=== PATIENT | male | born 1945 | race Caucasian/White ===

== ENCOUNTER → 2018-09-04 | Outpatient (CLI) | payer MEDICARE ==
--- NOTE | 2018-09-04 12:55 | CT ---
EXAMINATION TYPE: CT sinus wo con DATE OF EXAM: 09/04/2018 COMPARISON: 09/28/2010 HISTORY: Chronic sinusitis CT DLP: 608 mGycm CONTRAST: 0 mL of Isovue 300 The paranasal sinuses are examined in the axial plane at 2 mm thick sections. Reconstructed images i n the coronal plane were obtained. Mild mucosal thickening is within the right maxillary sinus. There is been prior ethmoidectomies. So me mild mucosal thickening is within the anterior right ethmoid region. The sphenoid sinuses are trina ar. The frontal sinuses are clear. The septum is evaluated. No significant septal deviation is noted. There've been prior uncinectomies. Mucosal thickening within the maxillary sinus has improved over the interval. Remaining changes appea r stable. IMPRESSIONS: 1. Postsurgical changes of uncinectomies and ethmoidectomies
== END | disposition home or self-care (01) ==
LOC: RADCTMAIN 12:24
PROVIDERS: ATTEND Otolaryngology
DX: J32.9 Chronic sinusitis, unspecified (principal); Z98.890 Other specified postprocedural states
CPT/HCPCS: 70486

== ENCOUNTER → 2019-04-23 | Outpatient (CLI) | payer MEDICARE | END | disposition home or self-care (01) | LOC: PEDOP 13:24 | PROVIDERS: ATTEND Internal Medicine | DX: R05 Cough (principal); M79.10 Myalgia, unspecified site; R09.81 Nasal congestion | CPT/HCPCS: 87502 ==

== ENCOUNTER 2019-08-25 13:21 | Inpatient (IN) | payer MEDICARE ==
[2019-08-25] MEDS ORDERED: IPRATROPIUM-ALBUTEROL 3 ML NEB INHALATION STA (13:43)
[2019-08-25] MEDS ORDERED: methylPREDNISolone SOD SUCCI 125 MG/2 ML VIAL IV STA (13:43)
--- NOTE | 2019-08-25 13:49 | ED ---
SOB HPI - General Chief Complaint: Shortness of Breath Stated Complaint: flu symptoms Time Seen by Provider: 08/25/19 13:33 Source: patient, RN notes reviewed Mode of arrival: ambulatory Limitations: no limitations - History of Present Illness Initial Comments: This is a 74-year-old male with a history of COPD who is on home oxygen when necessary but now for the last several days and been on at all time who states that he's been fighting pneumonia since [place] he's been on 2 different rounds of antibiotics and I gave much better. 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 No overt chills or sweats no fevers no chest pain. He states he is not getting much relief from his home nebulizer treatments either. No other modifying factors other than he does state he has some slight increased swelling to his lower extremities now. MD Complaint: shortness of breath, cough - Related Data Allergies Allergy/AdvReac Type Severity Reaction Status Date / Time No Known Allergies Allergy Verified 08/25/19 13:33 Review of Systems ROS Statement: Those systems with pertinent positive or pertinent negative responses have been documented in the HPI. ROS Other: All systems not noted in ROS Statement are negative. Past Medical History Past Medical History: COPD, Diabetes Mellitus, Hyperlipidemia, Hypertension History of Any Multi-Drug Resistant Organisms: None Reported Past Surgical History: Hernia Repair, Orthopedic Surgery Additional Past Surgical History / Comment(s): lt ankle, rt shoulder, rt hip Past Psychological History: No Psychological Hx Reported Smoking Status: Former smoker Past Alcohol Use History: None Reported Past Drug Use History: None Reported General Exam - General Exam Comments Initial Comments: This is a well-developed well-nourished awake alert oriented 3 male Limitations: no limitations General appearance: alert, anxious Head exam: Present: atraumatic, normocephalic, normal inspection Eye exam: Present: normal appearance, PERRL, EOMI. Absent: scleral icterus, conjunctival injection, periorbital swelling ENT exam: Present: mucous membranes dry Neck exam: Present: normal inspection. Absent: tenderness, meningismus, lymphadenopathy Respiratory exam: Present: wheezes, accessory muscle use, decreased breath sounds. Absent: respiratory distress, rales, rhonchi, stridor Cardiovascular Exam: Present: regular rate, normal rhythm, normal heart sounds. Absent: systolic murmur, diastolic murmur, rubs, gallop, clicks GI/Abdominal exam: Present: soft, normal bowel sounds. Absent: distended, tenderness, guarding, rebound, rigid Extremities exam: Present: full ROM, normal capillary refill, pedal edema (Trace edema bilaterally). Absent: tenderness, joint swelling, calf tenderness Back exam: Present: normal inspection Neurological exam: Present: alert, oriented X3, CN II-XII intact Psychiatric exam: Present: normal affect, normal mood Skin exam: Present: warm, dry, intact, normal color. Absent: rash Course Vital Signs 08/25/19 08/25/19 08/25/19 13:29 13:57 14:01 Temperature 97.8 F 98.8 F Pulse Rate 73 94 Respiratory 16 Rate Blood Pressure 123/55 O2 Sat by Pulse 98 Oximetry 08/25/19 08/25/19 14:21 14:53 Temperature 98.1 F Pulse Rate 89 101 H Respiratory 20 Rate Blood Pressure 120/63 O2 Sat by Pulse 94 L Oximetry - Reevaluation(s) Reevaluation #1: 08/25/19 15:38 Reevaluation if she does state he feels somewhat improved after the initial updraft treatment. He does demonstrate evidence of a right and left lower lobe infiltrate. He also has anemia he has not had any dark colored stools or red or burgundy colored stools does have a history of gastritis in the past history of ulcers. He was on iron until about a year ago. Medical Decision Making - Medical Decision Making Patient is feeling somewhat better after the initial updraft and treatment that was rendered. Discussed with him and his patient will be admitted he does have pneumonia does have elevated lactic acid likely secondary to dehydration. Also he has anemia he denies any GI bleeding at this time he does have a history of anemia apparently with iron treatments and passed she's not had any for quite some time. - Lab Data Result diagrams: 08/25/19 13:55 08/25/19 13:55 Lab Results 08/25/19 08/25/19 08/25/19 Range/Units 13:55 13:55 13:55 WBC 9.9 (3.8-10.6) k/uL RBC 3.54 L (4.30-5.90) m/uL Hgb 8.7 L (13.0-17.5) gm/dL Hct 29.6 L (39.0-53.0) % MCV 83.6 (80.0-100.0) fL MCH 24.6 L (25.0-35.0) pg MCHC 29.4 L (31.0-37.0) g/dL RDW 17.5 H (11.5-15.5) % Plt Count 648 H (150-450) k/uL Neutrophils % 82 % Lymphocytes % 9 % Monocytes % 6 % Eosinophils % 1 % Basophils % 2 % Neutrophils # 8.0 H (1.3-7.7) k/uL Lymphocytes # 0.9 L (1.0-4.8) k/uL Monocytes # 0.6 (0-1.0) k/uL Eosinophils # 0.1 (0-0.7) k/uL Basophils # 0.2 (0-0.2) k/uL Manual Slide Review Performed Hypochromasia Marked Poikilocytosis Slight Anisocytosis Slight PT (9.0-12.0) sec INR (<1.2) APTT (22.0-30.0) sec Sodium 141 (137-145) mmol/L Potassium 4.6 (3.5-5.1) mmol/L Chloride 102 (98-107) mmol/L Carbon Dioxide 26 (22-30) mmol/L Anion Gap 13 mmol/L BUN 16 (9-20) mg/dL Creatinine 1.05 (0.66-1.25) mg/dL Est GFR (CKD-EPI)AfAm 82 (>60 ml/min/1.73 sqM) Est GFR (CKD-EPI)NonAf 71 (>60 ml/min/1.73 sqM) Glucose 236 H (74-99) mg/dL Plasma Lactic Acid Po 4.9 H* (0.7-2.0) mmol/L Calcium 9.8 (8.4-10.2) mg/dL Magnesium 1.8 (1.6-2.3) mg/dL Total Bilirubin 0.3 (0.2-1.3) mg/dL AST 42 (17-59) U/L ALT 31 (4-49) U/L Alkaline Phosphatase 78 (38-126) U/L Creatine Kinase 34 L (55-170) U/L Troponin I (0.000-0.034) ng/mL NT-Pro-B Natriuret Pep pg/mL Total Protein 6.6 (6.3-8.2) g/dL Albumin 3.7 (3.5-5.0) g/dL Urine Color Urine Appearance (Clear) Urine pH (5.0-8.0) Ur Specific [place] (1.001-1.035) Urine Protein (Negative) Urine Glucose (UA) (Negative) Urine Ketones (Negative) Urine Blood (Negative) Urine Nitrite (Negative) Urine Bilirubin (Negative) Urine Urobilinogen (<2.0) mg/dL Ur Leukocyte Esterase (Negative) Urine RBC (0-5) /hpf Urine WBC (0-5) /hpf Ur Squamous Epith Cells (0-4) /hpf Hyaline Casts (0-2) /lpf Urine Mucus (None) /hpf Acetone, Qual (Negative) 08/25/19 08/25/19 08/25/19 Range/Units 13:55 13:55 13:55 WBC (3.8-10.6) k/uL RBC (4.30-5.90) m/uL Hgb (13.0-17.5) gm/dL Hct (39.0-53.0) % MCV (80.0-100.0) fL MCH (25.0-35.0) pg MCHC (31.0-37.0) g/dL RDW (11.5-15.5) % Plt Count (150-450) k/uL Neutrophils % % Lymphocytes % % Monocytes % % Eosinophils % % Basophils % % Neutrophils # (1.3-7.7) k/uL Lymphocytes # (1.0-4.8) k/uL Monocytes # (0-1.0) k/uL Eosinophils # (0-0.7) k/uL Basophils # (0-0.2) k/uL Manual Slide Review Hypochromasia Poikilocytosis Anisocytosis PT 9.4 (9.0-12.0) sec INR 0.9 (<1.2) APTT 22.2 (22.0-30.0) sec Sodium (137-145) mmol/L Potassium (3.5-5.1) mmol/L Chloride (98-107) mmol/L Carbon Dioxide (22-30) mmol/L Anion Gap mmol/L BUN (9-20) mg/dL Creatinine (0.66-1.25) mg/dL Est GFR (CKD-EPI)AfAm (>60 ml/min/1.73 sqM) Est GFR (CKD-EPI)NonAf (>60 ml/min/1.73 sqM) Glucose (74-99) mg/dL Plasma Lactic Acid Po (0.7-2.0) mmol/L Calcium (8.4-10.2) mg/dL Magnesium (1.6-2.3) mg/dL Total Bilirubin (0.2-1.3) mg/dL AST (17-59) U/L ALT (4-49) U/L Alkaline Phosphatase (38-126) U/L Creatine Kinase (55-170) U/L Troponin I <0.012 (0.000-0.034) ng/mL NT-Pro-B Natriuret Pep 528 pg/mL Total Protein (6.3-8.2) g/dL Albumin (3.5-5.0) g/dL Urine Color Urine Appearance (Clear) Urine pH (5.0-8.0) Ur Specific [place] (1.001-1.035) Urine Protein (Negative) Urine Glucose (UA) (Negative) Urine Ketones (Negative) Urine Blood (Negative) Urine Nitrite (Negative) Urine Bilirubin (Negative) Urine Urobilinogen (<2.0) mg/dL Ur Leukocyte Esterase (Negative) Urine RBC (0-5) /hpf Urine WBC (0-5) /hpf Ur Squamous Epith Cells (0-4) /hpf Hyaline Casts (0-2) /lpf Urine Mucus (None) /hpf Acetone, Qual (Negative) 08/25/19 08/25/19 Range/Units 13:55 14:50 WBC (3.8-10.6) k/uL RBC (4.30-5.90) m/uL Hgb (13.0-17.5) gm/dL Hct (39.0-53.0) % MCV (80.0-100.0) fL MCH (25.0-35.0) pg MCHC (31.0-37.0) g/dL RDW (11.5-15.5) % Plt Count (150-450) k/uL Neutrophils % % Lymphocytes % % Monocytes % % Eosinophils % % Basophils % % Neutrophils # (1.3-7.7) k/uL Lymphocytes # (1.0-4.8) k/uL Monocytes # (0-1.0) k/uL Eosinophils # (0-0.7) k/uL Basophils # (0-0.2) k/uL Manual Slide Review Hypochromasia Poikilocytosis Anisocytosis PT (9.0-12.0) sec INR (<1.2) APTT (22.0-30.0) sec Sodium (137-145) mmol/L Potassium (3.5-5.1) mmol/L Chloride (98-107) mmol/L Carbon Dioxide (22-30) mmol/L Anion Gap mmol/L BUN (9-20) mg/dL Creatinine (0.66-1.25) mg/dL Est GFR (CKD-EPI)AfAm (>60 ml/min/1.73 sqM) Est GFR (CKD-EPI)NonAf (>60 ml/min/1.73 sqM) Glucose (74-99) mg/dL Plasma Lactic Acid Po (0.7-2.0) mmol/L Calcium (8.4-10.2) mg/dL Magnesium (1.6-2.3) mg/dL Total Bilirubin (0.2-1.3) mg/dL AST (17-59) U/L ALT (4-49) U/L Alkaline Phosphatase (38-126) U/L Creatine Kinase (55-170) U/L Troponin I (0.000-0.034) ng/mL NT-Pro-B Natriuret Pep pg/mL Total Protein (6.3-8.2) g/dL Albumin (3.5-5.0) g/dL Urine Color Yellow Urine Appearance Clear (Clear) Urine pH 6.0 (5.0-8.0) Ur Specific [place] 1.015 (1.001-1.035) Urine Protein 1+ H (Negative) Urine Glucose (UA) Negative (Negative) Urine Ketones Negative (Negative) Urine Blood Negative (Negative) Urine Nitrite Negative (Negative) Urine Bilirubin Negative (Negative) Urine Urobilinogen <2.0 (<2.0) mg/dL Ur Leukocyte Esterase Small (Negative) Urine RBC <1 (0-5) /hpf Urine WBC 8 H (0-5) /hpf Ur Squamous Epith Cells <1 (0-4) /hpf Hyaline Casts 43 H (0-2) /lpf Urine Mucus Occasional H (None) /hpf Acetone, Qual Negative (Negative) - EKG Data -: EKG Interpreted by Me EKG shows normal: sinus rhythm (Sinus tachycardia rate 101. Interval 116 QRS duration 122 QT since QTC 360/466 evidence a right bundle-branch block occasional PVC no acute ST-T wave changes) - Radiology Data Radiology results: report reviewed, image reviewed (I did review the imaging and report or is evidence of a right greater than left lower lobe infiltrate.) Disposition Clinical Impression: Acute exacerbation of chronic obstructive pulmonary disease, Pneumonia, Anemia, Failure of outpatient treatment, Lactic acidosis, Dehydration Disposition: ADMITTED IP TO THIS HOSP Condition: Fair Referrals: Lonnie Lee MD [Primary Care Provider] - 1-2 days
--- NOTE | 2019-08-25 14:12 | XR ---
EXAMINATION TYPE: XR chest 2V DATE OF EXAM: 08/25/2019 COMPARISON: 11/07/2010 HISTORY: 74 year-old male shortness of breath, cough, difficulty breathing TECHNIQUE: PA and lateral views FINDINGS: Heart upper limits of normal in size. Patchy opacities peripheral right mid and lower lung, medial ri ght base, and more strandy opacities at the left base. Hyperinflation with increased retrosternal trina ar space. No sizable effusion. IMPRESSION: Mild patchy infiltrates right greater than left lower lungs. Correlate for pneumonia or interstitial pneumonitis.
[2019-08-25 14:24] LABS: INR 0.9 (<1.2); Partial Thromboplastin Time 22.2 sec (22.0-30.0); Prothrombin Time 9.4 sec (9.0-12.0)
[2019-08-25 14:26] LABS: Anisocytosis Slight; Basophils # (A) 0.2 k/uL (0-0.2); Basophils % (A) 2 %; Eosinophils # (A) 0.1 k/uL (0-0.7); Eosinophils % (A) 1 %; HCT 29.6 % (39.0-53.0); HGB 8.7 gm/dL (13.0-17.5); Hypochromasia Marked; Lymphocytes # (A) 0.9 k/uL (1.0-4.8); Lymphocytes % (A) 9 %; MCH 24.6 pg (25.0-35.0); MCHC 29.4 g/dL (31.0-37.0); MCV 83.6 fL (80.0-100.0); Mean Platelet Volume 7.8; Monocytes # (A) 0.6 k/uL (0-1.0); Monocytes % (A) 6 %; Neutrophils % (A) 82 %; Platelet Count 648 k/uL (150-450); Poikilocytosis Slight; RBC 3.54 m/uL (4.30-5.90); RDW 17.5 % (11.5-15.5); WBC 9.9 k/uL (3.8-10.6)
[2019-08-25 14:31] LABS: Albumin 3.7 g/dL (3.5-5.0); Calcium 9.8 mg/dL (8.4-10.2); Magnesium 1.8 mg/dL (1.6-2.3); Potassium 4.6 mmol/L (3.5-5.1); Total Bilirubin 0.3 mg/dL (0.2-1.3); Total Protein 6.6 g/dL (6.3-8.2)
[2019-08-25] MEDS ORDERED: cefTRIAXone IN SWFI 1,000 MG/10 ML SYRINGE IVP STA (14:35)
[2019-08-25] MEDS ORDERED: SODIUM CHLORIDE 0.9% 2,000 ML IV ONE (14:35)
[2019-08-25 15:37] LABS: Hyaline Casts,Urine 43 /lpf (0-2); Mucus,Urine Occasional /hpf; RBC,Urine <1 /hpf (0-5); Squamous Epithelial Cell,Urine <1 /hpf (0-4); WBC,Urine 8 /hpf (0-5)
[2019-08-25 15:39] LABS: Appearance,Urine Clear (Clear); Color,Urine Yellow; Glucose,Urine (UA) Negative (Negative); Protein,Urine 1+ (Negative); Specific Gravity,Urine 1.015 (1.001-1.035)
[2019-08-25 15:40] LABS: Bilirubin,Urine Negative (Negative); Blood,Urine Negative (Negative); Ketones,Urine Negative (Negative); Leukocyte Esterase,Urine Small (Negative); Nitrite,Urine Negative (Negative); Urobilinogen,Urine <2.0 mg/dL (<2.0)
[2019-08-25] MEDS ORDERED: PNEUMONIA PROTOCOL UTILIZED 1 EACH MISC PO PRN (15:47)
[2019-08-25] MEDS ORDERED: AZITHROMYCIN 500 MG in SODIUM CHLORIDE 0.9% 250 ML IVPB STA (15:47)
[2019-08-25] MEDS: SODIUM CHLORIDE 0.9% 1,000 ML IV SCH (18:00)
[2019-08-25] MEDS: metFORMIN 500 MG TAB PO SCH (18:03)
[2019-08-25] MEDS: IPRATROPIUM-ALBUTEROL 3 ML NEB INHALATION SCH ×2 (19:07→20:36)
--- NOTE | 2019-08-25 19:53 | P.HPIM ---
History of Present Illness This is a pleasant 74 years old male with past medical history of diabetes mellitus, hyperlipidemia, hypertension, He has history of chronic obstructvie pulmonary disease and he follow up with dr. menchaca as outpt setting. he presents with dyspnea for 3-4 days duration associated with coughing and phlegm , no chest pain , no vomiting no abd pain , no fever , he can not remember sick contact. no chills Vitals looks stable, the WBC within normal limits at 9.9K, hemoglobin 8.7, unknown baseline. BMP is unremarkable, glucose is elevated at 236, lactic acid is elevated at 4.9, liver enzymes were unremarkable. Mild patchy infiltrate right more than left. EKG showing sinus tachycardia at [address]-T changes, right bundle branch block and QTC at 466 In the emergency room patient got steroids, Zithromax and Rocephin and 2 L of normal saline. Review of Systems CONSTITUTIONAL: No fever, no malaise, no fatigue. HEENT: No recent visual problems or hearing problems. Denied any sore throat. CARDIOVASCULAR: No orthopnea, PND, no palpitations, no syncope. PULMONARY: No shortness of breath, no cough, no hemoptysis. GASTROINTESTINAL: No diarrhea, no nausea, no vomiting, no abdominal pain. Normoactive bowel sounds. NEUROLOGICAL: No headaches, no weakness, no numbness. HEMATOLOGICAL: Denies any bleeding or petechiae. GENITOURINARY: Denies any burning micturition, frequency, or urgency. MUSCULOSKELETAL/RHEUMATOLOGICAL: Denies any joint pain, swelling, or any muscle pain. ENDOCRINE: Denies any polyuria or polydipsia. Past Medical History Past Medical History: COPD, Diabetes Mellitus, Hyperlipidemia, Hypertension History of Any Multi-Drug Resistant Organisms: None Reported Past Surgical History: Hernia Repair, Orthopedic Surgery Additional Past Surgical History / Comment(s): lt ankle, rt shoulder, rt hip Past Psychological History: No Psychological Hx Reported Smoking Status: Former smoker Past Alcohol Use History: None Reported Past Drug Use History: None Reported Medications and Allergies Home Medications Medication Instructions Recorded Confirmed Type Budesonide [Pulmicort] 0.5 mg INHALATION RT-BID 08/25/19 08/25/19 History Doxylamine Succinate [Unisom] 25 mg PO HS 08/25/19 08/25/19 History Formoterol Fumarate [Perforomist] 20 mcg INHALATION RT-BID 08/25/19 08/25/19 History Gabapentin [Neurontin] 200 mg PO BID@1600,2100 08/25/19 08/25/19 History HYDROcodone/APAP 7.5-325MG [[place] 1 tab PO BID 08/25/19 08/25/19 History 7.5-325] Ipratropium-Albuterol Nebulize 3 ml INHALATION RT-QID 08/25/19 08/25/19 History [Duoneb 0.5 mg-3 mg/3 ml Soln] Multivit-Min/FA/Lycopen/Lutein 1 tab PO DAILY 08/25/19 08/25/19 History [Centrum Silver Tablet] Pantoprazole [Protonix] 40 mg PO DAILY 08/25/19 08/25/19 History Sucralfate [Carafate] 1 gm PO AC-TID 08/25/19 08/25/19 History Tamsulosin [Flomax] 0.4 mg PO BID 08/25/19 08/25/19 History amLODIPine [Norvasc] 10 mg PO DAILY 08/25/19 08/25/19 History diphenhydrAMINE HCL [Benadryl] 25 mg PO HS 08/25/19 08/25/19 History metFORMIN HCL ER [Glucophage Xr] 500 mg PO PC-SUPPER 08/25/19 08/25/19 History Allergies Allergy/AdvReac Type Severity Reaction Status Date / Time No Known Allergies Allergy Verified 08/25/19 13:33 Physical Exam Vitals: Vital Signs Temp Pulse Resp BP Pulse Ox 08/25/19 16:49 82 22 156/73 95 08/25/19 14:53 98.1 F 101 H 20 120/63 94 L 08/25/19 14:21 89 08/25/19 14:01 94 08/25/19 13:57 98.8 F 08/25/19 13:29 97.8 F 73 16 123/55 98 Intake and Output 08/25/19 08/25/19 08/25/19 06:59 14:59 22:59 Other: Weight 89.358 kg GENERAL: The patient is alert and oriented x3, not in any acute distress. Well developed, well nourished. HEENT: Pupils are round and equally reacting to light. EOMI. No scleral icterus. No conjunctival pallor. Normocephalic, atraumatic. No pharyngeal erythema. No thyromegaly. CARDIOVASCULAR: S1 and S2 present. No murmurs, rubs, or gallops. PULMONARY: Chest is clear to auscultation, no wheezing or crackles. ABDOMEN: Soft, nontender, nondistended, normoactive bowel sounds. No palpable organomegaly. MUSCULOSKELETAL: No joint swelling or deformity. EXTREMITIES: No cyanosis, clubbing, or pedal edema. NEUROLOGICAL: Gross neurological examination did not reveal any focal deficits. SKIN: No rashes. No petechiae Results CBC & Chem 7: 08/25/19 13:55 08/25/19 13:55 Labs: Abnormal Lab Results - Last 24 Hours (Table) 08/25/19 08/25/19 08/25/19 Range/Units 13:55 13:55 13:55 RBC 3.54 L (4.30-5.90) m/uL Hgb 8.7 L (13.0-17.5) gm/dL Hct 29.6 L (39.0-53.0) % MCH 24.6 L (25.0-35.0) pg MCHC 29.4 L (31.0-37.0) g/dL RDW 17.5 H (11.5-15.5) % Plt Count 648 H (150-450) k/uL Neutrophils # 8.0 H (1.3-7.7) k/uL Lymphocytes # 0.9 L (1.0-4.8) k/uL Glucose 236 H (74-99) mg/dL Plasma Lactic Acid Po 4.9 H* (0.7-2.0) mmol/L Creatine Kinase 34 L (55-170) U/L Urine Protein (Negative) Urine WBC (0-5) /hpf Hyaline Casts (0-2) /lpf Urine Mucus (None) /hpf 08/25/19 Range/Units 14:50 RBC (4.30-5.90) m/uL Hgb (13.0-17.5) gm/dL Hct (39.0-53.0) % MCH (25.0-35.0) pg MCHC (31.0-37.0) g/dL RDW (11.5-15.5) % Plt Count (150-450) k/uL Neutrophils # (1.3-7.7) k/uL Lymphocytes # (1.0-4.8) k/uL Glucose (74-99) mg/dL Plasma Lactic Acid Po (0.7-2.0) mmol/L Creatine Kinase (55-170) U/L Urine Protein 1+ H (Negative) Urine WBC 8 H (0-5) /hpf Hyaline Casts 43 H (0-2) /lpf Urine Mucus Occasional H (None) /hpf Assessment and Plan Assessment: Bilateral pneumonia more the right side Possible Acute COPD exacerbation Elevated lactic acid Hyperglycemia Diabetes mellitus Hypertension Hyperlipidemia BPH Plan: This is a pleasant 74 years old male who presents with pneumonia and dehydration. Continue with IV fluids. Continue with ceftriaxone and Zithromax. Pulmonary consult Labs and medication were reviewed.. Continue same treatment. Continue with symptomatic treatment. Resume home medication. Monitor lytes and vitals. DVT and GI prophylaxis. Further recommendations of the clinical course of the patient DVT prophylaxis: Subcutaneous heparin GI Prophylaxis: Protonix PT/OT: Pending Prognosis is guarded
[2019-08-25 20:15] LABS: Glucose,Whole Blood 242 mg/dL (75-99)
[2019-08-25] MEDS: BUDESONIDE 0.5 MG/2 ML NEBU INHALATION SCH (20:35)
[2019-08-25] MEDS ORDERED: HYDROcodone/APAP 7.5-325MG 1 EACH TAB PO PRN (21:00)
[2019-08-25] MEDS ORDERED: GABAPENTIN 100 MG CAP PO SCH (21:00)
[2019-08-25] MEDS: HYDROcodone/APAP 7.5-325MG 1 EACH TAB PO SCH (21:04)
[2019-08-25] MEDS: TAMSULOSIN 0.4 MG CAP.ER.24H PO SCH (21:05)
[2019-08-26] MEDS: IPRATROPIUM-ALBUTEROL 3 ML NEB INHALATION SCH ×7 (00:18→23:19)
[2019-08-26] MEDS: methylPREDNISolone SOD SUCCI 40 MG/ML 1 ML VIAL IV SCH ×4 (00:57→22:59)
[2019-08-26] MEDS: SODIUM CHLORIDE 0.9% 1,000 ML IV SCH ×4 (03:52→20:13)
[2019-08-26] MEDS: GABAPENTIN 100 MG CAP PO SCH (03:53)
[2019-08-26] MEDS: SUCRALFATE 1 GM TAB PO SCH ×3 (06:37→17:20)
[2019-08-26] MEDS: INSULIN ASPART (NovoLOG) 100 UNIT/ML VIAL SQ SCH ×4 (06:42→20:08)
[2019-08-26] MEDS: metFORMIN 500 MG TAB PO SCH (06:42)
[2019-08-26 06:43] LABS: Glucose,Whole Blood 240 mg/dL (75-99)
[2019-08-26 07:04] LABS: Anisocytosis Slight; Basophils % (A) 0 %; Eosinophils % (A) 0 %; HGB 7.9 gm/dL (13.0-17.5); Hypochromasia Marked; Lymphocytes # (A) 0.7 k/uL (1.0-4.8); Lymphocytes % (A) 8 %; MCH 24.4 pg (25.0-35.0); MCHC 29.1 g/dL (31.0-37.0); MCV 83.9 fL (80.0-100.0); Mean Platelet Volume 7.6; Monocytes # (A) 0.3 k/uL (0-1.0); Monocytes % (A) 4 %; Neutrophils # (A) 7.6 k/uL (1.3-7.7); Neutrophils % (A) 87 %; Platelet Count 553 k/uL (150-450); Poikilocytosis Slight; RBC 3.22 m/uL (4.30-5.90); RDW 17.6 % (11.5-15.5); WBC 8.7 k/uL (3.8-10.6)
[2019-08-26] MEDS: BUDESONIDE 0.5 MG/2 ML NEBU INHALATION SCH ×2 (07:20→19:39)
[2019-08-26 07:27] LABS: African American GFR (CKD) >90 (>60 ml/min/1.73 sqM); Anion Gap 6 mmol/L; Blood Urea Nitrogen 15 mg/dL (9-20); Calcium 8.9 mg/dL (8.4-10.2); Carbon Dioxide 27 mmol/L (22-30); Chloride 107 mmol/L (98-107); Glucose 228 mg/dL (74-99); Non-African American GFR(CKD) 82 (>60 ml/min/1.73 sqM); Potassium 4.6 mmol/L (3.5-5.1); Sodium 140 mmol/L (137-145)
--- NOTE | 2019-08-26 07:54 | XR ---
EXAMINATION TYPE: XR chest 2V DATE OF EXAM: 08/26/2019 COMPARISON: 08/25/2019 HISTORY: 74-year-old male follow-up pneumonia TECHNIQUE: PA and lateral views FINDINGS: Heart remains upper limits of normal in size. Aorta and pulmonary vasculature within normal limits. R elatively similar patchy right mid and lower lung opacities and some strandy opacity left base, proba ble atelectasis/scarring. Hyperinflation with flattening of the hemidiaphragms. No sizable effusion. IMPRESSION: Stable patchy infiltrates right mid and lower lung. Opacities at the left base have a strandy appeara nce suggesting atelectasis/scarring. Background of COPD.
--- NOTE | 2019-08-26 09:16 | P.PN ---
Subjective This is a pleasant 74 years old male with past medical history of diabetes mellitus, hyperlipidemia, hypertension, He has history of chronic obstructvie pulmonary disease and he follow up with dr. menchaca as outpt setting. he presents with dyspnea for 3-4 days duration associated with coughing and phlegm , no chest pain , no vomiting no abd pain , no fever , he can not remember sick contact. no chills Vitals looks stable, the WBC within normal limits at 9.9K, hemoglobin 8.7, unknown baseline. BMP is unremarkable, glucose is elevated at 236, lactic acid is elevated at 4.9, liver enzymes were unremarkable. Mild patchy infiltrate right more than left. EKG showing sinus tachycardia at [address]-T changes, right bundle branch block and QTC at 466 In the emergency room patient got steroids, Zithromax and Rocephin and 2 L of normal saline. 08/26/2019 Patient states that his breathing is a little better and his breathing quietly, still having coughing and with some phlegm, he denies chest pain, he was asking something to help him sleep and he states he takes Flomax as 2 pills at night which was changed. Patient is slightly tachycardic 92-107 this morning, and febrile and he is saturating 94% at 3 L oxygen. WBC is a stable and normal. Lactic acid is still elevated at 2.9 he's on normal saline at 130 milliliters per hour. Patient is currently on Rocephin and ceftriaxone Review of systems CONSTITUTIONAL: No fever, no malaise, no fatigue. HEENT: No recent visual problems or hearing problems. Denied any sore throat. CARDIOVASCULAR: No orthopnea, PND, no palpitations, no syncope. PULMONARY: No shortness of breath, no cough, no hemoptysis. GASTROINTESTINAL: No diarrhea, no nausea, no vomiting, no abdominal pain. Normoactive bowel sounds. NEUROLOGICAL: No headaches, no weakness, no numbness. HEMATOLOGICAL: Denies any bleeding or petechiae. GENITOURINARY: Denies any burning micturition, frequency, or urgency. MUSCULOSKELETAL/RHEUMATOLOGICAL: Denies any joint pain, swelling, or any muscle pain. ENDOCRINE: Denies any polyuria or polydipsia. Active Medications Generic Name Dose Route Start Last Admin Trade Name Freq PRN Reason Stop Dose Admin Hydrocodone Bitart/Acetaminophen 1 each 08/25/19 21:00 08/25/19 21:04 [place] 7.5-325 PO 1 each BID DARION Administration Albuterol/Ipratropium 3 ml 08/25/19 16:00 08/26/19 07:20 Duoneb 0.5 Mg-3 Mg/3 Ml Soln INHALATION 3 ml RT-Q4H DARION Administration Amlodipine Besylate 10 mg 08/26/19 09:00 Norvasc PO DAILY DARION Azithromycin 500 mg 08/26/19 09:00 Zithromax PO DAILY DAROIN Budesonide 0.5 mg 08/25/19 20:00 08/26/19 07:20 Pulmicort INHALATION 0.5 mg RT-BID DARION Administration Gabapentin 200 mg 08/26/19 02:00 08/26/19 03:53 Neurontin PO Not Given DAILY@0200 [facility] Heparin Sodium (Porcine) 5,000 unit 08/26/19 09:00 Heparin SQ Q12HR [facility] Sodium Chloride 1,000 mls @ 130 mls/hr 08/25/19 16:00 08/26/19 05:35 Saline 0.9% IV Not Given .Q7H42M [facility] Ceftriaxone Sodium 1 gm/ 50 mls @ 100 mls/hr 08/26/19 15:00 Sodium Chloride IVPB Q24H [facility] Insulin Aspart 0 unit 08/26/19 07:30 08/26/19 06:42 Novolog SQ 8 unit ACHS DARION Administration Protocol Melatonin 3 mg 08/26/19 09:14 Melatonin PO HS PRN Insomnia Metformin HCl 250 mg 08/25/19 18:30 08/26/19 06:42 Glucophage PO 250 mg BID-W/MEALS DARION Administration Methylprednisolone Sodium Succinate 40 mg 08/26/19 00:00 08/26/19 00:57 Solu-Medrol IV 40 mg Q8HR DARION Administration Miscellaneous Information 1 each 08/25/19 15:47 Pneumonia Protocol Utilized PO ONCE PRN Per Protocol Pantoprazole Sodium 40 mg 08/26/19 09:00 Protonix PO DAILY [facility] Sucralfate 1 gm 08/26/19 07:30 08/26/19 06:37 Carafate PO 1 gm AC-TID [facility] Administration Tamsulosin HCl 0.8 mg 08/26/19 21:00 Flomax PO HS [facility] Objective - Vital Signs Vital signs: Vital Signs Temp 97.9 F 08/26/19 00:36 Pulse 92 08/26/19 07:35 Resp 20 08/26/19 00:36 BP 128/69 08/26/19 04:00 Pulse Ox 94 L 08/26/19 00:36 Intake & Output 08/25/19 08/26/19 08/26/19 18:59 06:59 18:59 Weight 89.358 kg 89.358 kg - Exam GENERAL: The patient is alert and oriented x3, not in any acute distress. Well developed, well nourished. HEENT: Pupils are round and equally reacting to light. EOMI. No scleral icterus. No conjunctival pallor. Normocephalic, atraumatic. No pharyngeal erythema. No thyromegaly. CARDIOVASCULAR: S1 and S2 present. No murmurs, rubs, or gallops. -PULMONARY: Chest is clear to auscultation, no wheezing or crackles. Decreased air entry on both sides ABDOMEN: Soft, nontender, nondistended, normoactive bowel sounds. No palpable organomegaly. MUSCULOSKELETAL: No joint swelling or deformity. EXTREMITIES: No cyanosis, clubbing, or pedal edema. NEUROLOGICAL: Gross neurological examination did not reveal any focal deficits. SKIN: No rashes. No petechiae - Labs CBC & Chem 7: 08/26/19 06:42 08/26/19 06:42 Labs: Abnormal Lab Results - Last 24 Hours (Table) 08/25/19 08/25/19 08/25/19 Range/Units 13:55 13:55 13:55 RBC 3.54 L (4.30-5.90) m/uL Hgb 8.7 L (13.0-17.5) gm/dL Hct 29.6 L (39.0-53.0) % MCH 24.6 L (25.0-35.0) pg MCHC 29.4 L (31.0-37.0) g/dL RDW 17.5 H (11.5-15.5) % Plt Count 648 H (150-450) k/uL Neutrophils # 8.0 H (1.3-7.7) k/uL Lymphocytes # 0.9 L (1.0-4.8) k/uL Glucose 236 H (74-99) mg/dL POC Glucose (mg/dL) (75-99) mg/dL Plasma Lactic Acid Po 4.9 H* (0.7-2.0) mmol/L Creatine Kinase 34 L (55-170) U/L Urine Protein (Negative) Urine WBC (0-5) /hpf Hyaline Casts (0-2) /lpf Urine Mucus (None) /hpf 08/25/19 08/25/19 08/25/19 Range/Units 14:50 17:46 20:10 RBC (4.30-5.90) m/uL Hgb (13.0-17.5) gm/dL Hct (39.0-53.0) % MCH (25.0-35.0) pg MCHC (31.0-37.0) g/dL RDW (11.5-15.5) % Plt Count (150-450) k/uL Neutrophils # (1.3-7.7) k/uL Lymphocytes # (1.0-4.8) k/uL Glucose (74-99) mg/dL POC Glucose (mg/dL) 242 H (75-99) mg/dL Plasma Lactic Acid Po 2.9 H* (0.7-2.0) mmol/L Creatine Kinase (55-170) U/L Urine Protein 1+ H (Negative) Urine WBC 8 H (0-5) /hpf Hyaline Casts 43 H (0-2) /lpf Urine Mucus Occasional H (None) /hpf 08/25/19 08/26/19 08/26/19 Range/Units 21:46 02:02 06:42 RBC 3.22 L (4.30-5.90) m/uL Hgb 7.9 L (13.0-17.5) gm/dL Hct 27.0 L (39.0-53.0) % MCH 24.4 L (25.0-35.0) pg MCHC 29.1 L (31.0-37.0) g/dL RDW 17.6 H (11.5-15.5) % Plt Count 553 H (150-450) k/uL Neutrophils # (1.3-7.7) k/uL Lymphocytes # 0.7 L (1.0-4.8) k/uL Glucose (74-99) mg/dL POC Glucose (mg/dL) (75-99) mg/dL Plasma Lactic Acid Po 2.9 H* 3.4 H* (0.7-2.0) mmol/L Creatine Kinase (55-170) U/L Urine Protein (Negative) Urine WBC (0-5) /hpf Hyaline Casts (0-2) /lpf Urine Mucus (None) /hpf 08/26/19 08/26/19 08/26/19 Range/Units 06:42 06:42 06:42 RBC (4.30-5.90) m/uL Hgb (13.0-17.5) gm/dL Hct (39.0-53.0) % MCH (25.0-35.0) pg MCHC (31.0-37.0) g/dL RDW (11.5-15.5) % Plt Count (150-450) k/uL Neutrophils # (1.3-7.7) k/uL Lymphocytes # (1.0-4.8) k/uL Glucose 228 H (74-99) mg/dL POC Glucose (mg/dL) 240 H (75-99) mg/dL Plasma Lactic Acid Po 2.9 H* (0.7-2.0) mmol/L Creatine Kinase (55-170) U/L Urine Protein (Negative) Urine WBC (0-5) /hpf Hyaline Casts (0-2) /lpf Urine Mucus (None) /hpf Assessment and Plan Assessment: Bilateral pneumonia more the right side Possible Acute COPD exacerbation Elevated lactic acid Hyperglycemia Diabetes mellitus Hypertension Hyperlipidemia BPH Plan: This is a pleasant 74 years old male who presents with pneumonia and dehydration. Continue with IV fluids. Continue with ceftriaxone and Zithromax. Pulmonary consult Labs and medication were reviewed.. Continue same treatment. Continue with symptomatic treatment. Resume home medication. Monitor lytes and vitals. DVT and GI prophylaxis. Further recommendations of the clinical course of the patient DVT prophylaxis: Subcutaneous heparin GI Prophylaxis: Protonix PT/OT: Pending Prognosis is guarded
[2019-08-26] MEDS: HEPARIN SODIUM,PORCINE 5,000 UNIT/ML 1 ML VIAL SQ SCH ×2 (09:19→20:07)
[2019-08-26] MEDS: amLODIPine 10 MG TAB PO SCH (09:19)
[2019-08-26] MEDS: AZITHROMYCIN 500 MG TAB PO SCH (09:19)
[2019-08-26] MEDS: PANTOPRAZOLE 40 MG TABLET PO SCH (09:19)
[2019-08-26] MEDS: HYDROcodone/APAP 7.5-325MG 1 EACH TAB PO SCH ×3 (09:20→20:07)
[2019-08-26] MEDS ORDERED: TAMSULOSIN 0.4 MG CAP.ER.24H PO STA (09:51)
[2019-08-26] MEDS: TAMSULOSIN 0.4 MG CAP.ER.24H PO SCH ×2 (10:01→20:08)
--- NOTE | 2019-08-26 11:41 | P.CNPUL ---
History of Present Illness Consult date: 08/26/19 Reason for consult: dyspnea History of present illness: A pleasant 74-year-old male patient with advanced COPD maintain oxygen at 2 L per minute nasal cannula along with a combination of Perforomist and Pulmicort updrafts twice a day. The patient is an ex-smoker. The patient is an ex- smoker. He has a FEV1 of 20% of predicted and diffusion capacity of 32% of predicted. The patient came into the hospital because of worsening shortness of breath. He was treated for an acute COPD exacerbation and outpatient basis for his primary care physician. Back in 07/11/2019, the patient was also given antibiotics and steroids by our office. He came in with similar symptoms. His white cell count was at 9.9. He had a chest x-ray that showed some patchy atelectatic change in the right lower lobe in addition to some infiltration. For that reason the patient was admitted to the hospital and he was started on a combination of Rocephin and Zithromax and IV Solu-Medrol. He is already feeling better. Unfortunately hasn't obtained a hospital bed. He is awaiting in the emergency department. LFTs unremarkable. He is afebrile. No altered m entation. No other significant events overnight for now. Patient has no chest pain. No swelling lower extremities. No other complaints otherwise. His main complaint is a study medications. He is diabetic. He has hypertension and hyperlipidemia as comorbid conditions. He also has osteoarthritis. He is obese. Review of Systems Constitutional: Denies chills, Denies fever Eyes: denies as per HPI, denies blurred vision, denies bulging eye, denies decreased vision, denies diplopia, denies discharge, denies dry eye, denies irri tation, denies itching, denies pain, denies photophobia, denies loss of peripheral vision, denies loss of vision, denies tunnel vision/blind spots Ears: deny: decreased hearing, ear discharge, earache, tinnitus Ears, nose, mouth and throat: Denies headache, Denies sore throat Cardiovascular: Reports decreased exercise tolerance, Reports dyspnea on exertion Respiratory: Reports cough with sputum, Reports dyspnea, Reports wheezing Genitourinary: Reports as per HPI Musculoskeletal: Reports as per HPI Musculoskeletal: absent: ankle pain, ankle stiffness, ankle swelling Integumentary: Reports as per HPI Neurological: Reports as per HPI Psychiatric: Reports as per HPI Endocrine: Reports as per HPI Hematologic/Lymphatic: Reports as per HPI Allergic/Immunologic: Reports as per HPI Past Medical History Past Medical History: COPD, Diabetes Mellitus, Hyperlipidemia, Hypertension History of Any Multi-Drug Resistant Organisms: None Reported Past Surgical History: Hernia Repair, Orthopedic Surgery Additional Past Surgical History / Comment(s): lt ankle, rt shoulder, rt hip Past Psychological History: No Psychological Hx Reported Smoking Status: Former smoker Past Alcohol Use History: None Reported Past Drug Use History: None Reported Medications and Allergies Home Medications Medication Instructions Recorded Confirmed Type Budesonide [Pulmicort] 0.5 mg INHALATION RT-BID 08/25/19 08/25/19 History Doxylamine Succinate [Unisom] 25 mg PO HS 08/25/19 08/25/19 History Formoterol Fumarate [Perforomist] 20 mcg INHALATION RT-BID 08/25/19 08/25/19 History Gabapentin [Neurontin] 200 mg PO BID@1600,2100 08/25/19 08/25/19 History HYDROcodone/APAP 7.5-325MG [[place] 1 tab PO BID 08/25/19 08/25/19 History 7.5-325] Ipratropium-Albuterol Nebulize 3 ml INHALATION RT-QID 08/25/19 08/25/19 History [Duoneb 0.5 mg-3 mg/3 ml Soln] Multivit-Min/FA/Lycopen/Lutein 1 tab PO DAILY 08/25/19 08/25/19 History [Centrum Silver Tablet] Pantoprazole [Protonix] 40 mg PO DAILY 08/25/19 08/25/19 History Sucralfate [Carafate] 1 gm PO AC-TID 08/25/19 08/25/19 History Tamsulosin [Flomax] 0.4 mg PO BID 08/25/19 08/25/19 History amLODIPine [Norvasc] 10 mg PO DAILY 08/25/19 08/25/19 History diphenhydrAMINE HCL [Benadryl] 25 mg PO HS 08/25/19 08/25/19 History metFORMIN HCL ER [Glucophage Xr] 500 mg PO PC-SUPPER 08/25/19 08/25/19 History Allergies Allergy/AdvReac Type Severity Reaction Status Date / Time No Known Allergies Allergy Verified 08/25/19 13:33 Physical Exam Vitals: Vital Signs Temp Pulse Pulse Resp BP BP Pulse Ox 08/26/19 07:40 97 F L 99 18 150/75 97 08/26/19 07:35 92 08/26/19 07:20 107 H 08/26/19 04:00 128/69 08/26/19 00:36 97.9 F 94 20 144/68 94 L 08/26/19 00:30 93 08/26/19 00:20 97 08/25/19 21:54 97.1 F L 87 20 116/81 95 08/25/19 20:54 92 08/25/19 20:36 97 08/25/19 20:05 96 18 159/77 96 08/25/19 19:06 97.5 F L 96 20 143/73 96 08/25/19 18:01 98.1 F 90 22 154/76 93 L 08/25/19 16:49 82 22 156/73 95 08/25/19 14:53 98.1 F 101 H 20 120/63 94 L 08/25/19 14:21 89 08/25/19 14:01 94 08/25/19 13:57 98.8 F 08/25/19 13:29 97.8 F 73 16 123/55 98 Intake and Output 08/25/19 08/26/19 08/26/19 22:59 06:59 14:59 Intake Total 210 Balance 210 Intake: Oral 210 Other: Weight 89.358 kg The patient appeared well nourished and normally developed. Vital signs as documented. Head exam is unremarkable. No scleral icterus or corneal arcus note d. Neck is without jugular venous distension, thyromegaly, or carotid bruits. Carotid upstrokes are brisk bilaterally. Lungs sounds are diminished bilaterally along with scattered expiratory wheezes and scattered rhonchi heard in the lung bases bilaterally. . Rhythm is regular. First and second heart sounds normal. No murmurs, rubs or gallops. Abdominal exam reveals normal bowel sounds, no masses, no organomegaly and no aortic enlargement. Extremities are nonedematous and both femoral and pedal pulses are normal.Examination of the skin revealed no evidence of significant rashes, suspicious appearing nevi or other concerning lesions. Neurologically the patient is awake and alert and is no focal neurological deficit. Results - Laboratory Findings CBC and BMP: 08/26/19 06:42 08/26/19 06:42 PT/INR, D-dimer PT 9.4 sec (9.0-12.0) 08/25/19 13:55 INR 0.9 (<1.2) 08/25/19 13:55 Abnormal lab findings: Abnormal Labs 08/25/19 08/25/19 08/25/19 13:55 13:55 13:55 RBC 3.54 L Hgb 8.7 L Hct 29.6 L MCH 24.6 L MCHC 29.4 L RDW 17.5 H Plt Count 648 H Neutrophils # 8.0 H Lymphocytes # 0.9 L Glucose 236 H POC Glucose (mg/dL) Plasma Lactic Acid Po 4.9 H* Creatine Kinase 34 L Urine Protein Urine WBC Hyaline Casts Urine Mucus 08/25/19 08/25/19 08/25/19 14:50 17:46 20:10 RBC Hgb Hct MCH MCHC RDW Plt Count Neutrophils # Lymphocytes # Glucose POC Glucose (mg/dL) 242 H Plasma Lactic Acid Po 2.9 H* Creatine Kinase Urine Protein 1+ H Urine WBC 8 H Hyaline Casts 43 H Urine Mucus Occasional H 08/25/19 08/26/19 08/26/19 21:46 02:02 06:42 RBC 3.22 L Hgb 7.9 L Hct 27.0 L MCH 24.4 L MCHC 29.1 L RDW 17.6 H Plt Count 553 H Neutrophils # Lymphocytes # 0.7 L Glucose POC Glucose (mg/dL) Plasma Lactic Acid Po 2.9 H* 3.4 H* Creatine Kinase Urine Protein Urine WBC Hyaline Casts Urine Mucus 08/26/19 08/26/19 08/26/19 06:42 06:42 06:42 RBC Hgb Hct MCH MCHC RDW Plt Count Neutrophils # Lymphocytes # Glucose 228 H POC Glucose (mg/dL) 240 H Plasma Lactic Acid Po 2.9 H* Creatine Kinase Urine Protein Urine WBC Hyaline Casts Urine Mucus - Diagnostic Findings Chest x-ray: image reviewed Assessment and Plan Plan: 1 acute COPD exacerbation with a limited atelectatic changes/infiltration of the right lung base, consider pneumonia 2 shortness of breath secondary to above 3 advanced COPD with an FEV1 of 28% of predicted 4 chronic hypoxic respiratory failure, on 2 L of oxygen by nasal cannula on outpatient basis her. Note that 5 obesity 6 hypertension 7 hyperlipidemia 8 diabetes mellitus Plan Agree on the current treatment. We'll monitor the right lower lobe finding of a chest x-ray and consider a CAT scan of the chest and the abnormalities remain unchanged. Continue breathing treatments. Continue antibiotics. We'll follow.
[2019-08-26 12:12] LABS: Glucose,Whole Blood 184 mg/dL (75-99)
--- NOTE | 2019-08-26 12:56 | CDI ---
Documentation Clarification Form Date: 08/26/2019 12:40:44 PM From: Funmilayo Johnson CCS, CCDS Admit Date: 08/25/2019 03:47:00 PM Patient Name: Bethel Carroll Visit Number: [id number] Discharge Date: ATTENTION: The Clinical Documentation Specialists (CDI) and [facility] Coding Staff appreciate your assistance in clarifying documentation. Please respond to the clarification below the line at the bottom and electronically sign. The CDI & [facility] Coding staff will review the response and follow-up if needed. Please note: Queries are made part of the Legal Health Record. If you have any questions, please contact the author of this message via ITS. Dr. Ish Andrews. Sheet: A diagnosis of anemia lacks specificity to accurately reflect your patients severity of condition and clarification is needed. Per the 08/25 ED note: The patient also has anemia nos, no dark colored stools, denies GI bleeding, has a history of gastritis in the past & ulcers. History/Risk Factors: Gastritis, ulcers nos, COPD on home O2, DM II, Hypertension, Hyperlipidemia & BPH Clinical indicators: Presented with URI symptoms: cough w/phlegm, SOB. Influenza negative. Admitted for acute exacerbation of advanced COPD & pneumonia, nos. GI/Abdominal Exam in ED: Soft, normal bowel sounds. Hemoglobin 08/25: 8.7*; 08/26: 7.9* Hematocrit 08/25: 29.6*; 08/26: 27.0* Treatment: Monitoring of H & H & electrolytes, INH Albuterol, IV Solumedrol, IV Rocephin, IV fluid bolus 2,000 mls @ 999 x1, IV Azithromycin, Heparin sq. In order to capture the severity of condition, please clarify the type of anemia and etiology if known: Acute blood loss anemia, please specify cause if known: Acute on chronic blood loss anemia, please specify cause if known: Chronic blood loss anemia, please specify cause if known: Hemolytic anemia Anemia of chronic disease, please specify if known: Unable to determine Other, please specify (Last Revision: April 2017) Unable to determine MTDD
[2019-08-26 17:09] LABS: Glucose,Whole Blood 192 mg/dL (75-99)
[2019-08-26 19:59] LABS: Glucose,Whole Blood 192 mg/dL (75-99)
[2019-08-26 23:35] LABS: Ferritin 25.2 ng/mL (22.0-322.0)
[2019-08-26 23:48] LABS: % Iron Saturation 3.86 (15.00-50.00)
[2019-08-27 00:06] LABS: Magnesium 1.9 mg/dL (1.6-2.3); Potassium 4.4 mmol/L (3.5-5.1)
[2019-08-27] MEDS: GABAPENTIN 100 MG CAP PO SCH (02:15)
[2019-08-27] MEDS: MELATONIN 3 MG TABLET PO PRN (02:15)
[2019-08-27] MEDS: IPRATROPIUM-ALBUTEROL 3 ML NEB INHALATION SCH ×5 (03:56→20:03)
[2019-08-27 05:11] LABS: Calcium 9.4 mg/dL (8.4-10.2); Potassium 4.2 mmol/L (3.5-5.1)
[2019-08-27] MEDS: SODIUM CHLORIDE 0.9% 1,000 ML IV SCH ×3 (05:26→23:11)
[2019-08-27 05:30] LABS: Anisocytosis Slight; Basophils % (A) 0 %; Eosinophils % (A) 0 %; HCT 28.3 % (39.0-53.0); HGB 8.2 gm/dL (13.0-17.5); Hypochromasia Marked; Lymphocytes # (A) 1.2 k/uL (1.0-4.8); Lymphocytes % (A) 11 %; MCH 24.4 pg (25.0-35.0); MCHC 29.1 g/dL (31.0-37.0); MCV 83.6 fL (80.0-100.0); Mean Platelet Volume 8.2; Monocytes # (A) 0.5 k/uL (0-1.0); Monocytes % (A) 4 %; Neutrophils # (A) 9.1 k/uL (1.3-7.7); Neutrophils % (A) 84 %; Platelet Count 590 k/uL (150-450); Poikilocytosis Slight; RBC 3.38 m/uL (4.30-5.90); RDW 17.3 % (11.5-15.5); WBC 10.8 k/uL (3.8-10.6)
[2019-08-27 06:01] LABS: Poikilocytosis (M) Present; Target Cells Present
[2019-08-27 06:06] LABS: Glucose,Whole Blood 233 mg/dL (75-99)
[2019-08-27] MEDS: SUCRALFATE 1 GM TAB PO SCH ×3 (06:16→10:34)
[2019-08-27] MEDS: INSULIN ASPART (NovoLOG) 100 UNIT/ML VIAL SQ SCH ×4 (06:16→21:33)
--- NOTE | 2019-08-27 09:04 | P.PN ---
Subjective This is a pleasant 74 years old male with past medical history of diabetes mellitus, hyperlipidemia, hypertension, He has history of chronic obstructvie pulmonary disease and he follow up with dr. menchaca as outpt setting. he presents with dyspnea for 3-4 days duration associated with coughing and phlegm , no chest pain , no vomiting no abd pain , no fever , he can not remember sick contact. no chills Vitals looks stable, the WBC within normal limits at 9.9K, hemoglobin 8.7, unknown baseline. BMP is unremarkable, glucose is elevated at 236, lactic acid is elevated at 4.9, liver enzymes were unremarkable. Mild patchy infiltrate right more than left. EKG showing sinus tachycardia at [address]-T changes, right bundle branch block and QTC at 466 In the emergency room patient got steroids, Zithromax and Rocephin and 2 L of normal saline. 08/26/2019 Patient states that his breathing is a little better and his breathing quietly, still having coughing and with some phlegm, he denies chest pain, he was asking something to help him sleep and he states he takes Flomax as 2 pills at night which was changed. Patient is slightly tachycardic 92-107 this morning, and febrile and he is saturating 94% at 3 L oxygen. WBC is a stable and normal. Lactic acid is still elevated at 2.9 he's on normal saline at 130 milliliters per hour. Patient is currently on Rocephin and ceftriaxone 08/27/2019 patient states that he is improving today with less dyspnea, no chest pain. Patient is afebrile address her vitals are stable, saturating 98% 2 L. He has mild leukocytosis of 10.8 K mostly reactive secondary to steroids. Lactic acid is still elevated at 3.2. Metformin was held and patient informed and he agrees. We'll call nephrology consult. Pulmonary input is appreciated. Continue with present treatment, ceftriaxone and Zithromax, Solu-Medrol 40 mg and normal saline at 1:30 milliliters down to 75 ml/hr. Objective - Vital Signs Vital signs: Vital Signs Temp 97.5 F L 08/27/19 04:00 Pulse 92 08/27/19 04:09 Resp 18 08/27/19 04:00 BP 136/65 08/27/19 04:00 Pulse Ox 98 08/27/19 04:00 Intake & Output 08/26/19 08/27/19 08/27/19 18:59 06:59 18:59 Intake Total 450 Output Total 600 Balance -150 Weight 92.8 kg Intake: Oral 450 Output: Urine 600 Other: # Voids 1 - Exam GENERAL: The patient is alert and oriented x3, not in any acute distress. Well developed, well nourished. HEENT: Pupils are round and equally reacting to light. EOMI. No scleral icterus. No conjunctival pallor. Normocephalic, atraumatic. No pharyngeal erythema. No thyromegaly. CARDIOVASCULAR: S1 and S2 present. No murmurs, rubs, or gallops. -PULMONARY: Chest is clear to auscultation, no wheezing or crackles. Decreased air entry on both sides ABDOMEN: Soft, nontender, nondistended, normoactive bowel sounds. No palpable organomegaly. MUSCULOSKELETAL: No joint swelling or deformity. EXTREMITIES: No cyanosis, clubbing, or pedal edema. NEUROLOGICAL: Gross neurological examination did not reveal any focal deficits. SKIN: No rashes. No petechiae - Labs CBC & Chem 7: 08/27/19 04:17 08/27/19 04:17 Labs: Abnormal Lab Results - Last 24 Hours (Table) 08/26/19 08/26/19 08/26/19 Range/Units 06:42 11:06 12:08 WBC (3.8-10.6) k/uL RBC (4.30-5.90) m/uL Hgb (13.0-17.5) gm/dL Hct (39.0-53.0) % MCH (25.0-35.0) pg MCHC (31.0-37.0) g/dL RDW (11.5-15.5) % Plt Count (150-450) k/uL Neutrophils # (1.3-7.7) k/uL Glucose (74-99) mg/dL POC Glucose (mg/dL) 184 H (75-99) mg/dL Plasma Lactic Acid Po 3.8 H* (0.7-2.0) mmol/L Iron 13 L (65-175) ug/dL % Saturation 3.86 L (15.00-50.00) 08/26/19 08/26/19 08/26/19 Range/Units 14:59 16:58 19:54 WBC (3.8-10.6) k/uL RBC (4.30-5.90) m/uL Hgb (13.0-17.5) gm/dL Hct (39.0-53.0) % MCH (25.0-35.0) pg MCHC (31.0-37.0) g/dL RDW (11.5-15.5) % Plt Count (150-450) k/uL Neutrophils # (1.3-7.7) k/uL Glucose (74-99) mg/dL POC Glucose (mg/dL) 192 H (75-99) mg/dL Plasma Lactic Acid Po 2.6 H* 3.3 H* (0.7-2.0) mmol/L Iron (65-175) ug/dL % Saturation (15.00-50.00) 08/26/19 08/26/19 08/27/19 Range/Units 19:58 23:28 04:17 WBC 10.8 H (3.8-10.6) k/uL RBC 3.38 L (4.30-5.90) m/uL Hgb 8.2 L (13.0-17.5) gm/dL Hct 28.3 L (39.0-53.0) % MCH 24.4 L (25.0-35.0) pg MCHC 29.1 L (31.0-37.0) g/dL RDW 17.3 H (11.5-15.5) % Plt Count 590 H (150-450) k/uL Neutrophils # 9.1 H (1.3-7.7) k/uL Glucose (74-99) mg/dL POC Glucose (mg/dL) 192 H (75-99) mg/dL Plasma Lactic Acid Po 2.5 H* (0.7-2.0) mmol/L Iron (65-175) ug/dL % Saturation (15.00-50.00) 08/27/19 08/27/19 08/27/19 Range/Units 04:17 04:17 06:04 WBC (3.8-10.6) k/uL RBC (4.30-5.90) m/uL Hgb (13.0-17.5) gm/dL Hct (39.0-53.0) % MCH (25.0-35.0) pg MCHC (31.0-37.0) g/dL RDW (11.5-15.5) % Plt Count (150-450) k/uL Neutrophils # (1.3-7.7) k/uL Glucose 219 H (74-99) mg/dL POC Glucose (mg/dL) 233 H (75-99) mg/dL Plasma Lactic Acid Po 3.2 H* (0.7-2.0) mmol/L Iron (65-175) ug/dL % Saturation (15.00-50.00) Microbiology - Last 24 Hours (Table) 08/26/19 07:20 Gram Stain - Preliminary Sputum 08/25/19 14:50 Blood Culture - Preliminary Blood No Growth after 24 hours Assessment and Plan Assessment: Bilateral pneumonia more the right side Possible Acute COPD exacerbation Elevated lactic acid Hyperglycemia Diabetes mellitus Hypertension Hyperlipidemia BPH Plan: This is a pleasant 74 years old male who presents with pneumonia and dehydration. Continue with IV fluids. Continue with ceftriaxone and Zithromax. Pulmonary consult Labs and medication were reviewed.. Continue same treatment. Continue with symptomatic treatment. Resume home medication. Monitor lytes and vitals. DVT and GI prophylaxis. Further recommendations of the clinical course of the patient DVT prophylaxis: Subcutaneous heparin GI Prophylaxis: Protonix PT/OT: Pending Prognosis is guarded
[2019-08-27] MEDS: BUDESONIDE 0.5 MG/2 ML NEBU INHALATION SCH ×2 (09:07→20:03)
[2019-08-27] MEDS: HYDROcodone/APAP 7.5-325MG 1 EACH TAB PO SCH ×2 (10:32→23:10)
[2019-08-27] MEDS: amLODIPine 10 MG TAB PO SCH (10:32)
[2019-08-27] MEDS: AZITHROMYCIN 500 MG TAB PO SCH (10:32)
[2019-08-27] MEDS: PANTOPRAZOLE 40 MG TABLET PO SCH (10:32)
[2019-08-27] MEDS: HEPARIN SODIUM,PORCINE 5,000 UNIT/ML 1 ML VIAL SQ SCH ×2 (10:33→21:33)
[2019-08-27] MEDS: methylPREDNISolone SOD SUCCI 40 MG/ML 1 ML VIAL IV SCH ×2 (10:34→18:14)
[2019-08-27 11:49] LABS: Glucose,Whole Blood 250 mg/dL (75-99)
--- NOTE | 2019-08-27 14:42 | P.PN ---
Subjective Progress Note Date: 08/27/19 A pleasant 74-year-old male patient with advanced COPD maintain oxygen at 2 L per minute nasal cannula along with a combination of Perforomist and Pulmicort updrafts twice a day. The patient is an ex-smoker. The patient is an ex- smoker. He has a FEV1 of 20% of predicted and diffusion capacity of 32% of predicted. The patient came into the hospital because of worsening shortness of breath. He was treated for an acute COPD exacerbation and outpatient basis for his primary care physician. Back in 07/11/2019, the patient was also given antibiotics and steroids by our office. He came in with similar symptoms. His white cell count was at 9.9. He had a chest x-ray that showed some patchy atelectatic change in the right lower lobe in addition to some infiltration. For that reason the patient was admitted to the hospital and he was started on a combination of Rocephin and Zithromax and IV Solu-Medrol. He is already feeling better. Unfortunately hasn't obtained a hospital bed. He is awaiting in the emergency department. LFTs unremarkable. He is afebrile. No altered mentation. No other significant events overnight for now. Patient has no chest pain. No swelling lower extremities. No other complaints otherwise. His main complaint is a study medications. He is diabetic. He has hypertension and hyperlipidemia as comorbid conditions. He also has osteoarthritis. He is obese . On today's evaluation of 08/27/2019 on seeing the patient for a follow-up. He is relatively stable. He is not having any hemodynamic instability. No altered mentation. Shortness of breath is slightly improved. His lactic acid is still elevated and it's running at 3.6 and the patient is on normal saline today to 1 30 mL an hour. No fever. No chills. He is on bronchodilators. Steroids. Rocephin and Zithromax. No other significant events overnight. His white cell count is at 10.8. Hemoglobin is at 8.2. Objective - Vital Signs Vital signs: Vital Signs Temp 98.4 F 08/27/19 11:57 Pulse 92 08/27/19 12:46 Resp 18 08/27/19 11:57 BP 138/67 08/27/19 11:57 Pulse Ox 95 08/27/19 11:57 Intake & Output 08/26/19 08/27/19 08/27/19 18:59 06:59 18:59 Intake Total 450 720 Output Total 600 800 Balance -150 -80 Weight 92.8 kg Intake: Oral 450 720 Output: Urine 600 800 Other: # Voids 1 1 - Exam The patient appeared well nourished and normally developed. Vital signs as documented. Head exam is unremarkable. No scleral icterus or corneal arcus noted. Neck is without jugular venous distension, thyromegaly, or carotid bruits. Carotid upstrokes are brisk bilaterally. Lungs sounds are diminished bilaterally along with scattered expiratory wheezes and scattered rhonchi heard in the lung bases bilaterally. . Rhythm is regular. First and second heart sounds normal. No murmurs, rubs or gallops. Abdominal exam reveals normal bowel sounds, no masses, no organomegaly and no aortic enlargement. Extremities are nonedematous and both femoral and pedal pulses are normal.Examination of the skin revealed no evidence of significant rashes, suspicious appearing nevi or other concerning lesions. Neurologically the patient is awake and alert and is no focal neurological deficit. - Labs CBC & Chem 7: 08/27/19 04:17 08/27/19 04:17 Labs: Abnormal Lab Results - Last 24 Hours (Table) 08/26/19 08/26/19 08/26/19 Range/Units 06:42 14:59 16:58 WBC (3.8-10.6) k/uL RBC (4.30-5.90) m/uL Hgb (13.0-17.5) gm/dL Hct (39.0-53.0) % MCH (25.0-35.0) pg MCHC (31.0-37.0) g/dL RDW (11.5-15.5) % Plt Count (150-450) k/uL Neutrophils # (1.3-7.7) k/uL Glucose (74-99) mg/dL POC Glucose (mg/dL) 192 H (75-99) mg/dL Plasma Lactic Acid Po 2.6 H* (0.7-2.0) mmol/L Iron 13 L (65-175) ug/dL % Saturation 3.86 L (15.00-50.00) 08/26/19 08/26/19 08/26/19 Range/Units 19:54 19:58 23:28 WBC (3.8-10.6) k/uL RBC (4.30-5.90) m/uL Hgb (13.0-17.5) gm/dL Hct (39.0-53.0) % MCH (25.0-35.0) pg MCHC (31.0-37.0) g/dL RDW (11.5-15.5) % Plt Count (150-450) k/uL Neutrophils # (1.3-7.7) k/uL Glucose (74-99) mg/dL POC Glucose (mg/dL) 192 H (75-99) mg/dL Plasma Lactic Acid Po 3.3 H* 2.5 H* (0.7-2.0) mmol/L Iron (65-175) ug/dL % Saturation (15.00-50.00) 08/27/19 08/27/19 08/27/19 Range/Units 04:17 04:17 04:17 WBC 10.8 H (3.8-10.6) k/uL RBC 3.38 L (4.30-5.90) m/uL Hgb 8.2 L (13.0-17.5) gm/dL Hct 28.3 L (39.0-53.0) % MCH 24.4 L (25.0-35.0) pg MCHC 29.1 L (31.0-37.0) g/dL RDW 17.3 H (11.5-15.5) % Plt Count 590 H (150-450) k/uL Neutrophils # 9.1 H (1.3-7.7) k/uL Glucose 219 H (74-99) mg/dL POC Glucose (mg/dL) (75-99) mg/dL Plasma Lactic Acid Po 3.2 H* (0.7-2.0) mmol/L Iron (65-175) ug/dL % Saturation (15.00-50.00) 08/27/19 08/27/19 08/27/19 Range/Units 06:04 09:07 11:47 WBC (3.8-10.6) k/uL RBC (4.30-5.90) m/uL Hgb (13.0-17.5) gm/dL Hct (39.0-53.0) % MCH (25.0-35.0) pg MCHC (31.0-37.0) g/dL RDW (11.5-15.5) % Plt Count (150-450) k/uL Neutrophils # (1.3-7.7) k/uL Glucose (74-99) mg/dL POC Glucose (mg/dL) 233 H 250 H (75-99) mg/dL Plasma Lactic Acid Po 2.5 H* (0.7-2.0) mmol/L Iron (65-175) ug/dL % Saturation (15.00-50.00) 08/27/19 Range/Units 13:15 WBC (3.8-10.6) k/uL RBC (4.30-5.90) m/uL Hgb (13.0-17.5) gm/dL Hct (39.0-53.0) % MCH (25.0-35.0) pg MCHC (31.0-37.0) g/dL RDW (11.5-15.5) % Plt Count (150-450) k/uL Neutrophils # (1.3-7.7) k/uL Glucose (74-99) mg/dL POC Glucose (mg/dL) (75-99) mg/dL Plasma Lactic Acid Po 3.6 H* (0.7-2.0) mmol/L Iron (65-175) ug/dL % Saturation (15.00-50.00) Microbiology - Last 24 Hours (Table) 08/26/19 07:20 Gram Stain - Preliminary Sputum 08/25/19 14:50 Blood Culture - Preliminary Blood No Growth after 24 hours Assessment and Plan Plan: 1 acute COPD exacerbation with a limited atelectatic changes/infiltration of the right lung base, consider pneumonia 2 shortness of breath secondary to above 3 advanced COPD with an FEV1 of 28% of predicted 4 chronic hypoxic respiratory failure, on 2 L of oxygen by nasal cannula on outp atient basis her. Note that 5 obesity 6 hypertension 7 hyperlipidemia 8 diabetes mellitus 9 the patient has some mild lactic acidosis probably related to any form of septic event. This needs to be monitored. Plan Agree on the current treatment. We'll monitor the right lower lobe finding of a chest x-ray and consider a CAT scan of the chest and the abnormalities remain unchanged. Continue breathing treatments. Continue antibiotics. We'll follow. The lactic acid level will be monitored. Continued IV hydration. Continue the bronchodilators. Continue steroids. Possible discharge within the next 24 hours depending on his progress. Cultures of been all negative thus far.
[2019-08-27 17:06] LABS: Glucose,Whole Blood 250 mg/dL (75-99)
--- NOTE | 2019-08-27 19:42 | CONS ---
CONSULTATION REASON FOR CONSULT: Lactic acidosis. HISTORY OF PRESENT ILLNESS: The patient is a 74-year-old male who has a history of COPD, recent history of atypical pneumonia in June, who was admitted to the hospital with worsening shortness of breath. He states he has been using a lot of the updraft treatments at home prior to admission. His lactic acid was elevated at 4.9 on initial admission. It did come down to about 2.5 and now it is 3.6. The patient was maintained on metformin, which is now discontinued. His blood pressure has not been significantly low. Patient currently has good urine output. His serum creatinine was 0.9 mg/dL. PAST MEDICAL HISTORY: COPD, history of pneumonia, type 2 diabetes, hypertension, hyperlipidemia. PAST SURGICAL HISTORY: Hernia repair, left ankle, right shoulder, right hip surgery. SOCIAL HISTORY: Patient is a former smoker. No history of drug abuse or alcohol abuse. MEDICATIONS: Medications at home prior to admission included Pulmicort, Unisom, Perforomist inhalation, Neurontin, Protonix, Carafate, Flomax, Norvasc, Benadryl, Glucophage. ALLERGIES: NONE. PHYSICAL EXAMINATION: On examination, patient is currently comfortable, awake. He is not in any acute distress. Blood pressure is 138/67, heart rate 92 per minute. Patient is afebrile. EXAMINATION OF THE HEART: S1 and S2. EXAMINATION OF LUNGS: Bilateral breath sounds are heard. ABDOMEN: Soft, non-tender. Examination of lower extremities shows no significant edema. MAMMAL KEEPER exam is grossly intact. LABS: Sodium 141, potassium 4.2, chloride 105. CO2 is 27, BUN 19, creatinine 0.9. Lactic acid was 2.5 this morning. Hemoglobin 8.2, white cell count 10.8, and platelet count of 590,000. ASSESSMENT: 1. Lactic acidosis, mostly type B, as there is no evidence of hypotension or hypoperfusion or severe ongoing sepsis. I believe this is mostly related to use of inhaled beta agonists during the updraft treatments that patient was has been taking at home as well. Metformin can be associated with lactic acidosis; however, it is most commonly in patients with compromised renal function. The Glucophage is currently on hold. I will decrease the IV fluids, as patient is not significantly hypovolemic. 2. Chronic obstructive pulmonary disease exacerbation. 3. Type 2 diabetes. Blood sugars are running high. No evidence of ketoacidosis. 4. Anemia. Rule out iron deficiency. PLAN: Check iron profile. Decrease IV fluids. Continue off of metformin. Repeat labs in a.m. Thank you for this consultation. We will continue to follow the patient with you during his hospitalization. DEVI / SCOT: [id number] /
[2019-08-27] MEDS ORDERED: IPRATROPIUM-ALBUTEROL 3 ML NEB INHALATION PRN (20:13)
[2019-08-27 20:38] LABS: Glucose,Whole Blood 248 mg/dL (75-99)
[2019-08-27] MEDS: TAMSULOSIN 0.4 MG CAP.ER.24H PO SCH (21:33)
[2019-08-27] MEDS ORDERED: GLIMEPIRIDE 1 MG TAB PO ONE (22:00)
[2019-08-28] MEDS: methylPREDNISolone SOD SUCCI 40 MG/ML 1 ML VIAL IV SCH ×2 (01:13→10:12)
[2019-08-28] MEDS: GABAPENTIN 100 MG CAP PO SCH (01:13)
[2019-08-28] MEDS: MELATONIN 3 MG TABLET PO PRN (02:49)
[2019-08-28] MEDS: BUDESONIDE 0.5 MG/2 ML NEBU INHALATION SCH ×2 (06:53→19:15)
[2019-08-28] MEDS: IPRATROPIUM-ALBUTEROL 3 ML NEB INHALATION SCH ×4 (06:53→19:15)
[2019-08-28 07:11] LABS: Glucose,Whole Blood 174 mg/dL (75-99)
[2019-08-28] MEDS ORDERED: POLYETHYLENE GLYCOL 3350 17 GM POWD.PACK PO PRN (07:21)
[2019-08-28] MEDS ORDERED: POLYETHYLENE GLYCOL 3350 17 GM POWD.PACK PO STA (07:21)
--- NOTE | 2019-08-28 07:25 | P.PN ---
Subjective This is a pleasant 74 years old male with past medical history of diabetes mellitus, hyperlipidemia, hypertension, He has history of chronic obstructvie pulmonary disease and he follow up with dr. menchaca as outpt setting. he presents with dyspnea for 3-4 days duration associated with coughing and phlegm , no chest pain , no vomiting no abd pain , no fever , he can not remember sick contact. no chills Vitals looks stable, the WBC within normal limits at 9.9K, hemoglobin 8.7, unknown baseline. BMP is unremarkable, glucose is elevated at 236, lactic acid is elevated at 4.9, liver enzymes were unremarkable. Mild patchy infiltrate right more than left. EKG showing sinus tachycardia at [address]-T changes, right bundle branch block and QTC at 466 In the emergency room patient got steroids, Zithromax and Rocephin and 2 L of normal saline. 08/26/2019 Patient states that his breathing is a little better and his breathing quietly, still having coughing and with some phlegm, he denies chest pain, he was asking something to help him sleep and he states he takes Flomax as 2 pills at night which was changed. Patient is slightly tachycardic 92-107 this morning, and febrile and he is saturating 94% at 3 L oxygen. WBC is a stable and normal. Lactic acid is still elevated at 2.9 he's on normal saline at 130 milliliters per hour. Patient is currently on Rocephin and ceftriaxone 08/27/2019 patient states that he is improving today with less dyspnea, no chest pain. Patient is afebrile address her vitals are stable, saturating 98% 2 L. He has mild leukocytosis of 10.8 K mostly reactive secondary to steroids. Lactic acid is still elevated at 3.2. Metformin was held and patient informed and he agrees. We'll call nephrology consult. Pulmonary input is appreciated. Continue with present treatment, ceftriaxone and Zithromax, Solu-Medrol 40 mg and normal saline at 1:30 milliliters down to 75 ml/hr. 08/28/2019 Patient breathing is stable, excellent 3 to oxygen. No chest pain. He has some abdominal discomfort and did not have bowel movement since admission, were going to put him on some laxatives iron deficiency anemia, patient states that he had colonoscopy about 3-4 years ago, and also he stated that he had egd done about 2 weeks ago and he told me was done with dr. enciso. occult blood in stool still pending currently patient complaining of from bloating in his abdomen and he states that this been caused by metformin all the time and he agrees with stopping metformin, started the patient on amaryl. keep monitoring her sugar. Objective - Vital Signs Vital signs: Vital Signs Temp 97.9 F 08/28/19 05:02 Pulse 102 H 08/28/19 07:07 Resp 18 08/28/19 05:02 BP 145/69 08/28/19 05:02 Pulse Ox 91 L 08/28/19 06:53 Intake & Output 08/27/19 08/28/19 08/28/19 18:59 06:59 18:59 Intake Total 720 400 Output Total 1400 Balance -680 400 Intake: Intake, IV Titration 400 Amount Sodium Chloride 0.9% 1, 400 000 ml @ 50 mls/hr IV . Q20H [facility] Rx#:[id number] Oral 720 Output: Urine 1400 Other: Voiding Method Urinal # Voids 1 2 - Exam GENERAL: The patient is alert and oriented x3, not in any acute distress. Well developed, well nourished. HEENT: Pupils are round and equally reacting to light. EOMI. No scleral icterus. No conjunctival pallor. Normocephalic, atraumatic. No pharyngeal erythema. No thyromegaly. CARDIOVASCULAR: S1 and S2 present. No murmurs, rubs, or gallops. -PULMONARY: Chest is clear to auscultation, no wheezing or crackles. Decreased air entry on both sides ABDOMEN: Soft, nontender, nondistended, normoactive bowel sounds. No palpable organomegaly. MUSCULOSKELETAL: No joint swelling or deformity. EXTREMITIES: No cyanosis, clubbing, or pedal edema. NEUROLOGICAL: Gross neurological examination did not reveal any focal deficits. SKIN: No rashes. No petechiae - Labs CBC & Chem 7: 08/27/19 04:17 08/27/19 04:17 Labs: Abnormal Lab Results - Last 24 Hours (Table) 08/27/19 08/27/19 08/27/19 Range/Units 09:07 11:47 13:15 POC Glucose (mg/dL) 250 H (75-99) mg/dL Plasma Lactic Acid Po 2.5 H* 3.6 H* (0.7-2.0) mmol/L 08/27/19 08/27/19 08/27/19 Range/Units 16:58 17:21 20:32 POC Glucose (mg/dL) 250 H 248 H (75-99) mg/dL Plasma Lactic Acid Po 3.0 H* (0.7-2.0) mmol/L 08/28/19 Range/Units 07:04 POC Glucose (mg/dL) 174 H (75-99) mg/dL Plasma Lactic Acid Po (0.7-2.0) mmol/L Microbiology - Last 24 Hours (Table) 08/25/19 14:50 Blood Culture - Preliminary Blood No Growth after 48 hours Assessment and Plan Assessment: Bilateral pneumonia more the right side Possible Acute COPD exacerbation Iron deficiency anemia Elevated lactic acid Hyperglycemia Diabetes mellitus Hypertension Hyperlipidemia BPH Plan: This is a pleasant 74 years old male who presents with pneumonia and dehydration. Continue with IV fluids. Continue with ceftriaxone and Zithromax. Pulmonary consult Start iron pills consult Dr. Enciso. DC metformin and start Amaryl. Give laxative and monitor bowel movements Labs and medication were reviewed.. Continue same treatment. Continue with symptomatic treatment. Resume home medication. Monitor lytes and vitals. DVT and GI prophylaxis. Further recommendations of the clinical course of the patient DVT prophylaxis: Subcutaneous heparin GI Prophylaxis: Protonix Physical therapy recommended home Prognosis is guarded
[2019-08-28 08:16] LABS: African American GFR (CKD) >90 (>60 ml/min/1.73 sqM); Anion Gap 11 mmol/L; Blood Urea Nitrogen 17 mg/dL (9-20); Calcium 8.9 mg/dL (8.4-10.2); Carbon Dioxide 27 mmol/L (22-30); Chloride 101 mmol/L (98-107); Glucose 190 mg/dL (74-99); Non-African American GFR(CKD) >90 (>60 ml/min/1.73 sqM); Potassium 4.4 mmol/L (3.5-5.1); Sodium 139 mmol/L (137-145)
[2019-08-28 08:18] LABS: Anisocytosis Slight; Basophils % (A) 0 %; Eosinophils # (A) 0.1 k/uL (0-0.7); Eosinophils % (A) 0 %; HCT 28.6 % (39.0-53.0); HGB 8.6 gm/dL (13.0-17.5); Hypochromasia Marked; Lymphocytes # (A) 1.3 k/uL (1.0-4.8); Lymphocytes % (A) 10 %; MCH 24.7 pg (25.0-35.0); MCHC 30.2 g/dL (31.0-37.0); MCV 81.8 fL (80.0-100.0); Mean Platelet Volume 7.3; Monocytes # (A) 0.6 k/uL (0-1.0); Monocytes % (A) 5 %; Neutrophils # (A) 11.6 k/uL (1.3-7.7); Neutrophils % (A) 85 %; Platelet Count 669 k/uL (150-450); Poikilocytosis Slight; RDW 17.2 % (11.5-15.5); WBC 13.7 k/uL (3.8-10.6)
[2019-08-28] MEDS: HYDROcodone/APAP 7.5-325MG 1 EACH TAB PO SCH ×3 (10:11→23:14)
[2019-08-28] MEDS: AZITHROMYCIN 500 MG TAB PO SCH (10:12)
[2019-08-28] MEDS: amLODIPine 10 MG TAB PO SCH (10:12)
[2019-08-28] MEDS: PANTOPRAZOLE 40 MG TABLET PO SCH (10:12)
[2019-08-28] MEDS: SENNOSIDES-DOCUSATE SODIUM 1 EACH TAB PO SCH ×2 (10:12→20:22)
[2019-08-28] MEDS: SUCRALFATE 1 GM TAB PO SCH ×3 (10:12→17:23)
[2019-08-28] MEDS: FERROUS SULFATE 325 MG TAB PO SCH ×2 (10:12→17:23)
[2019-08-28] MEDS: HEPARIN SODIUM,PORCINE 5,000 UNIT/ML 1 ML VIAL SQ SCH ×2 (10:12→20:22)
[2019-08-28] MEDS: INSULIN ASPART (NovoLOG) 100 UNIT/ML VIAL SQ SCH ×4 (10:13→20:22)
[2019-08-28] MEDS: GLIMEPIRIDE 2 MG TAB PO SCH (10:32)
[2019-08-28 12:00] LABS: Glucose,Whole Blood 259 mg/dL (75-99)
--- NOTE | 2019-08-28 13:45 | P.PN ---
Subjective Progress Note Date: 08/28/19 A pleasant 74-year-old male patient with advanced COPD maintain oxygen at 2 L per minute nasal cannula along with a combination of Perforomist and Pulmicort updrafts twice a day. The patient is an ex-smoker. The patient is an ex- smoker. He has a FEV1 of 20% of predicted and diffusion capacity of 32% of predicted. The patient came into the hospital because of worsening shortness of breath. He was treated for an acute COPD exacerbation and outpatient basis for his primary care physician. Back in 07/11/2019, the patient was also given antibiotics and steroids by our office. He came in with similar symptoms. His white cell count was at 9.9. He had a chest x-ray that showed some patchy atelectatic change in the right lower lobe in addition to some infiltration. For that reason the patient was admitted to the hospital and he was started on a combination of Rocephin and Zithromax and IV Solu-Medrol. He is already feeling better. Unfortunately hasn't obtained a hospital bed. He is awaiting in the emergency department. LFTs unremarkable. He is afebrile. No altered mentation. No other significant events overnight for now. Patient has no chest pain. No swelling lower extremities. No other complaints otherwise. His main complaint is a study medications. He is diabetic. He has hypertension and hyperlipidemia as comorbid conditions. He also has osteoarthritis. He is obese . On today's evaluation of 08/27/2019 on seeing the patient for a follow-up. He is relatively stable. He is not having any hemodynamic instability. No altered mentation. Shortness of breath is slightly improved. His lactic acid is still elevated and it's running at 3.6 and the patient is on normal saline today to 1 30 mL an hour. No fever. No chills. He is on bronchodilators. Steroids. Rocephin and Zithromax. No other significant events overnight. His white cell count is at 10.8. Hemoglobin is at 8.2. On today's evaluation of 08/28/2019, the patient is feeling much better. On a special note, the patient is currently off metformin for the past 3 days. He has felt significantly better. No nausea. No vomiting and no abdominal tenderness in all of the symptoms have recovered. I'm also considering the possibility of the lactic acid level being elevated because of metformin intake. The patient's lactic acid level is normalized is down to 1.8 now that is off the metformin. He is currently on Amaryl. His breathing is improved and is less short of breath. Note that he has advanced COPD with an FEV1 of 20% of predicted. His chest x-ray shows some limited atelectatic change in the right lower lobe and I'm going to obtain a follow-up chest x-ray with PA and lateral views. No other complaints otherwise for now. He feels much better. Is still on oxygen at 2 L per minute nasal cannula. IV fluids has been cut down. Objective - Vital Signs Vital signs: Vital Signs Temp 97.7 F 08/28/19 12:00 Pulse 84 08/28/19 12:00 Resp 18 08/28/19 12:00 BP 160/74 08/28/19 12:00 Pulse Ox 100 08/28/19 12:00 Intake & Output 08/27/19 08/28/19 08/28/19 18:59 06:59 18:59 Intake Total 720 400 Output Total 1400 Balance -680 400 Intake: Intake, IV Titration 400 Amount Sodium Chloride 0.9% 1, 400 000 ml @ 50 mls/hr IV . Q20H [facility] Rx#:[id number] Oral 720 Output: Urine 1400 Other: Voiding Method Urinal Urinal # Voids 1 2 # Bowel Movements 1 - Exam The patient appeared well nourished and normally developed. Vital signs as documented. Head exam is unremarkable. No scleral icterus or corneal arcus noted. Neck is without jugular venous distension, thyromegaly, or carotid bruits. Carotid upstrokes are brisk bilaterally. Lungs sounds are diminished bilaterally along with scattered expiratory wheezes and scattered rhonchi heard in the lung bases bilaterally. . Rhythm is regular. First and second heart sounds normal. No murmurs, rubs or gallops. Abdominal exam reveals normal bowel sounds, no masses, no organomegaly and no aortic enlargement. Extremities are nonedematous and both femoral and pedal pulses are normal.Examination of the skin revealed no evidence of significant rashes, suspicious appearing nevi or other concerning lesions. Neurologically the patient is awake and alert and is no focal neurological deficit. - Labs CBC & Chem 7: 08/28/19 07:32 02/20/20 07:32 Labs: Abnormal Lab Results - Last 24 Hours (Table) 08/27/19 08/27/19 08/27/19 Range/Units 13:15 16:58 17:21 WBC (3.8-10.6) k/uL RBC (4.30-5.90) m/uL Hgb (13.0-17.5) gm/dL Hct (39.0-53.0) % MCH (25.0-35.0) pg MCHC (31.0-37.0) g/dL RDW (11.5-15.5) % Plt Count (150-450) k/uL Neutrophils # (1.3-7.7) k/uL Glucose (74-99) mg/dL POC Glucose (mg/dL) 250 H (75-99) mg/dL Plasma Lactic Acid Po 3.6 H* 3.0 H* (0.7-2.0) mmol/L 08/27/19 08/28/19 08/28/19 Range/Units 20:32 07:04 07:32 WBC 13.7 H (3.8-10.6) k/uL RBC 3.50 L (4.30-5.90) m/uL Hgb 8.6 L (13.0-17.5) gm/dL Hct 28.6 L (39.0-53.0) % MCH 24.7 L (25.0-35.0) pg MCHC 30.2 L (31.0-37.0) g/dL RDW 17.2 H (11.5-15.5) % Plt Count 669 H (150-450) k/uL Neutrophils # 11.6 H (1.3-7.7) k/uL Glucose (74-99) mg/dL POC Glucose (mg/dL) 248 H 174 H (75-99) mg/dL Plasma Lactic Acid Po (0.7-2.0) mmol/L 08/28/19 08/28/19 Range/Units 07:32 11:30 WBC (3.8-10.6) k/uL RBC (4.30-5.90) m/uL Hgb (13.0-17.5) gm/dL Hct (39.0-53.0) % MCH (25.0-35.0) pg MCHC (31.0-37.0) g/dL RDW (11.5-15.5) % Plt Count (150-450) k/uL Neutrophils # (1.3-7.7) k/uL Glucose 190 H (74-99) mg/dL POC Glucose (mg/dL) 259 H (75-99) mg/dL Plasma Lactic Acid Po (0.7-2.0) mmol/L Microbiology - Last 24 Hours (Table) 08/26/19 07:20 Gram Stain - Preliminary Sputum Sputum Culture - Preliminary Yeast species 08/25/19 14:50 Blood Culture - Preliminary Blood No Growth after 48 hours Assessment and Plan Plan: 1 acute COPD exacerbation with a limited atelectatic changes/infiltration of the right lung base, consider pneumonia 2 shortness of breath secondary to above 3 advanced COPD with an FEV1 of 28% of predicted 4 chronic hypoxic respiratory failure, on 2 L of oxygen by nasal cannula on outpatient basis her. Note that 5 obesity 6 hypertension 7 hyperlipidemia 8 diabetes mellitus 9 the patient has some mild lactic acidosis probably related to any form of septic event. This needs to be monitored. The lactic acid level is improved and I think this is related to metformin. No evidence of any acute sepsis. 10 GI-related side effects of metformin with nausea and some abdominal discomfort, all of those improved. Plan Discontinue the IV Solu-Medrol Prednisone burst taper Continue antibiotics Chest x-ray with PA and lateral view Lactic acid level is normalized Oral intake and hydration Hemoglobin is at 8.6. Started on iron tablets. He has had an EGD and colonoscopy through [facility], Dr. Ma
--- NOTE | 2019-08-28 16:09 | P.GSCN ---
History of Present Illness Consult date: 08/28/19 History of present illness: This is a 74-year-old male that is well-known to me from the surgical clinic that presented to the emergency department with complaints of shortness of breath for approximately 3 days along with coughing and phlegm. He is admitted for pneumonia and has been treated since his admission. During his admission, he has been complaining of abdominal pain. He has presented to my surgical clinic complaining of the same in the past. He has undergone upper endoscopy for evaluation. He states that his medications have been adjusted for his di abetes. He is no longer on metformin and he states that his abdominal pain has resolved. He denies any nausea or vomiting. He is currently tolerating a diet. He also is known to have anemia and Hemoccult negative stool. Review of Systems All systems: negative Past Medical History Past Medical History: COPD, Diabetes Mellitus, Hyperlipidemia, Hypertension History of Any Multi-Drug Resistant Organisms: None Reported Past Surgical History: Hernia Repair, Orthopedic Surgery Additional Past Surgical History / Comment(s): lt ankle, rt shoulder, rt hip Past Psychological History: No Psychological Hx Reported Smoking Status: Former smoker Past Alcohol Use History: None Reported Past Drug Use History: None Reported Medications and Allergies Home Medications Medication Instructions Recorded Confirmed Type Budesonide [Pulmicort] 0.5 mg INHALATION RT-BID 08/25/19 08/25/19 History Doxylamine Succinate [Unisom] 25 mg PO HS 08/25/19 08/25/19 History Formoterol Fumarate [Perforomist] 20 mcg INHALATION RT-BID 08/25/19 08/25/19 History Gabapentin [Neurontin] 200 mg PO BID@1600,2100 08/25/19 08/25/19 History HYDROcodone/APAP 7.5-325MG [Speculator 1 tab PO BID 08/25/19 08/25/19 History 7.5-325] Ipratropium-Albuterol Nebulize 3 ml INHALATION RT-QID 08/25/19 08/25/19 History [Duoneb 0.5 mg-3 mg/3 ml Soln] Multivit-Min/FA/Lycopen/Lutein 1 tab PO DAILY 08/25/19 08/25/19 History [Centrum Silver Tablet] Pantoprazole [Protonix] 40 mg PO DAILY 08/25/19 08/25/19 History Sucralfate [Carafate] 1 gm PO AC-TID 08/25/19 08/25/19 History Tamsulosin [Flomax] 0.4 mg PO BID 08/25/19 08/25/19 History amLODIPine [Norvasc] 10 mg PO DAILY 08/25/19 08/25/19 History diphenhydrAMINE HCL [Benadryl] 25 mg PO HS 08/25/19 08/25/19 History metFORMIN HCL ER [Glucophage Xr] 500 mg PO PC-SUPPER 08/25/19 08/25/19 History Allergies Allergy/AdvReac Type Severity Reaction Status Date / Time No Known Allergies Allergy Verified 08/25/19 13:33 Surgical - Exam Osteopathic Statement: *. No significant issues noted on an osteopathic structural exam other than those noted in the History and Physical/Consult. Vital Signs Temp Pulse Resp BP Pulse Ox 97.8 F 73 16 123/55 98 08/25/19 13:29 08/25/19 13:29 08/25/19 13:29 08/25/19 13:29 08/25/19 13:29 - General well nourished, no distress - Eyes PERRL - ENT no hearing loss - Neck trachea midline - Respiratory normal respiratory effort - Abdomen Soft, nontender, nondistended, no rebound, no guarding - Psychiatric oriented to time, oriented to person, oriented to place Results - Labs 08/28/19 07:32 08/28/19 07:32 Abnormal Lab Results - Last 24 Hours (Table) 08/27/19 08/27/19 08/27/19 Range/Units 16:58 17:21 20:32 WBC (3.8-10.6) k/uL RBC (4.30-5.90) m/uL Hgb (13.0-17.5) gm/dL Hct (39.0-53.0) % MCH (25.0-35.0) pg MCHC (31.0-37.0) g/dL RDW (11.5-15.5) % Plt Count (150-450) k/uL Neutrophils # (1.3-7.7) k/uL Glucose (74-99) mg/dL POC Glucose (mg/dL) 250 H 248 H (75-99) mg/dL Plasma Lactic Acid Po 3.0 H* (0.7-2.0) mmol/L 08/28/19 08/28/19 08/28/19 Range/Units 07:04 07:32 07:32 WBC 13.7 H (3.8-10.6) k/uL RBC 3.50 L (4.30-5.90) m/uL Hgb 8.6 L (13.0-17.5) gm/dL Hct 28.6 L (39.0-53.0) % MCH 24.7 L (25.0-35.0) pg MCHC 30.2 L (31.0-37.0) g/dL RDW 17.2 H (11.5-15.5) % Plt Count 669 H (150-450) k/uL Neutrophils # 11.6 H (1.3-7.7) k/uL Glucose 190 H (74-99) mg/dL POC Glucose (mg/dL) 174 H (75-99) mg/dL Plasma Lactic Acid Po (0.7-2.0) mmol/L 08/28/19 Range/Units 11:30 WBC (3.8-10.6) k/uL RBC (4.30-5.90) m/uL Hgb (13.0-17.5) gm/dL Hct (39.0-53.0) % MCH (25.0-35.0) pg MCHC (31.0-37.0) g/dL RDW (11.5-15.5) % Plt Count (150-450) k/uL Neutrophils # (1.3-7.7) k/uL Glucose (74-99) mg/dL POC Glucose (mg/dL) 259 H (75-99) mg/dL Plasma Lactic Acid Po (0.7-2.0) mmol/L Microbiology - Last 24 Hours (Table) 08/26/19 07:20 Gram Stain - Preliminary Sputum Sputum Culture - Preliminary Yeast species 08/25/19 14:50 Blood Culture - Preliminary Blood No Growth after 48 hours Diabetes panel 08/28/19 Range/Units 07:32 Sodium 139 (137-145) mmol/L Potassium 4.4 (3.5-5.1) mmol/L Chloride 101 (98-107) mmol/L Carbon Dioxide 27 (22-30) mmol/L BUN 17 (9-20) mg/dL Creatinine 0.76 (0.66-1.25) mg/dL Glucose 190 H (74-99) mg/dL Calcium 8.9 (8.4-10.2) mg/dL Calcium panel 08/28/19 Range/Units 07:32 Calcium 8.9 (8.4-10.2) mg/dL Pituitary panel 08/28/19 Range/Units 07:32 Sodium 139 (137-145) mmol/L Potassium 4.4 (3.5-5.1) mmol/L Chloride 101 (98-107) mmol/L Carbon Dioxide 27 (22-30) mmol/L BUN 17 (9-20) mg/dL Creatinine 0.76 (0.66-1.25) mg/dL Glucose 190 H (74-99) mg/dL Calcium 8.9 (8.4-10.2) mg/dL Adrenal panel 08/28/19 Range/Units 07:32 Sodium 139 (137-145) mmol/L Potassium 4.4 (3.5-5.1) mmol/L Chloride 101 (98-107) mmol/L Carbon Dioxide 27 (22-30) mmol/L BUN 17 (9-20) mg/dL Creatinine 0.76 (0.66-1.25) mg/dL Glucose 190 H (74-99) mg/dL Calcium 8.9 (8.4-10.2) mg/dL Assessment and Plan Plan: 74-year-old male admitted with pneumonia and shortness of breath with resolved abdominal pain. The patient is noted to have anemia with no Hemoccult positivity. His last colonoscopy was approximately 3-4 years ago. He will lik dario need an outpatient colonoscopy for evaluation for anemia. He did recently undergo an upper endoscopy with no significant findings to explain anemia. At this point, his abdominal pain has resolved after medication adjustment. He can follow-up as an outpatient for further surgical evaluation and plan for colonoscopy.
--- NOTE | 2019-08-28 16:13 | XR ---
EXAMINATION TYPE: XR chest 2V DATE OF EXAM: 08/28/2019 COMPARISON: None HISTORY: 74 year-old male right lower lobe atelectasis TECHNIQUE: Frontal and lateral views FINDINGS: Heart borderline. Mild diffuse interstitial prominence. Streaky bibasilar opacities with aeration imp roved from prior exam particularly at the right base. Hyperinflation of flattening of the hemidiaphra gms. IMPRESSION: 1. COPD. 2. Improving bibasilar aeration with some minimal residual atelectasis/infiltrate particularly at the right base.
[2019-08-28 17:05] LABS: Glucose,Whole Blood 120 mg/dL (75-99)
--- NOTE | 2019-08-28 17:23 | PN ---
PROGRESS NOTE DATE OF SERVICE: 08/28/2019 The patient is seen for follow up for lactic acidosis. The patient's lactic acid is down to 1.8 now. He has been off of the metformin. The patient stated that his abdominal pain and discomfort is also improved significantly since he stopped the Glucophage. He had underlying chronic obstructive pulmonary disease and has been using nebulized beta agonist as well, which can contribute to the lactic acidosis; however, it seems to have improved significant post discontinuation of metformin. PHYSICAL EXAMINATION: On examination today, blood pressure is 160/74, heart rate 84 per minute, the patient is afebrile. Examination of the heart, S1 and S2. Examination of the lungs, bilateral breath sounds are heard. Abdomen is soft, nontender. Lower extremities shows trace edema bilaterally. [employer]IV[employer] AD[employer]ISTRATOR examination is grossly intact. LABS: Show sodium 139, potassium 4.4, chloride 101, BUN 17, creatinine 0.76, lactic acid 1.8. ASSESSMENT: 1. Lactic acidosis, mostly from metformin, currently significantly improved. 2. Chronic obstructive pulmonary disease exacerbation, slowly improving. 3. Type 2 diabetes. The patient was on metformin which is now discontinued. His GI side effects have improved significantly post discontinuation of metformin. PLAN: Maintain patient off of metformin for now. MMODL / IJN: [id number] /
[2019-08-28 19:50] LABS: Glucose,Whole Blood 199 mg/dL (75-99)
[2019-08-28] MEDS: TAMSULOSIN 0.4 MG CAP.ER.24H PO SCH (20:22)
[2019-08-29] MEDS: SODIUM CHLORIDE 0.9% 1,000 ML IV SCH (01:50)
[2019-08-29] MEDS: MELATONIN 3 MG TABLET PO PRN (02:09)
[2019-08-29] MEDS: GABAPENTIN 100 MG CAP PO SCH (02:09)
[2019-08-29 06:49] LABS: Glucose,Whole Blood 131 mg/dL (75-99)
[2019-08-29] MEDS: IPRATROPIUM-ALBUTEROL 3 ML NEB INHALATION SCH ×2 (07:17→11:12)
[2019-08-29] MEDS: BUDESONIDE 0.5 MG/2 ML NEBU INHALATION SCH (07:17)
[2019-08-29 07:49] LABS: African American GFR (CKD) >90 (>60 ml/min/1.73 sqM); Anion Gap 6 mmol/L; Blood Urea Nitrogen 20 mg/dL (9-20); Calcium 9.2 mg/dL (8.4-10.2); Carbon Dioxide 33 mmol/L (22-30); Chloride 101 mmol/L (98-107); Glucose 117 mg/dL (74-99); Non-African American GFR(CKD) 82 (>60 ml/min/1.73 sqM); Potassium 3.9 mmol/L (3.5-5.1); Sodium 140 mmol/L (137-145)
[2019-08-29] MEDS: GLIMEPIRIDE 2 MG TAB PO SCH (07:51)
[2019-08-29] MEDS: SUCRALFATE 1 GM TAB PO SCH ×2 (07:51→13:01)
[2019-08-29] MEDS: INSULIN ASPART (NovoLOG) 100 UNIT/ML VIAL SQ SCH ×2 (07:51→13:01)
[2019-08-29] MEDS: PANTOPRAZOLE 40 MG TABLET PO SCH (07:52)
[2019-08-29] MEDS: AZITHROMYCIN 500 MG TAB PO SCH (07:52)
[2019-08-29] MEDS: amLODIPine 10 MG TAB PO SCH (07:52)
[2019-08-29] MEDS: FERROUS SULFATE 325 MG TAB PO SCH (07:52)
[2019-08-29] MEDS: SENNOSIDES-DOCUSATE SODIUM 1 EACH TAB PO SCH (07:53)
[2019-08-29] MEDS: HEPARIN SODIUM,PORCINE 5,000 UNIT/ML 1 ML VIAL SQ SCH (07:53)
[2019-08-29 08:56] LABS: Anisocytosis Slight; HGB 9.4 gm/dL (13.0-17.5); Hypochromasia Marked; MCH 24.2 pg (25.0-35.0); MCHC 29.2 g/dL (31.0-37.0); MCV 82.7 fL (80.0-100.0); Mean Platelet Volume 7.7; Platelet Count 606 k/uL (150-450); Poikilocytosis Slight; RBC 3.87 m/uL (4.30-5.90); RDW 17.6 % (11.5-15.5)
[2019-08-29] MEDS ORDERED: predniSONE 20 MG TAB PO SCH (09:00)
[2019-08-29 10:11] LABS: Band Neutrophils % 2 %; Metamyelocytes % 4 %; Myelocytes % 5 %; Neutrophils % (M) 73 %; Nucleated Red Blood Cells 1 /100 WBC (0-0); Total Cells Counted 200
[2019-08-29 10:12] LABS: Lymphocytes # (M) 1.77 k/uL (1.0-4.8); Metamyelocytes # (M) 0.54 k/uL (0); Monocytes # (M) 0.68 k/uL (0-1.0); Myelocytes # (M) 0.68 k/uL (0); WBC 13.6 k/uL (3.8-10.6)
[2019-08-29 11:18] LABS: Glucose,Whole Blood 216 mg/dL (75-99)
[2019-08-29 11:32] LABS: Glucose,Whole Blood 210 mg/dL (75-99)
[2019-08-29] MEDS: HYDROcodone/APAP 7.5-325MG 1 EACH TAB PO SCH (11:40)
[2019-08-29 11:48] VITALS: BP 137/67; PULSE 87; RESP 17; TEMP 98
--- NOTE | 2019-08-29 13:09 | P.PN ---
Subjective Progress Note Date: 08/29/19 Principal diagnosis: acute COPD exacerbation with a limited atelectatic changes/infiltration of the right lung base, consider pneumonia A pleasant 74-year-old male patient with advanced COPD maintain oxygen at 2 L per minute nasal cannula along with a combination of Perforomist and Pulmicort updrafts twice a day. The patient is an ex-smoker. The patient is an ex- smoker. He has a FEV1 of 20% of predicted and diffusion capacity of 32% of predicted. The patient came into the hospital because of worsening shortness of breath. He was treated for an acute COPD exacerbation and outpatient basis for his primary care physician. Back in 07/11/2019, the patient was also given antibiotics and steroids by our office. He came in with similar symptoms. His white cell count was at 9.9. He had a chest x-ray that showed some patchy atelectatic change in the right lower lobe in addition to some infiltration. For that reason the patient was admitted to the hospital and he was started on a combination of Rocephin and Zithromax and IV Solu-Medrol. He is already feeling better. Unfortunately hasn't obtained a hospital bed. He is awaiting in the emergency department. LFTs unremarkable. He is afebrile. No altered mentation. No other significant events overnight for now. Patient has no chest pain. No swelling lower extremities. No other complaints otherwise. His main complaint is a study medications. He is diabetic. He has hypertension and hyperlipidemia as comorbid conditions. He also has osteoarthritis. He is obese. On today's evaluation of 08/27/2019 on seeing the patient for a follow-up. He is relatively stable. He is not having any hemodynamic instability. No altered mentation. Shortness of breath is slightly improved. His lactic acid is still elevated and it's running at 3.6 and the patient is on normal saline today to 1 30 mL an hour. No fever. No chills. He is on bronchodilators. Steroids. Rocephin and Zithromax. No other significant events overnight. His white cell count is at 10.8. Hemoglobin is at 8.2. On today's evaluation of 08/28/2019, the patient is feeling much better. On a special note, the patient is currently off metformin for the past 3 days. He has felt significantly better. No nausea. No vomiting and no abdominal tenderness in all of the symptoms have recovered. I'm also considering the possibility of the lactic acid level being elevated because of metformin intake. The patient's lactic acid level is normalized is down to 1.8 now that is off the metformin. He is currently on Amaryl. His breathing is improved and is less short of breath. Note that he has advanced COPD with an FEV1 of 20% of predicted. His chest x-ray shows some limited atelectatic change in the right lower lobe and I'm going to obtain a follow-up chest x-ray with PA and lateral views. No other complaints otherwise for now. He feels much better. Is still on oxygen at 2 L per minute nasal cannula. IV fluids has been cut down. On 08/29/2019 patient seen in follow-up on general medical oncology floor, he remains on 3 units of oxygen with a pulse ox of 94%, he is afebrile, hemodynamically stable. His chest x-ray has been reviewed showing improving bibasilar aeration with some minimal residual atelectasis. His labs have been reviewed, showing stable white count at 13.6, hemoglobin 9.4, sodium of 140, pot assium is 3.9, chloride is 101, CO2 is 33, B1 of 20 creatinine 0.92. Blood culture showed no growth, sputum culture showed Dorothy species. Patient is on the common issue Zithromax and Rocephin, oral prednisone and breathing treatments, clinically improving Objective - Vital Signs Vital signs: Vital Signs Temp 98.0 F 08/29/19 11:46 Pulse 87 08/29/19 11:46 Resp 17 08/29/19 11:46 BP 137/67 08/29/19 11:46 Pulse Ox 94 L 08/29/19 11:46 Intake & Output 08/28/19 08/29/19 08/29/19 18:59 06:59 18:59 Intake Total 580 240 480 Balance 580 240 480 Intake: Oral 580 240 480 Other: Voiding Method Urinal Urinal Urinal # Voids 3 2 1 # Bowel Movements 1 - Exam GENERAL EXAM: Alert, very pleasant, 74-year-old on 3 L of oxygen with pulse ox of 94%, comfortable in no apparent distress. HEAD: Normocephalic/atraumatic. EYES: Normal reaction of pupils, equal size. Conjunctiva pink, sclera white. NOSE: Clear with pink turbinates. THROAT: No erythema or exudates. NECK: No masses, no JVD, no thyroid enlargement, no adenopathy. CHEST: No chest wall deformity. Symmetrical expansion. LUNGS: Equal air entry with no crackles, wheeze, rhonchi or dullness. CVS: Regular rate and rhythm, normal S1 and S2, no gallops, no murmurs, no rubs ABDOMEN: Soft, nontender. No hepatosplenomegaly, normal bowel sounds, no guarding or rigidity. EXTREMITIES: No clubbing, no edema, no cyanosis, 2+ pulses and upper and lower extremities. MUSCULOSKELETAL: Muscle strength and tone normal. SPINE: No scoliosis or deformity SKIN: No rashes CENTRAL NERVOUS SYSTEM: Alert and oriented -3. No focal deficits, tone is normal in all 4 extremities. PSYCHIATRIC: Alert and oriented -3. Appropriate affect. Intact judgment and insight. - Labs CBC & Chem 7: 08/29/19 07:20 08/29/19 07:20 Labs: Abnormal Lab Results - Last 24 Hours (Table) 08/28/19 08/28/19 08/29/19 Range/Units 17:02 19:49 06:47 WBC (3.8-10.6) k/uL RBC (4.30-5.90) m/uL Hgb (13.0-17.5) gm/dL Hct (39.0-53.0) % MCH (25.0-35.0) pg MCHC (31.0-37.0) g/dL RDW (11.5-15.5) % Plt Count (150-450) k/uL Neutrophils # (Manual) (1.3-7.7) k/uL Metamyelocytes # (Man) (0) k/uL Myelocytes # (Manual) (0) k/uL Nucleated RBCs (0-0) /100 WBC Carbon Dioxide (22-30) mmol/L Glucose (74-99) mg/dL POC Glucose (mg/dL) 120 H 199 H 131 H (75-99) mg/dL 08/29/19 08/29/19 08/29/19 Range/Units 07:20 07:20 11:16 WBC 13.6 H (3.8-10.6) k/uL RBC 3.87 L (4.30-5.90) m/uL Hgb 9.4 L (13.0-17.5) gm/dL Hct 32.0 L (39.0-53.0) % MCH 24.2 L (25.0-35.0) pg MCHC 29.2 L (31.0-37.0) g/dL RDW 17.6 H (11.5-15.5) % Plt Count 606 H (150-450) k/uL Neutrophils # (Manual) 10.20 H (1.3-7.7) k/uL Metamyelocytes # (Man) 0.54 H (0) k/uL Myelocytes # (Manual) 0.68 H (0) k/uL Nucleated RBCs 1 H (0-0) /100 WBC Carbon Dioxide 33 H (22-30) mmol/L Glucose 117 H (74-99) mg/dL POC Glucose (mg/dL) 216 H (75-99) mg/dL 08/29/19 Range/Units 11:31 WBC (3.8-10.6) k/uL RBC (4.30-5.90) m/uL Hgb (13.0-17.5) gm/dL Hct (39.0-53.0) % MCH (25.0-35.0) pg MCHC (31.0-37.0) g/dL RDW (11.5-15.5) % Plt Count (150-450) k/uL Neutrophils # (Manual) (1.3-7.7) k/uL Metamyelocytes # (Man) (0) k/uL Myelocytes # (Manual) (0) k/uL Nucleated RBCs (0-0) /100 WBC Carbon Dioxide (22-30) mmol/L Glucose (74-99) mg/dL POC Glucose (mg/dL) 210 H (75-99) mg/dL Microbiology - Last 24 Hours (Table) 08/26/19 07:20 Gram Stain - Final Sputum Sputum Culture - Final Dorothy sp,not albicans/galbr 08/25/19 14:50 Blood Culture - Preliminary Blood No Growth after 72 hours Assessment and Plan Plan: Assessment: 1 acute COPD exacerbation with a limited atelectatic changes/infiltration of the right lung base, consider pneumonia 2 shortness of breath secondary to above 3 advanced COPD with an FEV1 of 28% of predicted 4 chronic hypoxic respiratory failure, on 2 L of oxygen by nasal cannula on outpatient basis her. 5 obesity 6 hypertension 7 hyperlipidemia 8 diabetes mellitus 9 the patient has some mild lactic acidosis probably related to any form of septic event. This needs to be monitored. The lactic acid level is improved and I think this is related to metformin. No evidence of any acute sepsis. 10 GI-related side effects of metformin with nausea and some abdominal discomfort, all of those improved. Plan: Patient is doing good, today's follow-up chest x-ray is showing improvement in bibasilar atelectasis. From pulmonary perspective patient is stable for discharge home today on outpatient course of oral prednisone taper and he can finish the patient course of oral antibiotics, follow-up with Dr. Woodward in the office in one week I performed a history & physical examination of the patient and discussed their management with my nurse practitioner, Chelo Sinclair. I reviewed the nurse practitioner's note and agree with the documented findings and plan of care. Lung sounds are positive for diminished breath sounds. The findings and the impression was discussed with the patient. I attest to the documentation by the nurse practitioner. Time with Patient: Less than 30
== END 2019-08-29 14:49 | disposition home or self-care (01) | DRG 190 ==
LOC: EC 13:21 → 3SCARD 15:47 → 5NMEDONC 08-27 20:59
PROVIDERS: ADMIT Hospitalist; ATTEND Hospitalist
DX: J44.1 Chronic obstructive pulmonary disease with (acute) exacerbation (principal); J18.9 Pneumonia, unspecified organism; J96.11 Chronic respiratory failure with hypoxia; E87.2 Acidosis; J44.0 Chronic obstructive pulmonary disease with (acute) lower respiratory infection; I10 Essential (primary) hypertension; D50.9 Iron deficiency anemia, unspecified; E11.65 Type 2 diabetes mellitus with hyperglycemia; E66.9 Obesity, unspecified; E78.5 Hyperlipidemia, unspecified; E86.0 Dehydration; H53.50 Unspecified color vision deficiencies; M19.90 Unspecified osteoarthritis, unspecified site; N40.0 Benign prostatic hyperplasia without lower urinary tract symptoms; T38.0X5A Adverse effect of glucocorticoids and synthetic analogues, initial encounter; R10.9 Unspecified abdominal pain; D72.829 Elevated white blood cell count, unspecified; T38.3X5A Adverse effect of insulin and oral hypoglycemic [antidiabetic] drugs, initial encounter; Z87.891 Personal history of nicotine dependence; Z79.84 Long term (current) use of oral hypoglycemic drugs; Z79.899 Other long term (current) drug therapy; Z87.01 Personal history of pneumonia (recurrent); Z68.33 Body mass index [BMI] 33.0-33.9, adult
CPT/HCPCS: 36415; 71046; 80048; 80053; 81001; 82009; 82272; 82550; 82607; 82728; 82746; 83540; 83550; 83605; 83735; 83880; 84132; 84484; 85025; 85610; 85730; 87040; 87070; 87205; 93005; 94640; 94760; 96361; 96365; 96372; 96375; 96376; 99285

== ENCOUNTER 2020-02-10 12:43 | Inpatient (IN) | payer MEDICARE ==
[2020-02-10] MEDS ORDERED: SODIUM CHLORIDE 0.9% 1,000 ML IV STA ×2 (13:09)
[2020-02-10] MEDS ORDERED: PANTOPRAZOLE 40 MG/10 ML VIAL IVP STA (13:09)
--- NOTE | 2020-02-10 13:49 | ED ---
General Adult HPI - General Chief complaint: Recheck/Abnormal Lab/Rx Stated complaint: lab recheck/hemoglobin Time Seen by Provider: 02/10/20 12:54 Source: patient, RN notes reviewed, old records reviewed Mode of arrival: wheelchair Limitations: no limitations - History of Present Illness Initial comments: Patient is a 74-year-old male who presents emergency room today for abnormal outpatient lab test. Patient was found to have a hemoglobin of 6.1 apparently by primary care physician. He's had a known history of gastric ulcers. He does complain of some chronic abdominal pain and inability to eat much. He is color blind so does not know if he is had black or tarry stools. He reports he's had a previous upper GI scope in the beginning of this year. Patient states that he's had no nausea or vomiting. He just feels generally weak. - Related Data Home Medications Medication Instructions Recorded Confirmed Budesonide [Pulmicort] 0.5 mg INHALATION RT-BID 08/25/19 08/25/19 Doxylamine Succinate [Unisom] 25 mg PO HS 08/25/19 08/25/19 Formoterol Fumarate [Perforomist] 20 mcg INHALATION RT-BID 08/25/19 08/25/19 Gabapentin [Neurontin] 200 mg PO BID@1600,2100 08/25/19 08/25/19 HYDROcodone/APAP 7.5-325MG [[place] 1 tab PO BID 08/25/19 08/25/19 7.5-325] Ipratropium-Albuterol Nebulize 3 ml INHALATION RT-QID 08/25/19 08/25/19 [Duoneb 0.5 mg-3 mg/3 ml Soln] Multivit-Min/FA/Lycopen/Lutein 1 tab PO DAILY 08/25/19 08/25/19 [Centrum Silver Tablet] Pantoprazole [Protonix] 40 mg PO DAILY 08/25/19 08/25/19 Sucralfate [Carafate] 1 gm PO AC-TID 08/25/19 08/25/19 Tamsulosin [Flomax] 0.4 mg PO BID 08/25/19 08/25/19 amLODIPine [Norvasc] 10 mg PO DAILY 08/25/19 08/25/19 diphenhydrAMINE HCL [Benadryl] 25 mg PO HS 08/25/19 08/25/19 Previous Rx's Medication Instructions Recorded Azithromycin [Zithromax] 500 mg PO DAILY #5 tab 08/29/19 Ferrous Sulfate [Iron (65 MG 325 mg PO BID-W/MEALS tab 08/29/19 Elemental)] Glimepiride [Amaryl] 2 mg PO AC-BRKFST #30 tab 08/29/19 predniSONE [Deltasone] 40 mg PO DAILY 5 Days #5 tab 08/29/19 predniSONE 10 mg PO DIRECTED #30 tab 09/02/19 Allergies Allergy/AdvReac Type Severity Reaction Status Date / Time No Known Allergies Allergy Verified 08/25/19 13:33 Review of Systems ROS Statement: Those systems with pertinent positive or pertinent negative responses have been documented in the HPI. ROS Other: All systems not noted in ROS Statement are negative. Past Medical History Past Medical History: COPD, Diabetes Mellitus, Hyperlipidemia, Hypertension History of Any Multi-Drug Resistant Organisms: None Reported Past Surgical History: Hernia Repair, Orthopedic Surgery Additional Past Surgical History / Comment(s): lt ankle, rt shoulder, rt hip Past Psychological History: No Psychological Hx Reported Past Alcohol Use History: None Reported Past Drug Use History: None Reported General Exam - General Exam Comments Initial Comments: 74-year-old male. Alert and oriented. Limitations: no limitations General appearance: alert, in no apparent distress Head exam: Present: atraumatic, normocephalic, normal inspection Eye exam: Present: normal appearance, PERRL, EOMI. Absent: scleral icterus, conjunctival injection, periorbital swelling ENT exam: Present: normal exam, mucous membranes moist Neck exam: Present: normal inspection. Absent: tenderness, meningismus, lymphadenopathy Respiratory exam: Present: decreased breath sounds. Absent: normal lung sounds bilaterally, respiratory distress, wheezes, rales, rhonchi, stridor Cardiovascular Exam: Present: regular rate, normal rhythm, normal heart sounds. Absent: systolic murmur, diastolic murmur, rubs, gallop, clicks GI/Abdominal exam: Present: soft, normal bowel sounds. Absent: distended, tenderness, guarding, rebound, rigid Extremities exam: Present: normal inspection, full ROM, normal capillary refill. Absent: tenderness, pedal edema, joint swelling, calf tenderness Back exam: Present: normal inspection Neurological exam: Present: alert, oriented X3, CN II-XII intact Psychiatric exam: Present: normal affect, normal mood Course Vital Signs 02/10/20 02/10/20 12:48 13:31 Temperature 98.0 F Pulse Rate 77 Pulse Rate [ 74 [employer] ] Respiratory 20 20 Rate Blood Pressure 115/52 O2 Sat by Pulse 92 L Oximetry Medical Decision Making - Medical Decision Making 74-year-old male presents for abnormal hemoglobin for outpatient labs performed yesterday. Hemoglobin of 6.3. This seems to be downtrending from previous hemoglobins. The last was in September and at that time was 9. Patient doesn't l vandana some chronic abdominal pain. Today's fecal occult test is negative. Was given omeprazole. Was given 1 unit PRBCs. Discussed case with Dr. Mercedes recommends admission with consults to GI. - Lab Data Result diagrams: 02/10/20 13:32 02/10/20 13:32 Lab Results 02/10/20 02/10/20 02/10/20 Range/Units 13:32 13:32 13:32 WBC 9.3 (3.8-10.6) k/uL RBC 3.33 L (4.30-5.90) m/uL Hgb 6.3 L* (13.0-17.5) gm/dL Hct 24.8 L (39.0-53.0) % MCV 74.5 L (80.0-100.0) fL MCH 18.8 L (25.0-35.0) pg MCHC 25.3 L (31.0-37.0) g/dL RDW 18.2 H (11.5-15.5) % Plt Count 577 H (150-450) k/uL Neutrophils % 69 % Lymphocytes % 20 % Monocytes % 5 % Eosinophils % 4 % Basophils % 1 % Neutrophils # 6.4 (1.3-7.7) k/uL Lymphocytes # 1.8 (1.0-4.8) k/uL Monocytes # 0.5 (0-1.0) k/uL Eosinophils # 0.3 (0-0.7) k/uL Basophils # 0.1 (0-0.2) k/uL Hypochromasia Marked Poikilocytosis Slight Anisocytosis Slight Microcytosis Moderate APTT 24.7 (22.0-30.0) sec Sodium 141 (137-145) mmol/L Potassium 4.2 (3.5-5.1) mmol/L Chloride 103 (98-107) mmol/L Carbon Dioxide 31 H (22-30) mmol/L Anion Gap 7 mmol/L BUN 8 L (9-20) mg/dL Creatinine 1.02 (0.66-1.25) mg/dL Est GFR (CKD-EPI)AfAm 84 (>60 ml/min/1.73 sqM) Est GFR (CKD-EPI)NonAf 73 (>60 ml/min/1.73 sqM) Glucose 102 H (74-99) mg/dL Plasma Lactic Acid Po (0.7-2.0) mmol/L Calcium 9.0 (8.4-10.2) mg/dL Magnesium 1.8 (1.6-2.3) mg/dL Total Bilirubin 0.5 (0.2-1.3) mg/dL AST 21 (17-59) U/L ALT 10 (4-49) U/L Alkaline Phosphatase 82 (38-126) U/L Total Protein 5.9 L (6.3-8.2) g/dL Albumin 3.4 L (3.5-5.0) g/dL Lipase 66 (23-300) U/L Stool Occult Blood (Negative) Blood Type Blood Type Recheck Bld Type Recheck Status Antibody Screen Spec Expiration Date 02/10/20 02/10/20 02/10/20 Range/Units 13:32 13:32 14:07 WBC (3.8-10.6) k/uL RBC (4.30-5.90) m/uL Hgb (13.0-17.5) gm/dL Hct (39.0-53.0) % MCV (80.0-100.0) fL MCH (25.0-35.0) pg MCHC (31.0-37.0) g/dL RDW (11.5-15.5) % Plt Count (150-450) k/uL Neutrophils % % Lymphocytes % % Monocytes % % Eosinophils % % Basophils % % Neutrophils # (1.3-7.7) k/uL Lymphocytes # (1.0-4.8) k/uL Monocytes # (0-1.0) k/uL Eosinophils # (0-0.7) k/uL Basophils # (0-0.2) k/uL Hypochromasia Poikilocytosis Anisocytosis Microcytosis APTT (22.0-30.0) sec Sodium (137-145) mmol/L Potassium (3.5-5.1) mmol/L Chloride (98-107) mmol/L Carbon Dioxide (22-30) mmol/L Anion Gap mmol/L BUN (9-20) mg/dL Creatinine (0.66-1.25) mg/dL Est GFR (CKD-EPI)AfAm (>60 ml/min/1.73 sqM) Est GFR (CKD-EPI)NonAf (>60 ml/min/1.73 sqM) Glucose (74-99) mg/dL Plasma Lactic Acid Po 3.3 H* (0.7-2.0) mmol/L Calcium (8.4-10.2) mg/dL Magnesium (1.6-2.3) mg/dL Total Bilirubin (0.2-1.3) mg/dL AST (17-59) U/L ALT (4-49) U/L Alkaline Phosphatase (38-126) U/L Total Protein (6.3-8.2) g/dL Albumin (3.5-5.0) g/dL Lipase (23-300) U/L Stool Occult Blood Negative (Negative) Blood Type A Positive Blood Type Recheck A Pos Bld Type Recheck Status No Antibody Screen NEGATIVE Spec Expiration Date 02/13/2020 - 2331 Disposition Clinical Impression: Lactic acidosis, Anemia Disposition: ADMITTED IP TO THIS [facility] Condition: Stable Additional Instructions: Please use medication as discussed. Please follow up with family doctor if symptoms have not improved over the next two days. Please return to the emergency room if your symptoms increase or worsen or for any other concerns. Is patient prescribed a controlled substance at d/c from ED?: No Referrals: Lonnie Lee MD [Primary Care Provider] - 1-2 days Time of Disposition: 14:42
[2020-02-10 14:00] LABS: Anisocytosis Slight; Basophils # (A) 0.1 k/uL (0-0.2); Basophils % (A) 1 %; Eosinophils # (A) 0.3 k/uL (0-0.7); Eosinophils % (A) 4 %; HCT 24.8 % (39.0-53.0); Hypochromasia Marked; Lymphocytes # (A) 1.8 k/uL (1.0-4.8); Lymphocytes % (A) 20 %; MCH 18.8 pg (25.0-35.0); MCHC 25.3 g/dL (31.0-37.0); MCV 74.5 fL (80.0-100.0); Mean Platelet Volume 7.9; Microcytosis Moderate; Monocytes # (A) 0.5 k/uL (0-1.0); Monocytes % (A) 5 %; Neutrophils # (A) 6.4 k/uL (1.3-7.7); Neutrophils % (A) 69 %; Platelet Count 577 k/uL (150-450); Poikilocytosis Slight; RBC 3.33 m/uL (4.30-5.90); RDW 18.2 % (11.5-15.5); WBC 9.3 k/uL (3.8-10.6)
[2020-02-10 14:09] LABS: HGB 6.3 gm/dL (13.0-17.5)
[2020-02-10 14:11] LABS: Albumin 3.4 g/dL (3.5-5.0); Magnesium 1.8 mg/dL (1.6-2.3); Potassium 4.2 mmol/L (3.5-5.1); Total Bilirubin 0.5 mg/dL (0.2-1.3); Total Protein 5.9 g/dL (6.3-8.2)
--- NOTE | 2020-02-10 14:34 | XR ---
EXAMINATION TYPE: XR chest 2V DATE OF EXAM: 02/10/2020 COMPARISON: 08/28/2019 HISTORY: Shortness of breath TECHNIQUE: Frontal and lateral views of the chest are obtained. FINDINGS: Scattered senescent parenchymal changes noted. Hyperinflation compatible with COPD. Right lower lobe infiltrate with small effusion noted. Correlate for developing pneumonia. Heart size is stable. Mediastinal structures are stable and grossly unremarkable. No evidence for hilar prominence. Degenerative changes dorsal spine. IMPRESSION: 1. Right lower lobe infiltrate with small effusion noted. Correlate for developing pneumonia.
[2020-02-10] MEDS ORDERED: ACETAMINOPHEN TAB 325 MG TAB PO PRN (14:44)
[2020-02-10] MEDS ORDERED: LORazepam 2 MG/ML INJ IV PRN (14:44)
[2020-02-10] MEDS ORDERED: MORPHINE SULFATE 4 MG/ML SYRINGE IV PRN (14:44)
[2020-02-10] MEDS ORDERED: ONDANSETRON 4 MG/2 ML VIAL IVP PRN (14:44)
[2020-02-10] MEDS ORDERED: HYDROmorphone 0.5 MG/0.5 ML SYRINGE IVP PRN (14:44)
[2020-02-10] MEDS ORDERED: NALOXONE 0.4 MG/ML 1 ML VIAL IV PRN (14:44)
[2020-02-10 14:53] LABS: Appearance,Urine Clear (Clear); Bilirubin,Urine Negative (Negative); Blood,Urine Negative (Negative); Color,Urine Yellow; Glucose,Urine (UA) Negative (Negative); Ketones,Urine Negative (Negative); Leukocyte Esterase,Urine Negative (Negative); Nitrite,Urine Negative (Negative); PH, Urine 5.5 (5.0-8.0); Protein,Urine Trace (Negative); Specific Gravity,Urine 1.018 (1.001-1.035); Urobilinogen,Urine <2.0 mg/dL (<2.0)
[2020-02-10] MEDS: SODIUM CHLORIDE 0.9% 1,000 ML IV SCH (16:48)
[2020-02-10 17:04] LABS: Glucose,Whole Blood 110 mg/dL (75-99)
[2020-02-10] MEDS: INSULIN ASPART (NovoLOG) 100 UNIT/ML VIAL SQ SCH ×2 (17:09→21:45)
[2020-02-10] MEDS ORDERED: diphenhydrAMINE 25 MG CAP PO PRN (19:19)
[2020-02-10 20:53] LABS: Glucose,Whole Blood 127 mg/dL (75-99)
[2020-02-10] MEDS ORDERED: NON FORMULARY DRUG (Doxylamine Succinate [Unisom] 25 MG) PO SCH (21:00)
[2020-02-10] MEDS: IPRATROPIUM-ALBUTEROL 3 ML NEB INHALATION SCH (21:27)
[2020-02-10] MEDS: BUDESONIDE 0.5 MG/2 ML NEBU INHALATION SCH (21:27)
[2020-02-10] MEDS: FORMOTEROL FUMARATE 20 MCG/2 ML NEBU INHALATION SCH (21:38)
[2020-02-10] MEDS: KETOTIFEN 0.025% OPHTH DROPS 5 ML BTL BOTH EYES SCH (21:47)
[2020-02-10] MEDS: GABAPENTIN 100 MG CAP PO SCH (21:47)
[2020-02-10] MEDS: PANTOPRAZOLE 40 MG/10 ML VIAL IVP SCH (21:48)
[2020-02-10] MEDS: TAMSULOSIN 0.4 MG CAP.ER.24H PO SCH (22:52)
--- NOTE | 2020-02-10 23:00 | P.HPIM ---
History of Present Illness H&P Date: 02/10/20 Chief Complaint: Severe acute symptomatic anemia, severe dyspnea and shortness of breath, ad 73-year-old male one of Dr. Canas's patient with past medical history of COPD, diabetes, hypertension and hyperlipidemia who was hospitalized last in August 25 with severe dyspnea and shortness of breath was diagnosed with severe bronchitis and COPD exacerbation found to have severe anemia as well was seen general surgery and ended up having EGD at the time, patient was kept on proton pump inhibitor and have testing repeatedly no colonoscopy was perform at the time no further testing no sign of active acute bleeding. Patient was in to see his primary care physician yesterday blood drawn was done showed hemoglobin of 6.1, his primary care: Today and direct him to go to the emergency department to be hospitalized for severe symptomatic anemia will require blood transfusion and hospitalization for gastrointestinal workup of possible consultation with hematology further testing. Patient also continued to have significant dyspnea and shortness of breath found to have mild lactic acidosis in the emergency department is require O2 blood transfusion process was started patient described no sign and symptom of acute gastritis for bleed no black stool or bright red blood per rectum at this point no bleed as well. Review of Systems CONSTITUTIONAL: Well-developed no acute respiratory distress. EYES: No icterus sclerae, no conjunctivitis. EARS, NOSE, MOUTH, THROAT, and FACE: No sore throat, lymphadenopathy, carotid bruits or deformity. RESPIRATORY: Positive shortness of breath cough wheezes. CARDIOVASCULAR: Positive PND or tarry palpitation. GASTROINTESTINAL: Positive anemia with previous history of gastritis with no active bleed at the time no bright red blood per rectum or black stool. GENITOURINARY: Negative for Hematuria or UTI, no kidney stones. INTEGUMENT/BREAST: Negative for any muscular injury with mild osteoarthritis.. HEMATOLOGIC/LYMPHATIC: Negative for bleed or purpura. MUSCULOSKELTAL: Generalized muscle and joint pain. NEURLOGICAL: No LOC, Sz or syncope, blurred vision dizziness or abnormality.. BEHAVIORAL/PSYCH: Negative. ENDOCRINE: Negative. Past Medical History Past Medical History: Asthma, COPD, Diabetes Mellitus, Eye Disorder, GERD/Reflux, GI Bleed, Hyperlipidemia, Hypertension, Pneumonia, Prostate Disorder Additional Past Medical History / Comment(s): Chronic abdominal pain/unable to eat too much, past bleeding gastric ulcers/anemia with blood transfusion, lower extremity edema for past 6 months, color blind, NIDDM type II, neuropathy bilateral feet, home oxygen at 2L/NC prn but last 2 weeks ATC, 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 History of Any Multi-Drug Resistant Organisms: None Reported Past Surgical History: Hernia Repair, Joint Replacement, Orthopedic Surgery, Tonsillectomy Additional Past Surgical History / Comment(s): EGDs, colonoscopy, umbilical hernia repair, L ankle fracture with plate, R shoulder muscle damage repair with anchors in place, R total hip arthroplasty, sinus surgery x2, bilateral blepharoplasties. Past Anesthesia/Blood Transfusion Reactions: No Reported Reaction Additional Past Anesthesia/Blood Transfusion Reaction / Comment(s): Pt received blood in 2010 d/t anemia from bleeding antral ulcer without reaction. Smoking Status: Former smoker - Past Family History Father Family Medical History: Cancer Additional Family Medical History / Comment(s): Father had lung cancer in his 70s. He of "old age" at the age of 90yrs. Mother Additional Family Medical History / Comment(s): Mother was a "hypochondriac". Pt states she at the age of 75yrs. Medications and Allergies Home Medications Medication Instructions Recorded Confirmed Type Budesonide [Pulmicort] 0.5 mg INHALATION RT-BID 08/25/19 02/10/20 History Doxylamine Succinate [Unisom] 25 mg PO HS 08/25/19 02/10/20 History Formoterol Fumarate [Perforomist] 20 mcg INHALATION RT-BID 08/25/19 02/10/20 History Gabapentin [Neurontin] 200 mg PO HS 08/25/19 02/10/20 History HYDROcodone/APAP 7.5-325MG [[place] 1 tab PO QID PRN 08/25/19 02/10/20 History 7.5-325] Ipratropium-Albuterol Nebulize 3 ml INHALATION RT-QID 08/25/19 02/10/20 History [Duoneb 0.5 mg-3 mg/3 ml Soln] Multivit-Min/FA/Lycopen/Lutein 1 tab PO PC-SUPPER 08/25/19 02/10/20 History [Centrum Silver Tablet] Pantoprazole [Protonix] 40 mg PO PC-SUPPER 08/25/19 02/10/20 History Sucralfate [Carafate] 1 gm PO AC-TID 08/25/19 02/10/20 History Tamsulosin [Flomax] 0.8 mg PO PC-SUPPER 08/25/19 02/10/20 History amLODIPine [Norvasc] 10 mg PO PC-SUPPER 08/25/19 02/10/20 History diphenhydrAMINE HCL [Benadryl] 25 mg PO HS PRN 08/25/19 02/10/20 History Ketotifen 0.025% Ophth Soln 1 drop BOTH EYES HS 02/10/20 02/10/20 History [Zaditor] Vicks Zzzquil 30 ml PO HS 02/10/20 02/10/20 History sitaGLIPtin [Januvia] 100 mg PO PC-SUPPER 02/10/20 02/10/20 History Allergies Allergy/AdvReac Type Severity Reaction Status Date / Time No Known Allergies Allergy Verified 02/10/20 16:08 Physical Exam Vitals: Vital Signs Temp Pulse Pulse Resp BP BP Pulse Ox 02/10/20 18:16 98.0 F 79 16 142/65 94 L 02/10/20 17:55 57 L 110/67 02/10/20 17:40 56 L 99/63 02/10/20 17:25 54 L 98/63 02/10/20 17:10 52 L 98/62 02/10/20 16:55 56 L 119/84 02/10/20 16:40 48 L 132/73 02/10/20 16:27 54 L 122/65 02/10/20 16:11 97.4 F L 75 51 L 18 144/71 137/66 98 02/10/20 15:56 97.8 F 81 18 120/56 90 L 02/10/20 15:41 97.9 F 76 18 147/69 96 02/10/20 15:31 97.7 F 77 18 145/65 98 02/10/20 15:25 97.8 F 75 20 132/59 98 02/10/20 14:42 72 18 105/55 97 02/10/20 13:31 73 20 02/10/20 12:48 98.0 F 77 20 115/52 92 L Intake and Output 02/10/20 02/10/2020 06:59 14:59 22:59 Intake Total 850 Balance 850 Intake: Oral 540 Blood Product 310 Rc As-1 Unit 310 [id number] Other: Weight 97.976 kg 97.976 kg General Appearance: Alert, cooperative, no distress, appears stated age. Neck HEENT: Supple, no lymphadenopathy, no thyroid enlargement, no carotid bruits. Lungs: Decreased breath some bilateral Rhonchi Possible Expect Wheezes with Fine Crackles in the Bases. Chest Wall: Decrease expansion with deep inspiration no tenderness and no deformity was found on exam, no costochondral pain or discomfort. Heart: Regular rate and rhythm, S1, S2 normal, no murmur, rub or gallop. Back: Symmetric, no curvature, ROM normal, no CVA tenderness. Abdomen: Soft positive bowel sounds slight discomfort in the epigastric area and mid abdominal region area with significant distention with no rebound or rigidity also has mild discomfort in left lower quadrant areas well. Extremities: Trace edema and decrease pulse in dorsalis pedis bilaterally. Skin: Skin color, texture, tugor normal, no rashes or lesions. Neurologic: Alert oriented x3 cranial nerves II through XII intact, no motor deficit, no abnormal balance or gait. Results CBC & Chem 7: 02/10/20 13:32 02/10/20 13:32 Labs: Abnormal Lab Results - Last 24 Hours (Table) 02/10/20 02/10/20 02/10/20 Range/Units 13:32 13:32 13:32 RBC 3.33 L (4.30-5.90) m/uL Hgb 6.3 L* (13.0-17.5) gm/dL Hct 24.8 L (39.0-53.0) % MCV 74.5 L (80.0-100.0) fL MCH 18.8 L (25.0-35.0) pg MCHC 25.3 L (31.0-37.0) g/dL RDW 18.2 H (11.5-15.5) % Plt Count 577 H (150-450) k/uL Carbon Dioxide 31 H (22-30) mmol/L BUN 8 L (9-20) mg/dL Glucose 102 H (74-99) mg/dL POC Glucose (mg/dL) (75-99) mg/dL Plasma Lactic Acid Po 3.3 H* (0.7-2.0) mmol/L Total Protein 5.9 L (6.3-8.2) g/dL Albumin 3.4 L (3.5-5.0) g/dL Urine Protein (Negative) Crossmatch 02/10/20 02/10/20 02/10/20 Range/Units 13:32 14:42 16:53 RBC (4.30-5.90) m/uL Hgb (13.0-17.5) gm/dL Hct (39.0-53.0) % MCV (80.0-100.0) fL MCH (25.0-35.0) pg MCHC (31.0-37.0) g/dL RDW (11.5-15.5) % Plt Count (150-450) k/uL Carbon Dioxide (22-30) mmol/L BUN (9-20) mg/dL Glucose (74-99) mg/dL POC Glucose (mg/dL) 110 H (75-99) mg/dL Plasma Lactic Acid Po (0.7-2.0) mmol/L Total Protein (6.3-8.2) g/dL Albumin (3.5-5.0) g/dL Urine Protein Trace H (Negative) Crossmatch See Detail Thrombosis Risk Factor Assmnt - DVT/VTE Prophylaxis DVT/VTE Prophylaxis: Mechanical Prophylaxis ordered - Choose All That Apply Any of the Below Risk Factors Present?: Yes Each Factor Represents 1 point: Abnormal pulmonary function (COPD), Obesity (BMI >25), Serious lung disease incl. pneumonia (< 1month) Other Risk Factors: Yes Each Risk Factor Represents 2 Points: Age 61-74 years Each Risk Factor Represents 3 Points: History of DVT/PE Other congenital or acquired thrombophilia - If yes, enter type in comment: No Thrombosis Risk Factor Assessment Total Risk Factor Score: 8 Thrombosis Risk Factor Assessment Level: High Risk Assessment and Plan Assessment: 1 acute symptomatic anemia: Admit patient to the hospital, blood transfusion be done, consult gastroenterology and hematology watch for correction of hemoglobin to about 80 g or to become asymptomatic. 2 acute blood loss anemia: Most likely from GI tract despite the EGD in August patient will require to go for colonoscopy and possible small bowel capsule endoscopy, consult gastroneurology Hemoccult will be done. 3 chronic anemia with recurrent symptom not a clear if patient has any trouble with iron-storage we'll consult hematology patient will require iron infusion further recommendation by hematology if needed included bone marrow biopsy can be done. 4 severe dyspnea and shortness of breath: Known to have advanced COPD, continue patient on O2 along with updraft treatment on regular basis. 5 severe lactic acidosis: Most likely aggravated by hypoperfusion related to severe anemia continue hydration repeat lactic acid in the next 24 hours. 6 history of recurrent gastritis: Continue proton pump inhibitor up protonic to 40 mg twice a day. 7 recurrent abdominal pain severe mostly in the left lower quadrant along mid lower abdominal region area, CT of the abdomen pelvis with oral and IV contrast will be done. 8 type 2 diabetes: Patient has been on glyburide continue Accu-Chek with sliding scales coverage. 9 BPH: Continue patient on Flomax. 10 chronic pain management: Patient has been on hydrocodone as needed basis. 11 hypertension: Remain on amlodipine 10 mg a day, continue medication. 12 recurrent bronchitis and pneumonia: With no sign of infection lately continue to treat his COPD more aggressive at this point. 13 GI prophylaxis: Continue PPI. CODE STATUS: Full code. Code in 19 testing still pending Admit patient to the inpatient service for more than 2 night stay.
[2020-02-10] MEDS: HYDROcodone/APAP 7.5-325MG 1 EACH TAB PO PRN (23:30)
[2020-02-11] MEDS: SODIUM CHLORIDE 0.9% 1,000 ML IV SCH ×2 (04:17→10:01)
[2020-02-11 06:47] LABS: Glucose,Whole Blood 149 mg/dL (75-99)
[2020-02-11] MEDS: SUCRALFATE 1 GM TAB PO SCH ×3 (08:00→16:58)
[2020-02-11] MEDS: INSULIN ASPART (NovoLOG) 100 UNIT/ML VIAL SQ SCH ×4 (08:02→20:18)
[2020-02-11] MEDS: PANTOPRAZOLE 40 MG/10 ML VIAL IV SCH ×2 (08:04→08:06)
[2020-02-11] MEDS: PANTOPRAZOLE 40 MG/10 ML VIAL IVP SCH ×2 (08:06→20:19)
[2020-02-11] MEDS: BUDESONIDE 0.5 MG/2 ML NEBU INHALATION SCH ×2 (08:36→20:30)
[2020-02-11] MEDS: IPRATROPIUM-ALBUTEROL 3 ML NEB INHALATION SCH ×4 (08:37→20:30)
[2020-02-11] MEDS: FORMOTEROL FUMARATE 20 MCG/2 ML NEBU INHALATION SCH ×2 (08:37→20:30)
[2020-02-11] MEDS: IOPAMIDOL CONTRAST (ORAL USE) VIAL PO PRN ×2 (08:59→10:01)
[2020-02-11 09:27] LABS: ALT 9 U/L (4-49); AST 17 U/L (17-59); African American GFR (CKD) >90 (>60 ml/min/1.73 sqM); Alkaline Phosphatase 85 U/L (38-126); Anion Gap 4 mmol/L; Blood Urea Nitrogen 5 mg/dL (9-20); Calcium 8.6 mg/dL (8.4-10.2); Carbon Dioxide 31 mmol/L (22-30); Chloride 105 mmol/L (98-107); Glucose 108 mg/dL (74-99); Non-African American GFR(CKD) 84 (>60 ml/min/1.73 sqM); Potassium 4.2 mmol/L (3.5-5.1); Sodium 140 mmol/L (137-145); Total Bilirubin 0.5 mg/dL (0.2-1.3); Total Protein 5.4 g/dL (6.3-8.2)
[2020-02-11 09:33] LABS: Anisocytosis Slight; HCT 27.9 % (39.0-53.0); HGB 7.3 gm/dL (13.0-17.5); Hypochromasia Marked; MCH 20.4 pg (25.0-35.0); MCHC 26.3 g/dL (31.0-37.0); MCV 77.5 fL (80.0-100.0); Mean Platelet Volume 7.7; Microcytosis Slight; Platelet Count 548 k/uL (150-450); Poikilocytosis Moderate; RDW 18.7 % (11.5-15.5); WBC 6.9 k/uL (3.8-10.6)
[2020-02-11] MEDS: SODIUM FERRIC GLUCONAT-SUCROSE 125 MG in SODIUM CHLORIDE 0.9% 100 ML IVPB SCH (10:01)
[2020-02-11 10:34] LABS: Band Neutrophils % 1 %; Basophils # (M) 0.14 k/uL (0-0.2); Eosinophils # (M) 0.35 k/uL (0-0.7); Monocytes # (M) 0.35 k/uL (0-1.0); Neutrophils % (M) 74 %; Nucleated Red Blood Cells 0 /100 WBC (0-0); Total Cells Counted 100
--- NOTE | 2020-02-11 10:46 | P.PN ---
Subjective Progress Note Date: 02/11/20 73-year-old male one of Dr. Canas's patient with past medical history of COPD, diabetes, hypertension and hyperlipidemia who was hospitalized last in August 25 with severe dyspnea and shortness of breath was diagnosed with severe bronchitis and COPD exacerbation found to have severe anemia as well was seen general surgery and ended up having EGD at the time, patient was kept on proton pump inhibitor and have testing repeatedly no colonoscopy was perform at the time no further testing no sign of active acute bleeding. Patient was in to see his primary care physician yesterday blood drawn was done showed hemoglobin of 6.1, his primary care: Today and direct him to go to the emergency department to be hospitalized for severe symptomatic anemia will require blood transfusion and hospitalization for gastrointestinal workup of possible consultation with hematology further testing. Patient also continued to have significant dyspnea and shortness of breath found to have mild lactic acidosis in the emergency department is require O2 blood transfusion process was started patient described no sign and symptom of acute gastritis for bleed no black stool or bright red blood per rectum at this point no bleed as well. 02/10: Patient was examined today sitting on side of bed. Plan for CT of the a bdomen and pelvis today with contrast. Consults are in place for Dr. Tobias Denson, Dr. Tong, and Dr. Woody. Patient does follow with Dr. Mchugh on an outpatient basis. Repeat hemoglobin was 7.3 today, IV iron ordered. Patient did receive 1units of packed RBCs yesterday. Occult stool was negative. Vital signs are stable, patient remains afebrile, blood pressure 126/58, pulse rate 90, respirations 16, pulse ox 93% on 5 L via nasal cannula. We'll repeat labs in the a.m. Review of Systems CONSTITUTIONAL: Well-developed no acute respiratory distress. EYES: No icterus sclerae, no conjunctivitis. EARS, NOSE, MOUTH, THROAT, and FACE: No sore throat, lymphadenopathy, carotid bruits or deformity. RESPIRATORY: Positive shortness of breath cough wheezes. CARDIOVASCULAR: Positive PND or tarry palpitation. GASTROINTESTINAL: Positive anemia with previous history of gastritis with no active bleed at the time no bright red blood per rectum or black stool. GENITOURINARY: Negative for Hematuria or UTI, no kidney stones. INTEGUMENT/BREAST: Negative for any muscular injury with mild osteoarthritis.. HEMATOLOGIC/LYMPHATIC: Negative for bleed or purpura. MUSCULOSKELTAL: Generalized muscle and joint pain. NEURLOGICAL: No LOC, Sz or syncope, blurred vision dizziness or abnormality.. BEHAVIORAL/PSYCH: Negative. ENDOCRINE: Negative. Physical Exam General Appearance: Alert, cooperative, no distress, appears stated age. Neck HEENT: Supple, no lymphadenopathy, no thyroid enlargement, no carotid bruits. Lungs: Decreased breath some bilateral Rhonchi with expiratory Wheezes Chest Wall: Decrease expansion with deep inspiration no tenderness and no deformity was found on exam, no costochondral pain or discomfort. Heart: Regular rate and rhythm, S1, S2 normal, no murmur, rub or gallop. Back: Symmetric, no curvature, ROM normal, no CVA tenderness. Abdomen: Soft positive bowel sounds slight discomfort in the epigastric area and mid abdominal region area with significant distention with no rebound or rigidity also has mild discomfort in left lower quadrant areas well. Extremities: Trace edema and decrease pulse in dorsalis pedis bilaterally. Skin: Skin color, texture, tugor normal, no rashes or lesions. Neurologic: Alert oriented x3 cranial nerves II through XII intact, no motor deficit, no abnormal balance or gait. Assessment and Plan Assessment: 1 acute symptomatic anemia: Admit patient to the hospital, blood transfusion done, consult gastroenterology, hematology watch for correction of hemoglobin to about 8 g. IV iron ordered. 2 acute blood loss anemia: Most likely from GI tract despite the EGD in August patient will require to go for colonoscopy and possible small bowel capsule endoscopy, consult gastroneurology Hemoccult was negative 3 chronic anemia with recurrent symptom not a clear if patient has any trouble with iron-storage we'll consult hematology patient will require iron infusion further recommendation by hematology if needed included bone marrow biopsy can be done. 4 severe dyspnea and shortness of breath: Known to have advanced COPD, continue patient on O2 along with updraft treatment on regular basis, consult for pulmonary in place 5 severe lactic acidosis: Most likely aggravated by hypoperfusion related to severe anemia continue hydration repeat lactic acid in the next 24 hours. 6 history of recurrent gastritis: Continue proton pump inhibitor up protonic to 40 mg twice a day. 7 recurrent abdominal pain severe mostly in the left lower quadrant along mid lower abdominal region area, CT of the abdomen pelvis with oral and IV contrast will be done. 8 type 2 diabetes: Patient has been on glyburide continue Accu-Chek with sliding scales coverage. 9 BPH: Continue patient on Flomax. 10 chronic pain management: Patient has been on hydrocodone as needed basis. 11 hypertension: Remain on amlodipine 10 mg a day, continue medication. 12 recurrent bronchitis and pneumonia: With no sign of infection lately continue to treat his COPD more aggressive at this point. 13 GI prophylaxis: Continue PPI. CODE STATUS: Full code. Code in 19 testing still pending Admit patient to the inpatient service for more than 2 night stay. Impression and plan of care have been directed as dictated by the signing physi cian. Kelly Jones nurse practitioner acting as scribe for signing physician. Objective - Vital Signs Vital signs: Vital Signs Temp 97.8 F 02/11/20 06:55 Pulse 88 02/11/20 08:57 Resp 16 02/11/20 06:55 BP 126/58 02/11/20 06:55 Pulse Ox 93 L 02/11/20 08:14 Intake & Output 02/10/20 02/11/20 02/11/20 18:59 06:59 18:59 Intake Total 850 900 Balance 850 900 Weight 97.976 kg Intake: IV 900 Sodium Chloride 0.9% 1, 800 000 ml @ 100 mls/hr IV . Q10H [facility] Rx#:[id number] Sodium Ferric Gluconat- 100 Sucrose 125 mg In Sodium Chloride 0.9% 100 ml @ 100 mls/hr IVPB DAILY [facility] Rx#:[id number] Oral 540 Blood Product 310 Rc As-1 Unit 310 [id number] Other: # Voids 2 - Labs CBC & Chem 7: 02/11/20 08:15 02/11/20 08:15 Labs: Abnormal Lab Results - Last 24 Hours (Table) 02/10/20 02/10/20 02/10/20 Range/Units 13:32 13:32 13:32 RBC 3.33 L (4.30-5.90) m/uL Hgb 6.3 L* (13.0-17.5) gm/dL Hct 24.8 L (39.0-53.0) % MCV 74.5 L (80.0-100.0) fL MCH 18.8 L (25.0-35.0) pg MCHC 25.3 L (31.0-37.0) g/dL RDW 18.2 H (11.5-15.5) % Plt Count 577 H (150-450) k/uL Carbon Dioxide 31 H (22-30) mmol/L BUN 8 L (9-20) mg/dL Glucose 102 H (74-99) mg/dL POC Glucose (mg/dL) (75-99) mg/dL Plasma Lactic Acid Po 3.3 H* (0.7-2.0) mmol/L Total Protein 5.9 L (6.3-8.2) g/dL Albumin 3.4 L (3.5-5.0) g/dL Urine Protein (Negative) Crossmatch 02/10/20 02/10/20 02/10/20 Range/Units 13:32 14:42 16:53 RBC (4.30-5.90) m/uL Hgb (13.0-17.5) gm/dL Hct (39.0-53.0) % MCV (80.0-100.0) fL MCH (25.0-35.0) pg MCHC (31.0-37.0) g/dL RDW (11.5-15.5) % Plt Count (150-450) k/uL Carbon Dioxide (22-30) mmol/L BUN (9-20) mg/dL Glucose (74-99) mg/dL POC Glucose (mg/dL) 110 H (75-99) mg/dL Plasma Lactic Acid Po (0.7-2.0) mmol/L Total Protein (6.3-8.2) g/dL Albumin (3.5-5.0) g/dL Urine Protein Trace H (Negative) Crossmatch See Detail 02/10/20 02/11/20 02/11/20 Range/Units 20:52 06:45 08:15 RBC 3.60 L (4.30-5.90) m/uL Hgb 7.3 L (13.0-17.5) gm/dL Hct 27.9 L (39.0-53.0) % MCV 77.5 L (80.0-100.0) fL MCH 20.4 L (25.0-35.0) pg MCHC 26.3 L (31.0-37.0) g/dL RDW 18.7 H (11.5-15.5) % Plt Count 548 H (150-450) k/uL Carbon Dioxide (22-30) mmol/L BUN (9-20) mg/dL Glucose (74-99) mg/dL POC Glucose (mg/dL) 127 H 149 H (75-99) mg/dL Plasma Lactic Acid Po (0.7-2.0) mmol/L Total Protein (6.3-8.2) g/dL Albumin (3.5-5.0) g/dL Urine Protein (Negative) Crossmatch 02/11/20 Range/Units 08:15 RBC (4.30-5.90) m/uL Hgb (13.0-17.5) gm/dL Hct (39.0-53.0) % MCV (80.0-100.0) fL MCH (25.0-35.0) pg MCHC (31.0-37.0) g/dL RDW (11.5-15.5) % Plt Count (150-450) k/uL Carbon Dioxide 31 H (22-30) mmol/L BUN 5 L (9-20) mg/dL Glucose 108 H (74-99) mg/dL POC Glucose (mg/dL) (75-99) mg/dL Plasma Lactic Acid Po (0.7-2.0) mmol/L Total Protein 5.4 L (6.3-8.2) g/dL Albumin 3.0 L (3.5-5.0) g/dL Urine Protein (Negative) Crossmatch
[2020-02-11] MEDS: HYDROcodone/APAP 7.5-325MG 1 EACH TAB PO PRN ×2 (10:52→19:10)
--- NOTE | 2020-02-11 11:03 | CT ---
EXAMINATION TYPE: CT abdomen pelvis w con DATE OF EXAM: 02/11/2020 COMPARISON: None. HISTORY: Abdominal pain CT DLP: 1989.1 mGycm, Automated Exposure Control for Dose Reduction was Utilized. CONTRAST: CT scan of the abdomen and pelvis is performed with oral and with IV Contrast, patient injected with 100 ml mL of Isovue 300. FINDINGS: LUNG BASES: Trace left pleural effusion. Small right pleural effusion. Moderate bibasilar linear scar ring and/or atelectasis. LIVER/GB: No significant abnormality is appreciated. PANCREAS: Mild to moderate generalized atrophy. Some calcifications in the head and uncinate process. Findings presumed product of chronic pancreatitis. SPLEEN: No significant abnormality is seen. ADRENALS: No significant abnormality is seen. KIDNEYS: Cortical thinning in both kidneys. Symmetric cortical medullary uptake and excretion without hydronephrosis seen bilaterally. Urinary bladder within normal limits. BOWEL: Oral contrast reaches level terminal ileum. No suspicious small or large bowel dilatation. Sto mach poorly distended and thus suboptimally evaluated. Incidental normal-appearing appendix from base of cecum. PROSTATE/SEMINAL VESICLES: Poorly visualized due to right hip surgery. LYMPH NODES: No greater than 1cm abdominal or pelvic lymph nodes are appreciated. OSSEOUS STRUCTURES: Metallic hardware from total right hip arthroplasty satisfactory in position. Str eak artifact limits evaluation of pelvic structures. [id number] multilevel spurring in the spin e. OTHER: Mild subcutaneous edema over the abdomen and pelvis extending over the bilateral thighs. Early moderate calcified plaque of the abdominal aorta extending into the iliac branch vessels. Incidental accessory bilateral renal arteries. Small fat-containing umbilical hernia. IMPRESSION: No significant acute finding is seen to account for patient's clinical symptoms of nonsp ecific abdominal pain.
[2020-02-11 11:26] LABS: Glucose,Whole Blood 122 mg/dL (75-99)
--- NOTE | 2020-02-11 14:25 | P.CONS ---
History of Present Illness - Reason for Consult Consult date: 02/11/20 anemia Requesting physician: Link Ag - Chief Complaint sent for abn lab - History of Present Illness Mr. Carroll is a very pleasant 74 year old male pt of PCP Dr. Lee who we have been asked to see for mirocytic/hypochronic anemia. Pt has had this anemia problem "on and off" for about 10 years now, he only needed transfusion this year. He had EGD 08/28 that was negative for an acute process, last colonoscopy he thinks was 4-5 years ago. He was discharged earlier this year on oral iron but could not tolerate the GI sied effects. Pt denies any personal history of cancer, gastric surgeries. Has a history of bleeding gastric ulcer, has had trouble with RLQ abd discomfort since hernia repair 2-3 years ago, worse this last year. He notes change in bowel habits to constipation, some wt loss but not sure how much, he denies painful or difficulty swallowing, no acute changes in breathing-he quit smoking 9 years ago-no bleeding, anticoagulation, a sa, frequent NSAID use, he has BLE swelling that is fairly new. Review of Systems 14 point ROS is negative except as stated in HPI Past Medical History Past Medical History: Asthma, COPD, Diabetes Mellitus, Eye Disorder, GERD/Ref lux, GI Bleed, Hyperlipidemia, Hypertension, Pneumonia, Prostate Disorder Additional Past Medical History / Comment(s): Chronic abdominal pain/unable to eat too much, past bleeding gastric ulcers/anemia with blood transfusion, lower extremity edema for past 6 months, color blind, NIDDM type II, neuropathy bilateral feet, home oxygen at 2L/NC prn but last 2 weeks ATC, 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 History of Any Multi-Drug Resistant Organisms: None Reported Past Surgical History: Hernia Repair, Joint Replacement, Orthopedic Surgery, Tonsillectomy Additional Past Surgical History / Comment(s): EGDs, colonoscopy, umbilical hernia repair, L ankle fracture with plate, R shoulder muscle damage repair with anchors in place, R total hip arthroplasty, sinus surgery x2, bilateral blepharoplasties. Past Anesthesia/Blood Transfusion Reactions: No Reported Reaction Additional Past Anesthesia/Blood Transfusion Reaction / Comm: Pt received blood in 2010 d/t anemia from bleeding antral ulcer without reaction. Past Psychological History: No Psychological Hx Reported Smoking Status: Former smoker Past Drug Use History: None Reported - Past Family History Father Family Medical History: Cancer Additional Family Medical History / Comment(s): Father had lung cancer in his 70s. He of "old age" at the age of 90yrs. Mother Additional Family Medical History / Comment(s): Mother was a "hypochondriac". Pt states she at the age of 75yrs. Medications and Allergies Home Medications Medication Instructions Recorded Confirmed Type Budesonide [Pulmicort] 0.5 mg INHALATION RT-BID 08/25/19 02/10/20 History Doxylamine Succinate [Unisom] 25 mg PO HS 08/25/19 02/10/20 History Formoterol Fumarate [Perforomist] 20 mcg INHALATION RT-BID 08/25/19 02/10/20 History Gabapentin [Neurontin] 200 mg PO HS 08/25/19 02/10/20 History HYDROcodone/APAP 7.5-325MG [[place] 1 tab PO QID PRN 08/25/19 02/10/20 History 7.5-325] Ipratropium-Albuterol Nebulize 3 ml INHALATION RT-QID 08/25/19 02/10/20 History [Duoneb 0.5 mg-3 mg/3 ml Soln] Multivit-Min/FA/Lycopen/Lutein 1 tab PO PC-SUPPER 08/25/19 02/10/20 History [Centrum Silver Tablet] Pantoprazole [Protonix] 40 mg PO PC-SUPPER 08/25/19 02/10/20 History Sucralfate [Carafate] 1 gm PO AC-TID 08/25/19 02/10/20 History Tamsulosin [Flomax] 0.8 mg PO PC-SUPPER 08/25/19 02/10/20 History amLODIPine [Norvasc] 10 mg PO PC-SUPPER 08/25/19 02/10/20 History diphenhydrAMINE HCL [Benadryl] 25 mg PO HS PRN 08/25/19 02/10/20 History Ketotifen 0.025% Ophth Soln 1 drop BOTH EYES HS 02/10/20 02/10/20 History [Zaditor] Vicks Zzzquil 30 ml PO HS 02/10/20 02/10/20 History sitaGLIPtin [Januvia] 100 mg PO PC-SUPPER 02/10/20 02/10/20 History Allergies Allergy/AdvReac Type Severity Reaction Status Date / Time No Known Allergies Allergy Verified 02/10/20 16:08 Physical Exam Vitals: Vital Signs Temp Pulse Pulse Resp BP BP Pulse Ox 02/11/20 12:43 90 02/11/20 12:28 90 02/11/20 08:57 88 02/11/20 08:46 88 02/11/20 08:37 88 02/11/20 08:14 93 L 02/11/20 06:55 97.8 F 90 16 126/58 88 L 02/11/20 02:53 98.6 F 75 17 118/55 90 L 02/10/20 21:41 75 02/10/20 21:38 75 02/10/20 21:37 75 02/10/20 21:29 73 02/10/20 18:16 98.0 F 79 16 142/65 94 L 02/10/20 17:55 57 L 110/67 02/10/20 17:40 56 L 99/63 02/10/20 17:25 54 L 98/63 02/10/20 17:10 52 L 98/62 02/10/20 16:55 56 L 119/84 02/10/20 16:40 48 L 132/73 02/10/20 16:27 54 L 122/65 02/10/20 16:11 97.4 F L 75 51 L 18 144/71 137/66 98 02/10/20 15:56 97.8 F 81 18 120/56 90 L 02/10/20 15:41 97.9 F 76 18 147/69 96 02/10/20 15:31 97.7 F 77 18 145/65 98 02/10/20 15:25 97.8 F 75 20 132/59 98 02/10/20 14:42 72 18 105/55 97 02/10/20 13:31 73 20 Intake and Output 02/10/20 02/11/20 02/11/20 22:59 06:59 14:59 Intake Total 850 1540 Balance 850 1540 Intake: IV 900 Sodium Chloride 0.9% 1, 800 000 ml @ 100 mls/hr IV . Q10H COUNTS INCLUDE 234 BEDS AT THE [facility] Rx#:[id number] Sodium Ferric Gluconat- 100 Sucrose 125 mg In Sodium Chloride 0.9% 100 ml @ 100 mls/hr IVPB DAILY COUNTS INCLUDE 234 BEDS AT THE [facility] Rx#:[id number] Oral 540 640 Blood Product 310 Rc As-1 Unit 310 [id number] Other: # Voids 2 2 Weight 97.976 kg - Constitutional General appearance: cooperative, no acute distress, obese - EENT Eyes: anicteric sclerae, EOMI ENT: hearing grossly normal, normal oropharynx - Neck Neck: no lymphadenopathy - Respiratory Respiratory: bilateral: CTA - Cardiovascular Rhythm: regular Heart sounds: normal: S1, S2 Abnormal Heart Sounds: no systolic murmur, no diastolic murmur, no rub, no S3 Gallop, no S4 Gallop, no click, no other leg Peripheral Edema: bilateral: Trace - Gastrointestinal General gastrointestinal: no absent bowel sounds, no decreased bowel sounds, no distended, no hepatomegaly, no hyperactive bowel sounds, normal bowel sounds, no organomegaly, no rigid, no scaphoid, soft, no splenomegaly, tenderness (RLQ), no umbilical hernia, no ventral hernia - Integumentary Integumentary: normal, pale - Neurologic Neurologic: CNII-XII intact - Musculoskeletal Musculoskeletal: strength equal bilaterally - Psychiatric Psychiatric: A&O x's 3, appropriate affect, intact judgment & insight Results CBC & Chem 7: 02/11/20 08:15 02/11/20 08:15 Labs: Abnormal Lab Results - Last 24 Hours (Table) 02/10/20 02/10/20 02/10/20 Range/Units 13:32 13:32 13:32 RBC 3.33 L (4.30-5.90) m/uL Hgb 6.3 L* (13.0-17.5) gm/dL Hct 24.8 L (39.0-53.0) % MCV 74.5 L (80.0-100.0) fL MCH 18.8 L (25.0-35.0) pg MCHC 25.3 L (31.0-37.0) g/dL RDW 18.2 H (11.5-15.5) % Plt Count 577 H (150-450) k/uL Lymphocytes # (Manual) (1.0-4.8) k/uL Carbon Dioxide 31 H (22-30) mmol/L BUN 8 L (9-20) mg/dL Glucose 102 H (74-99) mg/dL POC Glucose (mg/dL) (75-99) mg/dL Plasma Lactic Acid Po 3.3 H* (0.7-2.0) mmol/L Total Protein 5.9 L (6.3-8.2) g/dL Albumin 3.4 L (3.5-5.0) g/dL Urine Protein (Negative) Crossmatch 02/10/20 02/10/20 02/10/20 Range/Units 13:32 14:42 16:53 RBC (4.30-5.90) m/uL Hgb (13.0-17.5) gm/dL Hct (39.0-53.0) % MCV (80.0-100.0) fL MCH (25.0-35.0) pg MCHC (31.0-37.0) g/dL RDW (11.5-15.5) % Plt Count (150-450) k/uL Lymphocytes # (Manual) (1.0-4.8) k/uL Carbon Dioxide (22-30) mmol/L BUN (9-20) mg/dL Glucose (74-99) mg/dL POC Glucose (mg/dL) 110 H (75-99) mg/dL Plasma Lactic Acid Po (0.7-2.0) mmol/L Total Protein (6.3-8.2) g/dL Albumin (3.5-5.0) g/dL Urine Protein Trace H (Negative) Crossmatch See Detail 02/10/20 02/11/20 02/11/20 Range/Units 20:52 06:45 08:15 RBC 3.60 L (4.30-5.90) m/uL Hgb 7.3 L (13.0-17.5) gm/dL Hct 27.9 L (39.0-53.0) % MCV 77.5 L (80.0-100.0) fL MCH 20.4 L (25.0-35.0) pg MCHC 26.3 L (31.0-37.0) g/dL RDW 18.7 H (11.5-15.5) % Plt Count 548 H (150-450) k/uL Lymphocytes # (Manual) 0.90 L (1.0-4.8) k/uL Carbon Dioxide (22-30) mmol/L BUN (9-20) mg/dL Glucose (74-99) mg/dL POC Glucose (mg/dL) 127 H 149 H (75-99) mg/dL Plasma Lactic Acid Po (0.7-2.0) mmol/L Total Protein (6.3-8.2) g/dL Albumin (3.5-5.0) g/dL Urine Protein (Negative) Crossmatch 02/11/20 02/11/20 Range/Units 08:15 11:25 RBC (4.30-5.90) m/uL Hgb (13.0-17.5) gm/dL Hct (39.0-53.0) % MCV (80.0-100.0) fL MCH (25.0-35.0) pg MCHC (31.0-37.0) g/dL RDW (11.5-15.5) % Plt Count (150-450) k/uL Lymphocytes # (Manual) (1.0-4.8) k/uL Carbon Dioxide 31 H (22-30) mmol/L BUN 5 L (9-20) mg/dL Glucose 108 H (74-99) mg/dL POC Glucose (mg/dL) 122 H (75-99) mg/dL Plasma Lactic Acid Po (0.7-2.0) mmol/L Total Protein 5.4 L (6.3-8.2) g/dL Albumin 3.0 L (3.5-5.0) g/dL Urine Protein (Negative) Crossmatch Assessment and Plan (1) Microcytic hypochromic anemia Current Visit: Yes Status: Chronic Priority: Medium Code(s): D50.9 - IRON DEFICIENCY ANEMIA, UNSPECIFIED SNOMED Code(s): 00253219 (2) Iron deficiency Current Visit: Yes Status: Chronic Priority: Medium Code(s): E61.1 - IRON DEFICIENCY SNOMED Code(s): 21600029 Plan: Pt was supposed to f/u with Dr. Ma after his 08/28 visit for colonoscopy, which he did not get to. Pt intolerant of oral supplementation. He is currently receiving parenteral supplement. Will reevaluate iron studies for 4 weeks after administration to check iron stores and repeat parenteral iron if appropriate. Recent EGD that was negative for acute process. Colonoscopy is planned, last one pt thinks is 5 or [address] AP pending. attests: I have seen and examined patient, performed H&P and developed impression and plan of care. Discussed with dictator. Agree with dictated note, documented as a scribe
--- NOTE | 2020-02-11 14:55 | P.CNPUL ---
History of Present Illness Consult date: 02/11/20 Requesting physician: Link Ag Reason for consult: dyspnea Chief complaint: Shortness of breath, anemia History of present illness: 74-year-old white male patient of Dr. 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 Woodward in the pulmonary clinic. Other history includes type 2 diabetes mellitus, benign essential hypertension, BPH, umbilical hernia. Patient presented to the hospital on 02/10/2020 because of abnormal outpatient lab test and hemoglobin of 6.1. 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 Denies any vomiting. He had a EGD in August 2019 which was reportedly negative, and patient's last colonoscopy she thinks was 4-5 years ago, patient has been on oral iron supplements, however he had to stop taking them because of GI side effects. He had a history of previous hernia repair to 3 years ago, and he does have some chronic right lower quadrant abdominal discomfort. He reports some increased shortness of breath, no significant cough or congestion, he is on 5 L of oxygen his pulse ox is 93%. His chest x-ray shows right lower lobe inf iltrate with small pleural effusion. Lung bases on the CT of the abdomen and pelvis showed trace left pleural effusion, small right pleural effusion, and moderate bibasilar linear scarring and/or atelectasis. His admission blood work showed a white blood cell count 9.3, hemoglobin of 6.3, patient was transfused with 1 unit of packed red blood cells today's hemoglobin is 7.3, platelet count is 577, sodium is 141, potassium is 4.2, chloride is 103, CO2 31, BUN is 8 creatinine is 1.02, LFTs were within normal limits, lactic acid was 0.9, lipase was normal at 66, urinalysis without evidence of infection, occult stool was negative. No significant wheezing or congestion, his TOPD seems to be stable. Patient is receiving iron supplements per hematology Review of Systems All systems: negative Constitutional: Denies chills, Denies fever Eyes: denies blurred vision, denies pain Ears, nose, mouth and throat: Denies headache, Denies sore throat Cardiovascular: Denies chest pain, Denies shortness of breath Respiratory: Reports dyspnea, Denies cough Gastrointestinal: Denies abdominal pain, Denies diarrhea, Denies nausea, Denies vomiting Musculoskeletal: Denies myalgias Integumentary: Denies pruritus, Denies rash Neurological: Denies numbness, Denies weakness Psychiatric: Denies anxiety, Denies depression Endocrine: Denies fatigue, Denies weight change Past Medical History Past Medical History: Asthma, COPD, Diabetes Mellitus, Eye Disorder, GERD/Reflux, GI Bleed, Hyperlipidemia, Hypertension, Pneumonia, Prostate Disorder Additional Past Medical History / Comment(s): Chronic abdominal pain/unable to eat too much, past bleeding gastric ulcers/anemia with blood transfusion, lower extremity edema for past 6 months, color blind, NIDDM type II, neuropathy bilateral feet, home oxygen at 2L/NC prn but last 2 weeks ATC, 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 History of Any Multi-Drug Resistant Organisms: None Reported Past Surgical History: Hernia Repair, Joint Replacement, Orthopedic Surgery, Tonsillectomy Additional Past Surgical History / Comment(s): EGDs, colonoscopy, umbilical hernia repair, L ankle fracture with plate, R shoulder muscle damage repair with anchors in place, R total hip arthroplasty, sinus surgery x2, bilateral blepharoplasties. Past Anesthesia/Blood Transfusion Reactions: No Reported Reaction Additional Past Anesthesia/Blood Transfusion Reaction / Comment(s): Pt received blood in 2010 d/t anemia from bleeding antral ulcer without reaction. Past Psychological History: No Psychological Hx Reported Smoking Status: Former smoker Past Drug Use History: None Reported - Past Family History Father Family Medical History: Cancer Additional Family Medical History / Comment(s): Father had lung cancer in his 70s. He of "old age" at the age of 90yrs. Mother Additional Family Medical History / Comment(s): Mother was a "hypochondriac". Pt states she at the age of 75yrs. Medications and Allergies Home Medications Medication Instructions Recorded Confirmed Type Budesonide [Pulmicort] 0.5 mg INHALATION RT-BID 08/25/19 02/10/20 History Doxylamine Succinate [Unisom] 25 mg PO HS 08/25/19 02/10/20 History Formoterol Fumarate [Perforomist] 20 mcg INHALATION RT-BID 08/25/19 02/10/20 History Gabapentin [Neurontin] 200 mg PO HS 08/25/19 02/10/20 History HYDROcodone/APAP 7.5-325MG [[place] 1 tab PO QID PRN 08/25/19 02/10/20 History 7.5-325] Ipratropium-Albuterol Nebulize 3 ml INHALATION RT-QID 08/25/19 02/10/20 History [Duoneb 0.5 mg-3 mg/3 ml Soln] Multivit-Min/FA/Lycopen/Lutein 1 tab PO PC-SUPPER 08/25/19 02/10/20 History [Centrum Silver Tablet] Pantoprazole [Protonix] 40 mg PO PC-SUPPER 08/25/19 02/10/20 History Sucralfate [Carafate] 1 gm PO AC-TID 08/25/19 02/10/20 History Tamsulosin [Flomax] 0.8 mg PO PC-SUPPER 08/25/19 02/10/20 History amLODIPine [Norvasc] 10 mg PO PC-SUPPER 08/25/19 02/10/20 History diphenhydrAMINE HCL [Benadryl] 25 mg PO HS PRN 08/25/19 02/10/20 History Ketotifen 0.025% Ophth Soln 1 drop BOTH EYES HS 02/10/20 02/10/20 History [Zaditor] Vicks Zzzquil 30 ml PO HS 02/10/20 02/10/20 History sitaGLIPtin [Januvia] 100 mg PO PC-SUPPER 02/10/20 02/10/20 History Allergies Allergy/AdvReac Type Severity Reaction Status Date / Time No Known Allergies Allergy Verified 02/10/20 16:08 Physical Exam Vitals: Vital Signs Temp Pulse Pulse Resp BP BP Pulse Ox 02/11/20 14:13 97.7 F 73 15 126/60 93 L 02/11/20 12:43 90 02/11/20 12:28 90 02/11/20 08:57 88 02/11/20 08:46 88 02/11/20 08:37 88 02/11/20 08:14 93 L 02/11/20 06:55 97.8 F 90 16 126/58 88 L 02/11/20 02:53 98.6 F 75 17 118/55 90 L 02/10/20 21:41 75 02/10/20 21:38 75 02/10/20 21:37 75 02/10/20 21:29 73 02/10/20 18:16 98.0 F 79 16 142/65 94 L 02/10/20 17:55 57 L 110/67 02/10/20 17:40 56 L 99/63 02/10/20 17:25 54 L 98/63 02/10/20 17:10 52 L 98/62 02/10/20 16:55 56 L 119/84 02/10/20 16:40 48 L 132/73 02/10/20 16:27 54 L 122/65 02/10/20 16:11 97.4 F L 75 51 L 18 144/71 137/66 98 02/10/20 15:56 97.8 F 81 18 120/56 90 L 02/10/20 15:41 97.9 F 76 18 147/69 96 02/10/20 15:31 97.7 F 77 18 145/65 98 02/10/20 15:25 97.8 F 75 20 132/59 98 02/10/20 14:42 72 18 105/55 97 Intake and Output 02/10/20 02/11/20 02/11/20 22:59 06:59 14:59 Intake Total 850 1540 Balance 850 1540 Intake: IV 900 Sodium Chloride 0.9% 1, 800 000 ml @ 100 mls/hr IV . Q10H [facility] Rx#:[id number] Sodium Ferric Gluconat- 100 Sucrose 125 mg In Sodium Chloride 0.9% 100 ml @ 100 mls/hr IVPB DAILY [facility] Rx#:[id number] Oral 540 640 Blood Product 310 Rc As-1 Unit 310 [id number] Other: # Voids 2 2 Weight 97.976 kg GENERAL EXAM: Alert, very pleasant, 74-year-old white male, on 5 L of oxygen and the pulse ox of 93%, comfortable in no apparent distress. HEAD: Normocephalic/atraumatic. EYES: Normal reaction of pupils, equal size. Conjunctiva pink, sclera white. NOSE: Clear with pink turbinates. THROAT: No erythema or exudates. NECK: No masses, no JVD, no thyroid enlargement, no adenopathy. CHEST: No chest wall deformity. Symmetrical expansion. LUNGS: Equal air entry with no crackles, wheeze, rhonchi or dullness. CVS: Regular rate and rhythm, normal S1 and S2, no gallops, no murmurs, no rubs ABDOMEN: Soft, nontender. No hepatosplenomegaly, normal bowel sounds, no guarding or rigidity. EXTREMITIES: No clubbing, no edema, no cyanosis, 2+ pulses and upper and lower extremities. MUSCULOSKELETAL: Muscle strength and tone normal. SPINE: No scoliosis or deformity SKIN: No rashes CENTRAL NERVOUS SYSTEM: Alert and oriented -3. No focal deficits, tone is normal in all 4 extremities. PSYCHIATRIC: Alert and oriented -3. Appropriate affect. Intact judgment and insight. Results - Laboratory Findings CBC and BMP: 02/11/20 08:15 02/11/20 08:15 Abnormal lab findings: Abnormal Labs 02/10/20 02/10/20 02/10/20 13:32 13:32 13:32 RBC 3.33 L Hgb 6.3 L* Hct 24.8 L MCV 74.5 L MCH 18.8 L MCHC 25.3 L RDW 18.2 H Plt Count 577 H Lymphocytes # (Manual) Carbon Dioxide 31 H BUN 8 L Glucose 102 H POC Glucose (mg/dL) Plasma Lactic Acid Po 3.3 H* Total Protein 5.9 L Albumin 3.4 L Urine Protein Crossmatch 02/10/20 02/10/20 02/10/20 13:32 14:42 16:53 RBC Hgb Hct MCV MCH MCHC RDW Plt Count Lymphocytes # (Manual) Carbon Dioxide BUN Glucose POC Glucose (mg/dL) 110 H Plasma Lactic Acid Po Total Protein Albumin Urine Protein Trace H Crossmatch See Detail 02/10/20 02/11/20 02/11/20 20:52 06:45 08:15 RBC 3.60 L Hgb 7.3 L Hct 27.9 L MCV 77.5 L MCH 20.4 L MCHC 26.3 L RDW 18.7 H Plt Count 548 H Lymphocytes # (Manual) 0.90 L Carbon Dioxide BUN Glucose POC Glucose (mg/dL) 127 H 149 H Plasma Lactic Acid Po Total Protein Albumin Urine Protein Crossmatch 02/11/20 02/11/20 08:15 11:25 RBC Hgb Hct MCV MCH MCHC RDW Plt Count Lymphocytes # (Manual) Carbon Dioxide 31 H BUN 5 L Glucose 108 H POC Glucose (mg/dL) 122 H Plasma Lactic Acid Po Total Protein 5.4 L Albumin 3.0 L Urine Protein Crossmatch - Diagnostic Findings Chest x-ray: report reviewed, image reviewed Additional studies: CT of the abdomen and pelvis reviewed Assessment and Plan Plan: Assessment: #1. Shortness of breath, acute on chronic, related to acute iron deficiency anemia, requiring blood and iron transfusion. Patient presented to the hospital with the hemoglobin of 6.3, status post 1 unit of PRBC, today's hemoglobin is 7.3 with no obvious signs of bleeding, occult stool is negative. Most recent EGD in August 2019 showed no acute process, reportedly last colonoscopy was 4- 5 years ago #2. Severe COPD, oxygen dependent, with FEV1 of 28% of predicted, on home oxygen, seems to be stable at this time. Small bilateral pleural effusions, no evidence of pneumonia seen on chest x-ray or lung bases on the abdominal CT #3. Chronic abdominal pain, her last few years following umbilical hernia repair surgery. CT of the abdomen and pelvis was completed on 02/11/2020 showing no significant acute finding to account for patient's clinical symptoms of nonspecific abdominal pain #4. History of a bleeding gastric ulcer #5. Mild lactic acidosis, improved with hydration #6. Acute on chronic hypoxic respiratory failure related to acute on chronic anemia #7. Obesity #8. Hypertension #9. Hyperlipidemia #10. Diabetes mellitus #11. Former smoker #12. BPH on Flomax Plan: Continue management of acute on chronic anemia, chest x-ray and lung bases on the abdominal and pelvic computed tomography scan reviewed showing small pleural effusions, no clear evidence of pneumonia, COPD is stable, wean FiO2 as tolerated, continue home nebulized treatments patient is on Pulmicort and Perforomist, DuoNeb. We'll continue to follow I performed a history & physical examination of the patient and discussed their management with my nurse practitioner, Chelo Sinclair. I reviewed the nurse practitioner's note and agree with the documented findings and plan of care. Lung sounds are positive for diminished breath sounds. The findings and the impression was discussed with the patient. I attest to the documentation by the nurse practitioner. Time with Patient: Less than 30
[2020-02-11 16:32] LABS: Glucose,Whole Blood 117 mg/dL (75-99)
[2020-02-11] MEDS: TAMSULOSIN 0.4 MG CAP.ER.24H PO SCH (16:58)
[2020-02-11] MEDS ORDERED: LINAGLIPTIN 5 MG TABLET PO SCH (18:30)
[2020-02-11] MEDS ORDERED: PANTOPRAZOLE 40 MG TABLET PO SCH (18:30)
[2020-02-11] MEDS ORDERED: MULTIVITAMINS, THERA 1 EACH TAB PO SCH (18:30)
[2020-02-11] MEDS ORDERED: amLODIPine 10 MG TAB PO SCH (18:30)
[2020-02-11 20:07] LABS: Glucose,Whole Blood 145 mg/dL (75-99)
[2020-02-11] MEDS: GABAPENTIN 100 MG CAP PO SCH (20:18)
[2020-02-11] MEDS: KETOTIFEN 0.025% OPHTH DROPS 5 ML BTL BOTH EYES SCH (20:19)
--- NOTE | 2020-02-11 22:27 | CONS ---
CONSULTATION DATE OF SERVICE: February 11, 2020 REQUESTING PHYSICIAN: Dr. Ag. REASON FOR CONSULTATION: Anemia. HISTORY OF PRESENT ILLNESS: The patient is a 74-year-old pleasant white male who was admitted to the hospital with anemia and a hemoglobin of 6.3 g/dL. He received one unit of PRBC transfusion yesterday. Hemoglobin is 7.3 g/dL today. The patient denies any abdominal pain. He reports no rectal bleeding or melena. No prior history of peptic ulcer disease or recent NSAID use. Patient states that he did have a colonoscopy about 4 or 5 years ago that was unremarkable. He did have an upper endoscopy by Dr. Ma at [facility] in July of this year and according to him it was unremarkable. Records are not available at the time of this dictation. He has remote history of bleeding peptic ulcer disease several years ago. He has been complaining of some constipation, but no rectal bleeding. PAST MEDICAL HISTORY: Significant for diabetes mellitus, hypertension, COPD, asthma, gastroesophageal reflux disease, BPH, and hyperlipidemia. PAST SURGICAL HISTORY: Tonsillectomy, umbilical hernia repair, EGD in July of this year. Colonoscopy done 4 or 5 years ago, history of total right hip arthroplasty, bilateral blepharoplasties, right shoulder surgery. SOCIAL HISTORY: Former smoker. No alcohol use. FAMILY HISTORY: Father had colon cancer and mother had psychiatric problems. MEDICATIONS: Medications at home include Pulmicort, Neurontin, [place], Centrum Silver, DuoNeb, Flomax, Carafate, Protonix, Benadryl, and Norvasc, Januvia. ALLERGIES: None. REVIEW OF SYSTEMS: CARDIOPULMONARY denies any chest pain, no shortness of breath. no dysuria or hematuria. MUSCULOSKELETAL unremarkable. Skin unremarkable. Endocrine unremarkable. Psychiatric unremarkable. NEUROLOGY: Unremarkable. ENT/VISION: Unremarkable. CONSTITUTIONAL: No recent weight loss. No fever, chills, night sweats. PHYSICAL EXAMINATION: He appears comfortable. No apparent distress. Vital signs stable. Blood pressure is 122/89, pulse rate 86 per minute and afebrile. HEENT examination unremarkable. Conjunctivae pink. Sclerae anicteric. Oral cavity no lesions. NECK no JVD or lymph node enlargement. Chest was clear to auscultation. HEART: Regular rate and rhythm. ABDOMEN: Soft. Bowel sounds are positive. No organomegaly. EXTREMITIES no pedal edema. SKIN no rashes. NEUROLOGIC: Alert and oriented x3. No focal deficits. LABS: Hemoglobin is 6.3, WBC 9.3, MCV 74, platelets 577. AST, ALT, T-bilirubin and alk phos are normal. BUN is 8, creatinine 1.32. IMPRESSION: 1. Microcytic hypochromic anemia consistent with most likely as a result of iron deficiency anemia. The patient clinically does not have any evidence of active ongoing bleeding. Stool Hemoccult was requested, which was negative. He had an upper endoscopy done by Dr. Ma in July of this year and according to the patient was unremarkable and colonoscopy about 4 or 5 years ago was unremarkable. 2. History of diabetes mellitus. 3. History of hypertension. 4. Gastroesophageal reflux disease. RECOMMENDATIONS: I had a lengthy discussed with the patient regarding further workup of microcytic hypochromic anemia. I recommended a colonoscopy during this hospitalization. However, patient wants to have this done on an outpatient basis. He is currently receiving iron infusions. At this time, we will monitor him closely. Repeat labs in the morning. If his hemoglobin is stable, he can be discharged home. We will make arrangements for an outpatient colonoscopy next week. Plan was discussed with the patient. He is agreeable to it. Thank you for this consultation. DEVI / SCOT: [id number] /
[2020-02-12 00:24] LABS: Folate, Serum 6.4 ng/mL
[2020-02-12 00:45] LABS: % Iron Saturation 4.63 (15.00-50.00); Ferritin 8.2 ng/mL (22.0-322.0)
[2020-02-12] MEDS: SODIUM CHLORIDE 0.9% 1,000 ML IV SCH ×2 (02:20→08:58)
[2020-02-12 07:04] LABS: Glucose,Whole Blood 107 mg/dL (75-99)
[2020-02-12] MEDS: SUCRALFATE 1 GM TAB PO SCH ×2 (07:56→12:14)
[2020-02-12 08:09] LABS: ALT 9 U/L (4-49); AST 21 U/L (17-59); African American GFR (CKD) >90 (>60 ml/min/1.73 sqM); Albumin 3.1 g/dL (3.5-5.0); Alkaline Phosphatase 92 U/L (38-126); Anion Gap 6 mmol/L; Blood Urea Nitrogen 4 mg/dL (9-20); Calcium 8.6 mg/dL (8.4-10.2); Carbon Dioxide 29 mmol/L (22-30); Chloride 106 mmol/L (98-107); Glucose 99 mg/dL (74-99); Non-African American GFR(CKD) 87 (>60 ml/min/1.73 sqM); Potassium 4.1 mmol/L (3.5-5.1); Sodium 141 mmol/L (137-145); Total Bilirubin 0.5 mg/dL (0.2-1.3); Total Protein 5.5 g/dL (6.3-8.2)
[2020-02-12] MEDS: FORMOTEROL FUMARATE 20 MCG/2 ML NEBU INHALATION SCH (08:13)
[2020-02-12] MEDS: IPRATROPIUM-ALBUTEROL 3 ML NEB INHALATION SCH ×3 (08:13→15:45)
[2020-02-12] MEDS: BUDESONIDE 0.5 MG/2 ML NEBU INHALATION SCH (08:13)
[2020-02-12 08:16] LABS: Anisocytosis Slight; Basophils # (A) 0.1 k/uL (0-0.2); Basophils % (A) 1 %; Eosinophils # (A) 0.3 k/uL (0-0.7); Eosinophils % (A) 4 %; HCT 27.5 % (39.0-53.0); HGB 7.5 gm/dL (13.0-17.5); Hypochromasia Marked; Lymphocytes # (A) 1.5 k/uL (1.0-4.8); Lymphocytes % (A) 19 %; MCH 20.9 pg (25.0-35.0); MCHC 27.2 g/dL (31.0-37.0); Microcytosis Moderate; Monocytes # (A) 0.4 k/uL (0-1.0); Monocytes % (A) 6 %; Neutrophils # (A) 5.4 k/uL (1.3-7.7); Neutrophils % (A) 69 %; Platelet Count 522 k/uL (150-450); Poikilocytosis Moderate; RBC 3.58 m/uL (4.30-5.90); RDW 19.6 % (11.5-15.5); WBC 7.8 k/uL (3.8-10.6)
[2020-02-12 08:58] LABS: Mixed Population RBC Present; Polychromasia Present
[2020-02-12] MEDS: SODIUM FERRIC GLUCONAT-SUCROSE 125 MG in SODIUM CHLORIDE 0.9% 100 ML IVPB SCH (08:58)
[2020-02-12] MEDS ORDERED: LORATADINE 10 MG TAB PO SCH (09:00)
[2020-02-12] MEDS: INSULIN ASPART (NovoLOG) 100 UNIT/ML VIAL SQ SCH ×2 (09:00→12:16)
[2020-02-12] MEDS: HYDROcodone/APAP 7.5-325MG 1 EACH TAB PO PRN (09:51)
[2020-02-12] MEDS: FLUTICASONE 50MCG/SPRAY NASAL 16GM EA NOSTRIL SCH ×2 (09:55→10:53)
--- NOTE | 2020-02-12 10:21 | P.DS ---
Providers Date of admission: 02/10/20 14:35 Expected date of discharge: 02/12/20 Attending physician: Link Ag Consults: 02/10/20 14:44 Consult Physician Stat Consulting Provider: Sejal Denson Consult Reason/Comments: Anemia Do you want consulting provider notified?: Yes 02/10/20 19:23 Consult Physician Routine Consulting Provider: Antonio Tong Consult Reason/Comments: Anemia Do you want consulting provider notified?: Yes 02/11/20 08:43 Consult Physician Routine Consulting Provider: Julio Woody Consult Reason/Comments: COPD Do you want consulting provider notified?: Yes Primary care physician: Lonnie Lee [facility] Course: 73-year-old male one of Dr. Lee's patient with past medical history of COPD, diabetes, hypertension and hyperlipidemia who was hospitalized last in August 25 with severe dyspnea and shortness of breath was diagnosed with severe bronchitis and COPD exacerbation found to have severe anemia as well was seen general surgery and ended up having EGD at the time, patient was kept on proton pump inhibitor and have testing repeatedly no colonoscopy was perform at the time no further testing no sign of active acute bleeding. Patient was in to see his primary care physician yesterday blood drawn was done showed hemoglobin of 6.1, his primary care: Today and direct him to go to the emergency department to be hospitalized for severe symptomatic anemia will require blood transfusion and hospitalization for gastrointestinal workup of possible consultation with hematology further testing. Patient also continued to have significant dyspnea and shortness of breath found to have mild lactic acidosis in the emergency department is require O2 blood transfusion process was started patient described no sign and symptom of acute gastritis for bleed no black stool or bright red blood per rectum at this point no bleed as well. 02/10: Patient was examined today sitting on side of bed. Plan for CT of the abdomen and pelvis today with contrast. Consults are in place for Dr. Tobias Denson, Dr. Tong, and Dr. Woody. Patient does follow with Dr. Mchugh on an outpatient basis. Repeat hemoglobin was 7.3 today, IV iron ordered. Patient did receive 1units of packed RBCs yesterday. Occult stool was negative. Vital signs are stable, patient remains afebrile, blood pressure 126/58, pulse rate 90, respirations 16, pulse ox 93% on 5 L via nasal cannula. We'll repeat labs in the a.m. /: Patient has been seen by multiple consultants including oncology with plan to reevaluate iron studies 4 weeks and repeat iron infusion if appropriate. Dr. Denson is following with recommendations for colonoscopy during this hospitalization but patient wants to wait and do it as an outpatient. Patient will have follow-up and planned for next week outpatient colonoscopy. Patient is also followed by Dr. Woody, no clear evidence of pneumonia, COPD is stable. CAT scan of the abdomen and pelvis with contrast revealed no significant acute finding to account for patient's clinical symptoms of nonspecific abdominal pain. At the time of evaluation, patient denies abdominal pain, no active bleeding, no black or tarry stools. Repeat hemoglobin of 7.5 and patient will be transfused 1 unit of packed RBCs for a total of 2 units during this hospitalization. He is reaching 1000 on incentive spirometry. We will plan for discharge home following transfusion. Patient will be discharged home in stable condition. Assessment and Plan 1 acute symptomatic anemia status post transfusion of 2 unit packed RBCs 2 acute blood loss anemia possible 3 chronic anemia 4 severe dyspnea and shortness of breath: Known to have advanced COPD, 5 severe lactic acidosis: Most likely aggravated by hypoperfusion related to s evere anemia 6 history of recurrent gastritis: 7 recurrent abdominal pain 8 type 2 diabetes 9 BPH 10 chronic pain management 11 hypertension 12 recurrent bronchitis and pneumonia: With no sign of infection 13 COVID-19 infection not present Discharge plan: Home Impression and plan of care have been directed as dictated by the signing physician. Sherrill Mederos nurse practitioner acting as scribe for signing physician. Patient Condition at Discharge: Good Plan - Discharge Summary Discharge Rx Participant: No New Discharge Prescriptions: New Fluticasone Nasal Success [Flonase Nasal Success] 2 spray EA NOSTRIL DAILY #1 spr Cetirizine HCl [Zyrtec] 10 mg PO DAILY #30 tab Continue amLODIPine [Norvasc] 10 mg PO PC-SUPPER Budesonide [Pulmicort] 0.5 mg INHALATION RT-BID diphenhydrAMINE HCL [Benadryl] 25 mg PO HS PRN PRN Reason: Insomnia Doxylamine Succinate [Unisom] 25 mg PO HS Formoterol Fumarate [Perforomist] 20 mcg INHALATION RT-BID Gabapentin [Neurontin] 200 mg PO HS HYDROcodone/APAP 7.5-325MG [[place] 7.5-325] 1 tab PO QID PRN PRN Reason: Pain Ipratropium-Albuterol Nebulize [Duoneb 0.5 mg-3 mg/3 ml Soln] 3 ml INHALATION RT-QID Multivit-Min/FA/Lycopen/Lutein [Centrum Silver Tablet] 1 tab PO PC-SUPPER Sucralfate [Carafate] 1 gm PO AC-TID Tamsulosin [Flomax] 0.8 mg PO PC-SUPPER Vicks Zzzquil 30 ml PO HS sitaGLIPtin [Januvia] 100 mg PO PC-SUPPER Ketotifen 0.025% Ophth Soln [Zaditor] 1 drop BOTH EYES HS Changed Pantoprazole [Protonix] 40 mg PO AC-BID #60 tab Discharge Medication List Budesonide [Pulmicort] 0.5 mg INHALATION RT-BID 08/25/19 [History] Doxylamine Succinate [Unisom] 25 mg PO HS 08/25/19 [History] Formoterol Fumarate [Perforomist] 20 mcg INHALATION RT-BID 08/25/19 [History] Gabapentin [Neurontin] 200 mg PO HS 08/25/19 [History] HYDROcodone/APAP 7.5-325MG [[place] 7.5-325] 1 tab PO QID PRN 08/25/19 [History] Ipratropium-Albuterol Nebulize [Duoneb 0.5 mg-3 mg/3 ml Soln] 3 ml INHALATION RT-QID 08/25/19 [History] Multivit-Min/FA/Lycopen/Lutein [Centrum Silver Tablet] 1 tab PO PC-SUPPER 08/25/19 [History] Sucralfate [Carafate] 1 gm PO AC-TID 08/25/19 [History] Tamsulosin [Flomax] 0.8 mg PO PC-SUPPER 08/25/19 [History] amLODIPine [Norvasc] 10 mg PO PC-SUPPER 08/25/19 [History] diphenhydrAMINE HCL [Benadryl] 25 mg PO HS PRN 08/25/19 [History] Ketotifen 0.025% Ophth Soln [Zaditor] 1 drop BOTH EYES HS 02/10/20 [History] Vicks Zzzquil 30 ml PO HS 02/10/20 [History] sitaGLIPtin [Januvia] 100 mg PO PC-SUPPER 02/10/20 [History] Cetirizine HCl [Zyrtec] 10 mg PO DAILY #30 tab 02/12/20 [Rx] Fluticasone Nasal Success [Flonase Nasal Success] 2 spray EA NOSTRIL DAILY #1 spr 02/12/20 [Rx] Pantoprazole [Protonix] 40 mg PO AC-BID #60 tab 02/12/20 [Rx] Follow up Appointment(s)/Referral(s): Antonio Tong MD [STAFF PHYSICIAN] - 4 Weeks Lonnie Lee MD [Primary Care Provider] - 1 Week Daryl Tristan MD [STAFF PHYSICIAN] - 1 Week (Colonoscopy scheduled for February at [facility]. Office will mail prep instructions) Activity/Diet/Wound Care/Special Instructions: Please use medication as discussed. Please follow up with family doctor if symptoms have not improved over the next two days. Please return to the emergency room if your symptoms increase or worsen or for any other concerns.
[2020-02-12 11:45] LABS: Glucose,Whole Blood 128 mg/dL (75-99)
[2020-02-12] MEDS: PANTOPRAZOLE 40 MG/10 ML VIAL IVP SCH (11:54)
--- NOTE | 2020-02-12 12:23 | P.PN ---
Subjective Progress Note Date: 02/12/20 Principal diagnosis: Shortness of breath, anemia 74-year-old white male patient of Dr. 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 Woodward in the pulmonary clinic. Other history includes type 2 diabetes mellitus, benign essential hypertension, BPH, umbilical hernia. Patient presented to the hospital on 02/10/2020 because of abnormal outpatient lab test and hemoglobin of 6.1. 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 Denies any vomiting. He had a EGD in August 2019 which was reportedly negative, and patient's last colonoscopy she thinks was 4-5 years ago, patient has been on oral iron supplements, however he had to stop taking them because of GI side effects. He had a history of previous hernia repair to 3 years ago, and he does have some chronic right lower quadrant abdominal discomfort. He reports some increased shortness of breath, no significant cough or congestion, he is on 5 L of oxygen his pulse ox is 93%. His chest x-ray shows right lower lobe infiltrate with small pleural effusion. Lung bases on the CT of the abdomen and pelvis showed trace left pleural effusion, small right pleural effusion, and moderate bibasilar linear scarring and/or atelectasis. His admission blood work showed a white blood cell count 9.3, hemoglobin of 6.3, patient was transfused with 1 unit of packed red blood cells today's hemoglobin is 7.3, platelet count is 577, sodium is 141, potassium is 4.2, chloride is 103, CO2 31, BUN is 8 creatinine is 1.02, LFTs were within normal limits, lactic acid was 0.9, lipase was normal at 66, urinalysis without evidence of infection, occult stool was negative. No significant wheezing or congestion, his TOPD seems to be stable. Patient is receiving iron supplements per hematology On 02/12/2020 patient seen in follow-up on general medical surgical floor, he is awake and alert, in no acute distress, he is receiving an iron transfusion today, today's hemoglobin is 7.5, his white count is 7.8, electrolytes were within normal limits, BUN was 4 creatinine 0.85. No worsening dyspnea, he is on 5 L of oxygen his pulse ox is 97%, he normally wears 3 L of oxygen at home, his lung sounds are clear, no rhonchi or wheezing, he is on his maintenance inhalers and breathing treatments, his COPD stable at this time, no wheezing, no significant cough or phlegm production. Patient will receive another unit of packed red blood cells for a total of 2 units this admission, patient was seen by GI service and apparently patient would like to have the colonoscopy on an outpatient basis. Objective - Vital Signs Vital signs: Vital Signs Temp 98.7 F 02/12/20 12:01 Pulse 80 02/12/20 12:01 Resp 18 02/12/20 12:01 BP 139/61 02/12/20 12:01 Pulse Ox 94 L 02/12/20 12:01 Intake & Output 02/11/20 02/12/20 02/12/20 18:59 06:59 18:59 Intake Total 1540 0 Balance 1540 0 Intake: IV 900 Sodium Chloride 0.9% 1, 800 000 ml @ 100 mls/hr IV . Q10H [facility] Rx#:[id number] Sodium Ferric Gluconat- 100 Sucrose 125 mg In Sodium Chloride 0.9% 100 ml @ 100 mls/hr IVPB DAILY [facility] Rx#:[id number] Oral 640 Blood Product 0 Rc As-1 Unit 0 [id number] Other: # Voids 1 - Exam GENERAL EXAM: Alert, very pleasant, 74-year-old white male, on 5 L of oxygen and the pulse ox of 97%, comfortable in no apparent distress. HEAD: Normocephalic/atraumatic. EYES: Normal reaction of pupils, equal size. Conjunctiva pink, sclera white. NOSE: Clear with pink turbinates. THROAT: No erythema or exudates. NECK: No masses, no JVD, no thyroid enlargement, no adenopathy. CHEST: No chest wall deformity. Symmetrical expansion. LUNGS: Equal air entry with no crackles, wheeze, rhonchi or dullness. CVS: Regular rate and rhythm, normal S1 and S2, no gallops, no murmurs, no rubs ABDOMEN: Soft, nontender. No hepatosplenomegaly, normal bowel sounds, no guarding or rigidity. EXTREMITIES: No clubbing, no edema, no cyanosis, 2+ pulses and upper and lower extremities. MUSCULOSKELETAL: Muscle strength and tone normal. SPINE: No scoliosis or deformity SKIN: No rashes CENTRAL NERVOUS SYSTEM: Alert and oriented -3. No focal deficits, tone is normal in all 4 extremities. PSYCHIATRIC: Alert and oriented -3. Appropriate affect. Intact judgment and insight. - Labs CBC & Chem 7: 02/12/20 07:24 02/12/20 07:24 Labs: Abnormal Lab Results - Last 24 Hours (Table) 02/10/20 02/11/20 02/11/20 Range/Units 13:32 08:15 16:28 RBC (4.30-5.90) m/uL Hgb (13.0-17.5) gm/dL Hct (39.0-53.0) % MCV (80.0-100.0) fL MCH (25.0-35.0) pg MCHC (31.0-37.0) g/dL RDW (11.5-15.5) % Plt Count (150-450) k/uL BUN (9-20) mg/dL POC Glucose (mg/dL) 117 H (75-99) mg/dL Iron 18 L (65-175) ug/dL % Saturation 4.63 L (15.00-50.00) Ferritin 8.2 L (22.0-322.0) ng/mL Total Protein (6.3-8.2) g/dL Albumin (3.5-5.0) g/dL Crossmatch See Detail 02/11/20 02/12/20 02/12/20 Range/Units 20:05 07:02 07:24 RBC 3.58 L (4.30-5.90) m/uL Hgb 7.5 L (13.0-17.5) gm/dL Hct 27.5 L (39.0-53.0) % MCV 77.0 L (80.0-100.0) fL MCH 20.9 L (25.0-35.0) pg MCHC 27.2 L (31.0-37.0) g/dL RDW 19.6 H (11.5-15.5) % Plt Count 522 H (150-450) k/uL BUN (9-20) mg/dL POC Glucose (mg/dL) 145 H 107 H (75-99) mg/dL Iron (65-175) ug/dL % Saturation (15.00-50.00) Ferritin (22.0-322.0) ng/mL Total Protein (6.3-8.2) g/dL Albumin (3.5-5.0) g/dL Crossmatch 02/12/20 02/12/20 Range/Units 07:24 11:44 RBC (4.30-5.90) m/uL Hgb (13.0-17.5) gm/dL Hct (39.0-53.0) % MCV (80.0-100.0) fL MCH (25.0-35.0) pg MCHC (31.0-37.0) g/dL RDW (11.5-15.5) % Plt Count (150-450) k/uL BUN 4 L (9-20) mg/dL POC Glucose (mg/dL) 128 H (75-99) mg/dL Iron (65-175) ug/dL % Saturation (15.00-50.00) Ferritin (22.0-322.0) ng/mL Total Protein 5.5 L (6.3-8.2) g/dL Albumin 3.1 L (3.5-5.0) g/dL Crossmatch Assessment and Plan Plan: Assessment: #1. Shortness of breath, acute on chronic, related to acute iron deficiency a nemia, requiring blood and iron transfusion. Patient presented to the hospital with the hemoglobin of 6.3, status post 1 unit of PRBC, today's hemoglobin is 7.3 with no obvious signs of bleeding, occult stool is negative. Most recent EGD in August 2019 showed no acute process, reportedly last colonoscopy was 4- 5 years ago #2. Severe COPD, oxygen dependent, with FEV1 of 28% of predicted, on home oxygen, seems to be stable at this time. Small bilateral pleural effusions, no evidence of pneumonia seen on chest x-ray or lung bases on the abdominal CT #3. Chronic abdominal pain, her last few years following umbilical hernia repair surgery. CT of the abdomen and pelvis was completed on 02/11/2020 showing no significant acute finding to account for patient's clinical symptoms of nonspecific abdominal pain #4. History of a bleeding gastric ulcer #5. Mild lactic acidosis, improved with hydration #6. Acute on chronic hypoxic respiratory failure related to acute on chronic anemia #7. Obesity #8. Hypertension #9. Hyperlipidemia #10. Diabetes mellitus #11. Former smoker #12. BPH on Flomax Plan: Patient is stable from pulmonary perspective, wean down the FiO2 to his home oxygen at 3 L, continue his maintenance inhalers and nebulized treatments, no significant cough or congestion, he has declined inpatient colonoscopy and would like to have it done on an outpatient basis, he continues on iron infusions and has received 2 units in packed red blood cells transfusion this admission. From pulmonary perspective he stable for discharge home today. We'll see the patient on as-needed basis. I performed a history & physical examination of the patient and discussed their management with my nurse practitioner, Chelo Sinclair. I reviewed the nurse practitioner's note and agree with the documented findings and plan of care. Lung sounds are positive for diminished breath sounds. The findings and the impression was discussed with the patient. I attest to the documentation by the nurse practitioner. Time with Patient: Less than 30
[2020-02-12 15:19] VITALS: BP 133/64; PULSE 81; RESP 20; TEMP 98.2
--- NOTE | 2020-02-12 18:06 | P.PN ---
Subjective Progress Note Date: 02/12/20 Principal diagnosis: Microcytic, hypochromic, iron deficient anemia In follow-up today patient has no new complaints, acute complaints, denies any bleeding, he has tolerated the IV iron, he is planning on doing a colonoscopy next week Objective - Vital Signs Vital signs: Vital Signs Temp 98.7 F 02/12/20 12:31 Pulse 88 02/12/20 12:31 Resp 19 02/12/20 12:31 BP 126/56 02/12/20 12:31 Pulse Ox 95 02/12/20 12:31 Intake & Output 02/11/20 02/12/20 02/12/20 18:59 06:59 18:59 Intake Total 1540 0 Balance 1540 0 Intake: IV 900 Sodium Chloride 0.9% 1, 800 000 ml @ 100 mls/hr IV . Q10H [facility] Rx#:[id number] Sodium Ferric Gluconat- 100 Sucrose 125 mg In Sodium Chloride 0.9% 100 ml @ 100 mls/hr IVPB DAILY [facility] Rx#:[id number] Oral 640 Blood Product 0 Rc As-1 Unit 0 [id number] Other: # Voids 1 - Constitutional General appearance: Present: cooperative, no acute distress, obese - EENT Eyes: Present: anicteric sclerae, EOMI ENT: Present: hearing grossly normal - Respiratory Respiratory: bilateral: CTA - Cardiovascular Heart sounds: normal: S1, S2 Abnormal Heart Sounds: Absent: systolic murmur, diastolic murmur, rub, S3 Gallop, S4 Gallop, click, other - Peripheral edema leg Peripheral Edema: bilateral: Trace - Gastrointestinal General gastrointestinal: Present: normal bowel sounds, soft, tenderness (right lower quadrant) - Neurologic Neurologic: Present: CNII-XII intact - Musculoskeletal Musculoskeletal: Present: generalized weakness, strength equal bilaterally - Psychiatric Psychiatric: Present: A&O x's 3, appropriate affect, intact judgment & insight - Labs CBC & Chem 7: 02/12/20 07:24 02/12/20 07:24 Labs: Abnormal Lab Results - Last 24 Hours (Table) 02/10/20 02/11/20 02/11/20 Range/Units 13:32 08:15 16:28 RBC (4.30-5.90) m/uL Hgb (13.0-17.5) gm/dL Hct (39.0-53.0) % MCV (80.0-100.0) fL MCH (25.0-35.0) pg MCHC (31.0-37.0) g/dL RDW (11.5-15.5) % Plt Count (150-450) k/uL BUN (9-20) mg/dL POC Glucose (mg/dL) 117 H (75-99) mg/dL Iron 18 L (65-175) ug/dL % Saturation 4.63 L (15.00-50.00) Ferritin 8.2 L (22.0-322.0) ng/mL Total Protein (6.3-8.2) g/dL Albumin (3.5-5.0) g/dL Crossmatch See Detail 02/11/20 02/12/20 02/12/20 Range/Units 20:05 07:02 07:24 RBC 3.58 L (4.30-5.90) m/uL Hgb 7.5 L (13.0-17.5) gm/dL Hct 27.5 L (39.0-53.0) % MCV 77.0 L (80.0-100.0) fL MCH 20.9 L (25.0-35.0) pg MCHC 27.2 L (31.0-37.0) g/dL RDW 19.6 H (11.5-15.5) % Plt Count 522 H (150-450) k/uL BUN (9-20) mg/dL POC Glucose (mg/dL) 145 H 107 H (75-99) mg/dL Iron (65-175) ug/dL % Saturation (15.00-50.00) Ferritin (22.0-322.0) ng/mL Total Protein (6.3-8.2) g/dL Albumin (3.5-5.0) g/dL Crossmatch 02/12/20 02/12/20 Range/Units 07:24 11:44 RBC (4.30-5.90) m/uL Hgb (13.0-17.5) gm/dL Hct (39.0-53.0) % MCV (80.0-100.0) fL MCH (25.0-35.0) pg MCHC (31.0-37.0) g/dL RDW (11.5-15.5) % Plt Count (150-450) k/uL BUN 4 L (9-20) mg/dL POC Glucose (mg/dL) 128 H (75-99) mg/dL Iron (65-175) ug/dL % Saturation (15.00-50.00) Ferritin (22.0-322.0) ng/mL Total Protein 5.5 L (6.3-8.2) g/dL Albumin 3.1 L (3.5-5.0) g/dL Crossmatch - Imaging and Cardiology CT scan - abdomen: report reviewed CT scan - pelvis: report reviewed Assessment and Plan (1) Microcytic hypochromic anemia Status: Chronic Priority: Medium Code(s): D50.9 - IRON DEFICIENCY ANEMIA, UNSPECIFIED SNOMED Code(s): 75770615 (2) Iron deficiency Status: Chronic Priority: Medium Code(s): E61.1 - IRON DEFICIENCY SNOMED Code(s): 98569595 Plan: Pt was supposed to f/u with Dr. Ma after his 08/28 visit for colonoscopy, which he did not get to. He states he is going to have a colonoscopy next week. Pt intolerant of oral supplementation. He has received parenteral supplement. Will reevaluate iron studies for 4 weeks after administration to check iron stores and repeat parenteral iron if appropriate. Recent EGD that was negative for acute process. CT AP with no abnormalities. Pt still c/o RLQ abd pain, pending colonoscopy.
--- NOTE | 2020-02-12 21:05 | PN ---
PROGRESS NOTE DATE OF DICTATION: 02/12/2020 The patient is a 74-year-old pleasant white male admitted to the hospital with severe symptomatic anemia and a hemoglobin of 6.3 g/dL. He received total of 2 units of PRBC transfusion. Last hemoglobin is 7.5 g/dL. He had iron indices consistent with iron deficiency anemia. He denies any GI symptoms. He had an upper endoscopy by Dr. Ma in August of this year that was unremarkable, according to him. Last colonoscopy was about 4 or 5 years ago. He was advised to have a colonoscopy during hospitalization, but he prefers to have this done on an outpatient basis. He denies any symptoms. PHYSICAL EXAMINATION: Appears comfortable. VITAL SIGNS: Stable. Blood pressure is 133/64, pulse rate 81, temperature 98.2. HEENT examination unremarkable. Conjunctivae pink. Sclerae anicteric. Oral cavity no lesions. NECK: No JVD or lymph node enlargement. CHEST: Clear to auscultation. HEART: Regular rate and rhythm. ABDOMEN: Soft. Bowel sounds are positive. No organomegaly. EXTREMITIES: No pedal edema. SKIN: No rashes. NEUROLOGIC: Alert and oriented x3. No focal deficits. LABS: Labs done today show WBC 7.8, hemoglobin 7.5, platelets 522. BUN and creatinine are within normal limits. IMPRESSION: Severe iron deficiency anemia with a hemoglobin of 6.3, status post 2 units of PRBC transfusion. Last EGD in August of this year, according to the patient, was within normal limits done by Dr. Ma at [facility]. Last colonoscopy was 4 or 5 years ago. No GI symptoms and clinically no evidence of active bleeding. RECOMMENDATIONS: 1. He can be discharged home after the second unit of PRBC transfusion. 2. Continue iron supplements. 3. Patient is scheduled for an outpatient colonoscopy next at [facility]. 4. Thank you for this consultation. MMODL / IJN: [id number] /
== END 2020-02-12 15:58 | disposition home or self-care (01) | DRG 811 ==
LOC: EC 12:43 → 4SSUR 14:35
PROVIDERS: ADMIT Internal Medicine Geriatric Medicine; ATTEND Internal Medicine Geriatric Medicine
PROC: 30233N1 Transfusion of Nonautologous Red Blood Cells into Peripheral Vein, Percutaneous Approach (ICD-10-PCS; principal; 2020-02-10)
DX: D62 Acute posthemorrhagic anemia (principal); J96.21 Acute and chronic respiratory failure with hypoxia; E87.2 Acidosis; E11.40 Type 2 diabetes mellitus with diabetic neuropathy, unspecified; J44.9 Chronic obstructive pulmonary disease, unspecified; Z20.828 Contact with and (suspected) exposure to other viral communicable diseases; K29.70 Gastritis, unspecified, without bleeding; E78.5 Hyperlipidemia, unspecified; I10 Essential (primary) hypertension; H53.50 Unspecified color vision deficiencies; K21.9 Gastro-esophageal reflux disease without esophagitis; G89.29 Other chronic pain; M54.5 Low back pain; R10.9 Unspecified abdominal pain; N40.0 Benign prostatic hyperplasia without lower urinary tract symptoms; K59.00 Constipation, unspecified; E66.9 Obesity, unspecified; Z68.34 Body mass index [BMI] 34.0-34.9, adult; Z99.81 Dependence on supplemental oxygen; Z79.84 Long term (current) use of oral hypoglycemic drugs; Z79.51 Long term (current) use of inhaled steroids; Z79.899 Other long term (current) drug therapy; Z87.891 Personal history of nicotine dependence; Z87.11 Personal history of peptic ulcer disease; Z87.19 Personal history of other diseases of the digestive system; Z87.39 Personal history of other diseases of the musculoskeletal system and connective tissue; Z87.01 Personal history of pneumonia (recurrent); Z86.711 Personal history of pulmonary embolism; Z87.440 Personal history of urinary (tract) infections; Z85.22 Personal history of malignant neoplasm of nasal cavities, middle ear, and accessory sinuses; Z96.641 Presence of right artificial hip joint; Z87.81 Personal history of (healed) traumatic fracture; Z86.69 Personal history of other diseases of the nervous system and sense organs; Z90.89 Acquired absence of other organs; Z98.890 Other specified postprocedural states; Z80.1 Family history of malignant neoplasm of trachea, bronchus and lung; Z80.0 Family history of malignant neoplasm of digestive organs; Z81.8 Family history of other mental and behavioral disorders
CPT/HCPCS: 36415; 36430; 71046; 74177; 80053; 81003; 82272; 82607; 82728; 82746; 83540; 83550; 83605; 83690; 83735; 85025; 85730; 86850; 86900; 86901; 86920; 93005; 94640; 96361; 96374; 99285; 99291

== ENCOUNTER 2020-02-16 14:47 | Inpatient (IN) | payer MEDICARE ==
--- NOTE | 2020-02-16 15:31 | XR ---
EXAMINATION TYPE: XR chest 1V portable DATE OF EXAM: 02/16/2020 COMPARISON: Chest x-ray February 10, 2020. HISTORY: Dyspnea. TECHNIQUE: Single AP portable frontal upright view of the chest is obtained. FINDINGS: There is chronic parenchymal changes bilaterally with right greater than left bibasilar op acities. Suspect stable small right pleural effusion. The cardiac silhouette size is enlarged. The osseous structures are demineralized. IMPRESSION: Cardiomegaly and bilateral chronic parenchymal changes with persistent small right pleur al effusion. There is bibasilar acute infiltrate and/or atelectasis thought Present on current study .
--- NOTE | 2020-02-16 15:39 | ED ---
General Adult HPI - General Chief complaint: Shortness of Breath Stated complaint: Abd Pain, Weakness-sent by Time Seen by Provider: 02/16/20 15:10 Source: patient, family Mode of arrival: wheelchair Limitations: no limitations - History of Present Illness Initial comments: Dictation was produced using [employer] dictation software. please excuse any grammatical, word or spelling errors. This patient was cared for during a federal and state declared state of emergency secondary to Covid 19 Chief Complaint: 74-year-old male with past medical history of oxygen-dependent COPD, diabetes, asthma hypertension presents with lower extremity swelling. History of Present Illness: 74-year-old male he has multiple comorbidities. He presents today with multiple days of lower extremity swelling. Patient reports that he gained approximately 8 pounds over the last several days. He states that he short of breath however he reports that he is normally short of breath. He wears 3 L of nasal cannula oxygen at home prescribed by his lung doctor. He had a conversation with his primary care physician and was told to come to the emergency department for evaluation. As any pain complaints. He states that the swelling is more extensive than he normally gets. He reports he used to be on Lasix. He was recently admitted to the hospital for anemia. He is scheduled to have a colonoscopy later this week. The ROS documented in this emergency department record has been reviewed and confirmed by me. Those systems with pertinent positive or negative responses have been documented in the HPI. All other systems are other negative and/or noncontributory. PHYSICAL EXAM: General Impression: Alert and oriented x3, not in acute distress HEENT: Normocephalic atraumatic, extra-ocular movements intact, pupils equal and reactive to light bilaterally, mucous membranes moist. Cardiovascular: Heart regular rate and rhythm Chest: Able to complete full sentences, no retractions, no tachypnea Abdomen: abdomen soft, non-tender, non-distended, no organomegaly Musculoskeletal: Pulses present and equal in all extremities, 3+ pain edema to b ilateral lower extremity that extends all the way to the mid abdomen Motor: no focal deficits noted Neurological: CN II-XII grossly intact, no focal motor or sensory deficits noted Skin: Intact with no visualized rashes Psych: Normal affect and mood ED course: 74-year-old male presents with edema as upon arrival shows 80% on room air, rest of vital signs within acceptable limits. He does wear oxygen at home. He is 96% on nasal cannula. Chart review was performed. There is no echocardiogram that's noted. There is a CT of the abdomen and pelvis is performed 5 days ago showing no acute findings. There is a prominent consultation from 5 days ago that shows that he shouldn't was admitted for anemia. This point there is no identifiable source.Laboratory evaluation obtained. CBC, coag panel is unremarkable. Metabolic panel is unremarkable. Troponin is negative. Brain natruretic peptide is 700. Chest x-ray shows cardiomegaly with pleural effusions. Considering patient's clinical pressure there is some concern for mild heart failure. His brain natruretic peptide is slightly elevated. Patient given 40 mg of IV Lasix patient be admitted for cardiac etiology consultation. Case was discussed with [place] who was accepting of patient on behalf of [facility]. EKG interpretation: Ventricular rate 77, right bundle branch block, QRS 120, QTC 482. No DE prolongation, no QTC prolongation, no ST or T-wave changes noted. EKG compared to place 10/27/2019 showing no changes. Overall, this EKG is unremarkable - Related Data Home Medications Medication Instructions Recorded Confirmed Budesonide [Pulmicort] 0.5 mg INHALATION RT-BID 08/25/19 02/10/20 Doxylamine Succinate [Unisom] 25 mg PO HS 08/25/19 02/10/20 Formoterol Fumarate [Perforomist] 20 mcg INHALATION RT-BID 08/25/19 02/10/20 Gabapentin [Neurontin] 200 mg PO HS 08/25/19 02/10/20 HYDROcodone/APAP 7.5-325MG [[place] 1 tab PO QID PRN 08/25/19 02/10/20 7.5-325] Ipratropium-Albuterol Nebulize 3 ml INHALATION RT-QID 08/25/19 02/10/20 [Duoneb 0.5 mg-3 mg/3 ml Soln] Multivit-Min/FA/Lycopen/Lutein 1 tab PO PC-SUPPER 08/25/19 02/10/20 [Centrum Silver Tablet] Sucralfate [Carafate] 1 gm PO AC-TID 08/25/19 02/10/20 Tamsulosin [Flomax] 0.8 mg PO PC-SUPPER 08/25/19 02/10/20 amLODIPine [Norvasc] 10 mg PO PC-SUPPER 08/25/19 02/10/20 diphenhydrAMINE HCL [Benadryl] 25 mg PO HS PRN 08/25/19 02/10/20 Ketotifen 0.025% Ophth Soln 1 drop BOTH EYES HS 02/10/20 02/10/20 [Zaditor] Vicks Zzzquil 30 ml PO HS 02/10/20 02/10/20 sitaGLIPtin [Januvia] 100 mg PO PC-SUPPER 02/10/20 02/10/20 Previous Rx's Medication Instructions Recorded Cetirizine HCl [Zyrtec] 10 mg PO DAILY #30 tab 02/12/20 Fluticasone Nasal [place] [Flonase 2 spray EA NOSTRIL DAILY #1 spr 02/12/20 Nasal [place]] Pantoprazole [Protonix] 40 mg PO AC-BID #60 tab 02/12/20 Allergies Allergy/AdvReac Type Severity Reaction Status Date / Time No Known Allergies Allergy Verified 02/16/20 15:04 Review of Systems ROS Statement: Those systems with pertinent positive or pertinent negative responses have been documented in the HPI. ROS Other: All systems not noted in ROS Statement are negative. Past Medical History Past Medical History: Asthma, COPD, Diabetes Mellitus, Eye Disorder, GERD/Reflux, GI Bleed, Hyperlipidemia, Hypertension, Pneumonia, Prostate Disorder Additional Past Medical History / Comment(s): Chronic abdominal pain/unable to eat too much, past bleeding gastric ulcers/anemia with blood transfusion, lower extremity edema for past 6 months, color blind, NIDDM type II, neuropathy bilateral feet, home oxygen at 2L/NC prn but last 2 weeks ATC, 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 History of Any Multi-Drug Resistant Organisms: None Reported Past Surgical History: Hernia Repair, Joint Replacement, Orthopedic Surgery, Tonsillectomy Additional Past Surgical History / Comment(s): EGDs, colonoscopy, umbilical hernia repair, L ankle fracture with plate, R shoulder muscle damage repair with anchors in place, R total hip arthroplasty, sinus surgery x2, bilateral blepharoplasties. Past Anesthesia/Blood Transfusion Reactions: No Reported Reaction Additional Past Anesthesia/Blood Transfusion Reaction / Comment(s): Pt received blood in 2010 d/t anemia from bleeding antral ulcer without reaction. Past Psychological History: No Psychological Hx Reported Smoking Status: Former smoker Past Alcohol Use History: None Reported Past Drug Use History: None Reported - Past Family History Father Family Medical History: Cancer Additional Family Medical History / Comment(s): Father had lung cancer in his 70s. He of "old age" at the age of 90yrs. Mother Additional Family Medical History / Comment(s): Mother was a "hypochondriac". Pt states she at the age of 75yrs. General Exam Limitations: no limitations Course Vital Signs 02/16/20 02/16/20 15:01 16:43 Temperature 98.2 F Pulse Rate 73 72 Respiratory 20 20 Rate Blood Pressure 111/55 O2 Sat by Pulse 80 L 96 Oximetry Medical Decision Making - Lab Data Result diagrams: 02/16/20 15:59 02/16/20 15:59 Lab Results 02/16/20 02/16/20 02/16/20 Range/Units 15:59 15:59 15:59 WBC 8.7 (3.8-10.6) k/uL RBC 3.74 L (4.30-5.90) m/uL Hgb 8.2 L (13.0-17.5) gm/dL Hct 29.7 L (39.0-53.0) % MCV 79.4 L (80.0-100.0) fL MCH 21.9 L (25.0-35.0) pg MCHC 27.5 L (31.0-37.0) g/dL RDW 22.7 H (11.5-15.5) % Plt Count 455 H (150-450) k/uL Neutrophils % 70 % Lymphocytes % 15 % Monocytes % 6 % Eosinophils % 6 % Basophils % 1 % Neutrophils # 6.1 (1.3-7.7) k/uL Lymphocytes # 1.3 (1.0-4.8) k/uL Monocytes # 0.5 (0-1.0) k/uL Eosinophils # 0.6 (0-0.7) k/uL Basophils # 0.1 (0-0.2) k/uL Hypochromasia Marked Poikilocytosis Moderate Anisocytosis Moderate Microcytosis Moderate PT 9.7 (9.0-12.0) sec INR 0.9 (<1.2) APTT 20.5 L (22.0-30.0) sec Sodium 138 (137-145) mmol/L Potassium 4.3 (3.5-5.1) mmol/L Chloride 104 (98-107) mmol/L Carbon Dioxide 31 H (22-30) mmol/L Anion Gap 3 mmol/L BUN 6 L (9-20) mg/dL Creatinine 0.88 (0.66-1.25) mg/dL Est GFR (CKD-EPI)AfAm >90 (>60 ml/min/1.73 sqM) Est GFR (CKD-EPI)NonAf 85 (>60 ml/min/1.73 sqM) Glucose 105 H (74-99) mg/dL Plasma Lactic Acid Po (0.7-2.0) mmol/L Calcium 8.8 (8.4-10.2) mg/dL Magnesium 1.8 (1.6-2.3) mg/dL Total Bilirubin 0.5 (0.2-1.3) mg/dL AST 33 (17-59) U/L ALT 10 (4-49) U/L Alkaline Phosphatase 72 (38-126) U/L Troponin I (0.000-0.034) ng/mL NT-Pro-B Natriuret Pep pg/mL Total Protein 5.7 L (6.3-8.2) g/dL Albumin 3.2 L (3.5-5.0) g/dL Blood Type Blood Type Recheck Bld Type Recheck Status Antibody Screen Spec Expiration Date 02/16/20 02/16/20 02/16/20 Range/Units 15:59 15:59 15:59 WBC (3.8-10.6) k/uL RBC (4.30-5.90) m/uL Hgb (13.0-17.5) gm/dL Hct (39.0-53.0) % MCV (80.0-100.0) fL MCH (25.0-35.0) pg MCHC (31.0-37.0) g/dL RDW (11.5-15.5) % Plt Count (150-450) k/uL Neutrophils % % Lymphocytes % % Monocytes % % Eosinophils % % Basophils % % Neutrophils # (1.3-7.7) k/uL Lymphocytes # (1.0-4.8) k/uL Monocytes # (0-1.0) k/uL Eosinophils # (0-0.7) k/uL Basophils # (0-0.2) k/uL Hypochromasia Poikilocytosis Anisocytosis Microcytosis PT (9.0-12.0) sec INR (<1.2) APTT (22.0-30.0) sec Sodium (137-145) mmol/L Potassium (3.5-5.1) mmol/L Chloride (98-107) mmol/L Carbon Dioxide (22-30) mmol/L Anion Gap mmol/L BUN (9-20) mg/dL Creatinine (0.66-1.25) mg/dL Est GFR (CKD-EPI)AfAm (>60 ml/min/1.73 sqM) Est GFR (CKD-EPI)NonAf (>60 ml/min/1.73 sqM) Glucose (74-99) mg/dL Plasma Lactic Acid Po 1.3 (0.7-2.0) mmol/L Calcium (8.4-10.2) mg/dL Magnesium (1.6-2.3) mg/dL Total Bilirubin (0.2-1.3) mg/dL AST (17-59) U/L ALT (4-49) U/L Alkaline Phosphatase (38-126) U/L Troponin I <0.012 (0.000-0.034) ng/mL NT-Pro-B Natriuret Pep 695 pg/mL Total Protein (6.3-8.2) g/dL Albumin (3.5-5.0) g/dL Blood Type Blood Type Recheck Bld Type Recheck Status Antibody Screen Spec Expiration Date 02/16/20 Range/Units 16:19 WBC (3.8-10.6) k/uL RBC (4.30-5.90) m/uL Hgb (13.0-17.5) gm/dL Hct (39.0-53.0) % MCV (80.0-100.0) fL MCH (25.0-35.0) pg MCHC (31.0-37.0) g/dL RDW (11.5-15.5) % Plt Count (150-450) k/uL Neutrophils % % Lymphocytes % % Monocytes % % Eosinophils % % Basophils % % Neutrophils # (1.3-7.7) k/uL Lymphocytes # (1.0-4.8) k/uL Monocytes # (0-1.0) k/uL Eosinophils # (0-0.7) k/uL Basophils # (0-0.2) k/uL Hypochromasia Poikilocytosis Anisocytosis Microcytosis PT (9.0-12.0) sec INR (<1.2) APTT (22.0-30.0) sec Sodium (137-145) mmol/L Potassium (3.5-5.1) mmol/L Chloride (98-107) mmol/L Carbon Dioxide (22-30) mmol/L Anion Gap mmol/L BUN (9-20) mg/dL Creatinine (0.66-1.25) mg/dL Est GFR (CKD-EPI)AfAm (>60 ml/min/1.73 sqM) Est GFR (CKD-EPI)NonAf (>60 ml/min/1.73 sqM) Glucose (74-99) mg/dL Plasma Lactic Acid Po (0.7-2.0) mmol/L Calcium (8.4-10.2) mg/dL Magnesium (1.6-2.3) mg/dL Total Bilirubin (0.2-1.3) mg/dL AST (17-59) U/L ALT (4-49) U/L Alkaline Phosphatase (38-126) U/L Troponin I (0.000-0.034) ng/mL NT-Pro-B Natriuret Pep pg/mL Total Protein (6.3-8.2) g/dL Albumin (3.5-5.0) g/dL Blood Type A Positive Blood Type Recheck A Pos Bld Type Recheck Status No Antibody Screen NEGATIVE Spec Expiration Date 02/19/2020 - 2318 Disposition Clinical Impression: Leg swelling Disposition: ADMITTED IP TO THIS [facility] Condition: Fair Referrals: Lonnie Lee MD [Primary Care Provider] - 1-2 days Decision Time: 18:03
[2020-02-16 16:17] LABS: Anisocytosis Moderate; Basophils # (A) 0.1 k/uL (0-0.2); Basophils % (A) 1 %; Eosinophils # (A) 0.6 k/uL (0-0.7); Eosinophils % (A) 6 %; HCT 29.7 % (39.0-53.0); HGB 8.2 gm/dL (13.0-17.5); Hypochromasia Marked; Lymphocytes # (A) 1.3 k/uL (1.0-4.8); Lymphocytes % (A) 15 %; MCH 21.9 pg (25.0-35.0); MCHC 27.5 g/dL (31.0-37.0); MCV 79.4 fL (80.0-100.0); Mean Platelet Volume 7.4; Microcytosis Moderate; Monocytes # (A) 0.5 k/uL (0-1.0); Monocytes % (A) 6 %; Neutrophils # (A) 6.1 k/uL (1.3-7.7); Neutrophils % (A) 70 %; Platelet Count 455 k/uL (150-450); Poikilocytosis Moderate; RBC 3.74 m/uL (4.30-5.90); RDW 22.7 % (11.5-15.5); WBC 8.7 k/uL (3.8-10.6)
[2020-02-16 16:33] LABS: INR 0.9 (<1.2); Prothrombin Time 9.7 sec (9.0-12.0)
[2020-02-16 16:34] LABS: ALT 10 U/L (4-49); AST 33 U/L (17-59); African American GFR (CKD) >90 (>60 ml/min/1.73 sqM); Albumin 3.2 g/dL (3.5-5.0); Alkaline Phosphatase 72 U/L (38-126); Anion Gap 3 mmol/L; Blood Urea Nitrogen 6 mg/dL (9-20); Calcium 8.8 mg/dL (8.4-10.2); Carbon Dioxide 31 mmol/L (22-30); Chloride 104 mmol/L (98-107); Glucose 105 mg/dL (74-99); Magnesium 1.8 mg/dL (1.6-2.3); Non-African American GFR(CKD) 85 (>60 ml/min/1.73 sqM); Sodium 138 mmol/L (137-145); Total Bilirubin 0.5 mg/dL (0.2-1.3); Total Protein 5.7 g/dL (6.3-8.2)
[2020-02-16 16:36] LABS: Potassium 4.3 mmol/L (3.5-5.1)
[2020-02-16 16:45] LABS: Partial Thromboplastin Time 20.5 sec (22.0-30.0)
[2020-02-16] MEDS ORDERED: FUROSEMIDE 10 MG/ML 4 ML VIAL IV STA (17:46)
[2020-02-16] MEDS ORDERED: oxyCODONE-APAP 7.5-325MG 1 EACH TAB PO STA (19:11)
[2020-02-16] MEDS ORDERED: diphenhydrAMINE 25 MG CAP PO PRN (22:22)
[2020-02-16] MEDS ORDERED: ACETAMINOPHEN TAB 325 MG TAB PO ONE (22:24)
[2020-02-16] MEDS ORDERED: diphenhydrAMINE 25 MG CAP PO ONE (22:24)
--- NOTE | 2020-02-17 00:15 | P.HPIM ---
History of Present Illness H&P Date: 02/16/20 Chief Complaint: Acute respiratory failure, CHF exacerbation, COPD exacerbation, severe anem 73-year-old male one of Dr. Lee patient with past medical history of COPD, CHF, arrhythmia, history of GI bleed who was hospitalized recently for severe anemia symptomatic had blood transfusion and general surgery and GI consult patient had an EGD with no colonoscopy no small bowel capsule endoscopy after his transfusion and iron infusion patient felt better was evaluated by pulmonary at the time appendicitis symptom are more anemia consistent with congestive heart failure with no component of COPD at the time. Patient was continue on his regular medication and was discharged home successfully at the time. He returned to see his primary care physician today with patient found to be severely hypoxic dyspneic having severe symptom with minimum exertion his pulse ox on arrival to demurs department was only 80 percentile room air. Patient was place on 3 L 42, he had significant edema chest x-ray showed significant sign of pulmonary edema patient was started on IV diuretics also was having inspiratory expiratory wheezes with significant sign and symptom of COPD excessive patient. Patient was started on updraft treatment steroid IV with his hemoglobin being low on being symptomatic transfusion was started as well and patient will be on iron infusion. No echocardiogram found in the system patient might have it with his emergency management coordinator in the last 4 months otherwise echocardiogram will be order for better management of his heart failure as well. Review of Systems CONSTITUTIONAL: Well-developed mild respiratory distress EYES: No icterus sclerae, no conjunctivitis. EARS, NOSE, MOUTH, THROAT, and FACE: No sore throat, lymphadenopathy, carotid bruits or deformity. RESPIRATORY: Positive shortness of breath cough wheezes. CARDIOVASCULAR: Positive PND orthopnea palpitation. GASTROINTESTINAL: Mild abdominal discomfort with nausea no vomiting no diarrhea no hematemesis or tarry stool. GENITOURINARY: Negative for Hematuria or UTI, no kidney stones. INTEGUMENT/BREAST: Negative for any muscular injury with mild osteoarthritis.. HEMATOLOGIC/LYMPHATIC: Negative for bleed or purpura. MUSCULOSKELTAL: Generalized muscle and joint pain. NEURLOGICAL: No LOC, Sz or syncope, blurred vision dizziness or abnormality.. BEHAVIORAL/PSYCH: Negative. ENDOCRINE: Negative. Past Medical History Past Medical History: Asthma, COPD, Diabetes Mellitus, Eye Disorder, GERD/Reflux, GI Bleed, Hyperlipidemia, Hypertension, Pneumonia, Prostate Disorder Additional Past Medical History / Comment(s): Chronic abdominal pain/unable to eat too much, past bleeding gastric ulcers/anemia with blood transfusion, lower extremity edema for past 6 months, color blind, NIDDM type II, neuropathy modesta ateral feet, home oxygen at 2L/[place] prn but last 2 weeks ATC, 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 History of Any Multi-Drug Resistant Organisms: None Reported Past Surgical History: Hernia Repair, Joint Replacement, Orthopedic Surgery, Tonsillectomy Additional Past Surgical History / Comment(s): EGDs, colonoscopy, umbilical h ernia repair, L ankle fracture with plate, R shoulder muscle damage repair with anchors in place, R total hip arthroplasty, sinus surgery x2, bilateral blepharoplasties. Past Anesthesia/Blood Transfusion Reactions: No Reported Reaction Additional Past Anesthesia/Blood Transfusion Reaction / Comment(s): Pt received blood in 2010 d/t anemia from bleeding antral ulcer without reaction. Past Psychological History: No Psychological Hx Reported Smoking Status: Former smoker Past Alcohol Use History: None Reported Past Drug Use History: None Reported - Past Family History Father Family Medical History: Cancer Additional Family Medical History / Comment(s): Father had lung cancer in his 70s. He of "old age" at the age of 90yrs. Mother Additional Family Medical History / Comment(s): Mother was a "hypochondriac". Pt states she at the age of 75yrs. Medications and Allergies Home Medications Medication Instructions Recorded Confirmed Type Budesonide [Pulmicort] 0.5 mg INHALATION RT-BID 08/25/19 02/16/20 History Formoterol Fumarate [Perforomist] 20 mcg INHALATION RT-BID 08/25/19 02/16/20 History Gabapentin [Neurontin] 200 mg PO HS 08/25/19 02/16/20 History HYDROcodone/APAP 7.5-325MG [[place] 1 tab PO QID PRN 08/25/19 02/16/20 History 7.5-325] Ipratropium-Albuterol Nebulize 3 ml INHALATION RT-QID 08/25/19 02/16/20 History [Duoneb 0.5 mg-3 mg/3 ml Soln] Multivit-Min/FA/Lycopen/Lutein 1 tab PO PC-SUPPER 08/25/19 02/16/20 History [Centrum Silver Tablet] Sucralfate [Carafate] 1 gm PO AC-TID 08/25/19 02/16/20 History Tamsulosin [Flomax] 0.8 mg PO PC-SUPPER 08/25/19 02/16/20 History amLODIPine [Norvasc] 10 mg PO PC-SUPPER 08/25/19 02/16/20 History diphenhydrAMINE HCL [Benadryl] 25 mg PO HS PRN 08/25/19 02/16/20 History Ketotifen 0.025% Ophth Soln 1 drop BOTH EYES HS 02/10/20 02/16/20 History [Zaditor] Vicks Zzzquil 30 ml PO HS 02/10/20 02/16/20 History sitaGLIPtin [Januvia] 100 mg PO PC-SUPPER 02/10/20 02/16/20 History Cetirizine HCl [Zyrtec] 10 mg PO DAILY #30 tab 02/12/20 02/16/20 Rx Fluticasone Nasal [place] [Flonase 2 spray EA NOSTRIL DAILY #1 spr 02/12/20 02/16/20 Rx Nasal [place]] Pantoprazole [Protonix] 40 mg PO AC-BID #60 tab 02/12/20 02/16/20 Rx Allergies Allergy/AdvReac Type Severity Reaction Status Date / Time No Known Allergies Allergy Verified 02/16/20 15:04 Physical Exam Vitals: Vital Signs Temp Pulse Resp BP Pulse Ox 02/16/20 22:03 82 19 126/55 95 02/16/20 19:16 87 20 137/70 96 02/16/20 16:43 72 20 96 02/16/20 15:01 98.2 F 73 20 111/55 80 L Intake and Output 02/16/20 02/16/20 02/16/20 06:59 14:59 22:59 Other: Weight 100.244 kg General Appearance: Alert, cooperative, mildly overweight looks older than his age in mild respiratory distress. Neck HEENT: Supple, no lymphadenopathy, no thyroid enlargement, no carotid bruits. Lungs: Decreased breath sound bilaterally with fine rhonchi positive mild crac kles in the bases positive mild inspiratory expiratory wheezes. Chest Wall: Decrease expansion with deep inspiration no tenderness and no deformity was found on exam, no costochondral pain or discomfort. Heart: Irregular rate and rhythm, S1, S2 positive history +5 cm JVD with systolic murmur in the apex. Back: Symmetric, no curvature, ROM normal, no CVA tenderness. Abdomen: Soft, non-tender, bowel sounds active all four quadrants, positive distention with no rebound or rigidity. Extremities: Significant edema bilaterally with mild arthritis both knees. Pulses: 2+ and symmetric. Skin: Skin color, texture, tugor normal, no rashes or lesions. Neurologic: Alert oriented x3 cranial nerves II through XII intact, no motor deficit, no abnormal balance or gait. Results CBC & Chem 7: 02/16/20 15:59 02/16/20 15:59 Labs: Abnormal Lab Results - Last 24 Hours (Table) 02/16/20 02/16/20 02/16/20 Range/Units 15:59 15:59 15:59 RBC 3.74 L (4.30-5.90) m/uL Hgb 8.2 L (13.0-17.5) gm/dL Hct 29.7 L (39.0-53.0) % MCV 79.4 L (80.0-100.0) fL MCH 21.9 L (25.0-35.0) pg MCHC 27.5 L (31.0-37.0) g/dL RDW 22.7 H (11.5-15.5) % Plt Count 455 H (150-450) k/uL APTT 20.5 L (22.0-30.0) sec Carbon Dioxide 31 H (22-30) mmol/L BUN 6 L (9-20) mg/dL Glucose 105 H (74-99) mg/dL Total Protein 5.7 L (6.3-8.2) g/dL Albumin 3.2 L (3.5-5.0) g/dL Thrombosis Risk Factor Assmnt - DVT/VTE Prophylaxis DVT/VTE Prophylaxis: Pharmacologic Prophylaxis ordered, Mechanical Prophylaxis ordered Assessment and Plan Assessment: 1 acute on chronic respiratory failure: Mostly CHF exacerbation systolic and diastolic dysfunction along with COPD exacerbation, continue O2, continue IV diuretics continue updraft treatment and steroid. 2 congestive heart failure exacerbation: Mostly systolic dysfunction, cardiology consultation, continue Lasix 40 mg IV push twice a day continue to watch fluid overload and intake along with daily weight. 3 COPD excessive patient: With chronic respiratory failure, continue O2, consult pulmonary, step patient on Solu-Medrol 60 mg IV every 8 hours continue DuoNeb and Pulmicort. 4 severe anemia: With no sign of active acute completed the time, 1 unit blood transfusion be giving and continue patient on iron infusion. 5 type 2 diabetes: On Januvia, continue Accu-Chek sliding scales coverage especially after starting patient on steroid. 6 hypertension: Remain on Norvasc 10 mg daily. 7 severe gastritis and recurrent episode of anemia: Patient to continue Carafate and Protonix for now. 8 BPH: Watch for any urinary retention remain on Flomax 0.8 mg at supper time. 9 chronic neuropathy: Has been on gabapentin 200 mg daily at bedtime. 10 chronic pain management: Has been on hydrocodone 7.5 mg every 6 hours as needed along with gabapentin patient is known to have chronic lower back pain. 11 DVT prophylaxis: Patient will be on knee-high YURIY hose no heparin subcutaneous. 12 GI prophylaxis: Remain on PPI. CODE STATUS: Full code. Admit patient to inpatient status for more than 2 night stay.
[2020-02-17] MEDS: methylPREDNISolone SOD SUCCI 125 MG/2 ML VIAL IV SCH ×3 (04:32→17:09)
[2020-02-17] MEDS: FUROSEMIDE 10 MG/ML 4 ML VIAL IV SCH ×2 (06:43→18:15)
[2020-02-17] MEDS: PANTOPRAZOLE 40 MG TABLET PO SCH ×2 (06:43→18:15)
[2020-02-17 06:45] LABS: Glucose,Whole Blood 136 mg/dL (75-99)
[2020-02-17] MEDS: SUCRALFATE 1 GM TAB PO SCH ×3 (06:55→18:15)
[2020-02-17] MEDS: FORMOTEROL FUMARATE 20 MCG/2 ML NEBU INHALATION SCH ×2 (07:42→19:42)
[2020-02-17] MEDS: BUDESONIDE 0.5 MG/2 ML NEBU INHALATION SCH ×2 (07:42→19:37)
[2020-02-17] MEDS: IPRATROPIUM-ALBUTEROL 3 ML NEB INHALATION SCH ×4 (07:42→19:38)
[2020-02-17] MEDS: LORATADINE 10 MG TAB PO SCH (09:13)
[2020-02-17] MEDS: SODIUM FERRIC GLUCONAT-SUCROSE 125 MG in SODIUM CHLORIDE 0.9% 100 ML IVPB SCH (09:35)
[2020-02-17] MEDS: HYDROcodone/APAP 7.5-325MG 1 EACH TAB PO PRN ×2 (09:43→17:10)
[2020-02-17] MEDS: SPIRONOLACTONE 25 MG TAB PO SCH (11:02)
[2020-02-17] MEDS: FLUTICASONE 50MCG/SPRAY NASAL 16GM EA NOSTRIL SCH (11:02)
[2020-02-17 11:56] LABS: Glucose,Whole Blood 290 mg/dL (75-99)
[2020-02-17] MEDS: INSULIN ASPART (NovoLOG) 100 UNIT/ML VIAL SQ SCH ×4 (12:20→21:28)
[2020-02-17 14:11] LABS: Glucose,Whole Blood 302 mg/dL (75-99)
[2020-02-17] MEDS ORDERED: INSULIN ASPART (NovoLOG) 100 UNIT/ML VIAL SQ ONE (14:14)
--- NOTE | 2020-02-17 14:24 | P.PN ---
Subjective Progress Note Date: 02/17/20 History of present illness 73-year-old male one of Dr. Lee patient with past medical history of COPD, CHF, arrhythmia, history of GI bleed who was hospitalized recently for severe anemia symptomatic had blood transfusion and general surgery and GI consult patient had an EGD with no colonoscopy no small bowel capsule endoscopy after his transfusion and iron infusion patient felt better was evaluated by pulmonary at the time appendicitis symptom are more anemia consistent with congestive heart failure with no component of COPD at the time. Patient was continue on his regular medication and was discharged home successfully at the time. He returned to see his primary care physician today with patient found to be severely hypoxic dyspneic having severe symptom with minimum exertion his pulse ox on arrival to [facility] department was only 80 percentile room air. Patient was place on 3 L 42, he had significant edema chest x-ray showed significant sign of pulmonary edema patient was started on IV diuretics also was having inspiratory expiratory wheezes with significant sign and symptom of COPD excessive patient. Patient was started on updraft treatment steroid IV with his hemoglobin being low on being symptomatic transfusion was started as well and patient will be on iron infusion. 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 02/16: Patient is seen today in follow-up and remains in the ER waiting for bed. Consult in place for cardiology, pulmonary medicine and we we have added in consult with Dr. Tobias Denson for anemia. Patient is status post 1 unit of packed RBCs and is currently receiving Ferrlecit infusion. Patient has been afebrile, heart rate 87, blood pressure 126/71 and pulse ox 95% on 4 L nasal cannula. Patient states that his shortness of breath is a lot better since his initial arrival. Blood sugars are elevated for which additional dose of 12 units nightly and scheduled NovoLog added. Patient is on IV Solu-Medrol at 60 mg every 8 hours. COVID-19 testing in process. Review of systems CONSTITUTIONAL: Well-developed mild respiratory distress EYES: No icterus sclerae, no conjunctivitis. EARS, NOSE, MOUTH, THROAT, and FACE: No sore throat, lymphadenopathy, carotid bruits or deformity. RESPIRATORY: Positive shortness of breath cough wheezes. CARDIOVASCULAR: Positive PND orthopnea palpitation. GASTROINTESTINAL: Mild abdominal discomfort with nausea no vomiting no diarrhea no hematemesis or tarry stool. GENITOURINARY: Negative for Hematuria or UTI, no kidney stones. INTEGUMENT/BREAST: Negative for any muscular injury with mild osteoarthritis.. HEMATOLOGIC/LYMPHATIC: Negative for bleed or purpura. MUSCULOSKELTAL: Generalized muscle and joint pain. NEURLOGICAL: No LOC, Sz or syncope, blurred vision dizziness or abnormality.. BEHAVIORAL/PSYCH: Negative. ENDOCRINE: Reports abnormal blood sugars Physical examination General Appearance: Alert, cooperative, patient is sitting in a chair and appears to be in no acute distress. No respiratory distress noted. Neck HEENT: Supple, no lymphadenopathy, no thyroid enlargement, no carotid bruits. Lungs: Decreased breath sound bilaterally with fine rhonchi positive mild crackles in the bases positive mild inspiratory expiratory wheezes. No accessory muscle usage. Chest Wall: Decrease expansion with deep inspiration no tenderness and no deformity was found on exam, no costochondral pain or discomfort. Heart: Irregular rate and rhythm, S1, S2 positive history +5 cm JVD with systolic murmur in the apex. Back: Symmetric, no curvature, ROM normal, no CVA tenderness. Abdomen: Soft, non-tender, bowel sounds active all four quadrants, positive distention with no rebound or rigidity. Extremities: Significant edema bilaterally with mild arthritis both knees. Pulses: 2+ and symmetric. Skin: Skin color, texture, tugor normal, no rashes or lesions. Neurologic: Alert oriented x3 cranial nerves II through XII intact, no motor deficit, no abnormal balance or gait. Assessment and plan 1 acute on chronic hypoxic respiratory failure: Mostly CHF exacerbation systolic and diastolic dysfunction along with COPD exacerbation, continue O2, continue IV Lasix 40 mg every 12 hours, continue updraft treatment and steroid. 2 acute on chronic systolic heart failure, cardiology consultation, continue Lasix 40 mg IV push twice a day continue to watch fluid overload and intake along with daily weight. 3 COPD exacerbation with chronic hypoxic respiratory failure, continue O2, consult pulmonary, step patient on Solu-Medrol 60 mg IV every 8 hours continue DuoNeb and Pulmicort. 4 severe anemia: With no sign of active acute completed the time, 1 unit blood transfusion be giving and continue patient on iron infusion for 2 days. 5 type 2 diabetes uncontrolled with hyperglycemia: On Januvia, continue Accu- Chek sliding scales, and NovoLog 5 units scheduled with meals. 6 hypertension: Remain on Norvasc 10 mg daily. 7 severe gastritis and recurrent episode of anemia: Patient to continue Carafate and Protonix for now. 8 BPH: Watch for any urinary retention remain on Flomax 0.8 mg at supper time. 9 chronic neuropathy: Has been on gabapentin 200 mg daily at bedtime. 10 chronic pain management: Has been on hydrocodone 7.5 mg every 6 hours as needed along with gabapentin patient is known to have chronic lower back pain. 11 DVT prophylaxis: Patient will be on knee-high YURIY hose no heparin subcutaneous. 12 GI prophylaxis: Remain on PPI. Covid 19 testing CODE STATUS: Full code. Discharge plan: Home Impression and plan of care have been directed as dictated by the signing physician. Sherrill Mederos nurse practitioner acting as scribe for signing physician. Objective - Vital Signs Vital signs: Vital Signs Temp 98.2 F 02/17/20 08:00 Pulse 88 02/17/20 08:14 Resp 16 02/17/20 08:00 BP 136/71 02/17/20 08:00 Pulse Ox 93 L 02/17/20 08:00 Intake & Output 02/16/20 02/17/20 02/17/20 18:59 06:59 18:59 Intake Total 310 Output Total 400 Balance -90 Weight 100.244 kg 100.244 kg Intake: Blood Product 310 Rc As-1 Unit 310 [id number] Output: Urine 400 Other: Voiding Method Urinal - Labs CBC & Chem 7: 02/16/20 15:59 02/16/20 15:59 Labs: Abnormal Lab Results - Last 24 Hours (Table) 02/16/20 02/16/20 02/16/20 Range/Units 15:59 15:59 15:59 RBC 3.74 L (4.30-5.90) m/uL Hgb 8.2 L (13.0-17.5) gm/dL Hct 29.7 L (39.0-53.0) % MCV 79.4 L (80.0-100.0) fL MCH 21.9 L (25.0-35.0) pg MCHC 27.5 L (31.0-37.0) g/dL RDW 22.7 H (11.5-15.5) % Plt Count 455 H (150-450) k/uL APTT 20.5 L (22.0-30.0) sec Carbon Dioxide 31 H (22-30) mmol/L BUN 6 L (9-20) mg/dL Glucose 105 H (74-99) mg/dL POC Glucose (mg/dL) (75-99) mg/dL Total Protein 5.7 L (6.3-8.2) g/dL Albumin 3.2 L (3.5-5.0) g/dL Crossmatch 02/16/20 02/17/20 Range/Units 16:19 06:44 RBC (4.30-5.90) m/uL Hgb (13.0-17.5) gm/dL Hct (39.0-53.0) % MCV (80.0-100.0) fL MCH (25.0-35.0) pg MCHC (31.0-37.0) g/dL RDW (11.5-15.5) % Plt Count (150-450) k/uL APTT (22.0-30.0) sec Carbon Dioxide (22-30) mmol/L BUN (9-20) mg/dL Glucose (74-99) mg/dL POC Glucose (mg/dL) 136 H (75-99) mg/dL Total Protein (6.3-8.2) g/dL Albumin (3.5-5.0) g/dL Crossmatch See Detail
--- NOTE | 2020-02-17 14:27 | P.CNPUL ---
History of Present Illness Consult date: 02/17/20 Requesting physician: Link Ag Reason for consult: dyspnea Chief complaint: Dyspnea History of present illness: This is a 74-year-old white male patient with known history of advanced COPD on home oxygen, with underlying FEV1 of 28% of predicted and DLCO of 32% of predicted, who follows Dr. Woodward in the pulmonary clinic. Patient had a recent admission for acute on chronic dyspnea related to acute iron deficiency anemia requiring blood and iron transfusions. Patient was hospitalized from 02/10/2020 and discharged home on 02/12/2020. Patient did receive 2 units of packed red blood cells during his previous admission, he was evaluated by GI service, and he was supposed to have a colonoscopy sometime this week. Patient presented back to the emergency department on 02/16/2020 for evaluation of shortness of breath, abdominal pain, and weakness. He developed worsening lower extremity swelling, he states he gained approximately 8 pounds over last several days. He used to be on Lasix in the past, however is not on his most recent medication list. Chest x-ray shows cardiomegaly and bilateral chronic bronchial changes with persistent small right pleural effusion, there is bibasilar acute infiltrate and/or atelectasis. This was present on last week's chest x-ray from 02/10/2020. His EKG showed sinus rhythm with a right bundle branch block. He will see me hematemesis, denies any hematochezia, his admission blood work showed hemoglobin of 8.2, up from 7.5 last week on discharge today on 02/12/2020, white blood cell count is 8.7, platelet count was 455, INR 0.9, electrolytes are unremarkable, CO2 31, BUN is 6 creatinine is 0.88, LFTs were within normal limits, lactic acid was 1.3, troponin was less than 0.012, proBNP was within normal limits at 695, patient does have evidence of 1+ lower extremity edema. He was given a unit of blood in the emergency department, he is receiving iron transfusions, he was restarted on his nebulized bronchodilators, and IV steroids, and IV diuretics. Review of Systems All systems: negative Constitutional: Denies chills, Denies fever Eyes: denies blurred vision, denies pain Ears, nose, mouth and throat: Denies headache, Denies sore throat Cardiovascular: Reports leg edema, Denies chest pain, Denies shortness of breath Respiratory: Reports dyspnea, Reports home oxygen, Denies cough Gastrointestinal: Denies abdominal pain, Denies diarrhea, Denies nausea, Denies vomiting Musculoskeletal: Denies myalgias Integumentary: Denies pruritus, Denies rash Neurological: Denies numbness, Denies weakness Psychiatric: Denies anxiety, Denies depression Endocrine: Denies fatigue, Denies weight change Past Medical History Past Medical History: Asthma, COPD, Diabetes Mellitus, Eye Disorder, GERD/Reflux, GI Bleed, Hyperlipidemia, Hypertension, Pneumonia, Prostate Disorder Additional Past Medical History / Comment(s): Chronic abdominal pain/unable to eat too much, past bleeding gastric ulcers/anemia with blood transfusion, lower extremity edema for past 6 months, color blind, NIDDM type II, neuropathy bilateral feet, home oxygen at 2L/NC prn but last 2 weeks ATC, 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 History of Any Multi-Drug Resistant Organisms: None Reported Past Surgical History: Hernia Repair, Joint Replacement, Orthopedic Surgery, Tonsillectomy Additional Past Surgical History / Comment(s): EGDs, colonoscopy, umbilical hernia repair, L ankle fracture with plate, R shoulder muscle damage repair with anchors in place, R total hip arthroplasty, sinus surgery x2, bilateral blepharoplasties. Past Anesthesia/Blood Transfusion Reactions: No Reported Reaction Additional Past Anesthesia/Blood Transfusion Reaction / Comment(s): Pt received blood in 2010 d/t anemia from bleeding antral ulcer without reaction. Past Psychological History: No Psychological Hx Reported Smoking Status: Former smoker Past Alcohol Use History: None Reported Past Drug Use History: None Reported - Past Family History Father Family Medical History: Cancer Additional Family Medical History / Comment(s): Father had lung cancer in his 70s. He of "old age" at the age of 90yrs. Mother Additional Family Medical History / Comment(s): Mother was a "hypochondriac". Pt states she at the age of 75yrs. Medications and Allergies Home Medications Medication Instructions Recorded Confirmed Type Budesonide [Pulmicort] 0.5 mg INHALATION RT-BID 08/25/19 02/16/20 History Formoterol Fumarate [Perforomist] 20 mcg INHALATION RT-BID 08/25/19 02/16/20 History Gabapentin [Neurontin] 200 mg PO HS 08/25/19 02/16/20 History HYDROcodone/APAP 7.5-325MG [[place] 1 tab PO QID PRN 08/25/19 02/16/20 History 7.5-325] Ipratropium-Albuterol Nebulize 3 ml INHALATION RT-QID 08/25/19 02/16/20 History [Duoneb 0.5 mg-3 mg/3 ml Soln] Multivit-Min/FA/Lycopen/Lutein 1 tab PO PC-SUPPER 08/25/19 02/16/20 History [Centrum Silver Tablet] Sucralfate [Carafate] 1 gm PO AC-TID 08/25/19 02/16/20 History Tamsulosin [Flomax] 0.8 mg PO PC-SUPPER 08/25/19 02/16/20 History amLODIPine [Norvasc] 10 mg PO PC-SUPPER 08/25/19 02/16/20 History diphenhydrAMINE HCL [Benadryl] 25 mg PO HS PRN 08/25/19 02/16/20 History Ketotifen 0.025% Ophth Soln 1 drop BOTH EYES HS 02/10/20 02/16/20 History [Zaditor] Vicks Zzzquil 30 ml PO HS 02/10/20 02/16/20 History sitaGLIPtin [Januvia] 100 mg PO PC-SUPPER 02/10/20 02/16/20 History Cetirizine HCl [Zyrtec] 10 mg PO DAILY #30 tab 02/12/20 02/16/20 Rx Fluticasone Nasal [place] [Flonase 2 spray EA NOSTRIL DAILY #1 spr 02/12/20 Rx Nasal [place]] Pantoprazole [Protonix] 40 mg PO AC-BID #60 tab 02/12/20 02/16/20 Rx Allergies Allergy/AdvReac Type Severity Reaction Status Date / Time No Known Allergies Allergy Verified 02/16/20 15:04 Physical Exam Vitals: Vital Signs Temp Pulse Pulse Resp BP BP Pulse Ox 02/17/20 11:49 97.6 F 87 16 126/71 95 02/17/20 11:25 84 02/17/20 11:10 82 02/17/20 08:14 88 02/17/20 08:00 98.2 F 92 16 136/71 93 L 02/17/20 07:58 86 02/17/20 07:54 86 02/17/20 07:43 84 02/17/20 04:24 96.8 F L 74 18 119/72 95 02/17/20 04:00 74 18 02/17/20 01:13 97.5 F L 78 20 138/65 95 02/17/20 00:43 97.5 F L 81 20 145/73 96 02/17/20 00:33 97.6 F 77 20 143/65 02/17/20 00:00 97.6 F 89 20 152/57 95 02/16/20 22:03 82 19 126/55 95 02/16/20 19:16 87 20 137/70 96 02/16/20 16:43 72 20 96 02/16/20 15:01 98.2 F 73 20 111/55 80 L Intake and Output 02/16/20 02/17/20 02/17/20 22:59 06:59 14:59 Intake Total 310 Output Total 400 Balance -400 310 Intake: Blood Product 310 Rc As-1 Unit 310 [id number] Output: Urine 400 Other: Voiding Method Urinal Urinal Weight 100.244 kg GENERAL EXAM: Alert, very pleasant, 74-year-old white male, on 4 L of oxygen and the pulse ox of 97%, comfortable in no apparent distress. HEAD: Normocephalic/atraumatic. EYES: Normal reaction of pupils, equal size. Conjunctiva pink, sclera white. NOSE: Clear with pink turbinates. THROAT: No erythema or exudates. NECK: No masses, no JVD, no thyroid enlargement, no adenopathy. CHEST: No chest wall deformity. Symmetrical expansion. LUNGS: Equal air entry with no crackles, wheeze, rhonchi or dullness. CVS: Regular rate and rhythm, normal S1 and S2, no gallops, no murmurs, no rubs ABDOMEN: Soft, nontender. No hepatosplenomegaly, normal bowel sounds, no guarding or rigidity. EXTREMITIES: No clubbing, 1+ lower extremity edema, no cyanosis, 2+ pulses and upper and lower extremities. MUSCULOSKELETAL: Muscle strength and tone normal. SPINE: No scoliosis or deformity SKIN: No rashes CENTRAL NERVOUS SYSTEM: Alert and oriented -3. No focal deficits, tone is normal in all 4 extremities. PSYCHIATRIC: Alert and oriented -3. Appropriate affect. Intact judgment and insight. Results - Laboratory Findings CBC and BMP: 02/16/20 15:59 02/16/20 15:59 PT/INR, D-dimer PT 9.7 sec (9.0-12.0) 02/16/20 15:59 INR 0.9 (<1.2) 02/16/20 15:59 Abnormal lab findings: Abnormal Labs 02/16/20 02/16/20 02/16/20 15:59 15:59 15:59 RBC 3.74 L Hgb 8.2 L Hct 29.7 L MCV 79.4 L MCH 21.9 L MCHC 27.5 L RDW 22.7 H Plt Count 455 H APTT 20.5 L Carbon Dioxide 31 H BUN 6 L Glucose 105 H POC Glucose (mg/dL) Total Protein 5.7 L Albumin 3.2 L Crossmatch 02/16/20 02/17/20 02/17/20 16:19 06:44 11:54 RBC Hgb Hct MCV MCH MCHC RDW Plt Count APTT Carbon Dioxide BUN Glucose POC Glucose (mg/dL) 136 H 290 H Total Protein Albumin Crossmatch See Detail - Diagnostic Findings Chest x-ray: report reviewed, image reviewed Assessment and Plan Plan: Assessment: #1. Acute on chronic hypoxic respiratory failure likely related to fluid overload, anemia and underlying history of severe COPD, chest x-ray showed cardiomegaly, with bilateral chronic parenchymal changes with persistent small right pleural effusion #2. Recent admission for acute iron deficiency anemia, requiring blood and iron transfusion, patient received 2 units of packed red blood cells during that hospitalization. Patient has been scheduled for outpatient colonoscopy on 02/20/2020 #3. Worsening peripheral edema, weakness #4. History of severe oxygen dependent COPD, with FEV1 of 28% of predicted #5. Chronic abdominal pain, status post umbilical hernia repair surgery a few years ago, most recent CT of the abdomen and pelvis on 02/11/2020 showed no significant acute finding #6. History of a bleeding gastric ulcer #7. Obesity #8. Hypertension #9. Hyperlipidemia #10. Diabetes mellitus type 2 #11. Former smoker #12. BPH, on Flomax Plan: Continue IV diuretics, continue his maintenance nebulized treatments, patient is not significantly bronchospastic, could consider cutting back his IV steroids tomorrow, continue following his renal profile, daily electrolytes, daily weights, accurate intake and output. We'll continue to follow I performed a history & physical examination of the patient and discussed their management with my nurse practitioner, Chelo Sinclair. I reviewed the nurse practitioner's note and agree with the documented findings and plan of care. Lung sounds are positive for diminished breath sounds. The findings and the impression was discussed with the patient. I attest to the documentation by the nurse practitioner. Time with Patient: Greater than 30
--- NOTE | 2020-02-17 16:30 | CONS ---
CONSULTATION Mr. Carroll is a 74-year-old male with known history of significant chronic obstructive lung disease and history of chronic anemia of unclear etiology who presented to the hospital with progressive dyspnea and peripheral edema. He has no prior cardiac history. He was last evaluated by Dr. Watt about a year ago. He was in the hospital earlier this month with symptoms of dyspnea and severe anemia. He has an FEV1 of 20% predicted and he is on home oxygen. He has noted worsening peripheral edema extending to the thigh and to the scrotum. He denies any chest pain. He has chronic 3-pillow orthopnea. He has no dizziness. No palpitation or syncope. He has no prior history of documented heart failure or coronary artery disease. He is not aware of impairment in the systolic function. His coronary risk factors are remarkable for history of hypertension and diabetes mellitus. He stopped smoking in 2010. MEDICATIONS: His medications at home include Januvia, Norvasc 10 mg daily, Flomax, Carafate, DuoNeb, Neurontin, Zyrtec and Pulmicort. REVIEW OF SYSTEMS: RESPIRATORY SYSTEM: He has dyspnea on exertion, the cough. He has history of chronic obstructive lung disease, on home oxygen. GI SYSTEM: He has no recent GI bleeding. No peptic ulcer disease. SYSTEM: No dysuria or hematuria. NERVOUS SYSTEM: No stroke or seizure. PHYSICAL EXAMINATION: He is a 74-year-old male, alert, oriented, in no apparent distress. Blood pressure 136/70 with a heart rate in the 90s. HEAD: Normocephalic. EYES: Sclerae anicteric. NECK: No bruit in noted. LUNGS: Decreased air exchange. No wheezes. HEART: Regular rate and rhythm. S1, S2. No S3. No rub, with a systolic ejection murmur. No diastolic murmur. ABDOMEN: Soft, obese, nontender. EXTREMITIES: Plus 2 to 3 edema bilaterally up to the thighs. LAB DATA: Hemoglobin of 8.2, BUN and creatinine of 6 and 0.88, potassium 4.3. Troponin less than 0.012. NT-Pro-BNP of 695. His EKG revealed a sinus mechanism with right bundle branch block. His chest x-ray shows evidence of small pleural effusion with evidence of COPD. IMPRESSION: 1. Symptoms of progressive dyspnea with peripheral edema. No evaluation of his systolic function is available to me. His NT-Pro-BNP is normal, which speaks against a left-sided failure. He could have evidence of cor pulmonale because of his chronic obstructive lung disease. 2. Severe chronic obstructive lung disease, on home oxygen. 3. Anemia. The patient has received transfusion. Receiving iron transfusion at this time. 4. History of diabetes. 5. Hypertension. RECOMMENDATIONS: From the cardiac standpoint, I will obtain echocardiogram with Doppler. I will stop his amlodipine. I will add to his regimen Aldactone. I will add to his regimen losartan. Will follow his renal function. Depending on results of his echo, further recommendation will be made. Thank you for this consult. Will follow with you. MMSUSANNAL / IJN: [id number] /
[2020-02-17 16:45] LABS: Glucose,Whole Blood 177 mg/dL (75-99)
[2020-02-17] MEDS: MULTIVITAMINS, THERA 1 EACH TAB PO SCH (18:15)
[2020-02-17] MEDS: LINAGLIPTIN 5 MG TABLET PO SCH (18:15)
[2020-02-17] MEDS: TAMSULOSIN 0.4 MG CAP.ER.24H PO SCH (18:15)
[2020-02-17] MEDS ORDERED: amLODIPine 10 MG TAB PO SCH (18:30)
[2020-02-17 19:59] LABS: Glucose,Whole Blood 193 mg/dL (75-99)
[2020-02-17] MEDS ORDERED: [UNRECOGNIZED DRUG - OTHER] PO SCH (21:00)
[2020-02-17] MEDS: GABAPENTIN 100 MG CAP PO SCH (21:28)
[2020-02-17] MEDS: lisinopriL 5 MG TAB PO SCH (21:28)
[2020-02-17] MEDS: KETOTIFEN 0.025% OPHTH DROPS 5 ML BTL BOTH EYES SCH (21:33)
--- NOTE | 2020-02-17 23:55 | P.CONS ---
History of Present Illness - Reason for Consult Consult date: 02/17/20 Iron deficiency anemia Requesting physician: Link Ag - Chief Complaint Shortness of breath - History of Present Illness 74-year-old male with a medical history significant for COPD, diabetes mellitus, hypertension, hyperlipidemia who presented to the hospital with complaints of shortness of breath patient reported increasing shortness of breath as well as increasing fluid and weight gain. Currently he is being treated with diuretic therapy as well as for treatment of underlying COPD. Recently he was hospitalized with anemia. He previously underwent EGD in July with the surgical service which was normal. Stool testing on recent admission was negative for occult blood. Last colonoscopy 4-5 years ago. Plan was for outpatient colonoscopy this week, however patient has presented back to the hospital due to the above-mentioned complaints. He is receiving IV iron therapy. Hemoglobin is currently stable since discharge. Review of Systems REVIEW OF SYSTEMS: CONSTITUTIONAL: Denies any fevers, chills, but does report weight gain and fluid overload as well as fatigue. CARDIOVASCULAR: Denies any chest pain, palpitations high or low blood pressures RESPIRATORY: Denies any hemoptysis but does report shortness of breath and cough. GENITOURINARY: No dysuria or hematuria. MUSCULOSKELETAL: No weakness reported. SKIN: Denies any new rashes or lesions, jaundice or pallor. PSYCHIATRIC: Denies any depression or anxiety. NEUROLOGY: Denies headache, denies any new focal deficits. EARS/NOSE/THROAT: No recent hearing change, congestion, nasal discharge or sore throat. EYES: No pain in eyes, discharge or change in vision. GASTROINTESTINAL: As per HPI. Past Medical History Past Medical History: Asthma, COPD, Diabetes Mellitus, Eye Disorder, GERD/Re flux, GI Bleed, Hyperlipidemia, Hypertension, Pneumonia, Prostate Disorder Additional Past Medical History / Comment(s): Chronic abdominal pain/unable to eat too much, past bleeding gastric ulcers/anemia with blood transfusion, lower extremity edema for past 6 months, color blind, NIDDM type II, neuropathy bilateral feet, home oxygen at 2L/NC prn but last 2 weeks ATC, 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 History of Any Multi-Drug Resistant Organisms: None Reported Past Surgical History: Hernia Repair, Joint Replacement, Orthopedic Surgery, Tonsillectomy Additional Past Surgical History / Comment(s): EGDs, colonoscopy, umbilical hernia repair, L ankle fracture with plate, R shoulder muscle damage repair with anchors in place, R total hip arthroplasty, sinus surgery x2, bilateral blepharoplasties. Past Anesthesia/Blood Transfusion Reactions: No Reported Reaction Additional Past Anesthesia/Blood Transfusion Reaction / Comm: Pt received blood in 2010 d/t anemia from bleeding antral ulcer without reaction. Past Psychological History: No Psychological Hx Reported Smoking Status: Former smoker Past Alcohol Use History: None Reported Past Drug Use History: None Reported - Past Family History Father Family Medical History: Cancer Additional Family Medical History / Comment(s): Father had lung cancer in his 70s. He of "old age" at the age of 90yrs. Mother Additional Family Medical History / Comment(s): Mother was a "hypochondriac". Pt states she at the age of 75yrs. Medications and Allergies Home Medications Medication Instructions Recorded Confirmed Type Budesonide [Pulmicort] 0.5 mg INHALATION RT-BID 08/25/19 02/16/20 History Formoterol Fumarate [Perforomist] 20 mcg INHALATION RT-BID 08/25/19 02/16/20 History Gabapentin [Neurontin] 200 mg PO HS 08/25/19 02/16/20 History HYDROcodone/APAP 7.5-325MG [[place] 1 tab PO QID PRN 08/25/19 02/16/20 History 7.5-325] Ipratropium-Albuterol Nebulize 3 ml INHALATION RT-QID 08/25/19 02/16/20 History [Duoneb 0.5 mg-3 mg/3 ml Soln] Multivit-Min/FA/Lycopen/Lutein 1 tab PO PC-SUPPER 08/25/19 02/16/20 History [Centrum Silver Tablet] Sucralfate [Carafate] 1 gm PO AC-TID 08/25/19 02/16/20 History Tamsulosin [Flomax] 0.8 mg PO PC-SUPPER 08/25/19 02/16/20 History amLODIPine [Norvasc] 10 mg PO PC-SUPPER 08/25/19 02/16/20 History diphenhydrAMINE HCL [Benadryl] 25 mg PO HS PRN 08/25/19 02/16/20 History Ketotifen 0.025% Ophth Soln 1 drop BOTH EYES HS 02/10/20 02/16/20 History [Zaditor] Vicks Zzzquil 30 ml PO HS 02/10/20 02/16/20 History sitaGLIPtin [Januvia] 100 mg PO PC-SUPPER 02/10/20 02/16/20 History Cetirizine HCl [Zyrtec] 10 mg PO DAILY #30 tab 02/12/20 02/16/20 Rx Fluticasone Nasal [place] [Flonase 2 spray EA NOSTRIL DAILY #1 spr 02/12/20 02/16/20 Rx Nasal [place]] Pantoprazole [Protonix] 40 mg PO AC-BID #60 tab 02/12/20 02/16/20 Rx Allergies Allergy/AdvReac Type Severity Reaction Status Date / Time No Known Allergies Allergy Verified 02/16/20 15:04 Physical Exam Vitals: Vital Signs Temp Pulse Pulse Resp BP BP Pulse Ox 02/17/20 11:49 97.6 F 87 16 126/71 95 02/17/20 11:25 84 02/17/20 11:10 82 02/17/20 08:14 88 02/17/20 08:00 98.2 F 92 16 136/71 93 L 02/17/20 07:58 86 02/17/20 07:54 86 02/17/20 07:43 84 02/17/20 04:24 96.8 F L 74 18 119/72 95 02/17/20 04:00 74 18 02/17/20 01:13 97.5 F L 78 20 138/65 95 02/17/20 00:43 97.5 F L 81 20 145/73 96 02/17/20 00:33 97.6 F 77 20 143/65 02/17/20 00:00 97.6 F 89 20 152/57 95 02/16/20 22:03 82 19 126/55 95 02/16/20 19:16 87 20 137/70 96 02/16/20 16:43 72 20 96 02/16/20 15:01 98.2 F 73 20 111/55 80 L Intake and Output 02/16/20 02/17/20 02/17/20 22:59 06:59 14:59 Intake Total 310 Output Total 400 Balance -400 310 Intake: Blood Product 310 Rc As-1 Unit 310 [id number] Output: Urine 400 Other: Voiding Method Urinal Urinal Weight 100.244 kg On physical examination, patient appears comfortable in no apparent distress. HEAD: Normocephalic, atraumatic. EYES: No scleral icterus. No conjunctival injection. MOUTH: No lesions, tongue midline. NECK: Trachea midline, no gross abnormalities. CHEST: Decreased air entry in all lung jaime. HEART: S1-S2 appreciated. ABDOMEN: Soft, obese. Bowel sounds are positive. No organomegaly. No guarding or rigidity. EXTREMITIES: Bilateral 2+ pedal edema. SKIN: No rashes, no jaundice. NEUROLOGIC: Alert and oriented x3. No focal deficits. Results CBC & Chem 7: 02/16/20 15:59 02/16/20 15:59 Labs: Abnormal Lab Results - Last 24 Hours (Table) 02/16/20 02/16/20 02/16/20 Range/Units 15:59 15:59 15:59 RBC 3.74 L (4.30-5.90) m/uL Hgb 8.2 L (13.0-17.5) gm/dL Hct 29.7 L (39.0-53.0) % MCV 79.4 L (80.0-100.0) fL MCH 21.9 L (25.0-35.0) pg MCHC 27.5 L (31.0-37.0) g/dL RDW 22.7 H (11.5-15.5) % Plt Count 455 H (150-450) k/uL APTT 20.5 L (22.0-30.0) sec Carbon Dioxide 31 H (22-30) mmol/L BUN 6 L (9-20) mg/dL Glucose 105 H (74-99) mg/dL POC Glucose (mg/dL) (75-99) mg/dL Total Protein 5.7 L (6.3-8.2) g/dL Albumin 3.2 L (3.5-5.0) g/dL Crossmatch 02/16/20 02/17/20 02/17/20 Range/Units 16:19 06:44 11:54 RBC (4.30-5.90) m/uL Hgb (13.0-17.5) gm/dL Hct (39.0-53.0) % MCV (80.0-100.0) fL MCH (25.0-35.0) pg MCHC (31.0-37.0) g/dL RDW (11.5-15.5) % Plt Count (150-450) k/uL APTT (22.0-30.0) sec Carbon Dioxide (22-30) mmol/L BUN (9-20) mg/dL Glucose (74-99) mg/dL POC Glucose (mg/dL) 136 H 290 H (75-99) mg/dL Total Protein (6.3-8.2) g/dL Albumin (3.5-5.0) g/dL Crossmatch See Detail Chest x-ray: report reviewed Assessment and Plan (1) Iron deficiency anemia Narrative/Plan: 74-year-old male with multiple medical comorbidities presenting with increasing fluid overload and shortness of breath, recently seen for iron deficiency anemia. Previously evaluated in July with EGD which was negative. He has a remote history of peptic ulcer disease. Last colonoscopy 4-5 years ago. Stool testing for occult blood negative on recent admission. Patient's studies do show iron deficiency and is receiving IV iron therapy. Denies any signs or symptoms of GI bleed or abdominal pain. Plan was for outpatient colonoscopy later this week which was scheduled, however he is presented back to the hospital due to the above-mentioned complaints. Current Visit: Yes Status: Acute Code(s): D50.9 - IRON DEFICIENCY ANEMIA, UNSPECIFIED SNOMED Code(s): 93171997 Plan: Supportive care Okay for diet Continue to monitor CBC, BMP, LFTs Continue IV iron therapy Continue monitor hemoglobin and transfuse as needed Continue treatment of underlying COPD and CHF by primary team and consultants Extensive discussion with the patient regarding possible endoscopic evaluation with colonoscopy prior to discharge after optimization of breathing and fluid status, however he has reiterated that he preferred performed the procedure as an outpatient, we'll continue to follow and readdress with the patient Thank you for allowing us to participate in the care of the patient
[2020-02-18] MEDS: methylPREDNISolone SOD SUCCI 125 MG/2 ML VIAL IV SCH ×2 (00:02→09:00)
[2020-02-18 00:44] LABS: Calcium 9.3 mg/dL (8.4-10.2); Magnesium 1.8 mg/dL (1.6-2.3)
[2020-02-18] MEDS ORDERED: METOPROLOL TARTRATE 12.5 MG TAB PO STA (00:58)
[2020-02-18] MEDS ORDERED: MAGNESIUM SULFATE-D5W PMX 1 GM in DEXTROSE/WATER 1 100ML.BAG IVPB ONE (00:59)
[2020-02-18] MEDS: HYDROcodone/APAP 7.5-325MG 1 EACH TAB PO PRN ×3 (01:37→20:02)
[2020-02-18] MEDS: SUCRALFATE 1 GM TAB PO SCH ×3 (06:33→17:20)
[2020-02-18] MEDS: FUROSEMIDE 10 MG/ML 4 ML VIAL IV SCH ×2 (06:33→17:20)
[2020-02-18] MEDS: PANTOPRAZOLE 40 MG TABLET PO SCH ×2 (06:33→17:20)
[2020-02-18 07:03] LABS: Anisocytosis Moderate; HCT 31.6 % (39.0-53.0); HGB 8.9 gm/dL (13.0-17.5); Hypochromasia Marked; MCH 22.9 pg (25.0-35.0); MCHC 28.1 g/dL (31.0-37.0); MCV 81.3 fL (80.0-100.0); Mean Platelet Volume 7.3; Microcytosis Slight; Platelet Count 458 k/uL (150-450); Poikilocytosis Marked; RBC 3.89 m/uL (4.30-5.90); RDW 21.4 % (11.5-15.5); WBC 12.8 k/uL (3.8-10.6)
[2020-02-18 07:18] LABS: African American GFR (CKD) >90 (>60 ml/min/1.73 sqM); Anion Gap 6 mmol/L; Blood Urea Nitrogen 11 mg/dL (9-20); Calcium 8.8 mg/dL (8.4-10.2); Carbon Dioxide 32 mmol/L (22-30); Chloride 99 mmol/L (98-107); Glucose 205 mg/dL (74-99); Non-African American GFR(CKD) 79 (>60 ml/min/1.73 sqM); Potassium 4.4 mmol/L (3.5-5.1); Sodium 137 mmol/L (137-145)
[2020-02-18 07:40] LABS: Glucose,Whole Blood 237 mg/dL (75-99)
[2020-02-18] MEDS: IPRATROPIUM-ALBUTEROL 3 ML NEB INHALATION SCH ×4 (08:28→19:49)
[2020-02-18] MEDS: FORMOTEROL FUMARATE 20 MCG/2 ML NEBU INHALATION SCH ×2 (08:28→19:49)
[2020-02-18] MEDS: BUDESONIDE 0.5 MG/2 ML NEBU INHALATION SCH ×2 (08:28→19:49)
[2020-02-18] MEDS: SPIRONOLACTONE 25 MG TAB PO SCH (09:00)
[2020-02-18] MEDS: SODIUM FERRIC GLUCONAT-SUCROSE 125 MG in SODIUM CHLORIDE 0.9% 100 ML IVPB SCH (09:00)
[2020-02-18] MEDS: LORATADINE 10 MG TAB PO SCH (09:00)
[2020-02-18] MEDS: INSULIN ASPART (NovoLOG) 100 UNIT/ML VIAL SQ SCH ×7 (09:00→20:22)
[2020-02-18] MEDS: lisinopriL 5 MG TAB PO SCH ×2 (09:00→20:03)
[2020-02-18] MEDS: FLUTICASONE 50MCG/SPRAY NASAL 16GM EA NOSTRIL SCH (09:01)
[2020-02-18 11:34] VITALS: BMI 34.7
--- NOTE | 2020-02-18 11:55 | XR ---
EXAMINATION TYPE: XR chest 1V portable DATE OF EXAM: 02/18/2020 CLINICAL HISTORY: Difficulty breathing and CHF progress study. TECHNIQUE: Single AP portable upright view of the chest is obtained. COMPARISON: Chest x-ray from 2 days earlier and older studies. FINDINGS: There is chronic parenchymal changes bilaterally with persistent bibasilar opacities. Viviane pect stable small bilateral pleural effusions. The cardiac silhouette size remains enlarged. The os seous structures remain demineralized with slight underlying scoliotic curvature and degenerative luis nge of both shoulders. Cannot exclude hiatal hernia versus tortuous descending aorta. IMPRESSION: Overall stable findings, suspect CHF exacerbation on background chronic parenchymal luis nge as there is cardiomegaly with small bilateral pleural effusions and associated bibasilar atelecta sis and/or infiltrate are all redemonstrated.
--- NOTE | 2020-02-18 11:56 | P.PN ---
Subjective Progress Note Date: 02/18/20 This is a pleasant 74-year-old woman with a history of COPD, chronic anemia, unclear etiology. Presented to the hospital with dyspnea. Lower extremity and lower abdominal edema. She was hospitalized earlier this month with symptoms of dyspnea and severe anemia and he has an FEV1 of 28% of predicted. He is on home oxygen. He has been diuresed on IV Lasix and on IV Solu-Medrol. Labs today show hemoglobin of 8.9 he continues to receive iron infusions. Sodium today is 137. Potassium 4.4, BUN 11, creatinine 0.96. Vital signs have been stable. Overall he is feeling quite a bit better. He feels his breathing has improved some. Edema has improved and is only up to just above his knee bilaterally. He is urinating quite a bit and diuresing well. His weight is down about 3 kg. He is being followed by GI who has recommended further endoscopic evaluation. Objective - Vital Signs Vital signs: Vital Signs Temp 98.0 F 02/18/20 08:00 Pulse 80 02/18/20 08:53 Resp 18 02/18/20 08:00 BP 121/59 02/18/20 08:00 Pulse Ox 95 02/18/20 08:00 Intake & Output 02/17/20 02/18/20 02/18/20 18:59 06:59 18:59 Intake Total 360 150 Balance 360 150 Weight 97.6 kg 97.6 kg Intake: Oral 360 150 Other: Voiding Method Urinal Urinal Urinal # Voids 1 1 - Exam PHYSICAL EXAMINATION: HEENT: Head is atraumatic, normocephalic. Pupils equal, round. Neck is supple. There is no elevated jugular venous pressure. HEART EXAMINATION: Heart sounds regular, S1 and S2 normal. With a systolic ejection murmur. CHEST EXAMINATION: Lungs reveal diminished air exchange bilaterally. No chest wall tenderness is noted on palpation or with deep breathing. ABDOMEN: Soft, nontender. Bowel sounds are heard. No organomegaly noted. EXTREMITIES: 2+ peripheral pulses with evidence of +2-3 peripheral edema up to his knees bilaterally and no calf tenderness noted. NEUROLOGIC patient is awake, alert and oriented x3. . - Labs CBC & Chem 7: 02/18/20 06:12 02/18/20 06:12 Labs: Abnormal Lab Results - Last 24 Hours (Table) 0802/17/20 02/17/20 Range/Units 11:54 14:09 16:43 WBC (3.8-10.6) k/uL RBC (4.30-5.90) m/uL Hgb (13.0-17.5) gm/dL Hct (39.0-53.0) % MCH (25.0-35.0) pg MCHC (31.0-37.0) g/dL RDW (11.5-15.5) % Plt Count (150-450) k/uL Sodium (137-145) mmol/L Chloride (98-107) mmol/L Carbon Dioxide (22-30) mmol/L Glucose (74-99) mg/dL POC Glucose (mg/dL) 290 H 302 H 177 H (75-99) mg/dL 02/17/20 02/17/20 02/18/20 Range/Units 19:58 23:59 06:12 WBC (3.8-10.6) k/uL RBC (4.30-5.90) m/uL Hgb (13.0-17.5) gm/dL Hct (39.0-53.0) % MCH (25.0-35.0) pg MCHC (31.0-37.0) g/dL RDW (11.5-15.5) % Plt Count (150-450) k/uL Sodium 135 L (137-145) mmol/L Chloride 97 L (98-107) mmol/L Carbon Dioxide 32 H (22-30) mmol/L Glucose 211 H 205 H (74-99) mg/dL POC Glucose (mg/dL) 193 H (75-99) mg/dL 02/18/20 02/18/20 Range/Units 06:12 07:37 WBC 12.8 H (3.8-10.6) k/uL RBC 3.89 L (4.30-5.90) m/uL Hgb 8.9 L (13.0-17.5) gm/dL Hct 31.6 L (39.0-53.0) % MCH 22.9 L (25.0-35.0) pg MCHC 28.1 L (31.0-37.0) g/dL RDW 21.4 H (11.5-15.5) % Plt Count 458 H (150-450) k/uL Sodium (137-145) mmol/L Chloride (98-107) mmol/L Carbon Dioxide (22-30) mmol/L Glucose (74-99) mg/dL POC Glucose (mg/dL) 237 H (75-99) mg/dL Assessment and Plan Assessment: #1 symptoms of progressive dyspnea with peripheral edema within normal NT proBNP, could have evidence of cor pulmonale as of severe chronic obstructive lung disease #2 severe chronic obstructive lung disease, on home oxygen #3 anemia, receiving iron transfusions at this time, stable, being followed by GI #4 diabetes #5 hypertension Plan: From cardiology perspective, medications were reviewed and we will continue the same. Continue IV Lasix at this time. We'll obtain a 2-D echo with Doppler to assess cardiac structure and function. Depending on the results of the echocardiogram further recommendations will be made. [employer] note has been reviewed, I agree with a documented findings and plan of care. Patient was seen and examined.
[2020-02-18 12:31] LABS: Glucose,Whole Blood 262 mg/dL (75-99)
--- NOTE | 2020-02-18 12:58 | P.PN ---
Subjective Progress Note Date: 02/18/20 Principal diagnosis: shortness of breath, peripheral swelling This is a 74-year-old white male patient with known history of advanced COPD on home oxygen, with underlying FEV1 of 28% of predicted and DLCO of 32% of predicted, who follows Dr. Woodward in the pulmonary clinic. Patient had a recent admission for acute on chronic dyspnea related to acute iron deficiency anemia requiring blood and iron transfusions. Patient was hospitalized from 02/10/2020 and discharged home on 02/12/2020. Patient did receive 2 units of packed red blood cells during his previous admission, he was evaluated by GI service, and he was supposed to have a colonoscopy sometime this week. Patient presented back to the emergency department on 02/16/2020 for evaluation of shortness of breath, abdominal pain, and weakness. He developed worsening lower extremity swelling, he states he gained approximately 8 pounds over last several days. He used to be on Lasix in the past, however is not on his most recent medication list. Chest x-ray shows cardiomegaly and bilateral chronic bronchial changes with persistent small right pleural effusion, there is bibasilar acute infiltrate and/or atelectasis. This was present on last week's chest x-ray from 02/10/2020. His EKG showed sinus rhythm with a right bundle branch block. He will see me hematemesis, denies any hematochezia, his admission blood work showed hemoglobin of 8.2, up from 7.5 last week on discharge today on 02/12/2020, white blood cell count is 8.7, platelet count was 455, INR 0.9, electrolytes are unremarkable, CO2 31, BUN is 6 creatinine is 0.88, LFTs were within normal limits, lactic acid was 1.3, troponin was less than 0.012, proBNP was within normal limits at 695, patient does have evidence of 1+ lower extremity edema. He was given a unit of blood in the emergency department, he is receiving iron transfusions, he was restarted on his nebulized bronchodilators, and IV steroids, and IV diuretics. On 02/18/2020 patient seen in follow-up on selective care unit, he is calm and comfortable, breathing easier, lower extremity edema is improving, although patient still has residual lower extremity edema. Abdominal distention is improved, no abdominal pain, today's chest x-ray has been reviewed showing small bilateral pleural effusions, CHF on background of chronic parenchymal changes, associated bibasilar atelectasis. on 3 L patient is satting 94%, no comparative chest pain, no hemoptysis, coronal virus PCR was negative.remains on IV Solu- Medrol. Remains on IV Lasix of 40 mg every 12 hours, he is on nebulized bronchodilators. today's hemoglobin is 8.9 Objective - Vital Signs Vital signs: Vital Signs Temp 97.9 F 02/18/20 12:00 Pulse 76 02/18/20 12:09 Resp 18 02/18/20 12:00 BP 130/58 02/18/20 12:00 Pulse Ox 94 L 02/18/20 12:00 Intake & Output 02/17/20 02/18/20 02/18/20 18:59 06:59 18:59 Intake Total 360 150 Balance 360 150 Weight 97.6 kg 97.6 kg Intake: Oral 360 150 Other: Voiding Method Urinal Urinal Urinal # Voids 1 1 - Exam GENERAL EXAM: Alert, very pleasant, 74-year-old white male, on 3 L of oxygen and the pulse ox of 94%, comfortable in no apparent distress. HEAD: Normocephalic/atraumatic. EYES: Normal reaction of pupils, equal size. Conjunctiva pink, sclera white. NOSE: Clear with pink turbinates. THROAT: No erythema or exudates. NECK: No masses, no JVD, no thyroid enlargement, no adenopathy. CHEST: No chest wall deformity. Symmetrical expansion. LUNGS: Equal air entry with no crackles, wheeze, rhonchi or dullness. CVS: Regular rate and rhythm, normal S1 and S2, no gallops, no murmurs, no rubs ABDOMEN: Soft, nontender. No hepatosplenomegaly, normal bowel sounds, no guarding or rigidity. EXTREMITIES: No clubbing, 1+ lower extremity edema, no cyanosis, 2+ pulses and upper and lower extremities. MUSCULOSKELETAL: Muscle strength and tone normal. SPINE: No scoliosis or deformity SKIN: No rashes CENTRAL NERVOUS SYSTEM: Alert and oriented -3. No focal deficits, tone is normal in all 4 extremities. PSYCHIATRIC: Alert and oriented -3. Appropriate affect. Intact judgment and insight. - Labs CBC & Chem 7: 02/18/20 06:12 02/18/20 06:12 Labs: Abnormal Lab Results - Last 24 Hours (Table) 02/17/20 02/17/20 02/17/20 Range/Units 14:09 16:43 19:58 WBC (3.8-10.6) k/uL RBC (4.30-5.90) m/uL Hgb (13.0-17.5) gm/dL Hct (39.0-53.0) % MCH (25.0-35.0) pg MCHC (31.0-37.0) g/dL RDW (11.5-15.5) % Plt Count (150-450) k/uL Sodium (137-145) mmol/L Chloride (98-107) mmol/L Carbon Dioxide (22-30) mmol/L Glucose (74-99) mg/dL POC Glucose (mg/dL) 302 H 177 H 193 H (75-99) mg/dL 02/17/20 02/18/20 02/18/20 Range/Units 23:59 06:12 06:12 WBC 12.8 H (3.8-10.6) k/uL RBC 3.89 L (4.30-5.90) m/uL Hgb 8.9 L (13.0-17.5) gm/dL Hct 31.6 L (39.0-53.0) % MCH 22.9 L (25.0-35.0) pg MCHC 28.1 L (31.0-37.0) g/dL RDW 21.4 H (11.5-15.5) % Plt Count 458 H (150-450) k/uL Sodium 135 L (137-145) mmol/L Chloride 97 L (98-107) mmol/L Carbon Dioxide 32 H (22-30) mmol/L Glucose 211 H 205 H (74-99) mg/dL POC Glucose (mg/dL) (75-99) mg/dL 02/18/20 02/18/20 Range/Units 07:37 12:29 WBC (3.8-10.6) k/uL RBC (4.30-5.90) m/uL Hgb (13.0-17.5) gm/dL Hct (39.0-53.0) % MCH (25.0-35.0) pg MCHC (31.0-37.0) g/dL RDW (11.5-15.5) % Plt Count (150-450) k/uL Sodium (137-145) mmol/L Chloride (98-107) mmol/L Carbon Dioxide (22-30) mmol/L Glucose (74-99) mg/dL POC Glucose (mg/dL) 237 H 262 H (75-99) mg/dL Assessment and Plan Plan: Assessment: #1. Acute on chronic hypoxic respiratory failure likely related to fluid overload, anemia and underlying history of severe COPD, chest x-ray showed cardiomegaly, with bilateral chronic parenchymal changes with persistent small right pleural effusion #2. Recent admission for acute iron deficiency anemia, requiring blood and iron transfusion, patient received 2 units of packed red blood cells during that hospitalization. Patient has been scheduled for outpatient colonoscopy on 02/20/2020 #3. Worsening peripheral edema, weakness #4. History of severe oxygen dependent COPD, with FEV1 of 28% of predicted #5. Chronic abdominal pain, status post umbilical hernia repair surgery a few years ago, most recent CT of the abdomen and pelvis on 02/11/2020 showed no significant acute finding #6. History of a bleeding gastric ulcer #7. Obesity #8. Hypertension #9. Hyperlipidemia #10. Diabetes mellitus type 2 #11. Former smoker #12. BPH, on Flomax Plan: Continue IV diuretics, today's chest x-ray still showing bilateral pleural effusions, bibasilar atelectasis, we can probably switch the IV steroids to oral prednisone, continue bronchodilators. Daily electrolytes and renal profile. If continues to improve, from pulmonary perspective patient can be considered for discharge home on diuretics I performed a history & physical examination of the patient and discussed their management with my nurse practitioner, Chelo Sinclair. I reviewed the nurse practitioner's note and agree with the documented findings and plan of care. Lung sounds are positive for diminished breath sounds. The findings and the impression was discussed with the patient. I attest to the documentation by the nurse practitioner. Time with Patient: Less than 30
--- NOTE | 2020-02-18 14:51 | P.PN ---
Subjective Progress Note Date: 02/18/20 History of present illness 73-year-old male one of Dr. Lee patient with past medical history of COPD, CHF, arrhythmia, history of GI bleed who was hospitalized recently for severe anemia symptomatic had blood transfusion and general surgery and GI consult patient had an EGD with no colonoscopy no small bowel capsule endoscopy after his transfusion and iron infusion patient felt better was evaluated by pulmonary at the time appendicitis symptom are more anemia consistent with congestive heart failure with no component of COPD at the time. Patient was continue on his regular medication and was discharged home successfully at the time. He returned to see his primary care physician today with patient found to be severely hypoxic dyspneic having severe symptom with minimum exertion his pulse ox on [facility] department was only 80 percentile room air. Patient was place on 3 L 42, he had significant edema chest x-ray showed significant sign of pulmonary edema patient was started on IV diuretics also was having inspiratory expiratory wheezes with significant sign and symptom of COPD excessive patient. Patient was started on updraft treatment steroid IV with his hemoglobin being low on being symptomatic transfusion was started as well and patient will be on iron infusion. 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 02/16: Patient is seen today in follow-up and remains in the ER waiting for bed. Consult in place for cardiology, pulmonary medicine and we we have added in consult with Dr. Tobias Denson for anemia. Patient is status post 1 unit of packed RBCs and is currently receiving Ferrlecit infusion. Patient has been afebrile, heart rate 87, blood pressure 126/71 and pulse ox 95% on 4 L nasal cannula. Patient states that his shortness of breath is a lot better since his initial arrival. Blood sugars are elevated for which additional dose of 12 units nightly and scheduled NovoLog added. Patient is on IV Solu-Medrol at 60 mg every 8 hours. COVID-19 testing in process. 02/17: Patient is seen sitting up in a chair in the cardiac stepdown unit. He states his breathing status is improving. He remains on Solu-Medrol 60 mg every 8 which we will decrease to 40 mg every 8. He is also on Lasix 40 mg IV every 12 hours. Patient has been afebrile, blood pressure 121/59, heart rate 75, pulse ox 95% on 4 L nasal cannula. Patient is normally on 3 L at home. Blood sugars are running between 205 and 237. WBC 12.8, hemoglobin 8.9, platelet count 458. CO2 32, BUN 11 creatinine 0.96. Weight is down 3 kg. Patient denies having any cough. Anticipate possible discharge tomorrow. Review of systems CONSTITUTIONAL: Well-developed, no respiratory distress EYES: No icterus sclerae, no conjunctivitis. EARS, NOSE, MOUTH, THROAT, and FACE: No sore throat, lymphadenopathy, carotid bruits or deformity. RESPIRATORY: Positive shortness of breath cough wheezes. CARDIOVASCULAR: Positive PND orthopnea palpitation. GASTROINTESTINAL: Mild abdominal discomfort with nausea no vomiting no diarrhea no hematemesis or tarry stool. GENITOURINARY: Negative for Hematuria or UTI, no kidney stones. INTEGUMENT/BREAST: Negative for any muscular injury with mild osteoarthritis.. HEMATOLOGIC/LYMPHATIC: Negative for bleed or purpura. MUSCULOSKELTAL: Generalized muscle and joint pain. NEURLOGICAL: No LOC, Sz or syncope, blurred vision dizziness or abnormality.. BEHAVIORAL/PSYCH: Negative. ENDOCRINE: Reports abnormal blood sugars Physical examination General Appearance: Alert, cooperative, patient is sitting in a chair and appears to be in no acute distress. No respiratory distress noted. Neck HEENT: Supple, no lymphadenopathy, no thyroid enlargement, no carotid bruits. Lungs: Decreased breath sound bilaterally with fine rhonchi positive mild crackles in the bases positive mild inspiratory expiratory wheezes. No ac cessory muscle usage. Chest Wall: Decrease expansion with deep inspiration no tenderness and no defo rmity was found on exam, no costochondral pain or discomfort. Heart: Irregular rate and rhythm, S1, S2 positive history +5 cm JVD with systolic murmur in the apex. Back: Symmetric, no curvature, ROM normal, no CVA tenderness. Abdomen: Soft, non-tender, bowel sounds active all four quadrants, positive distention with no rebound or rigidity. Extremities: Significant edema bilaterally with mild arthritis both knees. Pulses: 2+ and symmetric. Skin: Skin color, texture, tugor normal, no rashes or lesions. Neurologic: Alert oriented x3 cranial nerves II through XII intact, no motor deficit, no abnormal balance or gait. Assessment and plan 1 acute on chronic hypoxic respiratory failure: Mostly CHF exacerbation systolic and diastolic dysfunction along with COPD exacerbation, continue O2, continue IV Lasix 40 mg every 12 hours, continue updraft treatment and steroid. 2 acute on chronic systolic heart failure, cardiology consultation, continue Lasix 40 mg IV push twice a day continue to watch fluid overload and intake along with daily weight. 3 COPD exacerbation with chronic hypoxic respiratory failure, continue O2, consult pulmonary, step patient on Solu-Medrol 60 mg IV every 8 hours changed to oral prednisone, continue DuoNeb and Pulmicort. 4 severe anemia: With no sign of active acute completed the time, 1 unit blood transfusion be giving and continue patient on iron infusion for 2 days. 5 type 2 diabetes uncontrolled with hyperglycemia: On Januvia, continue Accu- Chek sliding scales, and NovoLog 5 units scheduled with meals. 6 hypertension: Remain on Norvasc 10 mg daily. 7 severe gastritis and recurrent episode of anemia: Patient to continue Carafate and Protonix for now. 8 BPH: Watch for any urinary retention remain on Flomax 0.8 mg at supper time. 9 chronic neuropathy: Has been on gabapentin 200 mg daily at bedtime. 10 chronic pain management: Has been on hydrocodone 7.5 mg every 6 hours as needed along with gabapentin patient is known to have chronic lower back pain. 11 DVT prophylaxis: Patient will be on knee-high YURIY hose no heparin subcutaneous. 12 GI prophylaxis: Remain on PPI. Covid 19 infection present CODE STATUS: Full code. Discharge plan: Home Impression and plan of care have been directed as dictated by the signing physician. Sherrill Mederos nurse practitioner acting as scribe for signing physician. Objective - Vital Signs Vital signs: Vital Signs Temp 98.0 F 02/18/20 08:00 Pulse 80 02/18/20 08:53 Resp 18 02/18/20 08:00 BP 121/59 02/18/20 08:00 Pulse Ox 95 02/18/20 08:00 Intake & Output 02/17/20 02/18/20 02/18/20 18:59 06:59 18:59 Intake Total 360 150 Balance 360 150 Weight 97.6 kg Intake: Oral 360 150 Other: Voiding Method Urinal Urinal Urinal # Voids 1 1 - Labs CBC & Chem 7: 02/18/20 06:12 02/18/20 06:12 Labs: Abnormal Lab Results - Last 24 Hours (Table) 0802/17/20 02/17/20 Range/Units 11:54 14:09 16:43 WBC (3.8-10.6) k/uL RBC (4.30-5.90) m/uL Hgb (13.0-17.5) gm/dL Hct (39.0-53.0) % MCH (25.0-35.0) pg MCHC (31.0-37.0) g/dL RDW (11.5-15.5) % Plt Count (150-450) k/uL Sodium (137-145) mmol/L Chloride (98-107) mmol/L Carbon Dioxide (22-30) mmol/L Glucose (74-99) mg/dL POC Glucose (mg/dL) 290 H 302 H 177 H (75-99) mg/dL 02/17/20 02/17/20 02/18/20 Range/Units 19:58 23:59 06:12 WBC (3.8-10.6) k/uL RBC (4.30-5.90) m/uL Hgb (13.0-17.5) gm/dL Hct (39.0-53.0) % MCH (25.0-35.0) pg MCHC (31.0-37.0) g/dL RDW (11.5-15.5) % Plt Count (150-450) k/uL Sodium 135 L (137-145) mmol/L Chloride 97 L (98-107) mmol/L Carbon Dioxide 32 H (22-30) mmol/L Glucose 211 H 205 H (74-99) mg/dL POC Glucose (mg/dL) 193 H (75-99) mg/dL 02/18/20 02/18/20 Range/Units 06:12 07:37 WBC 12.8 H (3.8-10.6) k/uL RBC 3.89 L (4.30-5.90) m/uL Hgb 8.9 L (13.0-17.5) gm/dL Hct 31.6 L (39.0-53.0) % MCH 22.9 L (25.0-35.0) pg MCHC 28.1 L (31.0-37.0) g/dL RDW 21.4 H (11.5-15.5) % Plt Count 458 H (150-450) k/uL Sodium (137-145) mmol/L Chloride (98-107) mmol/L Carbon Dioxide (22-30) mmol/L Glucose (74-99) mg/dL POC Glucose (mg/dL) 237 H (75-99) mg/dL
[2020-02-18 17:18] LABS: Glucose,Whole Blood 207 mg/dL (75-99)
[2020-02-18] MEDS: TAMSULOSIN 0.4 MG CAP.ER.24H PO SCH (17:20)
[2020-02-18] MEDS: MULTIVITAMINS, THERA 1 EACH TAB PO SCH (17:20)
[2020-02-18] MEDS: LINAGLIPTIN 5 MG TABLET PO SCH (17:20)
[2020-02-18] MEDS: GABAPENTIN 100 MG CAP PO SCH (20:03)
[2020-02-18] MEDS: KETOTIFEN 0.025% OPHTH DROPS 5 ML BTL BOTH EYES SCH (20:12)
[2020-02-18 20:21] LABS: Glucose,Whole Blood 191 mg/dL (75-99)
--- NOTE | 2020-02-18 21:39 | P.PN ---
Subjective Progress Note Date: 02/18/20 Principal diagnosis: Iron deficiency anemia The patient is seen sitting bedside. He is tolerating diet. No signs or symptoms of GI bleeding reported. He feels abdominal and lower extremities swelling has improved. Objective - Vital Signs Vital signs: Vital Signs Temp 97.9 F 02/18/20 12:00 Pulse 76 02/18/20 12:09 Resp 18 02/18/20 12:00 BP 130/58 02/18/20 12:00 Pulse Ox 94 L 02/18/20 12:00 Intake & Output 02/17/20 02/18/20 02/18/20 18:59 06:59 18:59 Intake Total 360 150 Balance 360 150 Weight 97.6 kg 97.6 kg Intake: Oral 360 150 Other: Voiding Method Urinal Urinal Urinal # Voids 1 1 - Exam On physical examination, patient appears comfortable in no apparent distress. HEAD: Normocephalic, atraumatic. EYES: No scleral icterus. No conjunctival injection. MOUTH: No lesions, tongue midline. NECK: Trachea midline, no gross abnormalities. ABDOMEN: Soft, obese. Bowel sounds are positive. No organomegaly. No guarding or rigidity. EXTREMITIES: Bilateral 2+ pedal edema. SKIN: No rashes, no jaundice. NEUROLOGIC: Alert and oriented x3. No focal deficits. - Labs CBC & Chem 7: 02/18/20 06:12 02/18/20 06:12 Labs: Abnormal Lab Results - Last 24 Hours (Table) 02/17/20 02/17/20 02/17/20 Range/Units 14:09 16:43 19:58 WBC (3.8-10.6) k/uL RBC (4.30-5.90) m/uL Hgb (13.0-17.5) gm/dL Hct (39.0-53.0) % MCH (25.0-35.0) pg MCHC (31.0-37.0) g/dL RDW (11.5-15.5) % Plt Count (150-450) k/uL Sodium (137-145) mmol/L Chloride (98-107) mmol/L Carbon Dioxide (22-30) mmol/L Glucose (74-99) mg/dL POC Glucose (mg/dL) 302 H 177 H 193 H (75-99) mg/dL 02/17/20 02/18/20 02/18/20 Range/Units 23:59 06:12 06:12 WBC 12.8 H (3.8-10.6) k/uL RBC 3.89 L (4.30-5.90) m/uL Hgb 8.9 L (13.0-17.5) gm/dL Hct 31.6 L (39.0-53.0) % MCH 22.9 L (25.0-35.0) pg MCHC 28.1 L (31.0-37.0) g/dL RDW 21.4 H (11.5-15.5) % Plt Count 458 H (150-450) k/uL Sodium 135 L (137-145) mmol/L Chloride 97 L (98-107) mmol/L Carbon Dioxide 32 H (22-30) mmol/L Glucose 211 H 205 H (74-99) mg/dL POC Glucose (mg/dL) (75-99) mg/dL 02/18/20 02/18/20 Range/Units 07:37 12:29 WBC (3.8-10.6) k/uL RBC (4.30-5.90) m/uL Hgb (13.0-17.5) gm/dL Hct (39.0-53.0) % MCH (25.0-35.0) pg MCHC (31.0-37.0) g/dL RDW (11.5-15.5) % Plt Count (150-450) k/uL Sodium (137-145) mmol/L Chloride (98-107) mmol/L Carbon Dioxide (22-30) mmol/L Glucose (74-99) mg/dL POC Glucose (mg/dL) 237 H 262 H (75-99) mg/dL Assessment and Plan (1) Iron deficiency anemia Narrative/Plan: 74-year-old male with multiple medical comorbidities presenting with increasing fluid overload and shortness of breath, recently seen for iron deficiency anemia. Previously evaluated in July with EGD which was negative. He has a remote history of peptic ulcer disease. Last colonoscopy 4-5 years ago. Stool testing for occult blood negative on recent admission. Patient's studies do show iron deficiency and is receiving IV iron therapy. Denies any signs or symptoms of GI bleed or abdominal pain. Plan was for outpatient colonoscopy later this week which was scheduled, however he presented back to the hospital due to the above-mentioned complaints. Current Visit: Yes Status: Acute Code(s): D50.9 - IRON DEFICIENCY ANEMIA, UNSPECIFIED SNOMED Code(s): 96392822 Plan: Supportive care Okay for diet Continue to monitor CBC, BMP, LFTs Continue IV iron therapy Continue monitor hemoglobin and transfuse as needed Continue treatment of underlying COPD and CHF by primary team and consultants Patient was seen again today and discussion with the patient regarding possible endoscopic evaluation with colonoscopy prior to discharge after optimization of breathing and fluid status, however he again reiterated that he preferred performed the procedure as an outpatient The gastroenterology office was contacted and the patient will be contacted for rescheduling of his colonoscopy in the outpatient setting, however if the patient develops any signs or symptoms of GI bleeding or has precipitous drop in hemoglobin prior to presentation please call our service back for reevaluation Thank you for allowing us to participate in the care of the patient, the GI service will stand by, please call us back with any questions or concerns
[2020-02-19] MEDS: HYDROcodone/APAP 7.5-325MG 1 EACH TAB PO PRN ×3 (01:07→20:19)
[2020-02-19] MEDS: FUROSEMIDE 10 MG/ML 4 ML VIAL IV SCH (06:29)
[2020-02-19] MEDS: PANTOPRAZOLE 40 MG TABLET PO SCH ×2 (06:29→17:25)
[2020-02-19] MEDS: SUCRALFATE 1 GM TAB PO SCH ×3 (06:29→17:25)
[2020-02-19 07:06] LABS: Glucose,Whole Blood 179 mg/dL (75-99)
[2020-02-19] MEDS: INSULIN ASPART (NovoLOG) 100 UNIT/ML VIAL SQ SCH ×7 (08:07→20:21)
[2020-02-19] MEDS: LORATADINE 10 MG TAB PO SCH (08:08)
[2020-02-19] MEDS: lisinopriL 5 MG TAB PO SCH (08:08)
[2020-02-19] MEDS: SPIRONOLACTONE 25 MG TAB PO SCH (08:08)
[2020-02-19] MEDS: FLUTICASONE 50MCG/SPRAY NASAL 16GM EA NOSTRIL SCH (08:08)
[2020-02-19] MEDS: predniSONE 20 MG TAB PO SCH (08:08)
[2020-02-19] MEDS: IPRATROPIUM-ALBUTEROL 3 ML NEB INHALATION SCH ×4 (08:24→19:54)
[2020-02-19] MEDS: BUDESONIDE 0.5 MG/2 ML NEBU INHALATION SCH ×2 (08:24→19:54)
[2020-02-19] MEDS: FORMOTEROL FUMARATE 20 MCG/2 ML NEBU INHALATION SCH ×2 (08:24→19:54)
[2020-02-19] MEDS ORDERED: BENZOCAINE/MENTHOL LOZENG 1 EACH LOZENGE MUCOUS MEM PRN (09:57)
[2020-02-19 10:02] LABS: Anisocytosis Moderate; Basophils % (A) 0 %; Eosinophils % (A) 0 %; HCT 32.9 % (39.0-53.0); HGB 9.5 gm/dL (13.0-17.5); Hypochromasia Marked; Lymphocytes # (A) 0.8 k/uL (1.0-4.8); Lymphocytes % (A) 6 %; MCH 23.3 pg (25.0-35.0); MCHC 28.8 g/dL (31.0-37.0); MCV 80.8 fL (80.0-100.0); Mean Platelet Volume 7.6; Microcytosis Slight; Monocytes # (A) 0.6 k/uL (0-1.0); Monocytes % (A) 4 %; Neutrophils # (A) 13.1 k/uL (1.3-7.7); Neutrophils % (A) 90 %; Platelet Count 515 k/uL (150-450); Poikilocytosis Moderate; RBC 4.07 m/uL (4.30-5.90); RDW 22.3 % (11.5-15.5); WBC 14.6 k/uL (3.8-10.6)
[2020-02-19 10:15] LABS: Calcium 9.1 mg/dL (8.4-10.2); Potassium 3.5 mmol/L (3.5-5.1)
--- NOTE | 2020-02-19 10:45 | P.PN ---
Subjective Progress Note Date: 02/19/20 This is a pleasant 74-year-old woman with a history of COPD, chronic anemia, unclear etiology. Presented to the hospital with dyspnea. Lower extremity and lower abdominal edema. She was hospitalized earlier this month with symptoms of dyspnea and severe anemia and he has an FEV1 of 28% of predicted. He is on home oxygen. He has been diuresed on IV Lasix and on IV Solu-Medrol. Labs today show hemoglobin of 8.9 he continues to receive iron infusions. Sodium today is 137. Potassium 4.4, BUN 11, creatinine 0.96. Vital signs have been stable. Overall he is feeling quite a bit better. He feels his breathing has improved some. Edema has improved and is only up to just above his knee bilaterally. He is urinating quite a bit and diuresing well. His weight is down about 3 kg. He is being followed by GI who has recommended further endoscopic evaluation. 02/19/2020 The patient was seen and examined today sitting up in a chair. He feels his breathing is back to close to his baseline. He continues on Lasix 40 mg IV push every 12 hours. He continues to have lower extremity edema but feels this is improving as well. Today's lab showed hemoglobin 9.5, potassium 3.5, BUN 15 and creatinine 0.97. Vital signs remain stable. Oxygen saturation is ranging between 92-96% on 3 L via nasal cannula. His weight is down almost 4 kg since yesterday. Objective - Vital Signs Vital signs: Vital Signs Temp 97.8 F 02/19/20 08:00 Pulse 80 02/19/20 08:50 Resp 18 02/19/20 08:00 BP 121/58 02/19/20 08:00 Pulse Ox 92 L 02/19/20 08:00 Intake & Output 02/18/20 02/19/20 02/19/20 18:59 06:59 18:59 Intake Total 630 720 Output Total 200 Balance 630 520 Weight 97.6 kg 93.7 kg Intake: Oral 630 720 Output: Urine 200 Other: Voiding Method Urinal Urinal Urinal # Voids 1 - Exam PHYSICAL EXAMINATION: HEENT: Head is atraumatic, normocephalic. Pupils equal, round. Neck is supple. There is no elevated jugular venous pressure. HEART EXAMINATION: Heart sounds regular, S1 and S2 normal. With a systolic ejection murmur. CHEST EXAMINATION: Lungs reveal diminished air exchange bilaterally. No chest wall tenderness is noted on palpation or with deep breathing. ABDOMEN: Soft, nontender. Bowel sounds are heard. No organomegaly noted. EXTREMITIES: 2+ peripheral pulses with evidence of +2-3 peripheral edema up to his knees bilaterally and no calf tenderness noted. NEUROLOGIC patient is awake, alert and oriented x3. . - Labs CBC & Chem 7: 02/19/20 09:31 02/19/20 09:31 Labs: Abnormal Lab Results - Last 24 Hours (Table) 02/18/20 02/18/20 02/18/20 Range/Units 12:29 17:16 20:13 WBC (3.8-10.6) k/uL RBC (4.30-5.90) m/uL Hgb (13.0-17.5) gm/dL Hct (39.0-53.0) % MCH (25.0-35.0) pg MCHC (31.0-37.0) g/dL RDW (11.5-15.5) % Plt Count (150-450) k/uL Neutrophils # (1.3-7.7) k/uL Lymphocytes # (1.0-4.8) k/uL Sodium (137-145) mmol/L Chloride (98-107) mmol/L Carbon Dioxide (22-30) mmol/L Glucose (74-99) mg/dL POC Glucose (mg/dL) 262 H 207 H 191 H (75-99) mg/dL 02/19/20 02/19/20 02/19/20 Range/Units 07:01 09:31 09:31 WBC 14.6 H (3.8-10.6) k/uL RBC 4.07 L (4.30-5.90) m/uL Hgb 9.5 L (13.0-17.5) gm/dL Hct 32.9 L (39.0-53.0) % MCH 23.3 L (25.0-35.0) pg MCHC 28.8 L (31.0-37.0) g/dL RDW 22.3 H (11.5-15.5) % Plt Count 515 H (150-450) k/uL Neutrophils # 13.1 H (1.3-7.7) k/uL Lymphocytes # 0.8 L (1.0-4.8) k/uL Sodium 136 L (137-145) mmol/L Chloride 94 L (98-107) mmol/L Carbon Dioxide 34 H (22-30) mmol/L Glucose 230 H (74-99) mg/dL POC Glucose (mg/dL) 179 H (75-99) mg/dL Assessment and Plan Assessment: #1 symptoms of progressive dyspnea with peripheral edema within normal NT proBNP, could have evidence of cor pulmonale as of severe chronic obstructive lung disease #2 severe chronic obstructive lung disease, on home oxygen #3 anemia, receiving iron transfusions at this time, stable, being followed by GI #4 diabetes #5 hypertension Plan: From cardiology perspective, medications were reviewed and we will continue the same. Continue IV Lasix at this time. Awaiting results of 2-D echo with Doppler. Depending on the results of the echocardiogram further recommendations will be made. NURSE EMERGENCY note has been reviewed, I agree with a documented findings and plan of care. Patient was seen and examined.
--- NOTE | 2020-02-19 11:42 | ECHOF ---
Referral Reason:shortness of breath, lower extremity edema MEASUREMENTS -------- HEIGHT: 167.6 cm WEIGHT: 97.5 kg BP: 126/71 RVIDd: 3.8 cm (< 3.3) IVSd: 1.9 cm (0.6 - 1.1) LVIDd: 4.5 cm (3.9 - 5.3) LVPWd: 1.5 cm (0.6 - 1.1) IVSs: 2.3 cm LVIDs: 3.0 cm LVPWs: 1.8 cm LAESV Index (A-L): 32.19 ml/m Ao Diam: 3.0 cm (2.0 - 3.7) AV Cusp: 1.5 cm (1.5 - 2.6) MV E Boaz: 0.83 m/s MV DecT: 285 ms MV A Boaz: 1.08 m/s MV E/A Ratio: 0.77 RAP: 5.00 mmHg RVSP: 37.33 mmHg FINDINGS -------- This was a technically difficult study with suboptimal views. The left ventricular size is normal. There is moderate concentric left ventricular hypertrophy. O verall left ventricular systolic function is normal with, an EF between 55 - 60 %. The right ventricle is mild to moderately enlarged. LA is midly dilated 29-33ml/m2. The right atrium is mildly enlarged. 5.0mg of Lumason was utilized for enhancement of images Interatrial and interventricular septum intact. The aortic valve was not well visualized. There is no evidence of aortic regurgitation. There is no evidence of aortic stenosis. The mitral valve was not well visualized. No mitral regurgitation. Mild tricuspid regurgitation present. There is mild pulmonary hypertension. The right ventricular systolic pressure, as measured by Doppler, is 37.33mmHg. The pulmonic valve was not well visualized. The aortic root size is normal. IVC Not well visulized. There is no pericardial effusion. CONCLUSIONS -------- 1. The left ventricular size is normal. 2. There is moderate concentric left ventricular hypertrophy. 3. The right ventricle is mild to moderately enlarged. 4. LA is midly dilated 29-33ml/m2. 5. The right atrium is mildly enlarged. 6. Mild tricuspid regurgitation present. 7. There is mild pulmonary hypertension. 8. The right ventricular systolic pressure, as measured by Doppler, is 37.33mmHg. RADIOLOGY PRACTITIONER ASSISTANT: Marielena Barragan RDCS
[2020-02-19 11:50] LABS: Glucose,Whole Blood 216 mg/dL (75-99)
[2020-02-19] MEDS: guaiFENesin 600 MG TABLET.ER PO SCH ×2 (11:57→20:21)
--- NOTE | 2020-02-19 12:52 | P.PN ---
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 Woodward in the pulmonary clinic. Patient had a recent admission for acute on chronic dyspnea related to acute iron deficiency anemia requiring blood and iron transfusions. Patient was hospitalized from 02/10/2020 and discharged home on 02/12/2020. Patient did receive 2 units of packed red blood cells during his previous admission, he was evaluated by GI service, and he was supposed to have a colonoscopy sometime this week. Patient presented back to the emergency department on 02/16/2020 for evaluation of shortness of breath, abdominal pain, and weakness. He developed worsening lower extremity swelling, he states he gained approximately 8 pounds over last several days. He used to be on Lasix in the past, however is not on his most recent medication list. Chest x-ray shows cardiomegaly and bilateral chronic bronchial changes with persistent small right pleural effusion, there is bibasilar acute infiltrate and/or atelectasis. This was present on last week's chest x-ray from 02/10/2020. His EKG showed sinus rhythm with a right bundle branch block. He will see me hematemesis, denies any hematochezia, his admission blood work showed hemoglobin of 8.2, up from 7.5 last week on discharge today on 02/12/2020, white blood cell count is 8.7, platelet count was 455, INR 0.9, electrolytes are unremarkable, CO2 31, BUN is 6 creatinine is 0.88, LFTs were within normal limits, lactic acid was 1.3, troponin was less than 0.012, proBNP was within normal limits at 695, patient does have evidence of 1+ lower extremity edema. He was given a unit of blood in the emergency department, he is receiving iron transfusions, he was restarted on his nebulized bronchodilators, and IV steroids, and IV diuretics. On 02/18/2020 patient seen in follow-up on selective care unit, he is calm and comfortable, breathing easier, lower extremity edema is improving, although patient still has residual lower extremity edema. Abdominal distention is improved, no abdominal pain, today's chest x-ray has been reviewed showing small bilateral pleural effusions, CHF on background of chronic parenchymal changes, associated bibasilar atelectasis. on 3 L patient is satting 94%, no comparative chest pain, no hemoptysis, coronal virus PCR was negative.remains on IV Solu- Medrol. Remains on IV Lasix of 40 mg every 12 hours, he is on nebulized bronchodilators. today's hemoglobin is 8.9 On 02/19/2020 patient is seen in follow-up on selective care unit. He is calm and comfortable, sitting up in the recliner, currently on 3 L of oxygen pulse ox is 95%, he is afebrile, respirations are nonlabored, lung sounds are clear. Yesterday's chest x-ray showed small bilateral pleural effusions, with associated bibasilar atelectasis, his echocardiogram was completed showing preserved LV function with an EF of 55-60%, no evidence of aortic regurgitation or stenosis, no mitral regurgitation, mild pulmonary hypertension, right-sided pressures are 37 mmHg. White blood cell count is 14.6, hemoglobin is 9.5, sodium is 136, potassium is 3.5, chloride is 94, CO2 is 34, renal profile was within normal limits. Remains on IV diuretics 40 mg every 12 hours, he is maintaining negative fluid balance, his weight is down by 3.9 kg in the last 24 hours. Objective - Vital Signs Vital signs: Vital Signs Temp 97.8 F 02/19/20 12:00 Pulse 88 02/19/20 12:16 Resp 18 02/19/20 12:00 BP 131/61 02/19/20 12:00 Pulse Ox 95 02/19/20 12:00 Intake & Output 02/18/20 02/19/20 02/19/20 18:59 06:59 18:59 Intake Total 630 720 Output Total 200 Balance 630 520 Weight 97.6 kg 93.7 kg Intake: Oral 630 720 Output: Urine 200 Other: Voiding Method Urinal Urinal Urinal # Voids 1 - Exam GENERAL EXAM: Alert, very pleasant, 74-year-old white male, on 3 L of oxygen and the pulse ox of 95%, comfortable in no apparent distress. HEAD: Normocephalic/atraumatic. EYES: Normal reaction of pupils, equal size. Conjunctiva pink, sclera white. NOSE: Clear with pink turbinates. THROAT: No erythema or exudates. NECK: No masses, no JVD, no thyroid enlargement, no adenopathy. CHEST: No chest wall deformity. Symmetrical expansion. LUNGS: Equal air entry with no crackles, wheeze, rhonchi or dullness. CVS: Regular rate and rhythm, normal S1 and S2, no gallops, no murmurs, no rubs ABDOMEN: Soft, nontender. No hepatosplenomegaly, normal bowel sounds, no guarding or rigidity. EXTREMITIES: No clubbing, 1+ lower extremity edema, no cyanosis, 2+ pulses and upper and lower extremities. MUSCULOSKELETAL: Muscle strength and tone normal. SPINE: No scoliosis or deformity SKIN: No rashes CENTRAL NERVOUS SYSTEM: Alert and oriented -3. No focal deficits, tone is normal in all 4 extremities. PSYCHIATRIC: Alert and oriented -3. Appropriate affect. Intact judgment and insight. - Labs CBC & Chem 7: 02/19/20 09:31 02/19/20 09:31 Labs: Abnormal Lab Results - Last 24 Hours (Table) 02/18/20 02/18/20 02/19/20 Range/Units 17:16 20:13 07:01 WBC (3.8-10.6) k/uL RBC (4.30-5.90) m/uL Hgb (13.0-17.5) gm/dL Hct (39.0-53.0) % MCH (25.0-35.0) pg MCHC (31.0-37.0) g/dL RDW (11.5-15.5) % Plt Count (150-450) k/uL Neutrophils # (1.3-7.7) k/uL Lymphocytes # (1.0-4.8) k/uL Sodium (137-145) mmol/L Chloride (98-107) mmol/L Carbon Dioxide (22-30) mmol/L Glucose (74-99) mg/dL POC Glucose (mg/dL) 207 H 191 H 179 H (75-99) mg/dL 02/19/20 02/19/20 02/19/20 Range/Units 09:31 09:31 11:48 WBC 14.6 H (3.8-10.6) k/uL RBC 4.07 L (4.30-5.90) m/uL Hgb 9.5 L (13.0-17.5) gm/dL Hct 32.9 L (39.0-53.0) % MCH 23.3 L (25.0-35.0) pg MCHC 28.8 L (31.0-37.0) g/dL RDW 22.3 H (11.5-15.5) % Plt Count 515 H (150-450) k/uL Neutrophils # 13.1 H (1.3-7.7) k/uL Lymphocytes # 0.8 L (1.0-4.8) k/uL Sodium 136 L (137-145) mmol/L Chloride 94 L (98-107) mmol/L Carbon Dioxide 34 H (22-30) mmol/L Glucose 230 H (74-99) mg/dL POC Glucose (mg/dL) 216 H (75-99) mg/dL Assessment and Plan Plan: Assessment: #1. Acute on chronic hypoxic respiratory failure likely related to fluid overload, anemia and underlying history of severe COPD, chest x-ray showed cardiomegaly, with bilateral chronic parenchymal changes with persistent small right pleural effusion #2. Recent admission for acute iron deficiency anemia, requiring blood and iron transfusion, patient received 2 units of packed red blood cells during that hospitalization. Patient has been scheduled for outpatient colonoscopy on #3. Worsening peripheral edema, weakness #4. History of severe oxygen dependent COPD, with FEV1 of 28% of predicted #5. Chronic abdominal pain, status post umbilical hernia repair surgery a few years ago, most recent CT of the abdomen and pelvis on 02/11/2020 showed no significant acute finding #6. History of a bleeding gastric ulcer #7. Obesity #8. Hypertension #9. Hyperlipidemia #10. Diabetes mellitus type 2 #11. Former smoker #12. BPH, on Flomax Plan: Patient is doing well, fluid volume status is improving, he is in negative fluid balance, still has some swelling in his lower extremities, no worsening dyspnea, continue with bronchodilators, oral steroids, and diuretics, from pulmonary perspective he could be considered for discharge home today, increase activity as tolerated. I performed a history & physical examination of the patient and discussed their management with my nurse practitioner, Chelo Sinclair. I reviewed the nurse practitioner's note and agree with the documented findings and plan of care. Lung sounds are positive for diminished breath sounds. The findings and the impression was discussed with the patient. I attest to the documentation by the nurse practitioner. Time with Patient: Less than 30
--- NOTE | 2020-02-19 14:59 | P.PN ---
Subjective Progress Note Date: 02/19/20 History of present illness 73-year-old male one of Dr. Lee patient with past medical history of COPD, CHF, arrhythmia, history of GI bleed who was hospitalized recently for severe anemia symptomatic had blood transfusion and general surgery and GI consult patient had an EGD with no colonoscopy no small bowel capsule endoscopy after his transfusion and iron infusion patient felt better was evaluated by pulmonary at the time appendicitis symptom are more anemia consistent with congestive heart failure with no component of COPD at the time. Patient was continue on his regular medication and was discharged home successfully at the time. He returned to see his primary care physician today with patient found to be severely hypoxic dyspneic having severe symptom with minimum exertion his pulse ox on arrival to [facility] department was only 80 percentile room air. Patient was place on 3 L 42, he had significant edema chest x-ray showed significant sign of pulmonary edema patient was started on IV diuretics also was having inspiratory expiratory wheezes with significant sign and symptom of COPD excessive patient. Patient was started on updraft treatment steroid IV with his hemoglobin being low on being symptomatic transfusion was started as well and patient will be on iron infusion. 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 02/16: Patient is seen today in follow-up and remains in the ER waiting for bed. Consult in place for cardiology, pulmonary medicine and we we have added in consult with Dr. Tobias Denson for anemia. Patient is status post 1 unit of packed RBCs and is currently receiving Ferrlecit infusion. Patient has been afebrile, heart rate 87, blood pressure 126/71 and pulse ox 95% on 4 L nasal cannula. Patient states that his shortness of breath is a lot better since his initial arrival. Blood sugars are elevated for which additional dose of 12 units nightly and scheduled NovoLog added. Patient is on IV Solu-Medrol at 60 mg every 8 hours. COVID-19 testing in process. 02/17: Patient is seen sitting up in a chair in the cardiac stepdown unit. He states his breathing status is improving. He remains on Solu-Medrol 60 mg every 8 which we will decrease to 40 mg every 8. He is also on Lasix 40 mg IV every 12 hours. Patient has been afebrile, blood pressure 121/59, heart rate 75, pulse ox 95% on 4 L nasal cannula. Patient is normally on 3 L at home. Blood sugars are running between 205 and 237. WBC 12.8, hemoglobin 8.9, platelet count 458. CO2 32, BUN 11 creatinine 0.96. Weight is down 3 kg. Patient denies having any cough. Anticipate possible discharge tomorrow. 02/18: Patient is now on oral prednisone. IV Lasix will be transitioned to oral Lasix. Plan to monitor patient overnight and plan for discharge home tomorrow. Patient complaining that he is not able to sleep all night because someone comes in every 2 hours. Notice of vital signs are being checked at midnight and [address] with nursing to not check patient's vital signs at nighttime. Patient has been afebrile, heart rate 85, blood pressure 121/58, pulse ox 92% on room air. Patient is normally on 3 L nasal cannula at home. Repeat blood work reveals WBC 14.6, hemoglobin 9.5, platelet count 515. Sodium 136, potassium 3.5, chloride 94, CO2 34, BUN 15 creatinine 0.97. Blood sugars are running between 179 and 230. Echocardiogram reveals EF of 55-60%, moderate concentric left ventricular hypertrophy, mild tricuspid regurgitation, mild pulmonary hypertension. Anticipate discharge home tomorrow. Review of systems CONSTITUTIONAL: Well-developed, no respiratory distress EYES: No icterus sclerae, no conjunctivitis. EARS, NOSE, MOUTH, THROAT, and FACE: No sore throat, lymphadenopathy, carotid bruits or deformity. RESPIRATORY: Positive shortness of breath cough wheezes. CARDIOVASCULAR: Positive PND orthopnea palpitation. GASTROINTESTINAL: Mild abdominal discomfort with nausea no vomiting no diarrhea no hematemesis or tarry stool. GENITOURINARY: Negative for Hematuria or UTI, no kidney stones. INTEGUMENT/BREAST: Negative for any muscular injury with mild osteoarthritis.. HEMATOLOGIC/LYMPHATIC: Negative for bleed or purpura. MUSCULOSKELTAL: Generalized muscle and joint pain. NEURLOGICAL: No LOC, Sz or syncope, blurred vision dizziness or abnormality.. BEHAVIORAL/PSYCH: Negative. ENDOCRINE: Reports elevated. Denies fever, chills. blood sugars Physical examination General Appearance: Alert, cooperative, patient is sitting in a chair and appears to be in no acute distress. No respiratory distress noted. Neck HEENT: Supple, no lymphadenopathy, no thyroid enlargement, no carotid bruits. Lungs: Decreased breath sound bilaterally with fine rhonchi positive mild crackles in the bases positive mild inspiratory expiratory wheezes. No accessory muscle usage. Chest Wall: Decrease expansion with deep inspiration no tenderness and no deformity was found on exam, no costochondral pain or discomfort. Heart: Irregular rate and rhythm, S1, S2 positive history +5 cm JVD with systolic murmur in the apex. Back: Symmetric, no curvature, ROM normal, no CVA tenderness. Abdomen: Soft, non-tender, bowel sounds active all four quadrants, positive distention with no rebound or rigidity. Extremities: Significant edema bilaterally with mild arthritis both knees, Pulses: 2+ and symmetric. Skin: Skin color, texture, tugor normal, no rashes or lesions. Neurologic: Alert oriented x3 cranial nerves II through XII intact, no motor deficit, no abnormal balance or gait. Assessment and plan 1 acute on chronic hypoxic respiratory failure: Mostly CHF exacerbation diastolic dysfunction along with COPD exacerbation, continue O2, continue IV Lasix 40 mg every 12 hours, continue updraft treatment and steroid. 2 acute on chronic diastolic heart failure, cardiology consultation, continue Lasix transitioned to 40 mg oral twice a day continue to watch fluid overload and intake along with daily weight. 3 COPD exacerbation with chronic hypoxic respiratory failure, continue O2, consult pulmonary, continue oral prednisone, continue DuoNeb and Pulmicort. 4 severe anemia of chronic illness: With no sign of active acute completed the time, 1 unit blood transfusion be giving and continue patient on iron infusion for 2 days. 5 type 2 diabetes uncontrolled with hyperglycemia: On Januvia, continue Accu- Chek sliding scales, and NovoLog 5 units scheduled with meals. 6 hypertension: Remain on Norvasc 10 mg daily. 7 severe gastritis and recurrent episode of anemia: Patient to continue Carafate and Protonix for now. 8 BPH: Watch for any urinary retention remain on Flomax 0.8 mg at supper time. 9 chronic neuropathy: Has been on gabapentin 200 mg daily at bedtime. 10 chronic pain management: Has been on hydrocodone 7.5 mg every 6 hours as needed along with gabapentin patient is known to have chronic lower back pain. 11 DVT prophylaxis: Patient will be on knee-high YURIY hose no heparin subcutaneous. 12 GI prophylaxis: Remain on PPI. Covid 19 infection not present CODE STATUS: Full code. Discharge plan: Home on Sunday Impression and plan of care have been directed as dictated by the signing physician. Sherrill Mederos nurse practitioner acting as scribe for signing physician. Objective - Vital Signs Vital signs: Vital Signs Temp 97.8 F 02/19/20 08:00 Pulse 80 02/19/20 08:50 Resp 18 02/19/20 08:00 BP 121/58 02/19/20 08:00 Pulse Ox 92 L 02/19/20 08:00 Intake & Output 02/18/20 02/19/20 02/19/20 18:59 06:59 18:59 Intake Total 630 720 Output Total 200 Balance 630 520 Weight 97.6 kg 93.7 kg Intake: Oral 630 720 Output: Urine 200 Other: Voiding Method Urinal Urinal Urinal # Voids 1 - Labs CBC & Chem 7: 02/19/20 09:31 02/19/20 09:31 Labs: Abnormal Lab Results - Last 24 Hours (Table) 02/18/20 02/18/20 02/18/20 Range/Units 12:29 17:16 20:13 POC Glucose (mg/dL) 262 H 207 H 191 H (75-99) mg/dL 02/19/20 Range/Units 07:01 POC Glucose (mg/dL) 179 H (75-99) mg/dL
[2020-02-19 16:57] LABS: Glucose,Whole Blood 261 mg/dL (75-99)
[2020-02-19] MEDS: GABAPENTIN 100 MG CAP PO SCH (17:25)
[2020-02-19] MEDS: LINAGLIPTIN 5 MG TABLET PO SCH (17:25)
[2020-02-19] MEDS: MULTIVITAMINS, THERA 1 EACH TAB PO SCH (17:25)
[2020-02-19] MEDS: FUROSEMIDE 40 MG TAB PO SCH (17:25)
[2020-02-19] MEDS: TAMSULOSIN 0.4 MG CAP.ER.24H PO SCH (17:25)
[2020-02-19 19:49] LABS: Glucose,Whole Blood 249 mg/dL (75-99)
[2020-02-19] MEDS: KETOTIFEN 0.025% OPHTH DROPS 5 ML BTL BOTH EYES SCH (20:21)
[2020-02-20] MEDS: HYDROcodone/APAP 7.5-325MG 1 EACH TAB PO PRN ×2 (00:50→08:59)
[2020-02-20] MEDS: PANTOPRAZOLE 40 MG TABLET PO SCH (06:36)
[2020-02-20] MEDS: SUCRALFATE 1 GM TAB PO SCH ×2 (06:36→12:32)
[2020-02-20 07:21] LABS: Glucose,Whole Blood 142 mg/dL (75-99)
[2020-02-20] MEDS: IPRATROPIUM-ALBUTEROL 3 ML NEB INHALATION SCH ×2 (07:46→12:09)
[2020-02-20] MEDS: BUDESONIDE 0.5 MG/2 ML NEBU INHALATION SCH (07:46)
[2020-02-20] MEDS: FORMOTEROL FUMARATE 20 MCG/2 ML NEBU INHALATION SCH (07:46)
--- NOTE | 2020-02-20 08:20 | P.DS ---
Providers Date of admission: 02/16/20 18:04 Expected date of discharge: 02/20/20 Attending physician: Link Ag Consults: 02/16/20 18:04 Consult Physician Routine Consulting Provider: Myron Denson Consult Reason/Comments: evalute for heart failure Do you want consulting provider notified?: Yes 02/16/20 22:28 Consult Physician Routine Consulting Provider: Bennett Mchugh Consult Reason/Comments: SOB Do you want consulting provider notified?: Yes 02/17/20 09:47 Consult Physician Routine Consulting Provider: Sejal Denson Consult Reason/Comments: anemia Do you want consulting provider notified?: Yes Primary care physician: Lonnie Lee [facility] Course: History of present illness 73-year-old male one of Dr. Lee patient with past medical history of COPD, CHF, arrhythmia, history of GI bleed who was hospitalized recently for severe anemia symptomatic had blood transfusion and general surgery and GI consult patient had an EGD with no colonoscopy no small bowel capsule endoscopy after his transfusion and iron infusion patient felt better was evaluated by pulmonary at the time appendicitis symptom are more anemia consistent with congestive heart failure with no component of COPD at the time. Patient was continue on his regular medication and was discharged home successfully at the time. He returned to see his primary care physician today with patient found to be severely hypoxic dyspneic having severe symptom with minimum exertion his pulse ox on arrival to demurs department was only 80 percentile room air. Patient was place on 3 L 42, he had significant edema chest x-ray showed significant sign of pulmonary edema patient was started on IV diuretics also was having inspiratory expiratory wheezes with significant sign and symptom of COPD excessive patient. Patient was started on updraft treatment steroid IV with his hemoglobin being low on being symptomatic transfusion was started as well and patient will be on iron infusion. No echocardiogram found in the system patient might have it with his pocket setter lockstitch in the last 4 months otherwise echocardiogram will be order for better management of his heart failure as well. 02/16: Patient is seen today in follow-up and remains in the ER waiting for bed. Consult in place for cardiology, pulmonary medicine and we we have added in consult with Dr. Tobias Denson for anemia. Patient is status post 1 unit of packed RBCs and is currently receiving Ferrlecit infusion. Patient has been afebrile, heart rate 87, blood pressure 126/71 and pulse ox 95% on 4 L nasal cannula. Patient states that his shortness of breath is a lot better since his initial arrival. Blood sugars are elevated for which additional dose of 12 units nightly and scheduled NovoLog added. Patient is on IV Solu-Medrol at 60 mg every 8 hours. COVID-19 testing in process. 02/17: Patient is seen sitting up in a chair in the cardiac stepdown unit. He states his breathing status is improving. He remains on Solu-Medrol 60 mg every 8 which we will decrease to 40 mg every 8. He is also on Lasix 40 mg IV every 12 hours. Patient has been afebrile, blood pressure 121/59, heart rate 75, pulse ox 95% on 4 L nasal cannula. Patient is normally on 3 L at home. Blood sugars are running between 205 and 237. WBC 12.8, hemoglobin 8.9, platelet count 458. CO2 32, BUN 11 creatinine 0.96. Weight is down 3 kg. Patient denies having any cough. Anticipate possible discharge tomorrow. 02/18: Patient is now on oral prednisone. IV Lasix will be transitioned to oral Lasix. Plan to monitor patient overnight and plan for discharge home tomorrow. Patient complaining that he is not able to sleep all night because someone comes in every 2 hours. Notice of vital signs are being checked at midnight and [address] with nursing to not check patient's vital signs at nighttime. Patient has been afebrile, heart rate 85, blood pressure 121/58, pulse ox 92% on room air. Patient is normally on 3 L nasal cannula at home. Repeat blood work reveals WBC 14.6, hemoglobin 9.5, platelet count 515. Sodium 136, potassium 3.5, chloride 94, CO2 34, BUN 15 creatinine 0.97. Blood sugars are running between 179 and 230. Echocardiogram reveals EF of 55-60%, moderate concentric left ventricular hypertrophy, mild tricuspid regurgitation, mild pulmonary hypertension. Anticipate discharge home tomorrow. 02/19: Patient is seen today in follow-up. He denies having any shortness of breath and feels he is back to his baseline. He denies any chest pain. He is found sitting in a chair at the bedside and appears to be comfortable. He does still have some minimal lower extremity edema. Repeat blood work reveals potassium 3.5, BUN 16 and creatinine 0.95. Pulse ox is currently 95-99% on 3 L nasal cannula which is his baseline. Patient will be discharged home today in stable condition. Assessment and plan 1 acute on chronic hypoxic respiratory failure secondary to acute diastolic heart failure, COPD exacerbation. 2 acute on chronic diastolic heart failure. 3 COPD exacerbation with chronic hypoxic respiratory failure on home O2 at 3 L. 4 severe anemia, anemia of chronic disease 5 type 2 diabetes uncontrolled with hyperglycemia secondary to steroids 6 hypertension 7 severe gastritis and recurrent episode of anemia 8 BPH 9 chronic neuropathy 10 chronic pain management 11 Covid 19 infection not present Discharge plan: Home Impression and plan of care have been directed as dictated by the signing physician. Sherrill Mederos nurse practitioner acting as scribe for signing physician. Patient Condition at Discharge: Good Plan - Discharge Summary Discharge Rx Participant: Yes New Discharge Prescriptions: New Spironolactone [Aldactone] 25 mg PO DAILY #30 tab Losartan [Cozaar] 50 mg PO DAILY #30 tab Furosemide [Lasix] 40 mg PO BID@0900,1600 #60 tab guaiFENesin [Mucinex] 1,200 mg PO Q12HR tablet.er predniSONE 0 mg PO DIRECTED #30 tab Continue Budesonide [Pulmicort] 0.5 mg INHALATION RT-BID diphenhydrAMINE HCL [Benadryl] 25 mg PO HS PRN PRN Reason: Insomnia Formoterol Fumarate [Perforomist] 20 mcg INHALATION RT-BID Gabapentin [Neurontin] 200 mg PO HS HYDROcodone/APAP 7.5-325MG [[place] 7.5-325] 1 tab PO QID PRN PRN Reason: Pain Ipratropium-Albuterol Nebulize [Duoneb 0.5 mg-3 mg/3 ml Soln] 3 ml INHALATION RT-QID Multivit-Min/FA/Lycopen/Lutein [Centrum Silver Tablet] 1 tab PO PC-SUPPER Sucralfate [Carafate] 1 gm PO AC-TID Tamsulosin [Flomax] 0.8 mg PO PC-SUPPER Vicks Zzzquil 30 ml PO HS sitaGLIPtin [Januvia] 100 mg PO PC-SUPPER Ketotifen 0.025% Ophth Soln [Zaditor] 1 drop BOTH EYES HS Fluticasone Nasal [place] [Flonase Nasal [place]] 2 spray EA NOSTRIL DAILY #1 spr Cetirizine HCl [Zyrtec] 10 mg PO DAILY #30 tab Pantoprazole [Protonix] 40 mg PO AC-BID #60 tab Discontinued amLODIPine [Norvasc] 10 mg PO PC-SUPPER Discharge Medication List Budesonide [Pulmicort] 0.5 mg INHALATION RT-BID 08/25/19 [History] Formoterol Fumarate [Perforomist] 20 mcg INHALATION RT-BID 08/25/19 [History] Gabapentin [Neurontin] 200 mg PO HS 08/25/19 [History] HYDROcodone/APAP 7.5-325MG [[place] 7.5-325] 1 tab PO QID PRN 08/25/19 [History] Ipratropium-Albuterol Nebulize [Duoneb 0.5 mg-3 mg/3 ml Soln] 3 ml INHALATION RT-QID 08/25/19 [History] Multivit-Min/FA/Lycopen/Lutein [Centrum Silver Tablet] 1 tab PO PC-SUPPER 08/25/19 [History] Sucralfate [Carafate] 1 gm PO AC-TID 08/25/19 [History] Tamsulosin [Flomax] 0.8 mg PO PC-SUPPER 08/25/19 [History] diphenhydrAMINE HCL [Benadryl] 25 mg PO HS PRN 08/25/19 [History] Ketotifen 0.025% Ophth Soln [Zaditor] 1 drop BOTH EYES HS 02/10/20 [History] Vicks Zzzquil 30 ml PO HS 02/10/20 [History] sitaGLIPtin [Januvia] 100 mg PO PC-SUPPER 02/10/20 [History] Cetirizine HCl [Zyrtec] 10 mg PO DAILY #30 tab 02/12/20 [Rx] Fluticasone Nasal [place] [Flonase Nasal [place]] 2 spray EA NOSTRIL DAILY #1 spr 02/12/20 [Rx] Pantoprazole [Protonix] 40 mg PO AC-BID #60 tab 02/12/20 [Rx] Furosemide [Lasix] 40 mg PO BID@0900,1600 #60 tab 02/20/20 [Rx] Losartan [Cozaar] 50 mg PO DAILY #30 tab 02/20/20 [Rx] Spironolactone [Aldactone] 25 mg PO DAILY #30 tab 02/20/20 [Rx] guaiFENesin [Mucinex] 1,200 mg PO Q12HR tablet.er 02/20/20 [Rx] predniSONE 0 mg PO DIRECTED #30 tab 02/20/20 [Rx] Follow up Appointment(s)/Referral(s): Bennett Mchugh MD [STAFF PHYSICIAN] - 03/17/20 2:30 pm (Sunday) Lonnie Lee MD [Primary Care Provider] - 1 Week (Call to make follow-up appointment, office closed) Wicho Jones MD [STAFF PHYSICIAN] - 02/27/20 10:30 am (Sunday) Daryl Tristan MD [STAFF PHYSICIAN] - 03/01/20 11:30 am (Sunday) Patient Instructions/Handouts: Heart Failure (DC)
[2020-02-20 08:35] LABS: African American GFR (CKD) >90 (>60 ml/min/1.73 sqM); Anion Gap 8 mmol/L; Blood Urea Nitrogen 16 mg/dL (9-20); Carbon Dioxide 36 mmol/L (22-30); Chloride 93 mmol/L (98-107); Glucose 131 mg/dL (74-99); Non-African American GFR(CKD) 80 (>60 ml/min/1.73 sqM); Potassium 3.5 mmol/L (3.5-5.1); Sodium 137 mmol/L (137-145)
[2020-02-20 08:43] LABS: Glucose,Whole Blood 217 mg/dL (75-99)
[2020-02-20] MEDS: INSULIN ASPART (NovoLOG) 100 UNIT/ML VIAL SQ SCH ×4 (08:46→12:32)
[2020-02-20] MEDS: predniSONE 20 MG TAB PO SCH (08:50)
[2020-02-20] MEDS: guaiFENesin 600 MG TABLET.ER PO SCH (08:50)
[2020-02-20] MEDS: LORATADINE 10 MG TAB PO SCH (08:51)
[2020-02-20] MEDS: FUROSEMIDE 40 MG TAB PO SCH (08:51)
[2020-02-20] MEDS: SPIRONOLACTONE 25 MG TAB PO SCH (08:51)
[2020-02-20] MEDS: FLUTICASONE 50MCG/SPRAY NASAL 16GM EA NOSTRIL SCH (08:52)
[2020-02-20] MEDS ORDERED: LOSARTAN 50 MG TAB PO SCH (09:00)
[2020-02-20 10:45] VITALS: TEMP 97.5
[2020-02-20 12:01] LABS: Glucose,Whole Blood 192 mg/dL (75-99)
[2020-02-20 12:33] VITALS: BP 162/78; PULSE 75; RESP 16
--- NOTE | 2020-02-20 12:46 | P.PN ---
Subjective Progress Note Date: 02/20/20 This is a pleasant 74-year-old woman with a history of COPD, chronic anemia, unclear etiology. Presented to the hospital with dyspnea. Lower extremity and lower abdominal edema. She was hospitalized earlier this month with symptoms of dyspnea and severe anemia and he has an FEV1 of 28% of predicted. He is on home oxygen. He has been diuresed on IV Lasix and on IV Solu-Medrol. Labs today show hemoglobin of 8.9 he continues to receive iron infusions. Sodium today is 137. Potassium 4.4, BUN 11, creatinine 0.96. Vital signs have been stable. Overall he is feeling quite a bit better. He feels his breathing has improved some. Edema has improved and is only up to just above his knee bilaterally. He is urinating quite a bit and diuresing well. His weight is down about 3 kg. He is being followed by GI who has recommended further endoscopic evaluation. 02/19/2020 The patient was seen and examined today sitting up in a chair. He feels his breathing is back to close to his baseline. He continues on Lasix 40 mg IV push every 12 hours. He continues to have lower extremity edema but feels this is improving as well. Today's lab showed hemoglobin 9.5, potassium 3.5, BUN 15 and creatinine 0.97. Vital signs remain stable. Oxygen saturation is ranging between 92-96% on 3 L via nasal cannula. His weight is down almost 4 kg since yesterday. 02/20/2020 Patient was seen and examined today sitting up in a chair. He feels his breathing is back to his baseline. No complaints of cough at this time. He has been cleared by his primary for discharge and is anticipating going home today. Continues to have lower extremity edema feels this is continuing to improve. Today's labs show potassium 3.5, BUN 16 and creatinine 0.95. His oxygen saturation is 95-99% on 3 L via nasal cannula. Blood pressure this morning 136/62. His weight is stable. Echocardiogram with Doppler study showed normal LV systolic function with mild to moderate RV enlargement and mild pulmonary hypertension with RVSP of 37 mmHg. Objective - Vital Signs Vital signs: Vital Signs Temp 97.5 F L 02/20/20 08:00 Pulse 92 02/20/20 12:22 Resp 16 02/20/20 12:00 BP 162/78 02/20/20 12:00 Pulse Ox 99 02/20/20 12:00 Intake & Output 02/19/20 02/20/20 02/20/20 18:59 06:59 18:59 Intake Total 1200 300 Output Total 200 Balance 1000 300 Weight 94.4 kg Intake: Oral 1200 300 Output: Urine 200 Other: Voiding Method Urinal Urinal Urinal # Voids 2 - Exam PHYSICAL EXAMINATION: HEENT: Head is atraumatic, normocephalic. Pupils equal, round. Neck is supple. There is no elevated jugular venous pressure. HEART EXAMINATION: Heart sounds regular, S1 and S2 normal. With a systolic ejection murmur. CHEST EXAMINATION: Lungs reveal diminished air exchange bilaterally. No chest wall tenderness is noted on palpation or with deep breathing. ABDOMEN: Soft, nontender. Bowel sounds are heard. No organomegaly noted. EXTREMITIES: 2+ peripheral pulses with evidence of +2 peripheral edema up to his knees bilaterally and no calf tenderness noted. NEUROLOGIC patient is awake, alert and oriented x3. . - Labs CBC & Chem 7: 02/19/20 09:31 02/20/20 07:40 Labs: Abnormal Lab Results - Last 24 Hours (Table) 02/19/20 02/19/20 02/20/20 Range/Units 16:56 19:47 07:19 Chloride (98-107) mmol/L Carbon Dioxide (22-30) mmol/L Glucose (74-99) mg/dL POC Glucose (mg/dL) 261 H 249 H 142 H (75-99) mg/dL 02/20/20 02/20/20 02/20/20 Range/Units 07:40 08:40 11:56 Chloride 93 L (98-107) mmol/L Carbon Dioxide 36 H (22-30) mmol/L Glucose 131 H (74-99) mg/dL POC Glucose (mg/dL) 217 H 192 H (75-99) mg/dL Assessment and Plan Assessment: #1 symptoms of progressive dyspnea with peripheral edema within normal NT proBNP, could have evidence of cor pulmonale as of severe chronic obstructive lung disease, echocardiogram with Doppler study showed normal LV systolic fun ction #2 severe chronic obstructive lung disease, on home oxygen #3 anemia, receiving iron transfusions at this time, stable, being followed by GI #4 diabetes #5 hypertension Plan: From cardiology perspective, medications were reviewed and we will continue the same. The patient will follow-up in the office with Dr. ISAÍAS Watt. BUS ESCORT note has been reviewed, I agree with a documented findings and plan of care. Patient was seen and examined.
== END 2020-02-20 14:03 | disposition home or self-care (01) | DRG 291 ==
LOC: EC 14:47 → 3SCARD 18:04
PROVIDERS: ADMIT Internal Medicine Geriatric Medicine; ATTEND Internal Medicine Geriatric Medicine
PROC: 30233N1 Transfusion of Nonautologous Red Blood Cells into Peripheral Vein, Percutaneous Approach (ICD-10-PCS; principal; 2020-02-17)
DX: I11.0 Hypertensive heart disease with heart failure (principal); J96.21 Acute and chronic respiratory failure with hypoxia; J44.1 Chronic obstructive pulmonary disease with (acute) exacerbation; J98.11 Atelectasis; I27.20 Pulmonary hypertension, unspecified; E11.40 Type 2 diabetes mellitus with diabetic neuropathy, unspecified; D50.0 Iron deficiency anemia secondary to blood loss (chronic); Z99.81 Dependence on supplemental oxygen; I50.33 Acute on chronic diastolic (congestive) heart failure; E11.65 Type 2 diabetes mellitus with hyperglycemia; Z20.828 Contact with and (suspected) exposure to other viral communicable diseases; T38.0X5A Adverse effect of glucocorticoids and synthetic analogues, initial encounter; E78.5 Hyperlipidemia, unspecified; I07.1 Rheumatic tricuspid insufficiency; K21.9 Gastro-esophageal reflux disease without esophagitis; K29.70 Gastritis, unspecified, without bleeding; I45.10 Unspecified right bundle-branch block; N40.0 Benign prostatic hyperplasia without lower urinary tract symptoms; D50.9 Iron deficiency anemia, unspecified; M19.90 Unspecified osteoarthritis, unspecified site; G89.29 Other chronic pain; M54.5 Low back pain; H53.50 Unspecified color vision deficiencies; E66.9 Obesity, unspecified; Z68.33 Body mass index [BMI] 33.0-33.9, adult; Z79.84 Long term (current) use of oral hypoglycemic drugs; Z79.51 Long term (current) use of inhaled steroids; Z79.899 Other long term (current) drug therapy; Z87.891 Personal history of nicotine dependence; Z71.3 Dietary counseling and surveillance; Z87.01 Personal history of pneumonia (recurrent); Z87.11 Personal history of peptic ulcer disease; Z87.440 Personal history of urinary (tract) infections; Z87.19 Personal history of other diseases of the digestive system; Z96.641 Presence of right artificial hip joint; Z90.89 Acquired absence of other organs; Z87.81 Personal history of (healed) traumatic fracture; Z85.22 Personal history of malignant neoplasm of nasal cavities, middle ear, and accessory sinuses; Z86.69 Personal history of other diseases of the nervous system and sense organs; Z98.890 Other specified postprocedural states; Z80.1 Family history of malignant neoplasm of trachea, bronchus and lung; Z81.8 Family history of other mental and behavioral disorders
CPT/HCPCS: 36415; 36430; 71045; 80048; 80053; 83605; 83735; 83880; 84484; 85025; 85027; 85610; 85730; 86850; 86900; 86901; 86920; 93005; 93306; 94640; 96365; 96374; 96375; 96376; 99285

== ENCOUNTER 2020-03-10 15:34 | Inpatient (IN) | payer MEDICARE ==
[2020-03-10] MEDS ORDERED: SODIUM CHLORIDE 0.9% 500 ML 500 ML IV STA (16:13)
--- NOTE | 2020-03-10 16:21 | ED ---
General Adult HPI - General Chief complaint: Shortness of Breath Stated complaint: Eye Problems, Body Pain Time Seen by Provider: 03/10/20 15:49 Source: patient, family Mode of arrival: wheelchair Limitations: no limitations - History of Present Illness Initial comments: Dictation was produced using [employer] dictation software. please excuse any grammatical, word or spelling errors. This patient was cared for during a federal and state declared state of emergency secondary to Covid 19 Chief Complaint: 74-year-old male with multiple comorbidities presents with episodic vision change, concerns of hemoglobin and shortness of breath History of Present Illness: Is 74-year-old male he has multiple comorbidities. Patient was recently admitted to the hospital where he was found to be anemic with his hemoglobins in the 6. He received multiple transfusion. He was also have a test done outpatient to evaluate his cause of anemia. He is accompanied by family member reports that patient's anemia is secondary to poor production by his bone marrow. He was started on new blood pressure medications recently. Patient was admitted to the hospital 2 weeks ago. Patient denies any fever, chills or night sweats. He reports that his vision became blurry for 4-5 minutes while he was driving. He states that he had no color changes. He denies any whiteness or blackness to his vision. He at home and his visual symptoms return to normal. Patient does not have any visual symptoms at the moment. The ROS documented in this emergency department record has been reviewed and confirmed by me. Those systems with pertinent positive or negative responses have been documented in the HPI. All other systems are other negative and/or noncontributory. PHYSICAL EXAM: General Impression: Alert and oriented x3, not in acute distress, pale HEENT: Normocephalic atraumatic, extra-ocular movements intact, pupils equal and reactive to light bilaterally, mucous membranes moist. Cardiovascular: Heart regular rate and rhythm Chest: Able to complete full sentences, no retractions, no tachypnea, and expiratory wheezing Abdomen: abdomen soft, non-tender, non-distended, no organomegaly Musculoskeletal: Pulses present and equal in all extremities, no peripheral edema Motor: no focal deficits noted Neurological: CN II-XII grossly intact, no focal motor or sensory deficits noted Skin: Intact with no visualized rashes Psych: Normal affect and mood ED course: 74-year-old male multiple comorbidities presents with chief complaint of episode of vision changes, concerns of anemia and shortness of breath, vital signs upon arrival shows heart rate of 104, blood pressure 86/54, 75% on room air. Patient was placed on 4 L nasal cannula with 91%. Blood pressure was taken in Trendelenburg with improvement to 94/48.Chart review was performed. Patient was discharged on February 19. He is admitted for hypoxic respiratory failure due to diastolic heart failure, COPD exacerbation, anemia of chronic disease. X-ray shows mild infiltrated at the lung bases more on the left side compared to the right overall seems improved when compared to most recent x-ray. It was 9.8. Rest of CBC within acceptable limits. Cardiac panel is negative. Lactic acid of 2.2. Creatinine is 2.73. Significantly elevated from previous labs. Hyperkalemia is 5.2. Clinical presentation consistent with acute kidney injury. This is likely secondary to diuretics. Patient will be admitted for renal monitoring. Patient is agreeable with disposition. Case is discussed with Dr. Doherty who is admitting for Dr. Lee EKG interpretation: Ventricular rate 96, normal sinus rhythm,. Right bundle branch block 140, QRS 118, QTc 459. No [place] prolongation, no QTC prolongation, no ST or T-wave changes noted. Overall, this EKG is unremarkable - Related Data Home Medications Medication Instructions Recorded Confirmed Budesonide [Pulmicort] 0.5 mg INHALATION RT-BID 08/25/19 03/10/20 Formoterol Fumarate [Perforomist] 20 mcg INHALATION RT-BID 08/25/19 03/10/20 Gabapentin [Neurontin] 200 mg PO HS 08/25/19 03/10/20 HYDROcodone/APAP 7.5-325MG [[place] 1 tab PO QID PRN 08/25/19 03/10/20 7.5-325] Ipratropium-Albuterol Nebulize 3 ml INHALATION RT-QID 08/25/19 03/10/20 [Duoneb 0.5 mg-3 mg/3 ml Soln] Multivit-Min/FA/Lycopen/Lutein 1 tab PO PC-SUPPER 08/25/19 03/10/20 [Centrum Silver Tablet] Sucralfate [Carafate] 1 gm PO AC-TID 08/25/19 03/10/20 Tamsulosin [Flomax] 0.8 mg PO PC-SUPPER 08/25/19 03/10/20 diphenhydrAMINE HCL [Benadryl] 25 mg PO HS PRN 08/25/19 03/10/20 Ketotifen 0.025% Ophth Soln 1 drop BOTH EYES HS 02/10/20 03/10/20 [Zaditor] Vicks Zzzquil 30 ml PO HS 02/10/20 03/10/20 sitaGLIPtin [Januvia] 100 mg PO PC-SUPPER 02/10/20 03/10/20 Previous Rx's Medication Instructions Recorded Cetirizine HCl [Zyrtec] 10 mg PO DAILY #30 tab 02/12/20 Fluticasone Nasal [place] [Flonase 2 spray EA NOSTRIL DAILY #1 spr 02/12/20 Nasal [place]] Pantoprazole [Protonix] 40 mg PO AC-BID #60 tab 02/12/20 Furosemide [Lasix] 40 mg PO BID@0900,1600 #60 tab 02/20/20 Losartan [Cozaar] 50 mg PO DAILY #30 tab 02/20/20 Spironolactone [Aldactone] 25 mg PO DAILY #30 tab 02/20/20 guaiFENesin [Mucinex] 1,200 mg PO Q12HR tablet.er 02/20/20 Allergies Allergy/AdvReac Type Severity Reaction Status Date / Time No Known Allergies Allergy Verified 03/10/20 17:11 Review of Systems ROS Statement: Those systems with pertinent positive or pertinent negative responses have been documented in the HPI. ROS Other: All systems not noted in ROS Statement are negative. Past Medical History Past Medical History: Asthma, COPD, Diabetes Mellitus, Eye Disorder, GERD/Reflux, GI Bleed, Hyperlipidemia, Hypertension, Pneumonia, Prostate Disorder Additional Past Medical History / Comment(s): Chronic abdominal pain/unable to eat too much, past bleeding gastric ulcers/anemia with blood transfusion, lower extremity edema for past 6 months, color blind, NIDDM type II, neuropathy bilateral feet, home oxygen at 2L/NC prn but last 2 weeks ATC, 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Chronic Anemia History of Any Multi-Drug Resistant Organisms: None Reported Past Surgical History: Hernia Repair, Joint Replacement, Orthopedic Surgery, Tonsillectomy Additional Past Surgical History / Comment(s): EGDs, colonoscopy, umbilical hernia repair, L ankle fracture with plate, R shoulder muscle damage repair with anchors in place, R total hip arthroplasty, sinus surgery x2, bilateral blepharoplasties. Past Anesthesia/Blood Transfusion Reactions: No Reported Reaction Additional Past Anesthesia/Blood Transfusion Reaction / Comment(s): Pt received blood in 2010 d/t anemia from bleeding antral ulcer without reaction. Past Psychological History: No Psychological Hx Reported Smoking Status: Former smoker Past Alcohol Use History: None Reported Past Drug Use History: None Reported - Past Family History Father Family Medical History: Cancer Additional Family Medical History / Comment(s): Father had lung cancer in his 70s. He of "old age" at the age of 90yrs. Mother Additional Family Medical History / Comment(s): Mother was a "hypochondriac". Pt states she at the age of 75yrs. General Exam Limitations: no limitations Course Vital Signs 03/10/20 03/10/20 15:56 16:10 Temperature 99.1 F Pulse Rate 104 H 94 Respiratory 24 22 Rate Blood Pressure 86/54 94/48 O2 Sat by Pulse 75 L 91 L Oximetry Medical Decision Making - Lab Data Result diagrams: 03/10/20 16:21 03/10/20 16:21 Lab Results 03/10/20 03/10/20 03/10/20 Range/Units 16:21 16:21 16:21 WBC 8.0 (3.8-10.6) k/uL RBC 3.86 L (4.30-5.90) m/uL Hgb 9.8 L (13.0-17.5) gm/dL Hct 32.4 L (39.0-53.0) % MCV 83.8 (80.0-100.0) fL MCH 25.3 (25.0-35.0) pg MCHC 30.2 L (31.0-37.0) g/dL RDW 23.2 H (11.5-15.5) % Plt Count 205 (150-450) k/uL Neutrophils % 71 % Lymphocytes % 17 % Monocytes % 5 % Eosinophils % 4 % Basophils % 0 % Neutrophils # 5.6 (1.3-7.7) k/uL Lymphocytes # 1.4 (1.0-4.8) k/uL Monocytes # 0.4 (0-1.0) k/uL Eosinophils # 0.3 (0-0.7) k/uL Basophils # 0.0 (0-0.2) k/uL Hypochromasia Marked Poikilocytosis Slight Anisocytosis Moderate Microcytosis Moderate PT 9.4 (9.0-12.0) sec INR 0.9 (<1.2) APTT 22.5 (22.0-30.0) sec Sodium 135 L (137-145) mmol/L Potassium 5.2 H (3.5-5.1) mmol/L Chloride 99 (98-107) mmol/L Carbon Dioxide 28 (22-30) mmol/L Anion Gap 8 mmol/L BUN 29 H (9-20) mg/dL Creatinine 2.73 H (0.66-1.25) mg/dL Est GFR (CKD-EPI)AfAm 26 (>60 ml/min/1.73 sqM) Est GFR (CKD-EPI)NonAf 22 (>60 ml/min/1.73 sqM) Glucose 198 H (74-99) mg/dL Plasma Lactic Acid Po (0.7-2.0) mmol/L Calcium 9.2 (8.4-10.2) mg/dL Total Bilirubin 0.6 (0.2-1.3) mg/dL AST 40 (17-59) U/L ALT 33 (4-49) U/L Alkaline Phosphatase 71 (38-126) U/L Troponin I (0.000-0.034) ng/mL NT-Pro-B Natriuret Pep pg/mL Total Protein 5.6 L (6.3-8.2) g/dL Albumin 3.4 L (3.5-5.0) g/dL 03/10/20 03/10/20 03/10/20 Range/Units 16:21 16:21 16:21 WBC (3.8-10.6) k/uL RBC (4.30-5.90) m/uL Hgb (13.0-17.5) gm/dL Hct (39.0-53.0) % MCV (80.0-100.0) fL MCH (25.0-35.0) pg MCHC (31.0-37.0) g/dL RDW (11.5-15.5) % Plt Count (150-450) k/uL Neutrophils % % Lymphocytes % % Monocytes % % Eosinophils % % Basophils % % Neutrophils # (1.3-7.7) k/uL Lymphocytes # (1.0-4.8) k/uL Monocytes # (0-1.0) k/uL Eosinophils # (0-0.7) k/uL Basophils # (0-0.2) k/uL Hypochromasia Poikilocytosis Anisocytosis Microcytosis PT (9.0-12.0) sec INR (<1.2) APTT (22.0-30.0) sec Sodium (137-145) mmol/L Potassium (3.5-5.1) mmol/L Chloride (98-107) mmol/L Carbon Dioxide (22-30) mmol/L Anion Gap mmol/L BUN (9-20) mg/dL Creatinine (0.66-1.25) mg/dL Est GFR (CKD-EPI)AfAm (>60 ml/min/1.73 sqM) Est GFR (CKD-EPI)NonAf (>60 ml/min/1.73 sqM) Glucose (74-99) mg/dL Plasma Lactic Acid Po 2.2 H* (0.7-2.0) mmol/L Calcium (8.4-10.2) mg/dL Total Bilirubin (0.2-1.3) mg/dL AST (17-59) U/L ALT (4-49) U/L Alkaline Phosphatase (38-126) U/L Troponin I <0.012 (0.000-0.034) ng/mL NT-Pro-B Natriuret Pep 192 pg/mL Total Protein (6.3-8.2) g/dL Albumin (3.5-5.0) g/dL Disposition Clinical Impression: VERONA (acute kidney injury) Disposition: ADMITTED IP TO THIS HOSP Condition: Fair Referrals: Lonnie Lee MD [Primary Care Provider] - 1-2 days Decision Time: 17:43
[2020-03-10 16:43] LABS: Anisocytosis Moderate; Basophils % (A) 0 %; Eosinophils # (A) 0.3 k/uL (0-0.7); Eosinophils % (A) 4 %; HCT 32.4 % (39.0-53.0); HGB 9.8 gm/dL (13.0-17.5); Hypochromasia Marked; Lymphocytes # (A) 1.4 k/uL (1.0-4.8); Lymphocytes % (A) 17 %; MCH 25.3 pg (25.0-35.0); MCHC 30.2 g/dL (31.0-37.0); MCV 83.8 fL (80.0-100.0); Mean Platelet Volume 8.3; Microcytosis Moderate; Monocytes # (A) 0.4 k/uL (0-1.0); Monocytes % (A) 5 %; Neutrophils # (A) 5.6 k/uL (1.3-7.7); Neutrophils % (A) 71 %; Platelet Count 205 k/uL (150-450); Poikilocytosis Slight; RBC 3.86 m/uL (4.30-5.90); RDW 23.2 % (11.5-15.5)
[2020-03-10 16:52] LABS: Albumin 3.4 g/dL (3.5-5.0); Calcium 9.2 mg/dL (8.4-10.2); Potassium 5.2 mmol/L (3.5-5.1); Total Bilirubin 0.6 mg/dL (0.2-1.3); Total Protein 5.6 g/dL (6.3-8.2)
--- NOTE | 2020-03-10 16:56 | XR ---
EXAMINATION TYPE: XR chest 1V portable DATE OF EXAM: 03/10/2020 COMPARISON: 02/18/2020 HISTORY: Hypoxemia TECHNIQUE: FINDINGS: There is some mild infiltrate and atelectasis left lung base more than the right. There is no heart failure. Heart size is normal. There are no hilar masses. Bony thorax is intact. IMPRESSION: There is some mild infiltrate and atelectasis at the lung bases more on the left side. Th ere is overall some improvement compared to old exam.
[2020-03-10 17:02] LABS: INR 0.9 (<1.2); Partial Thromboplastin Time 22.5 sec (22.0-30.0); Prothrombin Time 9.4 sec (9.0-12.0)
[2020-03-10] MEDS ORDERED: NALOXONE 0.4 MG/ML 1 ML VIAL IV PRN (17:39)
[2020-03-10] MEDS: SODIUM CHLORIDE 0.9% 1,000 ML IV SCH (19:14)
[2020-03-10] MEDS ORDERED: diphenhydrAMINE 25 MG CAP PO PRN (21:38)
[2020-03-10] MEDS: BUDESONIDE 0.5 MG/2 ML NEBU INHALATION SCH (22:12)
[2020-03-10] MEDS: IPRATROPIUM-ALBUTEROL 3 ML NEB INHALATION SCH (22:12)
[2020-03-10] MEDS ORDERED: IPRATROPIUM-ALBUTEROL 3 ML NEB INHALATION PRN (22:21)
[2020-03-10] MEDS: KETOTIFEN 0.025% OPHTH DROPS 5 ML BTL BOTH EYES SCH (22:30)
[2020-03-10] MEDS: PANTOPRAZOLE 40 MG TABLET PO SCH (22:30)
[2020-03-10] MEDS: FLUTICASONE 50MCG/SPRAY NASAL 16GM EA NOSTRIL SCH (22:30)
[2020-03-10] MEDS: LINAGLIPTIN 5 MG TABLET PO SCH (22:30)
[2020-03-10] MEDS: GABAPENTIN 100 MG CAP PO SCH (22:30)
[2020-03-10] MEDS: TAMSULOSIN 0.4 MG CAP.ER.24H PO SCH (22:31)
[2020-03-10] MEDS: guaiFENesin 600 MG TABLET.ER PO SCH (22:31)
[2020-03-10] MEDS: HYDROcodone/APAP 7.5-325MG 1 EACH TAB PO PRN (23:59)
[2020-03-10] MEDS: MELATONIN 3 MG TABLET PO PRN (23:59)
[2020-03-11 06:47] LABS: Glucose,Whole Blood 191 mg/dL (75-99)
[2020-03-11 07:20] LABS: Anisocytosis Moderate; Basophils % (A) 1 %; Eosinophils # (A) 0.3 k/uL (0-0.7); Eosinophils % (A) 4 %; HCT 32.3 % (39.0-53.0); HGB 9.6 gm/dL (13.0-17.5); Hypochromasia Marked; Lymphocytes # (A) 1.4 k/uL (1.0-4.8); Lymphocytes % (A) 19 %; MCH 25.4 pg (25.0-35.0); MCHC 29.6 g/dL (31.0-37.0); MCV 85.8 fL (80.0-100.0); Mean Platelet Volume 8.2; Microcytosis Slight; Monocytes # (A) 0.4 k/uL (0-1.0); Monocytes % (A) 6 %; Neutrophils # (A) 4.8 k/uL (1.3-7.7); Neutrophils % (A) 66 %; Platelet Count 203 k/uL (150-450); Poikilocytosis Slight; RBC 3.77 m/uL (4.30-5.90); WBC 7.2 k/uL (3.8-10.6)
[2020-03-11 07:53] LABS: Calcium 8.9 mg/dL (8.4-10.2); Potassium 5.4 mmol/L (3.5-5.1)
[2020-03-11] MEDS: IPRATROPIUM-ALBUTEROL 3 ML NEB INHALATION SCH ×4 (08:22→19:17)
[2020-03-11] MEDS: BUDESONIDE 0.5 MG/2 ML NEBU INHALATION SCH ×2 (08:22→19:17)
[2020-03-11] MEDS: FORMOTEROL FUMARATE 20 MCG/2 ML NEBU INHALATION SCH ×2 (08:22→19:17)
[2020-03-11] MEDS: LOSARTAN 50 MG TAB PO SCH (08:24)
[2020-03-11] MEDS: guaiFENesin 600 MG TABLET.ER PO SCH ×2 (08:24→21:09)
[2020-03-11] MEDS: SUCRALFATE 1 GM TAB PO SCH ×3 (08:24→17:21)
[2020-03-11] MEDS: PANTOPRAZOLE 40 MG TABLET PO SCH ×2 (08:25→17:21)
[2020-03-11] MEDS: LORATADINE 10 MG TAB PO SCH (08:25)
[2020-03-11] MEDS: FLUTICASONE 50MCG/SPRAY NASAL 16GM EA NOSTRIL SCH (08:25)
--- NOTE | 2020-03-11 11:14 | P.HPIM ---
History of Present Illness H&P Date: 03/11/20 HISTORY OF PRESENT ILLNESS This is a 74-year-old male patient of Dr. Lee with past medical history of COPD, chronic diastolic heart failure, chronic hypoxic respiratory failure on home O2 at 3 L, anemia of chronic disease, diabetes mellitus type 2, hypertension, benign prostatic hypertrophy, chronic pain. He had a recent hospitalization in early February which time he presented with acute anemia possible blood loss status post [address] Denson recommended colonoscopy but patient declined as he wanted to do this as an outpatient. He was also seen by oncology with plan to repeat anemia studies in 1 month. Patient returned on February 15 through February 19 for acute hypoxic respiratory failure secondary to acute diastolic heart failure and COPD exacerbation. he also had anemia on that visit and received 1 unit of packed RBCs as well as Ferrlecit. Echocardiogram reveals EF of 55-60%, moderate concentric left ventricular hypertrophy, mild tricuspid regurgitation, mild pulmonary hypertension. Patient is scheduled for colonoscopy with Dr. Tristan on 03/18. Patient returned to [facility] emergency center on March 10 with concern for vision change with blurry vision for about 4-5 minutes while he was driving. Once he arrived home his vision returned to normal. His vision is normal at time of evaluation. His initial blood pressure was 86/54 pulse ox 75% on room air. Patient was placed on 4 L nasal cannula with pulse ox 91%. Regarding blood pressure patient was placed in Trendelenburg with blood pressure of 94/48. Chest x-ray revealed revealed some mild infiltrate and atelectasis at the lung bases more on the left side. There is overall improvement compared to old exam. Lactic acid 2.2. WBC 8.0, hemoglobin 9.8, platelet count 205. Sodium 135, potassium 5.2, chloride 99, CO2 28, BUN 29 and creatinine 2.73. Baseline creatinine is 0.9. Blood sugar 198. Liver function tests were normal. Troponin negative. ProBNP 192. EKG sinus rhythm with right bundle branch block and no ST-T wave changes. Repeat blood work this morning reveals hemoglobin 9.6, BUN 29 and creatinine 2.13, sodium 134 and potassium 5.4. Repeat lactic acid 1.4. Patient admitted to the MedSur floor and started on IV fluids 0.9 at 50 mL per hour. Lasix and Aldactone on hold. REVIEW OF SYSTEMS Constitutional: No fever, no chills, no night sweats. No weight change. No weakness, fatigue or lethargy. No daytime sleepiness. EENT: No headache. Reports blurred vision or double vision, no loss of vision. No loss of Hearing, no ringing in the ears, no dizziness. No nasal drainage or congestion. No epistaxis. No sore throat. Lungs: No shortness of breath, cough, no sputum production. No wheezing. Cardiovascular: No chest pain, no lower extremity edema. No palpitations. No paroxysmal nocturnal dyspnea. No orthopnea. No lightheadedness or dizziness. No syncopal episodes. Abdominal: No abdominal pain. No nausea, vomiting. No diarrhea. No constipation. No bloody or tarry stools. No loss of appetite. Genitourinary: No dysuria, increased frequency, urgency. No urinary retention. Musculoskeletal: No myalgias. No muscle weakness, no gait dysfunction, no frequent falls. No back pain. No neck pain. Integumentary: No wounds, no lesions. No rash or pruritus. No unusual bruis ing. No change in hair or nails. Neurologic: No aphasia. No facial droop. No change in mentation. No head injury. No headache. No paralysis. No paresthesia. Psychiatric: No depression. No anxiety. No mood swings. Endocrine: No abnormal blood sugars. No weight change. No excessive sweating or thirst. No cold intolerance. PHYSICAL EXAMINATION Gen: This is a 74-year-old male. Patient is resting in recliner and appears comfortable and in no acute distress. HEENT: Head is atraumatic, normocephalic. Pupils equal, round. Sclerae is anicteric. NECK: Supple. No JVD. No lymphadenopathy. No thyromegaly. LUNGS: Clear to auscultation. No wheezes or rhonchi. No intercostal retractions. HEART: Regular rate and rhythm. No murmur. ABDOMEN: Soft. Bowel sounds are present. No masses. No tenderness. EXTREMITIES: No pedal edema. No calf tenderness. NEUROLOGICAL: Patient is awake, alert and oriented x3. Cranial nerves 2 through 12 are grossly intact. ASSESSMENT AND PLAN 1. Acute kidney injury secondary to diuretics and hypotension. Lasix and Aldactone on hold. Continue IV fluids 0.9 normal saline at 50 mL per hour. Avoid nephrotoxic agents. Repeat electrolytes and renal function in the morning. Obtain urinalysis to rule out urinary infection and obtain renal ultrasound 2. Hyperkalemia secondary to acute kidney injury. Continue to monitor. 3. Lactic acidosis secondary to acute kidney injury, resolved. 4. 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 Patient is scheduled for outpatient colonoscopy. Continue Carafate 1 g 3 times daily and Protonix twice daily. 5. Hypertension. Continue losartan 50 mg daily. 6. COPD without exacerbation. Continue DuoNeb treatments 4 times daily and every 2 hours as needed, Pulmicort 2.5 mg twice daily, Perforomist twice daily. 7. Chronic diastolic heart failure. Hold Lasix and Aldactone. 8. Chronic hypoxic respiratory failure with home O2 at 3 L. Continue O2 therapy. 9. Diabetes mellitus type 2. Continue TriGen to 5 mg daily, NovoLog scale before meals and at bedtime. 10. Benign prostatic hypertrophy. Continue Flomax or 0.8 mg at supper. 11. Chronic pain. Continue gabapentin 200 mg at bedtime. 12. DVT prophylaxis. Heparin subcu. 13. GI prophylaxis. Carafate and Protonix. Patient will be admitted to the hospital for a minimum of 2 night stay. Discharge plan: Most likely home Impression and plan of care have been directed as dictated by the signing physician. Sherrill Mederos nurse practitioner acting as scribe for signing physician. Past Medical History Past Medical History: Asthma, COPD, Diabetes Mellitus, Eye Disorder, GERD/Reflux, GI Bleed, Hyperlipidemia, Hypertension, Pneumonia, Prostate Disorder Additional Past Medical History / Comment(s): Past bleeding gastric ulcers/ anemia with blood transfusion, lower extremity edema for past 6 months, color blind, NIDDM type II, neuropathy bilateral feet, home oxygen at 2L/NC prn but last 2 weeks ATC, 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Chronic Anemia History of Any Multi-Drug Resistant Organisms: None Reported Past Surgical History: Hernia Repair, Joint Replacement, Orthopedic Surgery, Tonsillectomy Additional Past Surgical History / Comment(s): EGDs, colonoscopy, umbilical hernia repair, L ankle fracture with plate, R shoulder muscle damage repair with anchors in place, R total hip arthroplasty, sinus surgery x2, bilateral blepharoplasties. Past Anesthesia/Blood Transfusion Reactions: No Reported Reaction Additional Past Anesthesia/Blood Transfusion Reaction / Comment(s): Pt received blood in 2010 d/t anemia from bleeding antral ulcer without reaction. Past Psychological History: No Psychological Hx Reported Additional Psychological History / Comment(s): Pt resides with his spouse. He uses 2 crutches to ambulate d/t back pain. He has home oxygen, nebulizer and glucometer. He no longer drives, his spouse can drive. Smoking Status: Former smoker Past Alcohol Use History: None Reported Additional Past Alcohol Use History / Comment(s): Pt started smoking in 1965 and quit in 2010. Past Drug Use History: None Reported - Past Family History Father Family Medical History: Cancer Additional Family Medical History / Comment(s): Father had lung cancer in his 70s. He of "old age" at the age of 90yrs. Mother Additional Family Medical History / Comment(s): Mother was a "hypochondriac". Pt states she at the age of 75yrs. Medications and Allergies Home Medications Medication Instructions Recorded Confirmed Type Budesonide [Pulmicort] 0.5 mg INHALATION RT-BID 08/25/19 03/10/20 History Formoterol Fumarate [Perforomist] 20 mcg INHALATION RT-BID 08/25/19 03/10/20 History Gabapentin [Neurontin] 200 mg PO HS 08/25/19 03/10/20 History HYDROcodone/APAP 7.5-325MG [[place] 1 tab PO QID PRN 08/25/19 03/10/20 History 7.5-325] Ipratropium-Albuterol Nebulize 3 ml INHALATION RT-QID 08/25/19 03/10/20 History [Duoneb 0.5 mg-3 mg/3 ml Soln] Multivit-Min/FA/Lycopen/Lutein 1 tab PO PC-SUPPER 08/25/19 03/10/20 History [Centrum Silver Tablet] Sucralfate [Carafate] 1 gm PO AC-TID 08/25/19 03/10/20 History Tamsulosin [Flomax] 0.8 mg PO PC-SUPPER 08/25/19 03/10/20 History diphenhydrAMINE HCL [Benadryl] 25 mg PO HS PRN 08/25/19 03/10/20 History Ketotifen 0.025% Ophth Soln 1 drop BOTH EYES HS 02/10/20 03/10/20 History [Zaditor] Vicks Zzzquil 30 ml PO HS 02/10/20 03/10/20 History sitaGLIPtin [Januvia] 100 mg PO PC-SUPPER 02/10/20 03/10/20 History Cetirizine HCl [Zyrtec] 10 mg PO DAILY #30 tab 02/12/20 03/10/20 Rx Fluticasone Nasal [place] [Flonase 2 spray EA NOSTRIL DAILY #1 spr 02/12/20 03/10/20 Rx Nasal [place]] Pantoprazole [Protonix] 40 mg PO AC-BID #60 tab 02/12/20 03/10/20 Rx Furosemide [Lasix] 40 mg PO BID@0900,1600 #60 tab 02/20/20 03/10/20 Rx Losartan [Cozaar] 50 mg PO DAILY #30 tab 02/20/20 03/10/20 Rx Spironolactone [Aldactone] 25 mg PO DAILY #30 tab 02/20/20 03/10/20 Rx guaiFENesin [Mucinex] 1,200 mg PO Q12HR tablet.er 02/20/20 03/10/20 Rx Allergies Allergy/AdvReac Type Severity Reaction Status Date / Time No Known Allergies Allergy Verified 03/10/20 17:11 Physical Exam Vitals: Vital Signs Temp Pulse Pulse Resp BP BP Pulse Ox 03/11/20 07:00 97.8 F 91 19 119/56 92 L 03/11/20 01:21 98.5 F 103 H 16 118/51 96 03/10/20 22:27 92 03/10/20 22:17 88 03/10/20 19:05 97.6 F 102 H 16 92/45 92 L 03/10/20 18:47 96 20 121/76 94 L 03/10/20 17:48 74 16 107/56 92 L 03/10/20 16:10 94 22 94/48 91 L 03/10/20 15:56 99.1 F 104 H 24 86/54 75 L Intake and Output 03/10/20 03/11/20 03/11/20 22:59 06:59 14:59 Intake Total 120 660 Balance 120 660 Intake: Intake, IV Titration 600 Amount Sodium Chloride 0.9% 1, 600 000 ml @ 50 mls/hr IV . Q20H [facility] Rx#:[id number] Oral 120 60 Other: Voiding Method Toilet Toilet # Voids 2 1 Weight 77.111 kg Results CBC & Chem 7: 03/11/20 06:53 03/11/20 06:53 Labs: Abnormal Lab Results - Last 24 Hours (Table) 03/10/20 03/10/20 03/10/20 Range/Units 16:21 16:21 16:21 RBC 3.86 L (4.30-5.90) m/uL Hgb 9.8 L (13.0-17.5) gm/dL Hct 32.4 L (39.0-53.0) % MCHC 30.2 L (31.0-37.0) g/dL RDW 23.2 H (11.5-15.5) % Sodium 135 L (137-145) mmol/L Potassium 5.2 H (3.5-5.1) mmol/L BUN 29 H (9-20) mg/dL Creatinine 2.73 H (0.66-1.25) mg/dL Glucose 198 H (74-99) mg/dL POC Glucose (mg/dL) (75-99) mg/dL Plasma Lactic Acid Po 2.2 H* (0.7-2.0) mmol/L Total Protein 5.6 L (6.3-8.2) g/dL Albumin 3.4 L (3.5-5.0) g/dL 03/10/20 03/11/20 03/11/20 Range/Units 19:22 06:46 06:53 RBC 3.77 L (4.30-5.90) m/uL Hgb 9.6 L (13.0-17.5) gm/dL Hct 32.3 L (39.0-53.0) % MCHC 29.6 L (31.0-37.0) g/dL RDW 23.0 H (11.5-15.5) % Sodium (137-145) mmol/L Potassium (3.5-5.1) mmol/L BUN (9-20) mg/dL Creatinine (0.66-1.25) mg/dL Glucose (74-99) mg/dL POC Glucose (mg/dL) 191 H (75-99) mg/dL Plasma Lactic Acid Po 2.2 H* (0.7-2.0) mmol/L Total Protein (6.3-8.2) g/dL Albumin (3.5-5.0) g/dL 03/11/20 Range/Units 06:53 RBC (4.30-5.90) m/uL Hgb (13.0-17.5) gm/dL Hct (39.0-53.0) % MCHC (31.0-37.0) g/dL RDW (11.5-15.5) % Sodium 134 L (137-145) mmol/L Potassium 5.4 H (3.5-5.1) mmol/L BUN 29 H (9-20) mg/dL Creatinine 2.13 H (0.66-1.25) mg/dL Glucose 189 H (74-99) mg/dL POC Glucose (mg/dL) (75-99) mg/dL Plasma Lactic Acid Po (0.7-2.0) mmol/L Total Protein (6.3-8.2) g/dL Albumin (3.5-5.0) g/dL Thrombosis Risk Factor Assmnt - Choose All That Apply Each Factor Represents 1 point: Obesity (BMI >25) Each Risk Factor Represents 2 Points: Age 61-74 years Thrombosis Risk Factor Assessment Total Risk Factor Score: 3 Thrombosis Risk Factor Assessment Level: Moderate Risk
[2020-03-11 12:09] LABS: Glucose,Whole Blood 212 mg/dL (75-99)
[2020-03-11] MEDS: INSULIN ASPART (NovoLOG) 100 UNIT/ML VIAL SQ SCH ×3 (13:52→21:10)
[2020-03-11] MEDS: SODIUM CHLORIDE 0.9% 1,000 ML IV SCH (13:53)
[2020-03-11 14:44] VITALS: RESP 18
[2020-03-11] MEDS: HYDROcodone/APAP 7.5-325MG 1 EACH TAB PO PRN ×2 (15:12→21:30)
--- NOTE | 2020-03-11 16:02 | US ---
EXAMINATION TYPE: US kidneys/renal and bladder DATE OF EXAM: 03/11/2020 COMPARISON: CT 2019 CLINICAL HISTORY: VERONA. VERONA, exam done portable. EXAM MEASUREMENTS: Right Kidney: 9.0 x 5.3 x 4.6 cm Left Kidney: 10.2 x 5.4 x 4.6 cm Right Kidney: cortical thinning, no hydronephrosis or masses seen Left Kidney: cortical thinning, no hydronephrosis or masses seen Bladder: wnl Bilateral Jets seen: left jet seen, right jet not seen Cortical medullary differentiation is maintained bilaterally. IMPRESSION: No hydronephrosis. Mild cortical thinning is suspected bilaterally within the kidneys. Additional fin dings above.
[2020-03-11 16:33] LABS: Glucose,Whole Blood 182 mg/dL (75-99)
[2020-03-11] MEDS: TAMSULOSIN 0.4 MG CAP.ER.24H PO SCH (17:45)
[2020-03-11] MEDS: LINAGLIPTIN 5 MG TABLET PO SCH (17:45)
[2020-03-11 18:59] LABS: Appearance,Urine Clear (Clear); Bilirubin,Urine Negative (Negative); Blood,Urine Negative (Negative); Color,Urine Yellow; Glucose,Urine (UA) Negative (Negative); Ketones,Urine Negative (Negative); Leukocyte Esterase,Urine Negative (Negative); Nitrite,Urine Negative (Negative); PH, Urine 5.5 (5.0-8.0); Protein,Urine Negative (Negative); Specific Gravity,Urine 1.013 (1.001-1.035); Urobilinogen,Urine <2.0 mg/dL (<2.0)
[2020-03-11 20:23] LABS: Glucose,Whole Blood 188 mg/dL (75-99)
[2020-03-11] MEDS: GABAPENTIN 100 MG CAP PO SCH (21:09)
[2020-03-11] MEDS: HEPARIN SODIUM,PORCINE 5,000 UNIT/ML 1 ML VIAL SQ SCH (21:09)
[2020-03-11] MEDS: KETOTIFEN 0.025% OPHTH DROPS 5 ML BTL BOTH EYES SCH ×2 (21:10→21:27)
[2020-03-11] MEDS: MELATONIN 3 MG TABLET PO PRN (23:57)
[2020-03-12 07:16] LABS: Glucose,Whole Blood 172 mg/dL (75-99)
[2020-03-12 07:58] VITALS: BP 107/50; TEMP 97.8
[2020-03-12] MEDS: LORATADINE 10 MG TAB PO SCH ×2 (08:22→08:23)
[2020-03-12] MEDS: FORMOTEROL FUMARATE 20 MCG/2 ML NEBU INHALATION SCH (08:22)
[2020-03-12] MEDS: HYDROcodone/APAP 7.5-325MG 1 EACH TAB PO PRN (08:22)
[2020-03-12] MEDS: BUDESONIDE 0.5 MG/2 ML NEBU INHALATION SCH (08:22)
[2020-03-12] MEDS: IPRATROPIUM-ALBUTEROL 3 ML NEB INHALATION SCH ×2 (08:22→11:41)
[2020-03-12] MEDS: HEPARIN SODIUM,PORCINE 5,000 UNIT/ML 1 ML VIAL SQ SCH (08:23)
[2020-03-12] MEDS: SUCRALFATE 1 GM TAB PO SCH ×2 (08:23→11:59)
[2020-03-12] MEDS: guaiFENesin 600 MG TABLET.ER PO SCH (08:23)
[2020-03-12] MEDS: INSULIN ASPART (NovoLOG) 100 UNIT/ML VIAL SQ SCH ×2 (08:23→11:58)
[2020-03-12] MEDS: PANTOPRAZOLE 40 MG TABLET PO SCH (08:23)
[2020-03-12] MEDS: LOSARTAN 50 MG TAB PO SCH (08:23)
[2020-03-12 10:35] LABS: Calcium 8.9 mg/dL (8.4-10.2); Potassium 5.1 mmol/L (3.5-5.1)
--- NOTE | 2020-03-12 10:58 | P.DS ---
Providers Date of admission: 03/10/20 17:39 Expected date of discharge: 03/12/20 Attending physician: Carey Doherty MD Primary care physician: Lonnie Lee [facility] Course: HISTORY OF PRESENT ILLNESS This is a 74-year-old male patient of Dr. Lee with past medical history of COPD, chronic diastolic heart failure, chronic hypoxic respiratory failure on home O2 at 3 L, anemia of chronic disease, diabetes mellitus type 2, hypertension, benign prostatic hypertrophy, chronic pain. He had a recent hospitalization in early February which time he presented with acute anemia possible blood loss status post [address] Denson recommended colonoscopy but patient declined as he wanted to do this as an outpatient. He was also seen by oncology with plan to repeat anemia studies in 1 month. Patient returned on February 15 through February 19 for acute hypoxic respiratory failure secondary to acute diastolic heart failure and COPD exacerbation. he also had anemia on that visit and received 1 unit of packed RBCs as well as Ferrlecit. Echocardiogram reveals EF of 55-60%, moderate concentric left ventricular hypertrophy, mild tricuspid regurgitation, mild pulmonary hypertension. Patient is scheduled for colonoscopy with Dr. Tristan on 03/18. Patient returned to [facility] emergency center on March 10 with concern for vision change with blurry vision for about 4-5 minutes while he was driving. Once he arrived home his vision returned to normal. His vision is normal at time of evaluation. His initial blood pressure was 86/54 pulse ox 75% on room air. Patient was placed on 4 L nasal cannula with pulse ox 91%. Regarding blood pressure patient was placed in Trendelenburg with blood pressure of 94/48. Chest x-ray revealed revealed some mild infiltrate and atelectasis at the lung bases more on the left side. There is overall improvement compared to old exam. Lactic acid 2.2. WBC 8.0, hemoglobin 9.8, platelet count 205. Sodium 135, potassium 5.2, chloride 99, CO2 28, BUN 29 and creatinine 2.73. Baseline creatinine is 0.9. Blood sugar 198. Liver function tests were normal. Troponin negative. ProBNP 192. EKG sinus rhythm with right bundle branch block and no ST-T wave changes. Repeat blood work this morning reveals hemoglobin 9.6, BUN 29 and creatinine 2.13, sodium 134 and potassium 5.4. Repeat lactic acid 1.4. Patient admitted to the MedSur floor and started on IV fluids 0.9 at 50 mL per hour. Lasix and Aldactone on hold. 03/12: Patient has been afebrile, heart rate 88, blood pressure 107/50, pulse ox 94% on 4 L nasal cannula. Urinalysis was negative for infection. Repeat blood work reveals sodium 135, potassium 5.1, chloride 102, CO2 28, BUN 19 and creatinine 1.53. Blood sugars are running between 172 and 206. Patient denies having any chest pain, no shortness of breath. He is anxious to be discharged home. We will decrease home Lasix to 40 mg daily and hold Aldactone. Patient have repeat blood work on Sunday to be sent to Dr. gaines. Patient will be discharged home today in stable condition. ASSESSMENT AND PLAN 1. Acute kidney injury secondary to diuretics and hypotension. 2. Hyperkalemia secondary to acute kidney injury. 3. Lactic acidosis secondary to acute kidney injury, resolved. 4. 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 5. Hypertension. 6. COPD without exacerbation. 7. Chronic diastolic heart failure. 8. Chronic hypoxic respiratory failure with home O2 at 3 L. 9. Diabetes mellitus type 2. 10. Benign prostatic hypertrophy. 11. Chronic pain. Discharge plan: home Impression and plan of care have been directed as dictated by the signing physician. Sherrill Mederos nurse practitioner acting as scribe for signing physician. Patient Condition at Discharge: Good Plan - Discharge Summary Discharge Rx Participant: No New Discharge Prescriptions: Continue Budesonide [Pulmicort] 0.5 mg INHALATION RT-BID diphenhydrAMINE HCL [Benadryl] 25 mg PO HS PRN PRN Reason: Insomnia Formoterol Fumarate [Perforomist] 20 mcg INHALATION RT-BID Gabapentin [Neurontin] 200 mg PO HS HYDROcodone/APAP 7.5-325MG [[place] 7.5-325] 1 tab PO QID PRN PRN Reason: Pain Ipratropium-Albuterol Nebulize [Duoneb 0.5 mg-3 mg/3 ml Soln] 3 ml INHALATION RT-QID Multivit-Min/FA/Lycopen/Lutein [Centrum Silver Tablet] 1 tab PO PC-SUPPER Sucralfate [Carafate] 1 gm PO AC-TID Tamsulosin [Flomax] 0.8 mg PO PC-SUPPER Vicks Zzzquil 30 ml PO HS sitaGLIPtin [Januvia] 100 mg PO PC-SUPPER Ketotifen 0.025% Ophth Soln [Zaditor] 1 drop BOTH EYES HS Fluticasone Nasal [place] [Flonase Nasal [place]] 2 spray EA NOSTRIL DAILY #1 spr Cetirizine HCl [Zyrtec] 10 mg PO DAILY #30 tab Pantoprazole [Protonix] 40 mg PO AC-BID #60 tab Losartan [Cozaar] 50 mg PO DAILY #30 tab guaiFENesin [Mucinex] 1,200 mg PO Q12HR tablet.er Changed Furosemide [Lasix] 40 mg PO DAILY #60 tab Discontinued Spironolactone [Aldactone] 25 mg PO DAILY #30 tab Discharge Medication List Budesonide [Pulmicort] 0.5 mg INHALATION RT-BID 08/25/19 [History] Formoterol Fumarate [Perforomist] 20 mcg INHALATION RT-BID 08/25/19 [History] Gabapentin [Neurontin] 200 mg PO HS 08/25/19 [History] HYDROcodone/APAP 7.5-325MG [[place] 7.5-325] 1 tab PO QID PRN 08/25/19 [History] Ipratropium-Albuterol Nebulize [Duoneb 0.5 mg-3 mg/3 ml Soln] 3 ml INHALATION RT-QID 08/25/19 [History] Multivit-Min/FA/Lycopen/Lutein [Centrum Silver Tablet] 1 tab PO PC-SUPPER 08/25/19 [History] Sucralfate [Carafate] 1 gm PO AC-TID 08/25/19 [History] Tamsulosin [Flomax] 0.8 mg PO PC-SUPPER 08/25/19 [History] diphenhydrAMINE HCL [Benadryl] 25 mg PO HS PRN 08/25/19 [History] Ketotifen 0.025% Ophth Soln [Zaditor] 1 drop BOTH EYES HS 02/10/20 [History] Vicks Zzzquil 30 ml PO HS 02/10/20 [History] sitaGLIPtin [Januvia] 100 mg PO PC-SUPPER 02/10/20 [History] Cetirizine HCl [Zyrtec] 10 mg PO DAILY #30 tab 08/06/20 [Rx] Fluticasone Nasal [place] [Flonase Nasal [place]] 2 spray EA NOSTRIL DAILY #1 spr 02/12/20 [Rx] Pantoprazole [Protonix] 40 mg PO AC-BID #60 tab 02/12/20 [Rx] Losartan [Cozaar] 50 mg PO DAILY #30 tab 02/20/20 [Rx] guaiFENesin [Mucinex] 1,200 mg PO Q12HR tablet.er 02/20/20 [Rx] Furosemide [Lasix] 40 mg PO DAILY #60 tab 03/12/20 [Rx] Follow up Appointment(s)/Referral(s): Lonnie Lee MD [Primary Care Provider] - 1 Week Ambulatory/Diagnostic Orders: Comprehensive Metabolic Panel [LAB.AMB] Location: None Selected
[2020-03-12 11:30] LABS: Glucose,Whole Blood 158 mg/dL (75-99)
[2020-03-12 11:57] VITALS: PULSE 85
[2020-03-12] MEDS: FLUTICASONE 50MCG/SPRAY NASAL 16GM EA NOSTRIL SCH (11:58)
[2020-03-12 20:14] LABS: Hemoglobin A1C 6.2 % (4.0-6.0)
== END 2020-03-12 14:04 | disposition home or self-care (01) | DRG 683 ==
LOC: EC 15:34 → 4SSUR 17:39
PROVIDERS: ADMIT Internal Medicine; ATTEND Internal Medicine
DX: N17.9 Acute kidney failure, unspecified (principal); I50.32 Chronic diastolic (congestive) heart failure; J96.11 Chronic respiratory failure with hypoxia; J98.11 Atelectasis; E87.2 Acidosis; I45.10 Unspecified right bundle-branch block; I11.0 Hypertensive heart disease with heart failure; I27.20 Pulmonary hypertension, unspecified; N40.0 Benign prostatic hyperplasia without lower urinary tract symptoms; T50.2X5A Adverse effect of carbonic-anhydrase inhibitors, benzothiadiazides and other diuretics, initial encounter; E78.5 Hyperlipidemia, unspecified; J44.9 Chronic obstructive pulmonary disease, unspecified; K21.9 Gastro-esophageal reflux disease without esophagitis; H53.50 Unspecified color vision deficiencies; E11.40 Type 2 diabetes mellitus with diabetic neuropathy, unspecified; I95.9 Hypotension, unspecified; Z81.8 Family history of other mental and behavioral disorders; I07.9 Rheumatic tricuspid valve disease, unspecified; D63.8 Anemia in other chronic diseases classified elsewhere; Z96.641 Presence of right artificial hip joint; E87.5 Hyperkalemia; G89.29 Other chronic pain; Z79.899 Other long term (current) drug therapy; Z79.84 Long term (current) use of oral hypoglycemic drugs; Z80.1 Family history of malignant neoplasm of trachea, bronchus and lung; Z87.891 Personal history of nicotine dependence; Z87.01 Personal history of pneumonia (recurrent); Z87.11 Personal history of peptic ulcer disease; Z99.81 Dependence on supplemental oxygen; Z87.440 Personal history of urinary (tract) infections; Z90.89 Acquired absence of other organs; Z98.890 Other specified postprocedural states; Z86.2 Personal history of diseases of the blood and blood-forming organs and certain disorders involving the immune mechanism; Z87.438 Personal history of other diseases of male genital organs; Z86.69 Personal history of other diseases of the nervous system and sense organs
CPT/HCPCS: 36415; 71045; 76770; 80048; 80053; 81003; 83036; 83605; 83880; 84484; 85025; 85610; 85730; 86850; 86900; 86901; 93005; 94640; 96360; 96361; 99285

== ENCOUNTER → 2020-12-28 | Outpatient (CLI) | payer MEDICARE ==
--- NOTE | 2020-12-28 15:52 | CT ---
EXAMINATION TYPE: CT abdomen wo con DATE OF EXAM: 12/28/2020 COMPARISON: February 11, 2020 HISTORY: epigastric pain CT DLP: 690 mGycm Examination of the solid and hollow viscera is limited given the lack of contrast. FINDINGS: LUNG BASES: No evidence for nodule. No evidence for infiltrate. LIVER/GB: The gallbladder is unremarkable. No space-occupying hepatic lesion. PANCREAS: Mild to moderate generalized atrophy. Some calcifications in the head and uncinate process. Findings presumed product of chronic pancreatitis. SPLEEN: No evidence for splenomegaly. No intrasplenic lesions seen. ADRENALS: No adrenal nodules identified. No evidence for thickening. KIDNEYS: Renal vascular calcifications noted. No evidence for renal mass. No nephrolithiasis. No hydr onephrosis. BOWEL: Appendix has a normal appearance. No evidence of bowel obstruction. No inflammatory process. Lymph nodes: No evidence for adenopathy greater than 1 cm. Abdominal aorta: Atheromatous changes seen. No evidence for aneurysm. Other: No significant abnormality. IMPRESSION: NO ACUTE PROCESS SEEN TO ACCOUNT FOR THE PATIENT'S SYMPTOMS.
== END | disposition home or self-care (01) ==
LOC: RADCTMAIN 14:50
PROVIDERS: ATTEND Family Medicine
DX: R10.9 Unspecified abdominal pain (principal)
CPT/HCPCS: 74150

== ENCOUNTER 2021-02-06 21:21 | Inpatient (IN) | payer MEDICARE ==
[2021-02-06] MEDS ORDERED: ONDANSETRON 4 MG/2 ML VIAL IVP STA ×2 (21:43→23:05)
[2021-02-06] MEDS ORDERED: SODIUM CHLORIDE 0.9% 1,000 ML IV STA ×2 (21:43→22:57)
[2021-02-06] MEDS ORDERED: MORPHINE SULFATE 4 MG/ML SYRINGE IV STA (21:43)
[2021-02-06] MEDS ORDERED: PANTOPRAZOLE 40 MG/10 ML VIAL IVP STA (21:43)
--- NOTE | 2021-02-06 21:46 | ED ---
Abdominal Pain HPI - General Chief Complaint: Abdominal Pain Stated Complaint: Abd Pain Time Seen by Provider: 02/06/21 21:37 Source: patient, RN notes reviewed, old records reviewed Mode of arrival: wheelchair Limitations: no limitations - History of Present Illness MD Complaint: abdominal pain -: days(s) Location: periumbilical, epigastric Radiation: epigastric Migration to: R flank Severity: severe Severity scale (1-10): 9 Quality: cramping, aching, sharp Consistency: intermittent Improves With: nothing Worsens With: nothing Context: other (none) Associated Symptoms: nausea Treatments Prior to Arrival: other (none) - Related Data Home Medications Medication Instructions Recorded Confirmed Budesonide [Pulmicort] 0.5 mg INHALATION RT-QID 08/25/19 02/06/21 Formoterol Fumarate [Perforomist] 20 mcg INHALATION RT-BID 08/25/19 02/06/21 HYDROcodone/APAP 7.5-325MG [[place] 1 tab PO TID PRN 08/25/19 02/06/21 7.5-325] Ipratropium-Albuterol Nebulize 3 ml INHALATION RT-BID 08/25/19 02/06/21 [Duoneb 0.5 mg-3 mg/3 ml Soln] Multivit-Min/FA/Lycopen/Lutein 1 tab PO PC-SUPPER 08/25/19 02/06/21 [Centrum Silver Tablet] Tamsulosin [Flomax] 0.8 mg PO PC-SUPPER 08/25/19 02/06/21 diphenhydrAMINE HCL [Benadryl] 25 mg PO HS PRN 08/25/19 02/06/21 sitaGLIPtin [Januvia] 100 mg PO PC-SUPPER 02/10/20 02/06/21 Aspirin/Sod Bicarb/Citric Acid 1 tab PO BID PRN 02/06/21 02/06/21 [[place] Original Tab Eff] Betamethasone Valerate 1 applic TOPICAL DAILY 02/06/21 02/06/21 [Betamethasone Valerate 0.1%] Dicyclomine [Bentyl] 10 mg PO AC-TID 02/06/21 02/06/21 Ferrous Sulfate [Feosol] 325 mg PO DAILY 02/06/21 02/06/21 Ketoconazole 2% Shampoo [Nizoral] 1 applic TOPICAL MOWEFR 02/06/21 02/06/21 Menthol [[place]] 7.5 mg MM TID PRN 02/06/21 02/06/21 Metoclopramide [Reglan] 5 mg PO DAILY 02/06/21 02/06/21 Pantoprazole [Protonix] 40 mg PO DAILY 02/06/21 02/06/21 Super Beta Prostate Advanced 1 tab PO DAILY 02/06/21 02/06/21 Vitamin Testosterone Cypionate 200 mg IM Q14D 02/06/21 02/06/21 [Depo-Testosterone] Previous Rx's Medication Instructions Recorded Losartan [Cozaar] 50 mg PO DAILY #30 tab 02/20/20 Allergies Allergy/AdvReac Type Severity Reaction Status Date / Time No Known Allergies Allergy Verified 03/10/20 17:11 Review of Systems ROS Statement: Those systems with pertinent positive or pertinent negative responses have been documented in the HPI. ROS Other: All systems not noted in ROS Statement are negative. Past Medical History Past Medical History: Asthma, COPD, Diabetes Mellitus, Eye Disorder, GERD/Reflux, GI Bleed, Hyperlipidemia, Hypertension, Pneumonia, Prostate Disorder Additional Past Medical History / Comment(s): Past bleeding gastric ulcers/anemia with blood transfusion, lower extremity edema for past 6 months, color blind, NIDDM type II, neuropathy bilateral feet, home oxygen at 2L/[place] prn but last 2 weeks ATC, 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Chronic Anemia History of Any Multi-Drug Resistant Organisms: None Reported Past Surgical History: Hernia Repair, Joint Replacement, Orthopedic Surgery, Tonsillectomy Additional Past Surgical History / Comment(s): EGDs, colonoscopy, umbilical hernia repair, L ankle fracture with plate, R shoulder muscle damage repair with anchors in place, R total hip arthroplasty, sinus surgery x2, bilateral blepharoplasties. Past Anesthesia/Blood Transfusion Reactions: No Reported Reaction Additional Past Anesthesia/Blood Transfusion Reaction / Comment(s): Pt received blood in 2010 d/t anemia from bleeding antral ulcer without reaction. Past Psychological History: No Psychological Hx Reported Smoking Status: Former smoker Past Alcohol Use History: None Reported Past Drug Use History: None Reported - Past Family History Father Family Medical History: Cancer Additional Family Medical History / Comment(s): Father had lung cancer in his 70s. He of "old age" at the age of 90yrs. Mother Additional Family Medical History / Comment(s): Mother was a "hypochondriac". Pt states she at the age of 75yrs. General Exam Limitations: no limitations General appearance: alert, in no apparent distress, anxious Head exam: Present: atraumatic, normocephalic, normal inspection Eye exam: Present: normal appearance, PERRL, EOMI. Absent: scleral icterus, conjunctival injection, periorbital swelling ENT exam: Present: normal exam, mucous membranes moist Neck exam: Present: normal inspection. Absent: tenderness, meningismus, lymphadenopathy Respiratory exam: Present: normal lung sounds bilaterally. Absent: respiratory distress, wheezes, rales, rhonchi, stridor Cardiovascular Exam: Present: regular rate, normal rhythm, normal heart sounds. Absent: systolic murmur, diastolic murmur, rubs, gallop, clicks GI/Abdominal exam: Present: soft, normal bowel sounds. Absent: distended, tend erness, guarding, rebound, rigid Extremities exam: Present: normal inspection, full ROM, normal capillary refill. Absent: tenderness, pedal edema, joint swelling, calf tenderness Back exam: Present: normal inspection Neurological exam: Present: alert, oriented X3, CN II-XII intact Psychiatric exam: Present: normal affect, normal mood Skin exam: Present: warm, dry, intact, normal color. Absent: rash Course Vital Signs 02/06/21 02/06/21 02/06/21 21:29 23:40 23:47 Temperature 98.1 F Pulse Rate 82 87 89 Respiratory 18 Rate Blood Pressure 201/91 O2 Sat by Pulse 85 L Oximetry 02/07/21 00:27 Temperature Pulse Rate 92 Respiratory 16 Rate Blood Pressure 182/89 O2 Sat by Pulse 98 Oximetry - Reevaluation(s) Reevaluation #1: 02/07/21 Medical record is reviewed Patient symptoms are improved here in the ER Patient is in no acute distress Patient informed results questions answered Medical Decision Making - Lab Data Result diagrams: 02/06/21 22:04 02/06/21 22:04 Lab Results 02/06/21 02/06/21 02/06/21 Range/Units 22:04 22:04 22:04 WBC 10.6 (3.8-10.6) k/uL RBC 5.48 (4.30-5.90) m/uL Hgb 16.4 (13.0-17.5) gm/dL Hct 51.9 (39.0-53.0) % MCV 94.6 (80.0-100.0) fL MCH 29.8 (25.0-35.0) pg MCHC 31.5 (31.0-37.0) g/dL RDW 14.7 (11.5-15.5) % Plt Count 365 (150-450) k/uL MPV 7.5 Neutrophils % 80 % Lymphocytes % 12 % Monocytes % 4 % Eosinophils % 1 % Basophils % 0 % Neutrophils # 8.6 H (1.3-7.7) k/uL Lymphocytes # 1.2 (1.0-4.8) k/uL Monocytes # 0.5 (0-1.0) k/uL Eosinophils # 0.1 (0-0.7) k/uL Basophils # 0.1 (0-0.2) k/uL Hypochromasia Slight PT (9.0-12.0) sec INR (<1.2) APTT (22.0-30.0) sec Sodium 136 L (137-145) mmol/L Potassium 4.5 (3.5-5.1) mmol/L Chloride 99 (98-107) mmol/L Carbon Dioxide 27 (22-30) mmol/L Anion Gap 10 mmol/L BUN 11 (9-20) mg/dL Creatinine 0.93 (0.66-1.25) mg/dL Est GFR (CKD-EPI)AfAm >90 (>60 ml/min/1.73 sqM) Est GFR (CKD-EPI)NonAf 81 (>60 ml/min/1.73 sqM) Glucose 118 H (74-99) mg/dL Plasma Lactic Acid Po (0.7-2.0) mmol/L Calcium 9.9 (8.4-10.2) mg/dL Total Bilirubin 0.8 (0.2-1.3) mg/dL AST 51 (17-59) U/L ALT 23 (4-49) U/L Alkaline Phosphatase 90 (38-126) U/L Troponin I <0.012 (0.000-0.034) ng/mL Total Protein 7.3 (6.3-8.2) g/dL Albumin 4.3 (3.5-5.0) g/dL Amylase 102 (30-110) U/L Lipase 2324 H (23-300) U/L 02/06/21 02/06/21 Range/Units 22:04 22:04 WBC (3.8-10.6) k/uL RBC (4.30-5.90) m/uL Hgb (13.0-17.5) gm/dL Hct (39.0-53.0) % MCV (80.0-100.0) fL MCH (25.0-35.0) pg MCHC (31.0-37.0) g/dL RDW (11.5-15.5) % Plt Count (150-450) k/uL MPV Neutrophils % % Lymphocytes % % Monocytes % % Eosinophils % % Basophils % % Neutrophils # (1.3-7.7) k/uL Lymphocytes # (1.0-4.8) k/uL Monocytes # (0-1.0) k/uL Eosinophils # (0-0.7) k/uL Basophils # (0-0.2) k/uL Hypochromasia PT 10.2 (9.0-12.0) sec INR 0.9 (<1.2) APTT 24.5 (22.0-30.0) sec Sodium (137-145) mmol/L Potassium (3.5-5.1) mmol/L Chloride (98-107) mmol/L Carbon Dioxide (22-30) mmol/L Anion Gap mmol/L BUN (9-20) mg/dL Creatinine (0.66-1.25) mg/dL Est GFR (CKD-EPI)AfAm (>60 ml/min/1.73 sqM) Est GFR (CKD-EPI)NonAf (>60 ml/min/1.73 sqM) Glucose (74-99) mg/dL Plasma Lactic Acid Po 1.1 (0.7-2.0) mmol/L Calcium (8.4-10.2) mg/dL Total Bilirubin (0.2-1.3) mg/dL AST (17-59) U/L ALT (4-49) U/L Alkaline Phosphatase (38-126) U/L Troponin I (0.000-0.034) ng/mL Total Protein (6.3-8.2) g/dL Albumin (3.5-5.0) g/dL Amylase (30-110) U/L Lipase (23-300) U/L Disposition Clinical Impression: Acute exacerbation of chronic obstructive pulmonary disease, Abdominal pain, Pancreatitis Disposition: ADMITTED IP TO THIS [facility] Condition: Good Is patient prescribed a controlled substance at d/c from ED?: No
[2021-02-06 22:16] LABS: Basophils # (A) 0.1 k/uL (0-0.2); Basophils % (A) 0 %; Eosinophils # (A) 0.1 k/uL (0-0.7); Eosinophils % (A) 1 %; HCT 51.9 % (39.0-53.0); HGB 16.4 gm/dL (13.0-17.5); Hypochromasia Slight; Lymphocytes # (A) 1.2 k/uL (1.0-4.8); Lymphocytes % (A) 12 %; MCH 29.8 pg (25.0-35.0); MCHC 31.5 g/dL (31.0-37.0); MCV 94.6 fL (80.0-100.0); Mean Platelet Volume 7.5; Monocytes # (A) 0.5 k/uL (0-1.0); Monocytes % (A) 4 %; Neutrophils # (A) 8.6 k/uL (1.3-7.7); Neutrophils % (A) 80 %; Platelet Count 365 k/uL (150-450); RBC 5.48 m/uL (4.30-5.90); RDW 14.7 % (11.5-15.5); WBC 10.6 k/uL (3.8-10.6)
[2021-02-06 22:25] LABS: ALT 23 U/L (4-49); AST 51 U/L (17-59); African American GFR (CKD) >90 (>60 ml/min/1.73 sqM); Albumin 4.3 g/dL (3.5-5.0); Alkaline Phosphatase 90 U/L (38-126); Amylase 102 U/L (30-110); Anion Gap 10 mmol/L; Blood Urea Nitrogen 11 mg/dL (9-20); Calcium 9.9 mg/dL (8.4-10.2); Carbon Dioxide 27 mmol/L (22-30); Chloride 99 mmol/L (98-107); Glucose 118 mg/dL (74-99); Non-African American GFR(CKD) 81 (>60 ml/min/1.73 sqM); Potassium 4.5 mmol/L (3.5-5.1); Sodium 136 mmol/L (137-145); Total Bilirubin 0.8 mg/dL (0.2-1.3); Total Protein 7.3 g/dL (6.3-8.2)
[2021-02-06 22:36] LABS: Lipase 2324 U/L (23-300)
[2021-02-06 22:47] LABS: INR 0.9 (<1.2); Partial Thromboplastin Time 24.5 sec (22.0-30.0); Prothrombin Time 10.2 sec (9.0-12.0)
[2021-02-06] MEDS ORDERED: IPRATROPIUM-ALBUTEROL 3 ML NEB INHALATION STA (22:57)
[2021-02-06] MEDS ORDERED: methylPREDNISolone SOD SUCCI 125 MG/2 ML VIAL IV STA (22:57)
[2021-02-06] MEDS ORDERED: ONDANSETRON 4 MG/2 ML VIAL IVP PRN (23:05)
[2021-02-06] MEDS: MORPHINE SULFATE 4 MG/ML SYRINGE IVP PRN (23:16)
--- NOTE | 2021-02-06 23:27 | CT ---
EXAMINATION TYPE: CT abdomen pelvis w con DATE OF EXAM: 02/06/2021 COMPARISON: 12/28/2020 HISTORY: pain CT DLP: 1599.9 mGycm Automated exposure control for dose reduction was used. CONTRAST: Performed with IV Contrast, patient injected with 100 mL of Isovue 300. Images obtained from the diaphragm to the floor the pelvis with IV contrast. Lung bases show mild subsegmental atelectasis in the lingula left upper lobe. Heart size is normal. T here is no pericardial effusion. Liver spleen appear intact. There is some calcifications at the pancreatic head. There is some wall t hickening and edema apparently in the proximal duodenum. The proximal jejunum appears normal. There i s mildly dilated pancreatic duct. Distal pancreatic duct measures 9 mm. The bile ducts are not dilate d. There is no adrenal mass. Kidneys show satisfactory contrast opacification. There is no hydronephrosi s. Ureters are not dilated. There is 3 mm calcification in the right kidney that could be vascular. T here is no retroperitoneal adenopathy. Bladder distends smoothly. There is no inguinal hernia. There is right hip prosthesis. There is no evidence of a pelvic mass. There is small amount of free fluid i n the pelvis. There is no mesenteric edema. There is no evidence of a bowel obstruction. There is no sign of free air. Lumbar vertebra have normal alignment. There is no compression fracture. Posterior elements are intact. The bony pelvis is intact. IMPRESSION: Inflammatory changes around the descending duodenum. Dilated pancreatic duct. Abnormalities are new c ompared to old exam. This probably relates to duodenitis with secondary obstruction of the distal carrero creatic duct. Pancreatic tumor not entirely excluded. Pancreatic calcifications could relate to chron ic pancreatitis.
--- NOTE | 2021-02-06 23:50 | US ---
EXAMINATION TYPE: US gallbladder DATE OF EXAM: 02/06/2021 COMPARISON: CT 02/06/2021 CLINICAL HISTORY: pain. elevated lipase. very difficult and limited exam due to overlying bowel gas a nd patient body habitus EXAM MEASUREMENTS: Liver Length: 17.3 cm Gallbladder Wall: 0.27 cm CBD: 0.7 cm Right Kidney: 9.6 x 5.5 x 4.8 cm Pancreas: Possible duct visualized measuring 0.7 cm Liver: Increased attenuation, decreased visualization of vessels suggestive of fatty infiltrate. Rina suring upper limits of normal Gallbladder: Hydropic Evidence for sonographic Medina's sign: No CBD: Dilated as visualized Right Kidney: No hydronephrosis or masses seen IMPRESSION: No gallstones. Gallbladder is large and measures 4 cm in diameter. Common bile duct measures 7 mm and consistent with some gallbladder dysfunction. No dilation seen of the intrahepatic bile ducts. Dilat ed pancreatic duct.
[2021-02-07] MEDS ORDERED: NALOXONE 0.4 MG/ML 1 ML VIAL IV PRN (00:05)
[2021-02-07] MEDS ORDERED: IPRATROPIUM-ALBUTEROL 3 ML NEB INHALATION STA (00:07)
[2021-02-07 01:28] LABS: Glucose,Whole Blood 140 mg/dL (75-99)
[2021-02-07] MEDS: MORPHINE SULFATE 4 MG/ML SYRINGE IVP PRN ×3 (03:13→23:17)
[2021-02-07 07:00] LABS: Glucose,Whole Blood 168 mg/dL (75-99)
[2021-02-07] MEDS: IPRATROPIUM-ALBUTEROL 3 ML NEB INHALATION PRN ×2 (07:18→15:29)
--- NOTE | 2021-02-07 09:43 | P.GSCN ---
History of Present Illness Consult date: 02/07/21 History of present illness: 75-year-old male presenting to the emergency department complaints of abdominal pain.He states that the pain was in his lower abdomen initially and was severe. He states that the pain did migrate to the upper portion of his abdomen. He denies any significant changes in his bowel movement. He denies any current nausea or vomiting but did have some nausea at the time of the pain. He states that since his admission, his pain is greatly improved. He did state that he was having this pain off and on over the past few weeks and was supposed to have outpatient work-up of his gallbladder. Work-up has been performed by the emergency department and did include a CT of the abdomen and pelvis concerning for inflammation around the duodenum and obstruction of the pancreatic duct resulting in good tenderness. Ultrasound of the abdomen was also performed that showed no evidence of gallstones within the gallbladder, however there was con cern for gallbladder hydrops and a distended gallbladder. Review of Systems All systems: negative Past Medical History Past Medical History: Asthma, COPD, Diabetes Mellitus, Eye Disorder, GERD/Reflux, GI Bleed, Hyperlipidemia, Hypertension, Pneumonia, Prostate Disorder Additional Past Medical History / Comment(s): Past bleeding gastric ulcers/anemia with blood transfusion, lower extremity edema for past 6 months, color blind, NIDDM type II, neuropathy bilateral feet, home oxygen at 2L/[place] prn but last 2 weeks ATC, 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Chronic Anemia History of Any Multi-Drug Resistant Organisms: None Reported Past Surgical History: Hernia Repair, Joint Replacement, Orthopedic Surgery, Tonsillectomy Additional Past Surgical History / Comment(s): EGDs, colonoscopy, umbilical hernia repair, L ankle fracture with plate, R shoulder muscle damage repair with anchors in place, R total hip arthroplasty, sinus surgery x2, bilateral blepharoplasties. Past Anesthesia/Blood Transfusion Reactions: No Reported Reaction Additional Past Anesthesia/Blood Transfusion Reaction / Comm: Pt received blood in 2010 d/t anemia from bleeding antral ulcer without reaction. Past Psychological History: No Psychological Hx Reported Additional Psychological History / Comment(s): Pt resides with his spouse. He uses 2 crutches to ambulate d/t back pain. He has home oxygen, nebulizer and glucometer. He no longer drives, his spouse can drive. Smoking Status: Former smoker Past Alcohol Use History: None Reported Additional Past Alcohol Use History / Comment(s): Pt started smoking in 1965 and quit in 2010. Past Drug Use History: None Reported - Past Family History Father Family Medical History: Cancer Additional Family Medical History / Comment(s): Father had lung cancer in his 70s. He of "old age" at the age of 90yrs. Mother Additional Family Medical History / Comment(s): Mother was a "hypochondriac". Pt states she at the age of 75yrs. Medications and Allergies Home Medications Medication Instructions Recorded Confirmed Type Budesonide [Pulmicort] 0.5 mg INHALATION RT-QID 08/25/19 02/06/21 History Formoterol Fumarate [Perforomist] 20 mcg INHALATION RT-BID 08/25/19 02/06/21 History HYDROcodone/APAP 7.5-325MG [[place] 1 tab PO TID PRN 08/25/19 02/06/21 History 7.5-325] Ipratropium-Albuterol Nebulize 3 ml INHALATION RT-BID 08/25/19 02/06/21 History [Duoneb 0.5 mg-3 mg/3 ml Soln] Multivit-Min/FA/Lycopen/Lutein 1 tab PO PC-SUPPER 08/25/19 02/06/21 History [Centrum Silver Tablet] Tamsulosin [Flomax] 0.8 mg PO PC-SUPPER 08/25/19 02/06/21 History diphenhydrAMINE HCL [Benadryl] 25 mg PO HS PRN 08/25/19 02/06/21 History sitaGLIPtin [Januvia] 100 mg PO PC-SUPPER 02/10/20 02/06/21 History Losartan [Cozaar] 50 mg PO DAILY #30 tab 02/20/20 02/06/21 Rx Aspirin/Sod Bicarb/Citric Acid 1 tab PO BID PRN 02/06/21 02/06/21 History [[place] Original Tab Eff] Betamethasone Valerate 1 applic TOPICAL DAILY 02/06/21 02/06/21 History [Betamethasone Valerate 0.1%] Dicyclomine [Bentyl] 10 mg PO AC-TID 02/06/21 02/06/21 History Ferrous Sulfate [Feosol] 325 mg PO DAILY 02/06/21 02/06/21 History Ketoconazole 2% Shampoo [Nizoral] 1 applic TOPICAL MOWEFR 02/06/21 02/06/21 History Menthol [[place]] 7.5 mg MM TID PRN 02/06/21 02/06/21 History Metoclopramide [Reglan] 5 mg PO DAILY 02/06/21 02/06/21 History Pantoprazole [Protonix] 40 mg PO DAILY 02/06/21 02/06/21 History Super Beta Prostate Advanced 1 tab PO DAILY 02/06/21 02/06/21 History Vitamin Testosterone Cypionate 200 mg IM Q14D 02/06/21 02/06/21 History [Depo-Testosterone] Allergies Allergy/AdvReac Type Severity Reaction Status Date / Time No Known Allergies Allergy Verified 03/10/20 17:11 Surgical - Exam Osteopathic Statement: *. No significant issues noted on an osteopathic structural exam other than those noted in the History and Physical/Consult. Vital Signs Temp Pulse Resp BP Pulse Ox 98.1 F 82 18 201/91 85 L 02/06/21 21:29 02/06/21 21:29 02/06/21 21:29 02/06/21 21:29 02/06/21 21:29 - General well nourished, no distress - ENT no hearing loss - Neck trachea midline - Respiratory normal respiratory effort - Abdomen Soft, nontender, Mildly distended, no rebound or guarding - Psychiatric oriented to time, oriented to person, oriented to place Results - Labs 02/06/21 22:04 02/06/21 22:04 Abnormal Lab Results - Last 24 Hours (Table) 02/06/21 02/06/21 02/07/21 Range/Units 22:04 22:04 01:27 Neutrophils # 8.6 H (1.3-7.7) k/uL Sodium 136 L (137-145) mmol/L Glucose 118 H (74-99) mg/dL POC Glucose (mg/dL) 140 H (75-99) mg/dL Lipase 2324 H (23-300) U/L 02/07/21 Range/Units 06:59 Neutrophils # (1.3-7.7) k/uL Sodium (137-145) mmol/L Glucose (74-99) mg/dL POC Glucose (mg/dL) 168 H (75-99) mg/dL Lipase (23-300) U/L Diabetes panel 02/06/21 Range/Units 22:04 Sodium 136 L (137-145) mmol/L Potassium 4.5 (3.5-5.1) mmol/L Chloride 99 (98-107) mmol/L Carbon Dioxide 27 (22-30) mmol/L BUN 11 (9-20) mg/dL Creatinine 0.93 (0.66-1.25) mg/dL Glucose 118 H (74-99) mg/dL Calcium 9.9 (8.4-10.2) mg/dL AST 51 (17-59) U/L ALT 23 (4-49) U/L Alkaline Phosphatase 90 (38-126) U/L Total Protein 7.3 (6.3-8.2) g/dL Albumin 4.3 (3.5-5.0) g/dL Calcium panel 02/06/21 Range/Units 22:04 Calcium 9.9 (8.4-10.2) mg/dL Albumin 4.3 (3.5-5.0) g/dL Pituitary panel 02/06/21 Range/Units 22:04 Sodium 136 L (137-145) mmol/L Potassium 4.5 (3.5-5.1) mmol/L Chloride 99 (98-107) mmol/L Carbon Dioxide 27 (22-30) mmol/L BUN 11 (9-20) mg/dL Creatinine 0.93 (0.66-1.25) mg/dL Glucose 118 H (74-99) mg/dL Calcium 9.9 (8.4-10.2) mg/dL Adrenal panel 02/06/21 Range/Units 22:04 Sodium 136 L (137-145) mmol/L Potassium 4.5 (3.5-5.1) mmol/L Chloride 99 (98-107) mmol/L Carbon Dioxide 27 (22-30) mmol/L BUN 11 (9-20) mg/dL Creatinine 0.93 (0.66-1.25) mg/dL Glucose 118 H (74-99) mg/dL Calcium 9.9 (8.4-10.2) mg/dL Total Bilirubin 0.8 (0.2-1.3) mg/dL AST 51 (17-59) U/L ALT 23 (4-49) U/L Alkaline Phosphatase 90 (38-126) U/L Total Protein 7.3 (6.3-8.2) g/dL Albumin 4.3 (3.5-5.0) g/dL Assessment and Plan Plan: 75-year-old male with acute pancreatitis. Lipase is noted to be significantly elevated. There are no gallstones found on ultrasound of the abdomen, we will evaluate further with HIDA scan to evaluate for any cystic duct obstruction that may require cholecystectomy. After discussion with the patient, patient states that he would like to be discharged today and would follow-up outpatient if he does require surgery. We will discuss after HIDA scan is performed. Keep the patient n.p.o. for now. Further recommendations after imaging.
[2021-02-07] MEDS: PANTOPRAZOLE 40 MG/10 ML VIAL IV SCH (13:32)
[2021-02-07] MEDS: SODIUM CHLORIDE 0.9% 1,000 ML IV SCH ×4 (13:35→21:08)
--- NOTE | 2021-02-07 14:40 | NM ---
"EXAMINATION TYPE: NM hepatobiliary wo EF DATE OF EXAM: 02/07/2021 COMPARISON: NONE INDICATION: Pain TECHNIQUE: After the intravenous administration of 5.1 mCi Tc 99m Mebrofenin hepatobiliary scintigrap hy is performed. Images were obtained immediately post injection. FINDINGS: There is prompt uptake and excretion of radiotracer by the liver. Extrahepatic ducts are identified at 45 minutes. The gallbladder is visualized within 45 minutes. Small bowel activity is not evident up to 5 hours. IMPRESSION: 1. Clinical consideration for common bile duct obstruction. A [place] level critical message alert has been initiated for Link Pyle MD via the [employer] 36 0 | Critical Results System on 02/07/2021 2:38 PM. This message alert has been sent to Link Pyle MD via the preferences provided by the clinician for the receipt of Radiology Critical Findings. Mess age ID [id number]."
[2021-02-07] MEDS: LOSARTAN 50 MG TAB PO SCH (15:08)
[2021-02-07] MEDS: TAMSULOSIN 0.4 MG CAP.ER.24H PO SCH (18:03)
[2021-02-07] MEDS: BUDESONIDE 0.5 MG/2 ML NEBU INHALATION SCH (19:28)
[2021-02-07] MEDS: IPRATROPIUM-ALBUTEROL 3 ML NEB INHALATION SCH (19:28)
[2021-02-07] MEDS: FORMOTEROL FUMARATE 20 MCG/2 ML NEBU INHALATION SCH (20:00)
--- NOTE | 2021-02-07 20:34 | P.CONS ---
History of Present Illness - Reason for Consult Consult date: 02/07/21 Pancreatitis Requesting physician: Link Pyle - Chief Complaint Abdominal pain - History of Present Illness 75-year-old male with multiple medical comorbidities including COPD, diabetes mellitus, history of peptic ulcer disease, history of pancreatitis, history of alcohol abuse for which she reports 37 years of sobriety, hypertension, dyslipidemia and BPH who presented for evaluation of abdominal pain. Patient reported severe sharp abdominal pain in the lower abdomen radiating to the epigastric region of his abdomen. He reported associated nausea with the pain but no episodes of emesis. Computed tomography scan on presentation was significant for inflammatory changes around the duodenum with a dilated pancreatic duct. Patient found to have elevated lipase at 2324 on presentation with normal liver enzymes with total bilirubin 0.8, alkaline phosphatase 90, AST 51 and ALT 23. Ultrasound of the abdomen was negative for any evidence of gallstones but did show a distended gallbladder. Patient reports previously he has suffered from episodes of pancreatitis in association with his alcoholism but has been sober from drinking for the past 37 years. Previously he was also a smoker. He denies any family history of pancreatitis. Review of Systems REVIEW OF SYSTEMS: CONSTITUTIONAL: Denies any fevers, chills, weight change or fatigue. CARDIOVASCULAR: Denies any chest pain, palpitations high or low blood pressures RESPIRATORY: Denies any shortness of breath, hemoptysis or cough. GENITOURINARY: No dysuria or hematuria. MUSCULOSKELETAL: No weakness reported. SKIN: Denies any new rashes or lesions, jaundice or pallor. PSYCHIATRIC: Denies any depression or anxiety. NEUROLOGY: Denies headache, denies any new focal deficits. EARS/NOSE/THROAT: No recent hearing change, congestion, nasal discharge or sore throat. EYES: No pain in eyes, discharge or change in vision. GASTROINTESTINAL: As per HPI. Past Medical History Past Medical History: Asthma, COPD, Diabetes Mellitus, Eye Disorder, GERD/Reflux, GI Bleed, Hyperlipidemia, Hypertension, Pneumonia, Prostate Disorder Additional Past Medical History / Comment(s): Past bleeding gastric ulcers/anemia with blood transfusion, lower extremity edema for past 6 months, c olor blind, NIDDM type II, neuropathy bilateral feet, home oxygen at 2L/NC prn but last 2 weeks ATC, 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Chronic Anemia History of Any Multi-Drug Resistant Organisms: None Reported Past Surgical History: Hernia Repair, Joint Replacement, Orthopedic Surgery, Tonsillectomy Additional Past Surgical History / Comment(s): EGDs, colonoscopy, umbilical hernia repair, L ankle fracture with plate, R shoulder muscle damage repair with anchors in place, R total hip arthroplasty, sinus surgery x2, bilateral blepharoplasties. Past Anesthesia/Blood Transfusion Reactions: No Reported Reaction Additional Past Anesthesia/Blood Transfusion Reaction / Comm: Pt received blood in 2010 d/t anemia from bleeding antral ulcer without reaction. Past Psychological History: No Psychological Hx Reported Additional Psychological History / Comment(s): Pt resides with his spouse. He uses 2 crutches to ambulate d/t back pain. He has home oxygen, nebulizer and glucometer. He no longer drives, his spouse can drive. Smoking Status: Former smoker Past Alcohol Use History: None Reported Additional Past Alcohol Use History / Comment(s): Pt started smoking in 1965 and quit in 2010. Past Drug Use History: None Reported - Past Family History Father Family Medical History: Cancer Additional Family Medical History / Comment(s): Father had lung cancer in his 70s. He of "old age" at the age of 90yrs. Mother Additional Family Medical History / Comment(s): Mother was a "hypochondriac". Pt states she at the age of 75yrs. Medications and Allergies Home Medications Medication Instructions Recorded Confirmed Type Budesonide [Pulmicort] 0.5 mg INHALATION RT-QID 08/25/19 02/06/21 History Formoterol Fumarate [Perforomist] 20 mcg INHALATION RT-BID 08/25/19 02/06/21 History HYDROcodone/APAP 7.5-325MG [[place] 1 tab PO TID PRN 08/25/19 02/06/21 History 7.5-325] Ipratropium-Albuterol Nebulize 3 ml INHALATION RT-BID 08/25/19 02/06/21 History [Duoneb 0.5 mg-3 mg/3 ml Soln] Multivit-Min/FA/Lycopen/Lutein 1 tab PO PC-SUPPER 08/25/19 02/06/21 History [Centrum Silver Tablet] Tamsulosin [Flomax] 0.8 mg PO PC-SUPPER 08/25/19 02/06/21 History diphenhydrAMINE HCL [Benadryl] 25 mg PO HS PRN 08/25/19 02/06/21 History sitaGLIPtin [Januvia] 100 mg PO PC-SUPPER 02/10/20 02/06/21 History Losartan [Cozaar] 50 mg PO DAILY #30 tab 02/20/20 02/06/21 Rx Aspirin/Sod Bicarb/Citric Acid 1 tab PO BID PRN 02/06/21 02/06/21 History [[place] Original Tab Eff] Betamethasone Valerate 1 applic TOPICAL DAILY 02/06/21 02/06/21 History [Betamethasone Valerate 0.1%] Dicyclomine [Bentyl] 10 mg PO AC-TID 02/06/21 02/06/21 History Ferrous Sulfate [Feosol] 325 mg PO DAILY 02/06/21 02/06/21 History Ketoconazole 2% Shampoo [Nizoral] 1 applic TOPICAL MOWEFR 02/06/21 02/06/21 History Menthol [[place]] 7.5 mg MM TID PRN 02/06/21 02/06/21 History Metoclopramide [Reglan] 5 mg PO DAILY 02/06/21 02/06/21 History Pantoprazole [Protonix] 40 mg PO DAILY 02/06/21 02/06/21 History Super Beta Prostate Advanced 1 tab PO DAILY 02/06/21 02/06/21 History Vitamin Testosterone Cypionate 200 mg IM Q14D 02/06/21 02/06/21 History [Depo-Testosterone] Allergies Allergy/AdvReac Type Severity Reaction Status Date / Time No Known Allergies Allergy Verified 03/10/20 17:11 Physical Exam Vitals: Vital Signs Temp Pulse Pulse Resp BP BP Pulse Ox 02/07/21 07:35 112 H 02/07/21 07:18 112 H 02/07/21 01:17 97.9 F 102 H 18 188/87 92 L 02/07/21 00:27 92 16 182/89 98 02/06/21 23:47 89 02/06/21 23:40 87 02/06/21 21:29 98.1 F 82 18 201/91 85 L Intake and Output 02/06/21 02/07/21 02/07/21 22:59 06:59 14:59 Other: # Voids 3 1 Weight 92.533 kg 92.533 kg On physical examination, patient appears comfortable in no apparent distress. HEAD: Normocephalic, atraumatic. EYES: No scleral icterus. No conjunctival injection. MOUTH: No lesions, tongue midline. NECK: Trachea midline, no gross abnormalities. CHEST: Decreased air entry in all lung jaime. HEART: S1-S2 appreciated. ABDOMEN: Soft, obese, moderately tender to palpation. Bowel sounds are positive. No organomegaly. No guarding or rigidity. EXTREMITIES: No pedal edema. SKIN: No rashes, no jaundice. NEUROLOGIC: Alert and oriented x3. No focal deficits. Results CBC & Chem 7: 02/06/21 22:04 02/06/21 22:04 Labs: Abnormal Lab Results - Last 24 Hours (Table) 02/06/21 02/06/21 02/07/21 Range/Units 22:04 22:04 01:27 Neutrophils # 8.6 H (1.3-7.7) k/uL Sodium 136 L (137-145) mmol/L Glucose 118 H (74-99) mg/dL POC Glucose (mg/dL) 140 H (75-99) mg/dL Lipase 2324 H (23-300) U/L 02/07/21 Range/Units 06:59 Neutrophils # (1.3-7.7) k/uL Sodium (137-145) mmol/L Glucose (74-99) mg/dL POC Glucose (mg/dL) 168 H (75-99) mg/dL Lipase (23-300) U/L CT scan - abdomen: report reviewed (Computed tomography scan on presentation was significant for inflammatory changes around the duodenum with a dilated pancreatic duct.) Assessment and Plan (1) Pancreatitis Narrative/Plan: 75-year-old male with multiple medical comorbidities including a prior history of alcohol abuse with 37 years sobriety, prior episodes of pancreatitis who presented to the hospital with complaints of abdominal pain and was found to have elevation in his lipase at 2324 with normal liver enzymes with total bilirubin 0.8, alkaline phosphatase 90, AST 54 and ALT 23.Computed tomography scan on presentation was significant for inflammatory changes around the duodenum with a dilated pancreatic duct. Ultrasound of the abdomen was negative for any evidence of gallstones or ductal dilation with a dilated hydropic appearing gallbladder. Given patient's history of heavy alcohol abuse in the past and prior episodes of pancreatitis suspicion is for possible chronic pancreatitis given pancreatic ductal dilation, however patient will require further evaluation with either an MRI in 6-8 weeks for outpatient endoscopic ultrasound at a tertiary referral center to rule out other pathology such as malignancy. Current Visit: Yes Status: Acute Code(s): K85.90 - ACUTE PANCREATITIS WITHOUT NECROSIS OR INFECTION, UNSP SNOMED Code(s): 69014728 (2) Dilated pancreatic duct Current Visit: Yes Status: Acute Code(s): K86.89 - OTHER SPECIFIED DISEASES OF PANCREAS SNOMED Code(s): 369867971 (3) Abdominal pain Current Visit: Yes Status: Acute Code(s): R10.9 - UNSPECIFIED ABDOMINAL PAIN SNOMED Code(s): 52647086 Plan: Supportive care Clear liquid diet Continue IV fluid hydration Continue pain control Repeat LFTs in the a.m. Triglyceride levels ordered Imaging reviewed, no evidence from labs to suggest biliary obstruction as stated and HIDA report, patient will need further imaging for further bleeding in 6-8 weeks in the outpatient setting after acute pancreatitis has resolved with either endoscopic ultrasound or MRI/MRCP Thank you for allowing us to participate in care of the patient
[2021-02-07 20:44] VITALS: RESP 16
[2021-02-07 21:18] LABS: Glucose,Whole Blood 162 mg/dL (75-99)
[2021-02-07] MEDS: LORazepam 2 MG/ML INJ IV PRN (23:23)
--- NOTE | 2021-02-07 23:38 | CT ---
EXAMINATION TYPE: CT chest wo con DATE OF EXAM: 02/07/2021 COMPARISON: October 08, 2010 HISTORY: dyspnea CT DLP: 475.10 mGycm Automated exposure control for dose reduction was used. Images obtained from the thoracic inlet to the diaphragm with no contrast. There is some mild atelectasis at the lung bases. Heart size is normal. There is no pericardial effus ion. There is no evidence of a pulmonary mass. There is no mediastinal adenopathy. There are no hilar mass es. Thoracic aorta has normal size. There is no evidence of aneurysm. There is some spurring in the t horacic spine. Sternum is intact. Upper abdominal soft tissues are intact. IMPRESSION: There is some minimal scarring and atelectasis at the lung bases. There is significant improved aerat ion of the lung bases compared to old exam. No suspicious pulmonary mass.
[2021-02-08] MEDS: BUDESONIDE 0.5 MG/2 ML NEBU INHALATION SCH ×4 (02:26→15:46)
[2021-02-08] MEDS: MORPHINE SULFATE 4 MG/ML SYRINGE IVP PRN ×3 (02:47→13:57)
[2021-02-08] MEDS: SODIUM CHLORIDE 0.9% 1,000 ML IV SCH ×2 (02:50→12:10)
[2021-02-08 06:10] LABS: ALT 20 U/L (4-49); African American GFR (CKD) >90 (>60 ml/min/1.73 sqM); Albumin 3.2 g/dL (3.5-5.0); Albumin/Globulin Ratio 1.2; Anion Gap 6 mmol/L; Bilirubin,Unconjugated 0.2 mg/dL (0.0-1.1); Blood Urea Nitrogen 15 mg/dL (9-20); Calcium 7.9 mg/dL (8.4-10.2); Carbon Dioxide 26 mmol/L (22-30); Chloride 105 mmol/L (98-107); Globulin 2.6 g/dL; Glucose 119 mg/dL (74-99); Lipase 1685 U/L (23-300); Non-African American GFR(CKD) 87 (>60 ml/min/1.73 sqM); Sodium 137 mmol/L (137-145); Total Bilirubin 0.4 mg/dL (0.2-1.3); Total Protein 5.8 g/dL (6.3-8.2)
[2021-02-08] MEDS: LORazepam 2 MG/ML INJ IV PRN (06:11)
[2021-02-08 06:13] LABS: Basophils % (A) 0 %; Eosinophils % (A) 0 %; HCT 42.7 % (39.0-53.0); HGB 13.8 gm/dL (13.0-17.5); Hypochromasia Moderate; Lymphocytes # (A) 0.9 k/uL (1.0-4.8); Lymphocytes % (A) 9 %; MCH 31.1 pg (25.0-35.0); MCHC 32.4 g/dL (31.0-37.0); MCV 96.3 fL (80.0-100.0); Monocytes # (A) 0.6 k/uL (0-1.0); Monocytes % (A) 6 %; Neutrophils # (A) 8.4 k/uL (1.3-7.7); Neutrophils % (A) 84 %; Platelet Count 292 k/uL (150-450); RBC 4.43 m/uL (4.30-5.90); RDW 14.7 % (11.5-15.5)
[2021-02-08 06:36] LABS: Magnesium 1.7 mg/dL (1.6-2.3); Phosphorus 2.7 mg/dL (2.5-4.5); Potassium 4.6 mmol/L (3.5-5.1)
[2021-02-08 06:37] LABS: AST 51 U/L (17-59); Alkaline Phosphatase 50 U/L (38-126)
[2021-02-08] MEDS: FORMOTEROL FUMARATE 20 MCG/2 ML NEBU INHALATION SCH (07:05)
[2021-02-08] MEDS: IPRATROPIUM-ALBUTEROL 3 ML NEB INHALATION SCH (07:06)
[2021-02-08 07:09] LABS: Glucose,Whole Blood 111 mg/dL (75-99)
[2021-02-08] MEDS: LOSARTAN 50 MG TAB PO SCH (07:10)
[2021-02-08] MEDS: HYDROcodone/APAP 7.5-325MG 1 EACH TAB PO PRN ×2 (07:10→17:57)
[2021-02-08] MEDS ORDERED: PANTOPRAZOLE 40 MG TABLET PO SCH (07:30)
[2021-02-08] MEDS: PANTOPRAZOLE 40 MG/10 ML VIAL IV SCH (08:44)
[2021-02-08] MEDS ORDERED: METOCLOPRAMIDE 5 MG TAB PO SCH (09:00)
[2021-02-08] MEDS ORDERED: BETAMETHASONE DIPROPIONATE 0.05% OINTMENT 45 GM TUBE TOPICAL SCH (09:00)
[2021-02-08] MEDS ORDERED: FERROUS SULFATE 325 MG TAB PO SCH (09:00)
[2021-02-08] MEDS ORDERED: LOSARTAN 50 MG TAB PO SCH (09:00)
--- NOTE | 2021-02-08 09:23 | HP ---
HISTORY AND PHYSICAL 75-year-old, came to the emergency room complaining of abdominal pain. Pain in his lower abdomen was severe, migrated to upper abdomen. He has a positive HIDA scan. GI doctor thinks he does not have a stone in his bile duct but will need a cholecystectomy. He has elevated lipase of 2000. He is being treated for acute pancreatitis with choledocholithiasis. Ultrasound showed no evidence of gallstones in the gallbladder. ( ) for hydrops gallbladder and distended gallbladder. Positive HIDA scan as mentioned above. 14-point review of system is negative. PAST MEDICAL HISTORY: Asthma, COPD, diabetes mellitus, eye disorder, GERD, GI bleed, dyslipidemia, hypertension, pneumonia, prostate disorder, history of bleeding ulcers in the past, anemia, type 2 diabetes mellitus, neuropathy, home oxygen at 2 L, chronic lower back pain, lumbar disc disease. SURGERIES: Hernia repair, joint replacement orthopedic surgery tonsillectomy, sinus surgery x2, blepharoplasties, right total hip. FAMILY HISTORY: Father with lung cancer. Mother was a hypochondriac. HOME MEDICINES: [place], betamethasone, iron sulfate, Ketoconazole shampoo, Reglan, Protonix, vitamins, testosterone. PHYSICAL EXAMINATION: CARDIOVASCULAR: S1-S2. LUNGS: Clear. She has tenderness to palpation epigastric and right upper quadrant. HEMATOLOGY: Negative Homans. PSYCH: Fair mood and affect. Temp 98.1, pulse 82, respiratory 18, blood pressure is 201/91, O2 is 85-90 on room air. HEENT: Normocephalic, atraumatic. Pupils equal, round, reactive. GI: Soft. LABS: Sodium 136, potassium 4.5, BUN 11, creatinine 0.93, hemoglobin is 16.4, white count 7.6, lipase 2324. ASSESSMENT: Acute pancreatitis, acute cholecystitis. Positive HIDA scan, Will need cholecystectomy versus choledocholithiasis surgery. Prognosis guarded. Follow up in next 24 to 48 hours. MMODL / IJN: [id number] /
[2021-02-08] MEDS: IPRATROPIUM-ALBUTEROL 3 ML NEB INHALATION PRN ×2 (11:32→15:46)
[2021-02-08 11:44] LABS: Glucose,Whole Blood 131 mg/dL (75-99)
[2021-02-08 12:07] VITALS: BP 165/74; TEMP 98.1
--- NOTE | 2021-02-08 13:45 | P.PN ---
Subjective Progress Note Date: 02/08/21 Principal diagnosis: Abdominal pain, pancreatitis, dilated pancreatic duct The patient is seen sitting bedside today. Overall reporting abdominal pain is improved. Tolerating diet. Objective - Vital Signs Vital signs: Vital Signs Temp 98.9 F 02/08/21 05:00 Pulse 76 02/08/21 07:31 Resp 16 02/08/21 05:00 BP 133/56 02/08/21 05:00 Pulse Ox 90 L 02/08/21 05:00 Intake & Output 02/07/21 02/08/21 02/08/21 18:59 06:59 18:59 Intake Total 1560 2040 360 Balance 1560 2040 360 Intake: Intake, IV Titration 1560 1560 Amount Sodium Chloride 0.9% 1, 1560 1560 000 ml @ 130 mls/hr IV . Q7H42M [facility] Rx#:[id number] Oral 480 360 Other: # Voids 3 1 - Exam On physical examination, patient appears comfortable in no apparent distress. HEAD: Normocephalic, atraumatic. EYES: No scleral icterus. No conjunctival injection. MOUTH: No lesions, tongue midline. NECK: Trachea midline, no gross abnormalities. ABDOMEN: Soft, obese, mildly tender to palpation. Bowel sounds are positive. No organomegaly. No guarding or rigidity. EXTREMITIES: No pedal edema. SKIN: No rashes, no jaundice. NEUROLOGIC: Alert and oriented x3. No focal deficits. - Labs CBC & Chem 7: 02/08/21 05:18 02/08/21 05:18 Labs: Abnormal Lab Results - Last 24 Hours (Table) 02/07/21 02/08/21 02/08/21 Range/Units 21:16 05:18 05:18 Neutrophils # 8.4 H (1.3-7.7) k/uL Lymphocytes # 0.9 L (1.0-4.8) k/uL Glucose 119 H (74-99) mg/dL POC Glucose (mg/dL) 162 H (75-99) mg/dL Calcium 7.9 L (8.4-10.2) mg/dL Total Protein 5.8 L (6.3-8.2) g/dL Albumin 3.2 L (3.5-5.0) g/dL Triglycerides 190.0 H (0.0-149.0) mg/dL Lipase 1685 H (23-300) U/L 02/08/21 Range/Units 07:08 Neutrophils # (1.3-7.7) k/uL Lymphocytes # (1.0-4.8) k/uL Glucose (74-99) mg/dL POC Glucose (mg/dL) 111 H (75-99) mg/dL Calcium (8.4-10.2) mg/dL Total Protein (6.3-8.2) g/dL Albumin (3.5-5.0) g/dL Triglycerides (0.0-149.0) mg/dL Lipase (23-300) U/L Assessment and Plan (1) Pancreatitis Narrative/Plan: 75-year-old male with multiple medical comorbidities including a prior history of alcohol abuse with 37 years sobriety, prior episodes of pancreatitis who presented to the hospital with complaints of abdominal pain and was found to have elevation in his lipase at 2324 with normal liver enzymes with total bilirubin 0.8, alkaline phosphatase 90, AST 54 and ALT 23.Computed tomography scan on presentation was significant for inflammatory changes around the duodenum with a dilated pancreatic duct. Ultrasound of the abdomen was negative for any evidence of gallstones or ductal dilation with a dilated hydropic appearing gallbladder. Given patient's history of heavy alcohol abuse in the past and prior episodes of pancreatitis suspicion is for possible chronic pancreatitis given pancreatic ductal dilation, however patient will require further evaluation with either an MRI in 6-8 weeks for outpatient endoscopic ul trasound at a tertiary referral center to rule out other pathology such as malignancy. Current Visit: Yes Status: Acute Code(s): K85.90 - ACUTE PANCREATITIS WITHOUT NECROSIS OR INFECTION, UNSP SNOMED Code(s): 90683125 (2) Dilated pancreatic duct Current Visit: Yes Status: Acute Code(s): K86.89 - OTHER SPECIFIED DISEASES OF PANCREAS SNOMED Code(s): 805399942 (3) Abdominal pain Current Visit: Yes Status: Acute Code(s): R10.9 - UNSPECIFIED ABDOMINAL PAIN SNOMED Code(s): 57310896 Plan: Supportive care Clear liquid diet advance to low-fat diet as tolerated Continue IV fluid hydration Continue pain control Repeat LFTs in the a.m. remain normal with no evidence of obstruction Triglyceride levels ordered Imaging reviewed, no evidence from labs to suggest biliary obstruction as stated and HIDA report, patient will need further imaging for further bleeding in 6-8 weeks in the outpatient setting after acute pancreatitis has resolved with either endoscopic ultrasound at tertiary referral center or MRI/MRCP if possible given patient's history of metal in his body from prior procedures, this is been discussed with the patient laying patient follow-up in the GI clinic in 4 weeks for referral at that time Thank you for allowing us to participate in care of the patient
--- NOTE | 2021-02-08 14:26 | P.PN ---
Subjective Progress Note Date: 02/08/21 Patient seen and examined at bedside. Currently, he states his abdominal pain is improved, however he did have an episode of abdominal pain a few hours prior to my exam. Tolerating clear liquid diet. Denies any nausea or vomiting. He is requesting discharge as he is uncomfortable in the hospital and is not getting enough sleep and states that there isn't any good air conditioning. Objective - Vital Signs Vital signs: Vital Signs Temp 98.1 F 02/08/21 12:06 Pulse 83 02/08/21 12:06 Resp 16 02/08/21 12:06 BP 165/74 02/08/21 12:06 Pulse Ox 95 02/08/21 12:06 Intake & Output 02/07/21 02/08/21 02/08/21 18:59 06:59 18:59 Intake Total 1560 2040 360 Balance 1560 2040 360 Intake: Intake, IV Titration 1560 1560 Amount Sodium Chloride 0.9% 1, 1560 1560 000 ml @ 130 mls/hr IV . Q7H42M [facility] Rx#:[id number] Oral 480 360 Other: # Voids 3 1 - Constitutional General appearance: Present: cooperative, no acute distress - Gastrointestinal General gastrointestinal: Present: soft. Absent: distended, tenderness - Psychiatric Psychiatric: Present: A&O x's 3 - Labs CBC & Chem 7: 02/08/21 05:18 02/08/21 05:18 Labs: Abnormal Lab Results - Last 24 Hours (Table) 02/07/21 02/08/21 02/08/21 Range/Units 21:16 05:18 05:18 Neutrophils # 8.4 H (1.3-7.7) k/uL Lymphocytes # 0.9 L (1.0-4.8) k/uL Glucose 119 H (74-99) mg/dL POC Glucose (mg/dL) 162 H (75-99) mg/dL Calcium 7.9 L (8.4-10.2) mg/dL Total Protein 5.8 L (6.3-8.2) g/dL Albumin 3.2 L (3.5-5.0) g/dL Triglycerides 190.0 H (0.0-149.0) mg/dL Lipase 1685 H (23-300) U/L 02/08/21 02/08/21 Range/Units 07:08 11:43 Neutrophils # (1.3-7.7) k/uL Lymphocytes # (1.0-4.8) k/uL Glucose (74-99) mg/dL POC Glucose (mg/dL) 111 H 131 H (75-99) mg/dL Calcium (8.4-10.2) mg/dL Total Protein (6.3-8.2) g/dL Albumin (3.5-5.0) g/dL Triglycerides (0.0-149.0) mg/dL Lipase (23-300) U/L Assessment and Plan Plan: 75-year-old male with acute abdominal pain. Work-up was performed for biliary etiology with HIDA scan. HIDA scan revealed concern for a common bile duct obstruction. Gastroenterology evaluation was made. Patient is not having any elevation in LFTs or bilirubin to indicate a true bile duct obstruction. Sec ondary to this, recommendation has been made for MRCP versus EUS as an outpatient in 4 to 6 weeks after pancreatitis inflammation has resolved. Patient will need to be evaluated for candidacy for MRCP due to previous metallic replacement of ankle and hip and shoulder. At this point, there is no plan for surgical intervention until etiology of common bile duct obstruction is known. Patient is requesting urgent discharge as he is very uncomfortable in the hospital. He can be discharged and follow-up with gastroenterology for further evaluation of this common bile duct issue.The patient is aware that he may continue to have acute abdominal pain episodes and this may require admission with full work-up.
[2021-02-08 15:49] VITALS: PULSE 88
[2021-02-08] MEDS ORDERED: PIOGLITAZONE 30 MG TAB PO STA (17:32)
[2021-02-08] MEDS: TAMSULOSIN 0.4 MG CAP.ER.24H PO SCH (17:55)
[2021-02-09] MEDS ORDERED: PANTOPRAZOLE 40 MG/10 ML VIAL IV SCH (09:00)
== END 2021-02-08 18:19 | disposition home or self-care (01) | DRG 438 ==
LOC: EC 21:21 → 5NMEDONC 02-07 00:05
PROVIDERS: ADMIT Family Medicine; ATTEND Family Medicine
DX: K85.90 Acute pancreatitis without necrosis or infection, unspecified (principal); K25.4 Chronic or unspecified gastric ulcer with hemorrhage; J18.9 Pneumonia, unspecified organism; J44.1 Chronic obstructive pulmonary disease with (acute) exacerbation; K82.1 Hydrops of gallbladder; K80.42 Calculus of bile duct with acute cholecystitis without obstruction; I10 Essential (primary) hypertension; H53.50 Unspecified color vision deficiencies; K21.9 Gastro-esophageal reflux disease without esophagitis; D50.0 Iron deficiency anemia secondary to blood loss (chronic); E11.9 Type 2 diabetes mellitus without complications; G89.29 Other chronic pain; M51.36 Other intervertebral disc degeneration, lumbar region; E78.5 Hyperlipidemia, unspecified; K86.89 Other specified diseases of pancreas; N40.0 Benign prostatic hyperplasia without lower urinary tract symptoms; Z20.822 Contact with and (suspected) exposure to COVID-19; Z79.84 Long term (current) use of oral hypoglycemic drugs; Z79.899 Other long term (current) drug therapy; Z87.11 Personal history of peptic ulcer disease; Z87.891 Personal history of nicotine dependence; Z96.641 Presence of right artificial hip joint; Z80.1 Family history of malignant neoplasm of trachea, bronchus and lung; Z87.19 Personal history of other diseases of the digestive system; Z87.01 Personal history of pneumonia (recurrent); Z87.440 Personal history of urinary (tract) infections
CPT/HCPCS: 36415; 71250; 74177; 76705; 78226; 80053; 82150; 82248; 83605; 83690; 83735; 84100; 84478; 84484; 85025; 85610; 85730; 94640; 96374; 96375; 96376; 99285

== ENCOUNTER 2021-03-02 06:27 | Day surgery (SDC) | payer MEDICARE ==
[2021-02-25 16:07] VITALS: BMI 29.8
[~2021-03-02 06:27] MED LIST: ACETAMINOPHEN TAB 500 MG TAB PO PRN; DEXAMETHASONE SOD PHOSPHATE 4 MG/ML 1 ML VIAL IV ONE; HEPARIN SODIUM,PORCINE/PF 5,000 UNIT/0.5 ML SYRINGE SQ PRN; LACTATED RINGERS 1,000 ML IV SCH; ONDANSETRON 4 MG/2 ML VIAL IVP ONE
[2021-03-02] MEDS ORDERED: IPRATROPIUM-ALBUTEROL 3 ML NEB INHALATION STA (07:09)
[2021-03-02 07:21] LABS: Glucose,Whole Blood 115 mg/dL (75-99)
[2021-03-02] MEDS ORDERED: LIDOCAINE 1% INJ 10MG/ML (20 ML MDV) ONE (07:58)
[2021-03-02] MEDS ORDERED: MIDAZOLAM 2 MG/2 ML VIAL ONE (07:58)
[2021-03-02] MEDS ORDERED: SUCCINYLCHOLINE CHLORIDE 100 MG/5 ML SYR IV ONE (07:58)
[2021-03-02] MEDS ORDERED: ROCURONIUM 10 MG/ML (5 ML VIAL) IV ONE (07:58)
[2021-03-02] MEDS ORDERED: PHENYLEPHRINE-0.9% NACL SYG 1,000 MCG/10 ML SYRINGE ONE (07:58)
[2021-03-02] MEDS ORDERED: NEOSTIGMINE 1 MG/ML 10 ML VIAL ONE (07:58)
[2021-03-02] MEDS ORDERED: PROPOFOL 10 MG/ML 20 ML VIAL IV ONE (07:58)
[2021-03-02] MEDS ORDERED: fentaNYL (PF) 50 MCG/ML 2 ML AMP ONE (07:58)
[2021-03-02] MEDS ORDERED: GLYCOPYRROLATE 0.2 MG/ML 2 ML VIAL ONE (07:58)
[2021-03-02] MEDS ORDERED: KETAMINE 10 MG/ML 20 ML VIAL ONE (07:58)
[2021-03-02] MEDS ORDERED: BUPIVACAINE (PF) 0.5% 30 ML VIAL SQ ONE ×2 (08:23→08:25)
[2021-03-02] MEDS ORDERED: ALBUTEROL NEBULIZED 2.5 MG/3 ML INHALATION ONE ×2 (09:01→09:03)
--- NOTE | 2021-03-02 09:02 | P.GSHP ---
History of Present Illness H&P Date: 03/02/21 Chief Complaint: Cholelithiasis Is a [age] male with a history of cholelithiasis. Patient presents today for laparoscopic cholecystectomy Past Medical History Past Medical History: Asthma, COPD, Diabetes Mellitus, Eye Disorder, GERD/R eflux, GI Bleed, Hyperlipidemia, Hypertension, Pneumonia, Prostate Disorder Additional Past Medical History / Comment(s): Past bleeding gastric ulcers/anemia with blood transfusion, lower extremity edema for past 6 months, color blind, NIDDM type II, neuropathy bilateral feet, home oxygen at 2L/NC prn but last 2 weeks ATC, 2010 small blood clot in pulmonary vein, bronchitis, chronic low back pain/disc problem, BPH, past kidney infection/UTI, sinus problems.Chronic Anemia , RECENT ADMISSION FOR PANCREATITIS History of Any Multi-Drug Resistant Organisms: None Reported Past Surgical History: Hernia Repair, Joint Replacement, Orthopedic Surgery, Tonsillectomy Additional Past Surgical History / Comment(s): EGDs, colonoscopy, umbilical hernia repair, L ankle fracture with plate, R shoulder muscle damage repair with anchors in place, R total hip arthroplasty, sinus surgery x2, bilateral blephar oplasties. Past Anesthesia/Blood Transfusion Reactions: No Reported Reaction Additional Past Anesthesia/Blood Transfusion Reaction / Comment(s): Pt received blood in 2010 d/t anemia from bleeding antral ulcer without reaction. Smoking Status: Former smoker - Past Family History Father Family Medical History: Cancer Additional Family Medical History / Comment(s): Father had lung cancer in his 70s. He of "old age" at the age of 90yrs. Mother Additional Family Medical History / Comment(s): Mother was a "hypochondriac". Pt states she at the age of 75yrs. Medications and Allergies Home Medications Medication Instructions Recorded Confirmed Type Budesonide [Pulmicort] 0.5 mg INHALATION RT-QID 08/25/19 02/25/21 History Formoterol Fumarate [Perforomist] 20 mcg INHALATION RT-BID 08/25/19 02/25/21 History HYDROcodone/APAP 7.5-325MG [[place] 1 tab PO TID PRN 08/25/19 02/25/21 History 7.5-325] Ipratropium-Albuterol Nebulize 3 ml INHALATION RT-BID 08/25/19 02/25/21 History [Duoneb 0.5 mg-3 mg/3 ml Soln] Multivit-Min/FA/Lycopen/Lutein 1 tab PO PC-SUPPER 08/25/19 02/25/21 History [Centrum Silver Tablet] Tamsulosin [Flomax] 0.8 mg PO PC-SUPPER 08/25/19 02/25/21 History Losartan [Cozaar] 50 mg PO DAILY #30 tab 02/20/20 02/25/21 Rx Aspirin/Sod Bicarb/Citric Acid 1 tab PO BID PRN 02/06/21 02/25/21 History [[place] Original Tab Eff] Betamethasone Valerate 1 applic TOPICAL DAILY 02/06/21 02/25/21 History [Betamethasone Valerate 0.1%] Ketoconazole 2% Shampoo [Nizoral] 1 applic TOPICAL MOWEFR 02/06/21 02/25/21 History Pantoprazole [Protonix] 40 mg PO DAILY 02/06/21 02/25/21 History Testosterone Cypionate 200 mg IM Q14D 02/06/21 02/25/21 History [Depo-Testosterone] Morphine Sulfate ER [Ms Contin] 15 mg PO Q12HR #14 tab 02/08/21 02/25/21 Rx sitaGLIPtin [Januvia] 100 mg PO DAILY 02/25/21 02/25/21 History Allergies Allergy/AdvReac Type Severity Reaction Status Date / Time No Known Allergies Allergy Verified 03/02/21 06:49 Surgical - Exam Vital Signs Temp Pulse Resp BP Pulse Ox 97.5 F L 87 16 190/84 93 L 03/02/21 07:22 03/02/21 07:22 03/02/21 07:22 03/02/21 07:22 03/02/21 07:22 - General well developed, well nourished, no distress - Eyes PERRL - ENT normal pinna - Neck no masses - Respiratory normal expansion - Cardiovascular Rhythm: regular - Abdomen Abdomen: soft, non tender Results - Labs Abnormal Lab Results - Last 24 Hours (Table) 03/02/21 Range/Units 07:19 POC Glucose (mg/dL) 115 H (75-99) mg/dL Assessment and Plan Plan: Cholelithiasis. We'll perform laparoscopic cholecystectomy
[2021-03-02] MEDS ORDERED: hydrALAZINE HCL 20 MG/ML 1 ML VIAL IVP ONE (09:03)
[2021-03-02] MEDS ORDERED: hydrALAZINE HCL 20 MG/ML 1 ML VIAL ONE (09:05)
--- NOTE | 2021-03-02 09:09 | P.OP ---
Date of Procedure: 03/02/21 Preoperative Diagnosis: Cholelithiasis Postoperative Diagnosis: Cholelithiasis Procedure(s) Performed: Laparoscopic cholecystectomy Anesthesia: MARTIN Surgeon: Jorge Luis Mendoza Estimated Blood Loss (ml): 5 Pathology: other (Gallbladder) Condition: stable Disposition: PACU Description of Procedure: The patient was placed on the operating table. The patient received a general endotracheal tube anesthesia. The patients abdomen was prepped and draped in the usual sterile fashion. Through an infraumbilical stab incision, the fascia of the anterior abdominal wall was grasped with a pair of Kochers and then the Veress needle was placed in the peritoneal cavity. Position of the Veress needle was confirmed with positive drop test. The abdomen was then insufflated. After adequate insufflation, the 10 mm trocar was placed in the peritoneal cavity. Following this the laparoscope was placed in the peritoneal cavity. The patient was placed in the head-up, right side up position and then a 5 mm trocar was placed in the right lateral and right subcostal position under direct visualization. A 8 mm trocar was placed in the epigastric position. The gallbladder was grasped in the fundus and infundibulum. Traction on the gallbladder was placed in the lateral and the cephalad positions. The triangle of Calot was visualized.. The cystic duct was bluntly dissected until the union of the cystic duct and common bile duct was seen. A critical view of safety was achieved. The cystic duct was then divided and sealed with the Harmonic scissors. A PDS Endoloop was then placed throughout the cystic duct stump. The cystic artery divided and sealed with the Harmonic scissors. The gallbladder was then removed from the liver bed using Harmonic scissors. The gallbladder was then extracted through the epigastric port site. Operative field was checked for any bleeding spots and Harmonic scissors was used to coagulate the liver bed. The abdomen was irrigated. The trocars were removed. The skin was closed using interrupted 3-0 Vicryl suture. Dermabond dressing were applied. The patient tolerated the procedure well.
[2021-03-02 09:17] VITALS: TEMP 97.1
[2021-03-02] MEDS: HYDROmorphone 0.5 MG/0.5 ML SYRINGE IVP PRN ×5 (09:44→10:12)
[2021-03-02] MEDS ORDERED: LACTATED RINGERS 1,000 ML IV ONE (09:55)
--- NOTE | 2021-03-02 10:17 | P.OP ---
Date of Procedure: 03/02/21 Preoperative Diagnosis: Prolapse of colostomy Postoperative Diagnosis: Prolapse of colostomy Procedure(s) Performed: Partial omentectomy Partial colectomy Original colostomy Anesthesia: JOSE ALFREDO SALAZAR Surgeon: Jorge Luis Mendoza Estimated Blood Loss (ml): 5 Pathology: other (Omentum, colon) Condition: stable Disposition: PACU Description of Procedure: The patient's placed on the operating table in the supine position. He received general anesthesia. His abdomen was prepped and draped usual sterile fashion. The skin at the colostomy site was incised of any cutaneous junction. The colostomy was prolapsed prostate 4 inches. This point using electrocautery and the Enseal device the redundant colon was dissected free. The omentum was transected and sent to pathology. The redundant colon was then cut with electrocautery. And then the colostomy was matured using 3-0 Vicryl suture. Patient top she will was sent to recovery room in stable condition.
[2021-03-02 10:31] VITALS: RESP 18
[2021-03-02 11:02] VITALS: BP 156/63; PULSE 89
== END 2021-03-02 11:41 | disposition home or self-care (01) ==
LOC: OR 06:27
PROVIDERS: ATTEND Surgery
DX: K80.10 Calculus of gallbladder with chronic cholecystitis without obstruction (principal); E11.9 Type 2 diabetes mellitus without complications; E78.5 Hyperlipidemia, unspecified; I10 Essential (primary) hypertension; J44.9 Chronic obstructive pulmonary disease, unspecified; K21.9 Gastro-esophageal reflux disease without esophagitis; K94.09 Other complications of colostomy; N40.0 Benign prostatic hyperplasia without lower urinary tract symptoms; Z79.51 Long term (current) use of inhaled steroids; Z79.84 Long term (current) use of oral hypoglycemic drugs; Z80.1 Family history of malignant neoplasm of trachea, bronchus and lung; Z87.440 Personal history of urinary (tract) infections; Z87.891 Personal history of nicotine dependence; Z96.641 Presence of right artificial hip joint
CPT/HCPCS: 47562; 94640; 88304; J2250; J0360; J1100; J2710; J0690; J2405; J2001; J3010; J2370; J0330; J2704; J1170; J1644

== ENCOUNTER 2021-03-13 13:53 | Inpatient (IN) | payer MEDICARE ==
[2021-03-13] MEDS ORDERED: ONDANSETRON 4 MG/2 ML VIAL IVP STA (14:17)
[2021-03-13] MEDS ORDERED: SODIUM CHLORIDE 0.9% 1,000 ML IV STA (14:17)
[2021-03-13 14:40] LABS: Basophils % (A) 0 %; Eosinophils # (A) 0.2 k/uL (0-0.7); Eosinophils % (A) 1 %; HCT 48.1 % (39.0-53.0); HGB 15.7 gm/dL (13.0-17.5); Lymphocytes % (A) 9 %; MCH 29.3 pg (25.0-35.0); MCHC 32.6 g/dL (31.0-37.0); Mean Platelet Volume 7.8; Monocytes # (A) 0.3 k/uL (0-1.0); Monocytes % (A) 3 %; Neutrophils % (A) 86 %; Platelet Count 280 k/uL (150-450); RBC 5.35 m/uL (4.30-5.90); RDW 14.3 % (11.5-15.5); WBC 10.6 k/uL (3.8-10.6)
[2021-03-13 14:42] LABS: Amorphous Sediment,Urine Occasional /hpf; Appearance,Urine Cloudy (Clear); Bilirubin,Urine Negative (Negative); Blood,Urine Negative (Negative); Color,Urine Yellow; Glucose,Urine (UA) Negative (Negative); Ketones,Urine 1+ (Negative); Leukocyte Esterase,Urine Negative (Negative); Mucus,Urine Rare /hpf; Nitrite,Urine Negative (Negative); PH, Urine 8.5 (5.0-8.0); Protein,Urine 1+ (Negative); RBC,Urine <1 /hpf (0-5); Specific Gravity,Urine 1.023 (1.001-1.035); WBC,Urine 1 /hpf (0-5)
[2021-03-13 14:49] LABS: ALT 75 U/L (4-49); AST 208 U/L (17-59); African American GFR (CKD) >90 (>60 ml/min/1.73 sqM); Albumin 3.6 g/dL (3.5-5.0); Alkaline Phosphatase 121 U/L (38-126); Anion Gap 8 mmol/L; Blood Urea Nitrogen 10 mg/dL (9-20); Calcium 9.7 mg/dL (8.4-10.2); Carbon Dioxide 29 mmol/L (22-30); Chloride 99 mmol/L (98-107); Glucose 186 mg/dL (74-99); Non-African American GFR(CKD) 86 (>60 ml/min/1.73 sqM); Potassium 4.2 mmol/L (3.5-5.1); Sodium 136 mmol/L (137-145); Total Bilirubin 1.6 mg/dL (0.2-1.3); Total Protein 6.3 g/dL (6.3-8.2)
[2021-03-13] MEDS ORDERED: MORPHINE SULFATE 4 MG/ML SYRINGE IVP STA (14:50)
[2021-03-13 14:51] LABS: MCV 89.8 fL (80.0-100.0)
[2021-03-13 14:57] LABS: Lipase 3830 U/L (23-300)
--- NOTE | 2021-03-13 15:44 | ED ---
Abdominal Pain HPI - General Chief Complaint: Abdominal Pain Stated Complaint: Abd Pain Time Seen by Provider: 03/13/21 14:01 Source: patient Mode of arrival: wheelchair Limitations: no limitations - History of Present Illness Initial Comments: 75-year-old male presenting to emergency Department with a chief complaint of abdominal pain. Patient reports about 2 weeks ago he had cholecystectomy performed by and felt well afterwards. However, over the last few days he felt intermittent periumbilical pain near the left upper scopic incision site. States he took Ruthie[place] which improved his symptoms but now has returned. Patient states now he has continuous pain in the region. He denies any discharge from the incision site but did report mild erythema. He denies any hematuria, hematochezia or melena. Denies any diarrhea or constipation. - Related Data Home Medications Medication Instructions Recorded Confirmed Budesonide [Pulmicort] 0.5 mg INHALATION RT-QID 08/25/19 03/13/21 Formoterol Fumarate [Perforomist] 20 mcg INHALATION RT-BID 08/25/19 03/13/21 HYDROcodone/APAP 7.5-325MG [Flint 1 tab PO TID PRN 08/25/19 03/13/21 7.5-325] Ipratropium-Albuterol Nebulize 3 ml INHALATION RT-BID 08/25/19 03/13/21 [Duoneb 0.5 mg-3 mg/3 ml Soln] Multivit-Min/FA/Lycopen/Lutein 1 tab PO PC-SUPPER 08/25/19 03/13/21 [Centrum Silver Tablet] Tamsulosin [Flomax] 0.8 mg PO PC-SUPPER 08/25/19 03/13/21 Aspirin/Sod Bicarb/Citric Acid 1 tab PO BID PRN 02/06/21 03/13/21 [[place] Original Tab Eff] Betamethasone Valerate 1 applic TOPICAL DAILY 02/06/21 03/13/21 [Betamethasone Valerate 0.1%] Ketoconazole 2% Shampoo [Nizoral] 1 applic TOPICAL MOWEFR 02/06/21 03/13/21 Pantoprazole [Protonix] 40 mg PO DAILY 02/06/21 03/13/21 Testosterone Cypionate 200 mg IM Q14D 02/06/21 03/13/21 [Depo-Testosterone] sitaGLIPtin [Januvia] 100 mg PO DAILY 02/25/21 03/13/21 Acetaminophen Tab [Tylenol] 650 mg PO Q6H PRN 03/13/21 03/13/21 Gabapentin [Neurontin] 300 mg PO TID PRN 03/13/21 03/13/21 Morphine Sulfate ER [Ms Contin] 15 mg PO Q12HR PRN 03/13/21 03/13/21 Nystatin 100,000 Unit/gm Powd 1 applic TOPICAL BID 03/13/21 03/13/21 [Mycostatin Powder] Ofloxacin 0.3% Ophth Soln [Ocuflox 1 drops BOTH EYES DIRECTED 03/13/21 03/13/21 Ophth Soln] prednisoLONE ACETATE 1% OPHTH 1 drops BOTH EYES DIRECTED 03/13/21 03/13/21 [Pred Forte 1%] Previous Rx's Medication Instructions Recorded Losartan [Cozaar] 50 mg PO DAILY #30 tab 02/20/20 Docusate [Colace] 100 mg PO BID #20 capsule 03/02/21 Ibuprofen [Motrin] 600 mg PO Q6HR PRN #40 tab 03/02/21 Allergies Allergy/AdvReac Type Severity Reaction Status Date / Time No Known Allergies Allergy Verified 03/13/21 13:54 Review of Systems ROS Statement: Those systems with pertinent positive or pertinent negative responses have been documented in the HPI. ROS Other: All systems not noted in ROS Statement are negative. Past Medical History Past Medical History: Asthma, COPD, Diabetes Mellitus, Eye Disorder, GERD/Re flux, GI Bleed, Hyperlipidemia, Hypertension, Pneumonia, Prostate Disorder Additional Past Medical History / Comment(s): Past bleeding gastric ulcers/anemia with blood transfusion, lower extremity edema for past 6 months, color blind, NIDDM type II, neuropathy bilateral feet, home oxygen at 2L/NC prn but last 2 weeks ATC, 2010 small blood clot in pulmonary vein, bronchitis, chronic low back pain/disc problem, BPH, past kidney infection/UTI, sinus problems.Chronic Anemia , RECENT ADMISSION FOR PANCREATITIS History of Any Multi-Drug Resistant Organisms: None Reported Past Surgical History: Cholecystectomy, Hernia Repair, Joint Replacement, Orthopedic Surgery, Tonsillectomy Additional Past Surgical History / Comment(s): EGDs, colonoscopy, umbilical hernia repair, L ankle fracture with plate, R shoulder muscle damage repair with anchors in place, R total hip arthroplasty, sinus surgery x2, bilateral blepharoplasties. Past Anesthesia/Blood Transfusion Reactions: No Reported Reaction Additional Past Anesthesia/Blood Transfusion Reaction / Comment(s): Pt received blood in 2010 d/t anemia from bleeding antral ulcer without reaction. Past Psychological History: No Psychological Hx Reported Smoking Status: Former smoker Past Alcohol Use History: None Reported Past Drug Use History: None Reported - Past Family History Father Family Medical History: Cancer Additional Family Medical History / Comment(s): Father had lung cancer in his 70s. He of "old age" at the age of 90yrs. Mother Additional Family Medical History / Comment(s): Mother was a "hypochondriac". Pt states she at the age of 75yrs. General Exam Limitations: no limitations General appearance: alert, in no apparent distress, obese Head exam: Present: atraumatic, normocephalic, normal inspection Eye exam: Present: normal appearance, PERRL, EOMI Pupils: Present: normal accommodation ENT exam: Present: normal exam, normal oropharynx, mucous membranes moist Neck exam: Present: normal inspection, full ROM. Absent: tenderness, lymphadenopathy Respiratory exam: Present: normal lung sounds bilaterally. Absent: respiratory distress, rhonchi, stridor Cardiovascular Exam: Present: regular rate, normal rhythm, normal heart sounds. Absent: systolic murmur GI/Abdominal exam: Present: soft, distended, tenderness (Periumbilical tenderness near the laparoscopic incision site. No signs of infection). Absent: guarding, rebound Extremities exam: Present: normal inspection, full ROM, normal capillary refill. Absent: tenderness, pedal edema, joint swelling Back exam: Present: normal inspection, full ROM. Absent: tenderness Neurological exam: Present: alert, oriented X3 Psychiatric exam: Present: normal affect, normal mood Skin exam: Present: warm, dry, intact, normal color Course Vital Signs 03/13/21 03/13/21 13:54 16:46 Temperature 98 F 98.3 F Pulse Rate 95 87 Respiratory 18 18 Rate Blood Pressure 135/81 O2 Sat by Pulse 93 L Oximetry Medical Decision Making - Medical Decision Making 75-year-old male presenting to emergency Department with a chief complaint of abdominal pain. On physical examination, some diffuse lower abdominal tenderness. There is epigastric tenderness as well. Laboratory work reveals pancreatitis with an elevated lipase of 3800. Patient will not be nothing by mouth. IV fluids and antiemetics and analgesia. Patient was also given Ativan for anxiety per request. CT imaging of the abdomen reveals no dilation of the common bile that but there is dilation of the pancreatic duct up to 9 mm. Steinberg saminitis noted but alk phosphatase is within normal limits. Mild elevation of bilirubin 1.6. I spoke to who recommended inpatient admission and consult to GI. He will also would like to be on consult and the patient can be admitted to whom i spoke with and he will accept admission. Case discussed with Dr. Abraham. - Lab Data Result diagrams: 03/13/21 14:23 03/13/21 14:23 Lab Results 03/13/21 03/13/21 03/13/21 Range/Units 14:23 14:23 14:23 WBC 10.6 (3.8-10.6) k/uL RBC 5.35 (4.30-5.90) m/uL Hgb 15.7 (13.0-17.5) gm/dL Hct 48.1 (39.0-53.0) % MCV 89.8 D (80.0-100.0) fL MCH 29.3 (25.0-35.0) pg MCHC 32.6 (31.0-37.0) g/dL RDW 14.3 (11.5-15.5) % Plt Count 280 (150-450) k/uL MPV 7.8 Neutrophils % 86 % Lymphocytes % 9 % Monocytes % 3 % Eosinophils % 1 % Basophils % 0 % Neutrophils # 9.0 H (1.3-7.7) k/uL Lymphocytes # 1.0 (1.0-4.8) k/uL Monocytes # 0.3 (0-1.0) k/uL Eosinophils # 0.2 (0-0.7) k/uL Basophils # 0.0 (0-0.2) k/uL Sodium 136 L (137-145) mmol/L Potassium 4.2 (3.5-5.1) mmol/L Chloride 99 (98-107) mmol/L Carbon Dioxide 29 (22-30) mmol/L Anion Gap 8 mmol/L BUN 10 (9-20) mg/dL Creatinine 0.86 (0.66-1.25) mg/dL Est GFR (CKD-EPI)AfAm >90 (>60 ml/min/1.73 sqM) Est GFR (CKD-EPI)NonAf 86 (>60 ml/min/1.73 sqM) Glucose 186 H (74-99) mg/dL Calcium 9.7 (8.4-10.2) mg/dL Total Bilirubin 1.6 H (0.2-1.3) mg/dL AST 208 H (17-59) U/L ALT 75 H (4-49) U/L Alkaline Phosphatase 121 (38-126) U/L Total Protein 6.3 (6.3-8.2) g/dL Albumin 3.6 (3.5-5.0) g/dL Lipase 3830 H (23-300) U/L Urine Color Yellow Urine Appearance Cloudy (Clear) Urine pH 8.5 H (5.0-8.0) Ur Specific [place] 1.023 (1.001-1.035) Urine Protein 1+ H (Negative) Urine Glucose (UA) Negative (Negative) Urine Ketones 1+ H (Negative) Urine Blood Negative (Negative) Urine Nitrite Negative (Negative) Urine Bilirubin Negative (Negative) Urine Urobilinogen 3.0 (<2.0) mg/dL Ur Leukocyte Esterase Negative (Negative) Urine RBC <1 (0-5) /hpf Urine WBC 1 (0-5) /hpf Amorphous Sediment Occasional H (None) /hpf Urine Mucus Rare H (None) /hpf Disposition Clinical Impression: Pancreatitis Disposition: ADMITTED IP TO THIS HOSP Condition: Fair Is patient prescribed a controlled substance at d/c from ED?: No Time of Disposition: 17:00
--- NOTE | 2021-03-13 15:48 | CT ---
EXAMINATION TYPE: CT abdomen pelvis w con DATE OF EXAM: 03/13/2021 COMPARISON: 02/06/2021 HISTORY: Periumbilical pain, post sx pain. Maria. CT DLP: 1471.8 mGycm Automated exposure control for dose reduction was used. CONTRAST: Performed with IV Contrast, patient injected with 100 mL of Isovue 300. Images obtained from the diaphragm to the floor the pelvis with IV contrast. There is some patchy mild atelectasis at the lung bases. There is no pleural effusion. Heart size is normal. There is no pericardial effusion. Liver spleen stomach appear intact. Bile ducts are nondilated. There is some fat stranding and fluid around the descending duodenum. There is cholecystectomy. I see no pancreatic mass. There are multipl e small calcifications at the pancreatic head. I see no definite pancreatic mass. There is some dilat ion of the pancreatic duct that measures up to 9 mm. There is no adrenal mass. Kidneys show satisfactory contrast opacification. There is no hydronephrosi s. Bladder distends smoothly. There is right hip prosthesis. There is no inguinal hernia. There is no free fluid in the pelvis. There is no evidence of a bowel obstruction. There is no free air. There is no ascites. There is no s mall bowel mesenteric edema. Appendix appears normal. Lumbar vertebra have normal alignment. There is no compression fracture. Disc spaces are fairly normal. The bony pelvis is intact. IMPRESSION: Inflammatory changes around the descending duodenum which appear increased compared to old exam befor e cholecystectomy. Changes in the pancreas consistent with chronic pancreatitis and dilation of the p ancreatic duct unchanged. There is mild atelectasis at the lung bases slightly increased compared to old exam.
[2021-03-13] MEDS ORDERED: HYDROmorphone 0.5 MG/0.5 ML SYRINGE IVP PRN (16:29)
[2021-03-13] MEDS ORDERED: NALOXONE 0.4 MG/ML 1 ML VIAL IV PRN (16:29)
[2021-03-13] MEDS ORDERED: ONDANSETRON 4 MG/2 ML VIAL IVP PRN (16:29)
[2021-03-13] MEDS: SODIUM CHLORIDE 0.9% 1,000 ML IV SCH (16:38)
[2021-03-13] MEDS ORDERED: LORazepam 2 MG/ML INJ IV STA (17:25)
[2021-03-13 17:58] LABS: Glucose,Whole Blood 146 mg/dL (75-99)
[2021-03-13] MEDS ORDERED: MORPHINE SULFATE ER 15 MG TABLET PO PRN (18:43)
[2021-03-13] MEDS: TAMSULOSIN 0.4 MG CAP.ER.24H PO SCH (19:41)
[2021-03-13 20:47] LABS: Glucose,Whole Blood 94 mg/dL (75-99)
[2021-03-13] MEDS: IPRATROPIUM-ALBUTEROL 3 ML NEB INHALATION SCH (20:58)
[2021-03-13] MEDS: BUDESONIDE 0.5 MG/2 ML NEBU INHALATION SCH (20:58)
[2021-03-13] MEDS: FORMOTEROL FUMARATE 20 MCG/2 ML NEBU INHALATION SCH (20:58)
[2021-03-13] MEDS: INSULIN ASPART (NovoLOG) 100 UNIT/ML VIAL SQ SCH (21:13)
[2021-03-13] MEDS: MELATONIN 5 MG TABLET PO SCH (21:16)
[2021-03-13] MEDS: DOCUSATE 100 MG CAP PO SCH (21:17)
[2021-03-13] MEDS: HYDROmorphone 1 MG/ML 1 ML SYRINGE IVP PRN (21:56)
[2021-03-14] MEDS: GABAPENTIN 300 MG CAP PO PRN ×2 (01:27→13:23)
[2021-03-14] MEDS: HYDROmorphone 1 MG/ML 1 ML SYRINGE IVP PRN (02:24)
[2021-03-14] MEDS: HYDROcodone/APAP 7.5-325MG 1 EACH TAB PO PRN ×3 (03:39→22:35)
[2021-03-14] MEDS: SODIUM CHLORIDE 0.9% 1,000 ML IV SCH ×2 (04:37→22:39)
[2021-03-14 07:00] LABS: Glucose,Whole Blood 110 mg/dL (75-99)
[2021-03-14] MEDS: BUDESONIDE 0.5 MG/2 ML NEBU INHALATION SCH ×2 (07:25→20:03)
[2021-03-14] MEDS: IPRATROPIUM-ALBUTEROL 3 ML NEB INHALATION SCH ×3 (07:25→20:03)
[2021-03-14] MEDS: FORMOTEROL FUMARATE 20 MCG/2 ML NEBU INHALATION SCH ×2 (07:25→20:03)
[2021-03-14] MEDS: INSULIN ASPART (NovoLOG) 100 UNIT/ML VIAL SQ SCH ×4 (07:30→21:35)
[2021-03-14] MEDS: LOSARTAN 50 MG TAB PO SCH (07:39)
[2021-03-14] MEDS: PANTOPRAZOLE 40 MG TABLET PO SCH (07:39)
[2021-03-14] MEDS: DOCUSATE 100 MG CAP PO SCH ×2 (07:39→21:52)
[2021-03-14 11:33] LABS: Glucose,Whole Blood 119 mg/dL (75-99)
--- NOTE | 2021-03-14 13:18 | HP ---
HISTORY AND PHYSICAL This patient is a 75-year-old white male with an complaint of abdominal pain. He has a history of severe pancreatitis, for which cholecystectomy was performed two weeks ago. He felt well for about a week until the last few days. He came to the hospital with worsening increasing abdominal pain again. His lipase was in the 3000s and he was admitted for choledocholithiasis, possible stone in the bile duct, with recurrent pancreatitis. HOME MEDICINES: 1. Pulmicort 0.5 mg b.i.d. 2. Perforomist 20 mcg b.i.d. 3. [place] 7.5 t.i.d. 4. DuoNeb b.i.d. 5. Protonix 40 mg daily. 6. Neurontin 300 t.i.d. 7. MS Contin 15 q.12. 8. Prednisone ophthalmologic drops. 9. Flomax 0.6 mg daily. 10.Betamethasone topically daily. ALLERGIES: NEGATIVE. REVIEW OF SYSTEM: Fourteen-point review of systems negative except for mentioned in HPI. PAST MEDICAL HISTORY: Asthma, COPD, diabetes mellitus, GERD, GI bleed, hypertension, pneumonia, prostate disorder, COPD, dyslipidemia. FAMILY HISTORY: Father with lung cancer. Mother hypochondriac. PHYSICAL EXAMINATION: VITAL SIGNS: Stable. Afebrile. Temperature 98.3, blood pressure 130s over 80s, respiratory rate 16 to 18, pulse is 87 to 95, O2 93. GENERAL APPEARANCE: Sitting up. Sleepy, lethargic. GI: Distended, firm. Mild guarding. Incisions look clean, dry, intact. No hematoma. BACK: Normal to inspection. NEUROLOGIC: Alert and oriented x3. PSYCH: Fair mood and affect. LUNGS: Lungs show decreased breath sounds x4. CARDIOVASCULAR: S1, S2. ASSESSMENT: 1. Acute abdominal pain. 2. Acute on acute on chronic pancreatitis. 3. Possible bile duct obstruction with dilation of the bile duct and elevated lipase over 3000. We are going to admit him, possibly do an ERCP from GI physician or Surgery to fix current treatment. Clear liquid diet. Prognosis guarded. MMODL / [place]: [id number] /
[2021-03-14 15:26] LABS: Hemoglobin A1C 7.1 % (4.0-6.0)
[2021-03-14] MEDS ORDERED: LORazepam 0.5 MG TAB PO PRN (15:37)
[2021-03-14 16:20] LABS: Glucose,Whole Blood 103 mg/dL (75-99)
[2021-03-14] MEDS: TAMSULOSIN 0.4 MG CAP.ER.24H PO SCH (17:12)
--- NOTE | 2021-03-14 19:47 | P.GSCN ---
History of Present Illness Consult date: 03/14/21 History of present illness: CHIEF COMPLAINT: Abdominal pain HISTORY OF PRESENT ILLNESS: The patient is a 75 year old male with chronic obstructive pulmonary disease, diabetes type 2 with diabetic neuropathy, recent outpatient cholecystectomy 03/02/2021, 2 weeks ago who now comes in with abdominal pain over the last 2 days. Reports redness along his incisions. Kymberly ent presented to the emergency room with workup demonstrating elevated lipase over 3000 with diagnosis of pancreatitis. General surgery is consulted for management. He also reports tolerating clear liquid diet 1 week following his surgery. He started having abdominal pain after eating steak and a hamburger the next day on Sunday, now 3 days ago. He reports epigastric pain. His abdominal is improving after not eating. PAST MEDICAL HISTORY: See list and reviewed PAST SURGICAL HISTORY: See list and reviewed MEDICATIONS: See list and reviewed ALLERGIES: See list and reviewed SOCIAL HISTORY: See list and reviewed FAMILY HISTORY: See list and reviewed REVIEW OF ORGAN SYSTEMS: CONSTITUTIONAL: No fevers or chills. EYES: Denies any trouble with vision. HEENT: No difficulties with hearing. No nosebleeds. No difficulty swallowing. RESPIRATORY: Has chronic obstructive pulmonary disease with bronchitis. CARDIOVASCULAR: Has hypertensive heart disease without congestive heart failure. GASTROINTESTINAL: Recent cholecystectomy. Has gastroesophageal reflux disease. Current pancreatitis. GENITOURINARY: Has lower obstructive uropathy due to prostate disorder. NEUROLOGICAL: Has numbness and tingling lower extremities due to diabetic neuropathy. No seizure disorders or headaches. MUSCULOSKELETAL: Has back pain, stiffness or joint arthritis. Has chronic pain. SKIN: No current skin cancer. Has panniculitis. PSYCHIATRIC: Denies current depression or suicidal thoughts. ENDOCRINE: Denies current thyroid disorders. Has diabetes type 2 with complications. Has hypo-testosterone. HEME/LYMPHATIC: Denies any lumps and bumps around the neck. No recent deep venous thrombosis. ALLERGY/IMMUNOLOGY: No immunoglobulin therapy. No immune deficiencies. BREAST: Denies current breast lumps, pain or nipple discharge. PHYSICAL EXAM: VITALS: Reviewed CONSTITUTIONAL: Well developed and in no acute distress. EYES: Conjuctivae without sclera icterus. Extraocular movements grossly intact. HEAD, EARS, NOSE, THROAT: Moist buccal mucosa. Head is atraumatic, normocephalic. Hears conversational speech. No nasal drainage. NECK: No gross JV distention. No gross thyroidomegaly. RESPIRATORY: Non-labored respirations and equal bilateral excursions. No gross wheezes. CARDIOVASCULAR: Regular rate and rhythm. ABDOMEN: Tender epigastrium LYMPH: No visible neck lymphadenopathy. MUSCULOSKELETAL: No clubbing cyanosis or edema. SKIN: Warm and well perfused with good skin turgor. NEUROLOGIC: Cranial nerves II through XII grossly intact. No focal or lateralizing signs. PSYCH: Appropriate affect. Alert and oriented to person, place and time. Displays appropriate insight. CLINCAL LABS: Reviewed. WBC normal 10.6. Hemoglobin normal 15.7. Creatinine normal at 0.86. Total bilirubin elevated 1.6. AST and ALT elevated 208 and 75 respectively. Lipase elevated 3830. Alkaline phosphatase normal. Baseline total bilirubin 0.3. Baseline AST 51. Baseline ALT 23. IMAGING: CT of the abdomen and pelvis independently reviewed with minimal inflammatory changes at hepatic fossa. Gallbladder properly absent. Common Bile duct minimally dilated. Inflammatory changes along the head of the pancreas identified. This is my independent interpretation. RADIOLOGY: Report reviewed of the abdomen and pelvis with calcifications along the pancreatic head. Dilatation of pancreatic duct 9 mm. Inflammation along the duodenum. RECORDS: previous old records reviewed cholecystectomy 03/02/2021 with features of chronic cholecystitis. Patient had been hospitalized with pancreatitis 02/25/2021. Pathology report confirms chronic cholecystitis. ASSESSMENT: 1. Abnormal computed tomography scan with dilated pancreatic duct 2. Abdominal pain 3. Acute on chronic pancreatitis PLAN: 1. Recommend GI consultation for recurrent pancreatitis 2. May benefit from MRCP with dilated pancreatic duct including elevated liver enzymes and total bilirubin from baseline 3. Bowel rest today with ice chips and popsicles 4. IV fluid hydration. Thank you for this kind consultation. Past Medical History Past Medical History: Asthma, COPD, Diabetes Mellitus, Eye Disorder, GERD/Reflux, GI Bleed, Hyperlipidemia, Hypertension, Pneumonia, Prostate Disorder Additional Past Medical History / Comment(s): Past bleeding gastric ulcers/anemia with blood transfusion, lower extremity edema for past 6 months, color blind, NIDDM type II, neuropathy bilateral feet, home oxygen at 2L/NC prn but last 2 weeks , 2010 small blood clot in pulmonary vein, bronchitis, chronic low back pain/disc problem, BPH, past kidney infection/UTI, sinus problems.Chronic Anemia , RECENT ADMISSION FOR PANCREATITIS History of Any Multi-Drug Resistant Organisms: None Reported Past Surgical History: Cholecystectomy, Hernia Repair, Joint Replacement, Orthopedic Surgery, Tonsillectomy Additional Past Surgical History / Comment(s): EGDs, colonoscopy, umbilical hernia repair, L ankle fracture with plate, R shoulder muscle damage repair with anchors in place, R total hip arthroplasty, sinus surgery x2, bilateral blepharoplasties. Past Anesthesia/Blood Transfusion Reactions: No Reported Reaction Additional Past Anesthesia/Blood Transfusion Reaction / Comm: Pt received blood in 2010 d/t anemia from bleeding antral ulcer without reaction. Past Psychological History: No Psychological Hx Reported Additional Psychological History / Comment(s): Pt resides with his spouse. He uses 2 crutches to ambulate d/t back pain. He has home oxygen, nebulizer and gl ucometer. He no longer drives, his spouse can drive. Smoking Status: Former smoker Past Alcohol Use History: None Reported Additional Past Alcohol Use History / Comment(s): Pt started smoking in 1965 and quit in 2010. Past Drug Use History: None Reported - Past Family History Father Family Medical History: Cancer Additional Family Medical History / Comment(s): Father had lung cancer in his 70s. He of "old age" at the age of 90yrs. Mother Additional Family Medical History / Comment(s): Mother was a "hypochondriac". Pt states she at the age of 75yrs. Medications and Allergies Home Medications Medication Instructions Recorded Confirmed Type Budesonide [Pulmicort] 0.5 mg INHALATION RT-QID 08/25/19 03/13/21 History Formoterol Fumarate [Perforomist] 20 mcg INHALATION RT-BID 08/25/19 03/13/21 History HYDROcodone/APAP 7.5-325MG [Stanley 1 tab PO TID PRN 08/25/19 03/13/21 History 7.5-325] Ipratropium-Albuterol Nebulize 3 ml INHALATION RT-BID 08/25/19 03/13/21 History [Duoneb 0.5 mg-3 mg/3 ml Soln] Multivit-Min/FA/Lycopen/Lutein 1 tab PO PC-SUPPER 08/25/19 03/13/21 History [Centrum Silver Tablet] Tamsulosin [Flomax] 0.8 mg PO PC-SUPPER 08/25/19 03/13/21 History Losartan [Cozaar] 50 mg PO DAILY #30 tab 02/20/20 03/13/21 Rx Aspirin/Sod Bicarb/Citric Acid 1 tab PO BID PRN 02/06/21 03/13/21 History [Ruthie-[place] Original Tab Eff] Betamethasone Valerate 1 applic TOPICAL DAILY 02/06/21 03/13/21 History [Betamethasone Valerate 0.1%] Ketoconazole 2% Shampoo [Nizoral] 1 applic TOPICAL MOWEFR 02/06/21 03/13/21 History Pantoprazole [Protonix] 40 mg PO DAILY 02/06/21 03/13/21 History Testosterone Cypionate 200 mg IM Q14D 02/06/21 03/13/21 History [Depo-Testosterone] sitaGLIPtin [Januvia] 100 mg PO DAILY 02/25/21 03/13/21 History Docusate [Colace] 100 mg PO BID #20 capsule 03/02/21 03/13/21 Rx Ibuprofen [Motrin] 600 mg PO Q6HR PRN #40 tab 03/02/21 03/13/21 Rx Acetaminophen Tab [Tylenol] 650 mg PO Q6H PRN 03/13/21 03/13/21 History Gabapentin [Neurontin] 300 mg PO TID PRN 03/13/21 03/13/21 History Morphine Sulfate ER [Ms Contin] 15 mg PO Q12HR PRN 03/13/21 03/13/21 History Nystatin 100,000 Unit/gm Powd 1 applic TOPICAL BID 03/13/21 03/13/21 History [Mycostatin Powder] Ofloxacin 0.3% Ophth Soln [Ocuflox 1 drops BOTH EYES DIRECTED 03/13/21 03/13/21 History Ophth Soln] prednisoLONE ACETATE 1% OPHTH 1 drops BOTH EYES DIRECTED 03/13/21 03/13/21 History [Pred Forte 1%] Allergies Allergy/AdvReac Type Severity Reaction Status Date / Time No Known Allergies Allergy Verified 03/13/21 13:54 Surgical - Exam Vital Signs Temp Pulse Resp 98 F 95 18 03/13/21 13:54 03/13/21 13:54 03/13/21 13:54 Results - Labs 03/13/21 14:23 03/13/21 14:23 Abnormal Lab Results - Last 24 Hours (Table) 03/13/21 03/13/2121 Range/Units 14:23 14:23 14:23 Neutrophils # 9.0 H (1.3-7.7) k/uL Sodium 136 L (137-145) mmol/L Glucose 186 H (74-99) mg/dL POC Glucose (mg/dL) (75-99) mg/dL Total Bilirubin 1.6 H (0.2-1.3) mg/dL AST 208 H (17-59) U/L ALT 75 H (4-49) U/L Lipase 3830 H (23-300) U/L Urine pH 8.5 H (5.0-8.0) Urine Protein 1+ H (Negative) Urine Ketones 1+ H (Negative) Amorphous Sediment Occasional H (None) /hpf Urine Mucus Rare H (None) /hpf 03/13/21 03/14/21 Range/Units 17:57 06:58 Neutrophils # (1.3-7.7) k/uL Sodium (137-145) mmol/L Glucose (74-99) mg/dL POC Glucose (mg/dL) 146 H 110 H (75-99) mg/dL Total Bilirubin (0.2-1.3) mg/dL AST (17-59) U/L ALT (4-49) U/L Lipase (23-300) U/L Urine pH (5.0-8.0) Urine Protein (Negative) Urine Ketones (Negative) Amorphous Sediment (None) /hpf Urine Mucus (None) /hpf Diabetes panel 03/13/21 Range/Units 14:23 Sodium 136 L (137-145) mmol/L Potassium 4.2 (3.5-5.1) mmol/L Chloride 99 (98-107) mmol/L Carbon Dioxide 29 (22-30) mmol/L BUN 10 (9-20) mg/dL Creatinine 0.86 (0.66-1.25) mg/dL Glucose 186 H (74-99) mg/dL Calcium 9.7 (8.4-10.2) mg/dL AST 208 H (17-59) U/L ALT 75 H (4-49) U/L Alkaline Phosphatase 121 (38-126) U/L Total Protein 6.3 (6.3-8.2) g/dL Albumin 3.6 (3.5-5.0) g/dL Calcium panel 03/13/21 Range/Units 14:23 Calcium 9.7 (8.4-10.2) mg/dL Albumin 3.6 (3.5-5.0) g/dL Pituitary panel 03/13/21 Range/Units 14:23 Sodium 136 L (137-145) mmol/L Potassium 4.2 (3.5-5.1) mmol/L Chloride 99 (98-107) mmol/L Carbon Dioxide 29 (22-30) mmol/L BUN 10 (9-20) mg/dL Creatinine 0.86 (0.66-1.25) mg/dL Glucose 186 H (74-99) mg/dL Calcium 9.7 (8.4-10.2) mg/dL Adrenal panel 03/13/21 Range/Units 14:23 Sodium 136 L (137-145) mmol/L Potassium 4.2 (3.5-5.1) mmol/L Chloride 99 (98-107) mmol/L Carbon Dioxide 29 (22-30) mmol/L BUN 10 (9-20) mg/dL Creatinine 0.86 (0.66-1.25) mg/dL Glucose 186 H (74-99) mg/dL Calcium 9.7 (8.4-10.2) mg/dL Total Bilirubin 1.6 H (0.2-1.3) mg/dL AST 208 H (17-59) U/L ALT 75 H (4-49) U/L Alkaline Phosphatase 121 (38-126) U/L Total Protein 6.3 (6.3-8.2) g/dL Albumin 3.6 (3.5-5.0) g/dL Assessment and Plan (1) Acute on chronic pancreatitis Current Visit: Yes Status: Acute Code(s): K85.90 - ACUTE PANCREATITIS WITHOUT NECROSIS OR INFECTION, UNSP; K86.1 - OTHER CHRONIC PANCREATITIS SNOMED Code(s): 216923434 (2) Diabetic neuropathy Current Visit: Yes Status: Acute Code(s): E11.40 - TYPE 2 DIABETES MELLITUS WITH DIABETIC NEUROPATHY, UNSP SNOMED Code(s): 958694281 (3) Obesity due to excess calories Current Visit: Yes Status: Acute Code(s): E66.09 - OTHER OBESITY DUE TO EXCESS CALORIES SNOMED Code(s): 251560557 (4) BMI 30.0-30.9,adult Current Visit: Yes Status: Acute Code(s): Z68.30 - BODY MASS INDEX [BMI]30.0-30.9, ADULT SNOMED Code(s): 064237219 (5) S/P cholecystectomy Current Visit: Yes Status: Acute Code(s): Z90.49 - ACQUIRED ABSENCE OF OTHER SPECIFIED PARTS OF DIGESTIVE TRACT SNOMED Code(s): 024417207 (6) Transaminitis Current Visit: Yes Status: Acute Code(s): R74.01 - ELEVATION OF LEVELS OF LIVER TRANSAMINASE LEVELS SNOMED Code(s): 035956144 (7) Hyperbilirubinemia Current Visit: Yes Status: Acute Code(s): E80.6 - OTHER DISORDERS OF BILIRUBIN METABOLISM SNOMED Code(s): 68920058 (8) Pancreatitis Current Visit: Yes Status: Acute Code(s): K85.90 - ACUTE PANCREATITIS WITHOUT NECROSIS OR INFECTION, UNSP SNOMED Code(s): 60610369 (9) Dilated pancreatic duct Current Visit: No Status: Acute Code(s): K86.89 - OTHER SPECIFIED DISEASES OF PANCREAS SNOMED Code(s): 906388305
[2021-03-14 20:44] LABS: Glucose,Whole Blood 93 mg/dL (75-99)
[2021-03-14] MEDS: MELATONIN 5 MG TABLET PO SCH (21:52)
[2021-03-15] MEDS: GABAPENTIN 300 MG CAP PO PRN (02:51)
[2021-03-15] MEDS ORDERED: hydrALAZINE HCL 20 MG/ML 1 ML VIAL IVP PRN (02:53)
[2021-03-15] MEDS: PANTOPRAZOLE 40 MG TABLET PO SCH (07:58)
[2021-03-15] MEDS: LOSARTAN 50 MG TAB PO SCH (07:58)
[2021-03-15] MEDS: HYDROcodone/APAP 7.5-325MG 1 EACH TAB PO PRN ×2 (07:58→18:08)
[2021-03-15] MEDS: DOCUSATE 100 MG CAP PO SCH ×2 (07:58→22:19)
[2021-03-15 07:59] LABS: Glucose,Whole Blood 86 mg/dL (75-99)
[2021-03-15] MEDS: IPRATROPIUM-ALBUTEROL 3 ML NEB INHALATION SCH ×4 (09:21→21:17)
[2021-03-15] MEDS: BUDESONIDE 0.5 MG/2 ML NEBU INHALATION SCH ×2 (09:21→21:18)
[2021-03-15] MEDS: FORMOTEROL FUMARATE 20 MCG/2 ML NEBU INHALATION SCH ×2 (09:21→21:17)
[2021-03-15] MEDS: INSULIN ASPART (NovoLOG) 100 UNIT/ML VIAL SQ SCH ×4 (10:41→21:12)
[2021-03-15] MEDS: SODIUM CHLORIDE 0.9% 1,000 ML IV SCH ×2 (10:42→21:15)
[2021-03-15 11:06] LABS: Basophils # (A) 0.04 X 10*3/uL (0.00-0.10); Basophils % (A) 0.5 %; Eosinophils # (A) 0.17 X 10*3/uL (0.04-0.35); Eosinophils % (A) 2.3 %; HCT 41.2 % (39.6-50.0); HGB 12.3 g/dL (13.0-17.0); Lymphocytes # (A) 1.17 X 10*3/uL (0.90-5.00); Lymphocytes % (A) 15.8 %; MCH 27.8 pg (27.0-32.0); MCHC 29.9 g/dL (32.0-37.0); Mean Platelet Volume 11.3 fL (9.5-12.2); Monocytes # (A) 0.36 X 10*3/uL (0.20-1.00); Monocytes % (A) 4.9 %; Neutrophils # (A) 5.63 X 10*3/uL (1.80-7.70); Neutrophils % (A) 76.1 %; Platelet Count 228 X 10*3/uL (140-440); RBC 4.43 X 10*6/uL (4.40-5.60); RDW 14.2 % (11.5-14.5)
[2021-03-15 11:27] LABS: Glucose,Whole Blood 103 mg/dL (75-99)
[2021-03-15 12:09] LABS: Albumin 3.4 g/dL (3.80-4.90); Albumin/Globulin Ratio 1.79 (1.60-3.17); Anion Gap 9.6 mmol/L (4.00-12.00); BUN/Creat Ratio 11.25 Ratio (12.00-20.00); Calcium 8.6 mg/dL (8.7-10.3); Carbon Dioxide 26.4 mmol/L (21.6-31.8); Globulin 1.9 g/dL (1.6-3.3); Potassium 4.3 mmol/L (3.5-5.5); Total Bilirubin 0.4 mg/dL (0.2-1.2); Total Protein 5.3 g/dL (6.2-8.2)
--- NOTE | 2021-03-15 14:22 | P.PN ---
Subjective Progress Note Date: 03/15/21 CHIEF COMPLAINT: Abdominal pain HISTORY OF PRESENT ILLNESS: The patient is a 75 year old male with chronic obstructive pulmonary disease, diabetes type 2 with diabetic neuropathy, recent outpatient cholecystectomy 03/02/2021, 2 weeks ago who now comes in with abdominal pain over the last 2 days. Patient reports improvement in his abdominal pain since admission. He denies any nausea or vomiting. He reports feeling hungry. GI service had advanced to a clear liquid diet. Afebrile. WBC is 7.4 LFTs are trending down. Total bilirubin has normalized at 0.4 lipase trending down at 437 PHYSICAL EXAM: VITAL SIGNS: Reviewed. GENERAL: Well-developed in no acute distress. HEENT: No sclera icterus. Extraocular movements grossly intact. Moist buccal mucosa. Head is atraumatic, normocephalic. ABDOMEN: Soft. Nondistended. NEUROLOGIC: Alert and oriented. Cranial nerves II through XII grossly intact. ASSESSMENT: 1. Abnormal computed tomography scan with dilated pancreatic duct 2. Abdominal pain 3. Acute on chronic pancreatitis 4. Recent cholecystectomy 5. Possible choledocholithiasis. Patient may have had a retained stone PLAN: -No surgical intervention planned -Await further GI recommendations -Continue to monitor LFTs -Continue IV fluids -Continue clear liquid diet Physician Risk Management Professional note has been reviewed by physician. Signing provider agrees with the documented findings, assessment, and plan of care. Objective - Vital Signs Vital signs: Vital Signs Temp 97.8 F 03/15/21 08:00 Pulse 80 03/15/21 12:42 Resp 19 03/15/21 08:00 BP 127/56 03/15/21 08:00 Pulse Ox 94 L 03/15/21 09:24 Intake & Output 03/14/21 03/15/21 03/15/21 18:59 06:59 18:59 Other: Voiding Method Toilet # Voids 3 2 - Labs CBC & Chem 7: 03/15/21 05:53 03/15/21 05:53 Labs: Abnormal Lab Results - Last 24 Hours (Table) 03/14/21 03/14/21 03/15/21 Range/Units 05:59 16:19 05:53 Hgb 12.3 L (13.0-17.0) g/dL MCHC 29.9 L (32.0-37.0) g/dL BUN/Creatinine Ratio (12.00-20.00) Ratio POC Glucose (mg/dL) 103 H (75-99) mg/dL Hemoglobin A1c 7.1 H (4.0-6.0) % Calcium (8.7-10.3) mg/dL AST (14-35) U/L ALT (10-49) U/L Total Protein (6.2-8.2) g/dL Albumin (3.80-4.90) g/dL Lipase (23-300) U/L 03/15/21 03/15/21 03/15/21 Range/Units 05:53 05:53 11:26 Hgb (13.0-17.0) g/dL MCHC (32.0-37.0) g/dL BUN/Creatinine Ratio 11.25 L (12.00-20.00) Ratio POC Glucose (mg/dL) 103 H (75-99) mg/dL Hemoglobin A1c (4.0-6.0) % Calcium 8.6 L (8.7-10.3) mg/dL AST 47 H (14-35) U/L ALT 60 H (10-49) U/L Total Protein 5.3 L (6.2-8.2) g/dL Albumin 3.40 L (3.80-4.90) g/dL Lipase 437 H (23-300) U/L
--- NOTE | 2021-03-15 15:35 | P.CONS ---
History of Present Illness - Reason for Consult Consult date: 03/15/21 Pancreatitis, dilated pancreatic duct Requesting physician: Avila Coello - Chief Complaint Abdominal pain - History of Present Illness A 75-year-old male with a past medical history of alcoholic pancreatitis, COPD, diabetes mellitus, history of peptic ulcer disease, hypertension, dyslipidemia who came in for evaluation of abdominal pain. Patient states he had abdominal pain that started around his umbilicus on Sunday morning which progressively got worse. He recently underwent a cholecystectomy by Dr. Mendoza on 03/02/2021. He also had a recent hospitalization in the beginning of February for pancreatitis and at that time showed inflammatory changes around the duodenum with a dilated pancreatic duct. He had a repeat CT of the abdomen on admission showing inflammatory changes about the descending duodenum which appear increased compared to old exam before cholecystectomy. Changes in the pancreas consistent with chronic pancreatitis and dilation of the pancreatic duct unchanged. On admission he was noted to have an elevated total bilirubin 1.6, AST 208, ALT 75, alkaline phosphatase 121, lipase 3830. Repeat labs today show WBC 7.4, hemoglobin 12.3, hematocrit 41, platelet count 228,000, total bilirubin 0.4, AST 47, ALT 60, alkaline phosphatase 111, lipase 437. Patient states abdominal pain is completely gone, he denies any nausea or vomiting. States after his cholecystectomy he did have a bowel movement, however has not had a bowel movement last couple days. Review of Systems REVIEW OF SYSTEMS: CARDIOPULMONARY: No chest pain or shortness of breath. Gastrointestinal: Burning sensation in no abdominal pain. No nausea or vomiting. No hematemesis, coffee-ground emesis. No rectal bleeding, or melena. GENITOURINARY: No dysuria or hematuria. MUSCULOSKELETAL: Reports normal range of motion., Joint pain. SKIN: No rashes. No jaundice. ENDOCRINE: No chills, fevers. No excessive weight gain or loss. No polydipsia or polyuria. PSYCHIATRIC: Unremarkable. NEUROLOGY: No change in mental status. Denies dizziness, headache. ENT: Vision unremarkable. CONSTITUTIONAL: No recent weight loss. No fever, chills, night sweats. Past Medical History Past Medical History: Asthma, COPD, Diabetes Mellitus, Eye Disorder, GERD/Reflux, GI Bleed, Hyperlipidemia, Hypertension, Pneumonia, Prostate Disorder Additional Past Medical History / Comment(s): Past bleeding gastric ulcers/anemia with blood transfusion, lower extremity edema for past 6 months, color blind, NIDDM type II, neuropathy bilateral feet, home oxygen at 2L/NC prn but last 2 weeks ATC, 2010 small blood clot in pulmonary vein, bronchitis, chronic low back pain/disc problem, BPH, past kidney infection/UTI, sinus problems.Chronic Anemia , RECENT ADMISSION FOR PANCREATITIS History of Any Multi-Drug Resistant Organisms: None Reported Past Surgical History: Cholecystectomy, Hernia Repair, Joint Replacement, Orthopedic Surgery, Tonsillectomy Additional Past Surgical History / Comment(s): EGDs, colonoscopy, umbilical hernia repair, L ankle fracture with plate, R shoulder muscle damage repair with anchors in place, R total hip arthroplasty, sinus surgery x2, bilateral ble pharoplasties. Past Anesthesia/Blood Transfusion Reactions: No Reported Reaction Additional Past Anesthesia/Blood Transfusion Reaction / Comm: Pt received blood in 2010 d/t anemia from bleeding antral ulcer without reaction. Past Psychological History: No Psychological Hx Reported Additional Psychological History / Comment(s): Pt resides with his spouse. He uses 2 crutches to ambulate d/t back pain. He has home oxygen, nebulizer and glucometer. He no longer drives, his spouse can drive. Smoking Status: Former smoker Past Alcohol Use History: None Reported Additional Past Alcohol Use History / Comment(s): Pt started smoking in 1965 and quit in 2010. Past Drug Use History: None Reported - Past Family History Father Family Medical History: Cancer Additional Family Medical History / Comment(s): Father had lung cancer in his 70s. He of "old age" at the age of 90yrs. Mother Additional Family Medical History / Comment(s): Mother was a "hypochondriac". Pt states she at the age of 75yrs. Medications and Allergies Home Medications Medication Instructions Recorded Confirmed Type Budesonide [Pulmicort] 0.5 mg INHALATION RT-QID 08/25/19 03/13/21 History Formoterol Fumarate [Perforomist] 20 mcg INHALATION RT-BID 08/25/19 03/13/21 History HYDROcodone/APAP 7.5-325MG [Bovey 1 tab PO TID PRN 08/25/19 03/13/21 History 7.5-325] Ipratropium-Albuterol Nebulize 3 ml INHALATION RT-BID 08/25/19 03/13/21 History [Duoneb 0.5 mg-3 mg/3 ml Soln] Multivit-Min/FA/Lycopen/Lutein 1 tab PO PC-SUPPER 08/25/19 03/13/21 History [Centrum Silver Tablet] Tamsulosin [Flomax] 0.8 mg PO PC-SUPPER 08/25/19 03/13/21 History Losartan [Cozaar] 50 mg PO DAILY #30 tab 02/20/20 03/13/21 Rx Aspirin/Sod Bicarb/Citric Acid 1 tab PO BID PRN 02/06/21 03/13/21 History [Ruthie-Camargo Original Tab Eff] Betamethasone Valerate 1 applic TOPICAL DAILY 02/06/21 03/13/21 History [Betamethasone Valerate 0.1%] Ketoconazole 2% Shampoo [Nizoral] 1 applic TOPICAL MOWEFR 02/06/21 03/13/21 History Pantoprazole [Protonix] 40 mg PO DAILY 02/06/21 03/13/21 History Testosterone Cypionate 200 mg IM Q14D 02/06/21 03/13/21 History [Depo-Testosterone] sitaGLIPtin [Januvia] 100 mg PO DAILY 02/25/21 03/13/21 History Docusate [Colace] 100 mg PO BID #20 capsule 03/02/21 03/13/21 Rx Ibuprofen [Motrin] 600 mg PO Q6HR PRN #40 tab 03/02/21 03/13/21 Rx Acetaminophen Tab [Tylenol] 650 mg PO Q6H PRN 03/13/21 03/13/21 History Gabapentin [Neurontin] 300 mg PO TID PRN 03/13/21 03/13/21 History Morphine Sulfate ER [Ms Contin] 15 mg PO Q12HR PRN 03/13/21 03/13/21 History Nystatin 100,000 Unit/gm Powd 1 applic TOPICAL BID 03/13/21 03/13/21 History [Mycostatin Powder] Ofloxacin 0.3% Ophth Soln [Ocuflox 1 drops BOTH EYES DIRECTED 03/13/21 03/13/21 History Ophth Soln] prednisoLONE ACETATE 1% OPHTH 1 drops BOTH EYES DIRECTED 03/13/21 03/13/21 History [Pred Forte 1%] Allergies Allergy/AdvReac Type Severity Reaction Status Date / Time No Known Allergies Allergy Verified 03/13/21 13:54 Physical Exam Vitals: Vital Signs Temp Pulse Pulse Resp BP Pulse Ox 03/15/21 14:00 98.3 F 79 18 115/55 94 L 03/15/21 12:42 80 03/15/21 12:33 78 03/15/21 09:41 78 03/15/21 09:32 76 03/15/21 09:31 76 03/15/21 09:24 94 L 03/15/21 09:22 74 03/15/21 08:00 97.8 F 82 19 127/56 95 03/15/21 04:14 115/57 03/15/21 02:09 97.4 F L 78 18 170/71 97 03/14/21 20:24 78 03/14/21 20:13 76 03/14/21 20:12 76 03/14/21 20:03 75 95 03/14/21 19:26 97.4 F L 87 16 152/64 90 L 03/14/21 19:25 17 03/14/21 16:12 72 03/14/21 15:58 72 Intake and Output 03/15/21 03/15/21 03/15/21 06:59 14:59 22:59 Other: # Voids 2 General appearance: The patient is alert, oriented, appears in no acute distress. HET: Head is normocephalic and atraumatic. Conjunctiva pink. Sclera anicteric. Neck: Supple without lymphadenopathy. Trachea midline. Heart: S1 S2. Regular rate and rhythm. Lungs: Clear to auscultation. Abdomen: Soft, obese, nontender, nondistended with bowel sounds. No guarding or rigidity. Skin: No rashes. No jaundice. Extremities: Normal skin color and turgor. No pedal edema. Neurological: No focal deficits. Alert and oriented 3.. Results CBC & Chem 7: 03/15/21 05:53 03/15/21 05:53 Labs: Abnormal Lab Results - Last 24 Hours (Table) 03/14/21 03/14/21 03/15/21 Range/Units 05:59 16:19 05:53 Hgb 12.3 L (13.0-17.0) g/dL MCHC 29.9 L (32.0-37.0) g/dL BUN/Creatinine Ratio (12.00-20.00) Ratio POC Glucose (mg/dL) 103 H (75-99) mg/dL Hemoglobin A1c 7.1 H (4.0-6.0) % Calcium (8.7-10.3) mg/dL AST (14-35) U/L ALT (10-49) U/L Total Protein (6.2-8.2) g/dL Albumin (3.80-4.90) g/dL Lipase (23-300) U/L 03/15/21 03/15/21 03/15/21 Range/Units 05:53 05:53 11:26 Hgb (13.0-17.0) g/dL MCHC (32.0-37.0) g/dL BUN/Creatinine Ratio 11.25 L (12.00-20.00) Ratio POC Glucose (mg/dL) 103 H (75-99) mg/dL Hemoglobin A1c (4.0-6.0) % Calcium 8.6 L (8.7-10.3) mg/dL AST 47 H (14-35) U/L ALT 60 H (10-49) U/L Total Protein 5.3 L (6.2-8.2) g/dL Albumin 3.40 L (3.80-4.90) g/dL Lipase 437 H (23-300) U/L CT scan - abdomen: report reviewed (Inflammatory changes around the descending duodenum which appear increased compared to old exam before cholecystectomy. Changes in pancreas consistent with chronic pancreatitis and dilation of the pancreatic duct unchanged.) Assessment and Plan (1) Pancreatitis Narrative/Plan: 75-year-old male with a history of alcohol abuse and alcoholic pancreatitis who presented to the emergency department with complaints of abdominal pain. Kymberly ent states abdominal pain started Sunday morning and progressively got worse. He came to the emergency department for further evaluation and underwent a CT of the abdomen showing inflammatory changes around the descending duodenum which appear increased compared to old exam prior to cholecystectomy. Changes in the pancreas consistent with chronic pancreatitis and dilation of the pancreatic ovidio t unchanged. He recently underwent a cholecystectomy on 03/02/2021, patient states he was doing well has had a bowel movement and was having a soft diet. However states Sunday he started eating more solids including rice crispy treats followed by increase in abdominal pain. On admission he was noted to have elevated lipase at 3830 which has been trending down and currently 437. Initially his total bilirubin was 1.6, AST 208, ALT 75, alkaline phosphatase 121. However repeat LFTs show total bilirubin 0.4, AST 47, ALT 60, alkaline phosphatase 111. Gallbladder pathology shows no stones in the gallbladder, and LFTs trending down it is unlikely we are dealing with choledocholithiasis area no plans on ERCP. Patient has appointment with gastroenterology on 03/22/2021, consider outpatient referral for possible EUS. Current Visit: Yes Status: Acute Code(s): K85.90 - ACUTE PANCREATITIS WITHOUT NECROSIS OR INFECTION, UNSP SNOMED Code(s): 21866613 (2) Dilated pancreatic duct Current Visit: No Status: Acute Code(s): K86.89 - OTHER SPECIFIED DISEASES OF PANCREAS SNOMED Code(s): 491833722 (3) S/P cholecystectomy Current Visit: Yes Status: Acute Code(s): Z90.49 - ACQUIRED ABSENCE OF OTHER SPECIFIED PARTS OF DIGESTIVE TRACT SNOMED Code(s): 245115936 Plan: 1. Continue symptomatic and supportive care 2. Continue IV hydration 3. Continue pain medication as needed 4. No plans on ERCP, not likely dealing with Sheree.cholelithiasis. LFTs are normalizing, gallbladder pathology showed no gallstones. 5. Patient has outpatient follow-up appointment scheduled 03/22/2021, consider possible referral for outpatient EUS 6. Repeat CMP in the morning, if LFTs continue to trend down may be discharged home from a gastroenterology standpoint Thank you for this consultation, we will continue to follow. Dr. Tobias Denson I agree with the dictator's note, documented as a scribe by Kavita Condon.
[2021-03-15 16:52] LABS: Glucose,Whole Blood 128 mg/dL (75-99)
[2021-03-15] MEDS: TAMSULOSIN 0.4 MG CAP.ER.24H PO SCH (18:08)
[2021-03-15] MEDS ORDERED: diphenhydrAMINE 50 MG CAP PO PRN (19:42)
[2021-03-15 20:59] LABS: Glucose,Whole Blood 95 mg/dL (75-99)
[2021-03-15] MEDS: MELATONIN 5 MG TABLET PO SCH (21:14)
--- NOTE | 2021-03-16 05:46 | PN ---
PROGRESS NOTE 75-year-old white male with pancreatitis, dilated pancreatic duct. ERCP has not been recommended by GI. Lipase is down to 407. Diet has been advanced. Possible discharge home in the morning if he tolerates oral intake well. He has been uptake to full liquids Cardiovascular S1-S2. Lungs clear. GI soft. Hematology negative Homans. ASSESSMENT: 1. Pancreatitis. 2. Acute abdominal pain. 3. Dehydration. The patient has not drank alcohol in 28 years, is not the source of his pancreatitis. We will have to work him up if this occurs again. Advance diet. MMODL / IJN: [id number] /
[2021-03-16 06:48] LABS: Glucose,Whole Blood 122 mg/dL (75-99)
[2021-03-16] MEDS: INSULIN ASPART (NovoLOG) 100 UNIT/ML VIAL SQ SCH ×2 (08:50→13:41)
[2021-03-16] MEDS: IPRATROPIUM-ALBUTEROL 3 ML NEB INHALATION SCH ×2 (08:54→12:52)
[2021-03-16] MEDS: FORMOTEROL FUMARATE 20 MCG/2 ML NEBU INHALATION SCH (08:54)
[2021-03-16] MEDS: BUDESONIDE 0.5 MG/2 ML NEBU INHALATION SCH (08:54)
[2021-03-16] MEDS: DOCUSATE 100 MG CAP PO SCH (08:59)
[2021-03-16] MEDS: HYDROcodone/APAP 7.5-325MG 1 EACH TAB PO PRN (09:07)
[2021-03-16] MEDS: LOSARTAN 50 MG TAB PO SCH (09:07)
[2021-03-16] MEDS: PANTOPRAZOLE 40 MG TABLET PO SCH (09:08)
[2021-03-16 10:50] LABS: African American GFR (CKD) 85.6 (60.0-200.0); Albumin 3.9 g/dL (3.80-4.90); Albumin/Globulin Ratio 2.17 (1.60-3.17); Anion Gap 7.4 mmol/L (4.00-12.00); Carbon Dioxide 29.6 mmol/L (21.6-31.8); Globulin 1.8 g/dL (1.6-3.3); Non-African American GFR(CKD) 73.8 (60.0-200.0); Potassium 3.7 mmol/L (3.5-5.5); Total Bilirubin 0.5 mg/dL (0.3-1.2); Total Protein 5.7 g/dL (6.2-8.2)
--- NOTE | 2021-03-16 10:51 | P.PN ---
Subjective Progress Note Date: 03/16/21 Principal diagnosis: Pancreatitis 75-year-old male who recently underwent a cholecystectomy on 03/02/2021. With a history of pancreatitis with a recent admission. He had presented to the emergency department with complaints of abdominal pain, which he states were mostly epigastric to. Umbilical. At that time and currently CT of the abdomen and pelvis is showing inflammatory changes around the duodenum with a dilated pancreatic duct, there are no changes from previous CT. The patient is seen and examined sitting up in the recliner. He denies any abdominal pain, nausea, or vomiting. Today's labs are currently pending. Patient is ready for discharge. Objective - Vital Signs Vital signs: Vital Signs Temp 97.6 F 03/16/21 07:19 Pulse 89 03/16/21 09:10 Resp 16 03/16/21 07:19 BP 154/73 03/16/21 07:19 Pulse Ox 90 L 03/16/21 08:56 Intake & Output 03/15/21 03/16/21 03/16/21 18:59 06:59 18:59 Intake Total 850 Balance 850 Intake: Intake, IV Titration 450 Amount Sodium Chloride 0.9% 1, 450 000 ml @ 75 mls/hr IV . [id number] [facility] Rx#:[id number] Oral 400 Other: # Voids 4 3 - Exam General appearance: The patient is alert, oriented, appears in no acute distress. HET: Head is normocephalic and atraumatic. Conjunctiva pink. Sclera anicteric. Neck: Supple without lymphadenopathy. Abdomen: Soft, nontender, nondistended with bowel sounds. No guarding or rigidity. Extremities: Normal skin color and turgor. No pedal edema Skin: No rashes, no jaundice Neurological: No focal deficits. Alert and oriented 3. - Labs CBC & Chem 7: 03/15/21 05:53 03/15/21 05:53 Labs: Abnormal Lab Results - Last 24 Hours (Table) 03/15/21 03/15/21 03/15/21 Range/Units 05:53 05:53 05:53 Hgb 12.3 L (13.0-17.0) g/dL MCHC 29.9 L (32.0-37.0) g/dL BUN/Creatinine Ratio 11.25 L (12.00-20.00) Ratio POC Glucose (mg/dL) (75-99) mg/dL Calcium 8.6 L (8.7-10.3) mg/dL AST 47 H (14-35) U/L ALT 60 H (10-49) U/L Total Protein 5.3 L (6.2-8.2) g/dL Albumin 3.40 L (3.80-4.90) g/dL Lipase 437 H (23-300) U/L 03/15/21 03/15/21 03/16/21 Range/Units 11:26 16:50 06:45 Hgb (13.0-17.0) g/dL MCHC (32.0-37.0) g/dL BUN/Creatinine Ratio (12.00-20.00) Ratio POC Glucose (mg/dL) 103 H 128 H 122 H (75-99) mg/dL Calcium (8.7-10.3) mg/dL AST (14-35) U/L ALT (10-49) U/L Total Protein (6.2-8.2) g/dL Albumin (3.80-4.90) g/dL Lipase (23-300) U/L Assessment and Plan (1) Pancreatitis Narrative/Plan: 75-year-old male with a history of alcohol abuse and alcoholic pancreatitis who presented to the emergency department with complaints of abdominal pain. Patient states abdominal pain started Sunday morning and progressively got worse. He came to the emergency department for further evaluation and underwent a CT of the abdomen showing inflammatory changes around the descending duodenum which appear increased compared to old exam prior to cholecystectomy. Changes in the pancreas consistent with chronic pancreatitis and dilation of the pancreatic duct unchanged. He recently underwent a cholecystectomy on 03/02/2021, patient states he was doing well has had a bowel movement and was having a soft diet. However states Sunday he started eating more solids including rice crispy treats followed by increase in abdominal pain. On admission he was noted to have elevated lipase at 3830 which has been trending down and currently 437. Initially his total bilirubin was 1.6, AST 208, ALT 75, alkaline phosphatase 121. However repeat LFTs show total bilirubin 0.4, AST 47, ALT 60, alkaline phosphatase 111. Gallbladder pathology shows no stones in the gallbladder, and LFTs trending down it is unlikely we are dealing with choledocholithiasis area no plans on ERCP. Patient has appointment with gastroenterology on 03/22/2021, consider outpatient referral for possible EUS. Current Visit: Yes Status: Acute Code(s): K85.90 - ACUTE PANCREATITIS WITHOUT NECROSIS OR INFECTION, UNSP SNOMED Code(s): 19240861 (2) Dilated pancreatic duct Current Visit: No Status: Acute Code(s): K86.89 - OTHER SPECIFIED DISEASES OF PANCREAS SNOMED Code(s): 035214123 (3) S/P cholecystectomy Current Visit: Yes Status: Acute Code(s): Z90.49 - ACQUIRED ABSENCE OF OTHER SPECIFIED PARTS OF DIGESTIVE TRACT SNOMED Code(s): 891705451 Plan: 1. Continue symptomatic and supportive care 2. May advance to low-fat diet 3. Continue pain medication as needed 4. No plans on ERCP, not likely dealing with Sheree.cholelithiasis. LFTs are normalizing, gallbladder pathology showed no gallstones. 5. Patient has outpatient follow-up appointment scheduled 03/22/2021, consider possible referral for outpatient EUS 6. Patient may be discharged home from a gastroenterology standpoint Thank you for this consultation, we will continue to follow. Dr. Tobias Denson I agree with the dictator's note, documented as a scribe by Kavita Condon.
[2021-03-16 11:01] LABS: Glucose,Whole Blood 143 mg/dL (75-99)
[2021-03-16] MEDS: SODIUM CHLORIDE 0.9% 1,000 ML IV SCH (11:53)
[2021-03-16 13:49] VITALS: BP 158/73; PULSE 65; RESP 18; TEMP 97.3
--- NOTE | 2021-03-16 13:52 | P.PN ---
Subjective Progress Note Date: 03/16/21 CHIEF COMPLAINT: Abdominal pain HISTORY OF PRESENT ILLNESS: The patient is a 75 year old male with chronic obstructive pulmonary disease, diabetes type 2 with diabetic neuropathy, recent outpatient cholecystectomy 03/02/2021, 2 weeks ago who now comes in with abdominal pain over the last 2 days. Patient denies any abdominal pain. Denies any nausea or vomiting. He is tolerating diet. Afebrile. LFTs have normalized. Patient seen by GI service and they felt No need for ERCP since labs had normalized. PHYSICAL EXAM: VITAL SIGNS: Reviewed. GENERAL: Well-developed in no acute distress. HEENT: No sclera icterus. Extraocular movements grossly intact. Moist buccal mucosa. Head is atraumatic, normocephalic. ABDOMEN: Soft. Nondistended. NEUROLOGIC: Alert and oriented. Cranial nerves II through XII grossly intact. ASSESSMENT: 1. Abnormal computed tomography scan with dilated pancreatic duct 2. Abdominal pain 3. Acute on chronic pancreatitis 4. Recent cholecystectomy 5. Possible choledocholithiasis. Patient may have passed stone PLAN: -No surgical intervention planned -Advance diet to low-fat -Patient can be discharged from surgical standpoint Physician Camera Repair Technician note has been reviewed by physician. Signing provider agrees with the documented findings, assessment, and plan of care. Objective - Vital Signs Vital signs: Vital Signs Temp 97.3 F L 03/16/21 13:48 Pulse 65 03/16/21 13:48 Resp 18 03/16/21 13:48 BP 158/73 03/16/21 13:48 Pulse Ox 96 03/16/21 13:48 Intake & Output 03/15/21 03/16/21 03/16/21 18:59 06:59 18:59 Intake Total 850 Balance 850 Intake: Intake, IV Titration 450 Amount Sodium Chloride 0.9% 1, 450 000 ml @ 75 mls/hr IV . [id number] [facility] Rx#:[id number] Oral 400 Other: # Voids 4 3 - Labs CBC & Chem 7: 03/15/21 05:53 03/16/21 05:49 Labs: Abnormal Lab Results - Last 24 Hours (Table) 03/15/21 03/16/21 03/16/21 Range/Units 16:50 05:49 06:45 BUN 6.0 L (9.0-27.0) mg/dL BUN/Creatinine Ratio 6.00 L (12.00-20.00) Ratio POC Glucose (mg/dL) 128 H 122 H (75-99) mg/dL Total Protein 5.7 L (6.2-8.2) g/dL 03/16/21 Range/Units 10:58 BUN (9.0-27.0) mg/dL BUN/Creatinine Ratio (12.00-20.00) Ratio POC Glucose (mg/dL) 143 H (75-99) mg/dL Total Protein (6.2-8.2) g/dL
== END 2021-03-16 14:31 | disposition home or self-care (01) | DRG 440 ==
LOC: EC 13:53 → 4SSUR 16:38
PROVIDERS: ADMIT Family Medicine; ATTEND Family Medicine
DX: K85.90 Acute pancreatitis without necrosis or infection, unspecified (principal); E66.09 Other obesity due to excess calories; E78.5 Hyperlipidemia, unspecified; E86.0 Dehydration; F41.9 Anxiety disorder, unspecified; E11.42 Type 2 diabetes mellitus with diabetic polyneuropathy; I10 Essential (primary) hypertension; J44.9 Chronic obstructive pulmonary disease, unspecified; K80.50 Calculus of bile duct without cholangitis or cholecystitis without obstruction; G89.29 Other chronic pain; K21.9 Gastro-esophageal reflux disease without esophagitis; H53.50 Unspecified color vision deficiencies; M54.5 Low back pain; D64.9 Anemia, unspecified; R74.01 Elevation of levels of liver transaminase levels; K86.1 Other chronic pancreatitis; N40.0 Benign prostatic hyperplasia without lower urinary tract symptoms; Z68.30 Body mass index [BMI] 30.0-30.9, adult; Z79.84 Long term (current) use of oral hypoglycemic drugs; Z79.899 Other long term (current) drug therapy; Z87.11 Personal history of peptic ulcer disease; Z87.891 Personal history of nicotine dependence; Z90.49 Acquired absence of other specified parts of digestive tract; Z96.641 Presence of right artificial hip joint; Z87.19 Personal history of other diseases of the digestive system; Z99.81 Dependence on supplemental oxygen; Z86.711 Personal history of pulmonary embolism; Z87.440 Personal history of urinary (tract) infections; Z86.19 Personal history of other infectious and parasitic diseases; Z87.01 Personal history of pneumonia (recurrent)
CPT/HCPCS: 36415; 74177; 80053; 81001; 83036; 83690; 85025; 94640; 94760; 96374; 96375; 99285

== ENCOUNTER → 2021-09-30 | Outpatient (CLI) | payer MEDICARE ==
--- NOTE | 2021-09-30 21:16 | CT ---
EXAMINATION TYPE: CT lumbar spine wo con CT DLP: 1345.20 mGycm, Automated exposure control for dose reduction was used. DATE OF EXAM: 09/30/2021 12:32 PM COMPARISON: CT abdomen pelvis 03/13/2021. CLINICAL INDICATION:Male, 76 years old with history of M51.36, Degenerative disc disease TECHNIQUE: Multiple axial images were obtained from the midportion of T11 through the sacroiliac armaan nts. Soft tissue and bone windows in coronal and sagittal planes were obtained and reviewed. FINDINGS: Alignment: There are 5 lumbar type vertebral bodies within normal alignment. Bone: No evidence of fracture is identified. Multilevel disc degeneration changes with osteophyte fo rmation is present. Partially visualized right hip arthroplasty changes. Discs: T12-L1: No spinal canal or neural foraminal stenosis is identified. L1-L2: No spinal canal or neural foraminal stenosis is identified. L2-L3: No spinal canal or neural foraminal stenosis is identified. L3-L4: Disc bulge,, ligamentum flavum buckling/hypertrophy and facet joint arthropathy result in mild spinal canal stenosis. The bilateral neural foramen are patent. L4-L5: Disc bulge,, ligamentum flavum buckling/hypertrophy and facet joint arthropathy result in mil d spinal canal stenosis. The bilateral neural foramen are patent. L5-S1: No spinal canal stenosis is identified. Facet joint arthropathy and disc bulging result in mil d bilateral neural foraminal stenosis. Other: Arthrosclerosis of the arterial vasculature. IMPRESSION: 1. No evidence of fracture of the lumbar spine. 2. Mild multilevel disc degeneration with mild spinal canal stenosis at L3-4 and L4-5 secondary to di sc bulging, facet joint arthropathy and ligamentum flavum buckling/hypertrophy.
== END | disposition home or self-care (01) ==
LOC: RADCTMAIN 12:10
PROVIDERS: ATTEND Family Medicine
DX: M47.896 Other spondylosis, lumbar region (principal); M51.36 Other intervertebral disc degeneration, lumbar region
CPT/HCPCS: 72131

== ENCOUNTER → 2021-10-20 | Outpatient (CLI) | payer MEDICARE ==
[2021-10-20 14:18] VITALS: BP 133/64; PULSE 80; RESP 18; TEMP 98.2
--- NOTE | 2021-10-20 14:26 | P.CON ---
Consult Note - . Consult date: 10/20/21 Assessment/Plan:: HISTORY OF PRESENT ILLNESS: 76 yr old male as a referral from Dr Pyle presents today with severe and chronic LBP secondary to DDD, disc bulges, facet arthorpathy for evaluation. Patient states he has lower back pain that waxes and wanes in intensity throughout the day based on activity, but is generally 5 out of 10 in intensity, sharp in the lower aspects of his lumbar spine with occasional radiation of pain to the feet bilaterally. Pain is provoked with bending, lifting and twisting. Pain is relieved with medications (Sullivan, Neurontin from Dr. Pyle), chiropractic treatments in the past, daily home stretching regimen, supine, repositioning and extension of the lumbar spine, sitting and rest. Past Medical History: Asthma, COPD, Diabetes Mellitus II, Eye Disorder, GERD/Reflux, GI Bleed, Hyperlipidemia, Hypertension, Pneumonia, BPH Past Surgical History: Cholecystectomy, Hernia Repair, Joint Replacement, R Shoulder Repair with Anchors in place, L Ankle Fx with Hardware, R JUAN, BL Blepharoplasties, Tonsillectomy Additional Psychological History / Comment(s): Pt resides with his spouse. He uses 2 crutches to ambulate d/t back pain. He has home oxygen, nebulizer and glucometer. He no longer drives, his spouse can drive. Smoking Status: Former smoker (Started 1965. Quit 2010). No ETOH abuse. No illicit drug use. and lives with spouse. Family History: Father- Lung CA/ at age 90. Mother- at age 75. All: NKDA Meds: See list REVIEW OF ORGAN SYSTEMS: CONSTITUTIONAL: No fevers or chills. No recent weight loss. HEENT: No visual acuity loss, eye pain, difficulties with hearing. No nosebleeds. No difficulty swallowing. RESPIRATORY: Denies any troubles with breathing or dyspnea on exertion. CARDIOVASCULAR: Denies any chest pain, palpitations, or recent heart attacks. GASTROINTESTINAL: Denies fatty food intolerance. Has change in bowel habits and gas bloat. GENITOURINARY: Denies any blood in urine. Has increased urinary frequency. NEUROLOGICAL: + numbness and tingling along the distal extremities. No seizure disorders or headaches. MUSCULOSKELETAL: + back pain SKIN: No skin cancer. No rash. PSYCHIATRIC: Denies current depression or suicidal thought s. ENDOCRINE: Denies current thyroid disorders. Denies any blood sugar glucose intolerance. HEME/LYMPHATIC: Denies any lumps and bumps around the neck. History of deep venous thrombosis. ALLERGY/IMMUNOLOGY: No immunoglobulin therapy. No immune deficiencies. BREAST: Denies current breast lumps, pain or nipple dis charge. Physical Examinations : Constitutional : Cooperative , not in acute distress . HEENT: Neck supple. No Lymphadenopathy. Normal thyroid size . Eyes no ptosis , no icterus, no photophobia . Hearing intact. Normal oropharynx. No Thrush. Respiratory : Chest clear to auscultations bilaterally. No wheezing. No rhonchi. Cardiovascular : Regular rate and rhythm , S1 / S2. No S3 . No S4. Gastrointestinal : Abdomen soft. No tenderness. Bowel sounds x 4. No organomegaly . Genitourinary : Deferred. Neurologic : Cranial nerve II to XII intact. No focal neurological deficits. Psychiatric : alert & oriented x 3. Matching mood & appropriate affect. Judgment & insight intact. Lymphatic No Lymphadenopathy. Musculoskeletal : Cervical Spine Motor strength in the deltoid and biceps: Normal right side. Normal Left side Motor strength biceps and the wrist extensors: Normal right side . Normal left side Motor strength in the triceps muscle: Normal right side. Normal left side Deep tendon reflexes: Normal at the biceps. Normal at Brachioradialis. Normal at triceps Cervical facet loading test: positive bilaterally Spurling test: positive bilaterally Neck distraction test: positive bilaterally Dylan sign: positive bilaterally Lumbar spine Motor strength lower extremities ,thigh and legs 5/5 Right side , 5/5 Left side Deep tendon reflexes : Normal Knee Jerk. Normal Ankle Jerk Vertebral body tenderness over L4, L5 Lumbar facet Loading Test: positive Right / positive Left Range of motion of the lumbar spine Flexion 30 degrees, extension 10 degrees Straight Leg Raise test: Left/ Right positive at 30 degrees Jack test: positive right / positive left. Severe tenderness over the Sacroiliac joint on the Right / Left sides Gaenslen test: positive bilaterally Seated flexion test: positive bilaterally. Imaging: CT Scan Lumbar spine from 09/30/21 reviewed. Assessment/ Plan : Recommendation of LESI L4-L5. May need a series of injections, up to 3 within a 6 mo period, for optimal pain relief. Risks, benefits of procedure discussed and patient verbalized understanding. Denies aspirin or anti- coagulant use. Admits to medical history of diabetes. Protocol on discontinuation/ continuation of medications sylvia procedure discussed. All questions answered. I have spent greater than 50 minutes on patient care today. Dr Amos was available by phone for the evaluation of this patient. The time was used to review the medical records including relevant urine studies and Prescription history (MAPs), review of the available imaging, evaluation and examination of the patient, coordination of care with the medical staff and if applicable referring physicians, as well as creation of the medical record PQRS Measure Charge Sheet Mode of Arrival: Ambulatory - Pain Location Lower Back Non-Pharmacological Interventions: Chiropractic Treatment, Home Exercise, Inactivity, Position/Reposition, Stretching Pharmacological Interventions: PRN Medication, Scheduled Medication PQRS Narrative: Smoking Status Former smoker Blood Pressure 133/64 Pain Intensity [Lower Back] 3 Scale Used Numeric (1 - 10) Hx Alcohol Use (MH) No Home Medications: Ambulatory Orders Budesonide [Pulmicort] 0.5 mg INHALATION RT-QID 08/25/19 Formoterol Fumarate [Perforomist] 20 mcg INHALATION RT-BID 08/25/19 HYDROcodone/APAP 7.5-325MG [Sullivan 7.5-325] 1 tab PO TID PRN 08/25/19 Ipratropium-Albuterol Nebulize [Duoneb 0.5 mg-3 mg/3 ml Soln] 3 ml INHALATION RT-BID 08/25/19 Multivit-Min/FA/Lycopen/Lutein [Centrum Silver Tablet] 1 tab PO PC-SUPPER 08/25/19 Tamsulosin [Flomax] 0.8 mg PO PC-SUPPER 08/25/19 Losartan [Cozaar] 50 mg PO DAILY #30 tab 02/20/20 Aspirin/Sod Bicarb/Citric Acid [[place] Original Tab Eff] 1 tab PO BID PRN 02/06/21 Betamethasone Valerate [Betamethasone Valerate 0.1%] 1 applic TOPICAL DAILY 02/06/21 Ketoconazole 2% Shampoo [Nizoral] 1 applic TOPICAL MOWEFR 02/06/21 Pantoprazole [Protonix] 40 mg PO DAILY 02/06/21 Testosterone Cypionate [Depo-Testosterone] 200 mg IM Q14D 02/06/21 sitaGLIPtin [Januvia] 100 mg PO DAILY 02/25/21 Docusate [Colace] 100 mg PO BID #20 capsule 03/02/21 Ibuprofen [Motrin] 600 mg PO Q6HR PRN #40 tab 03/02/21 Acetaminophen Tab [Tylenol] 650 mg PO Q6H PRN 03/13/21 Gabapentin [Neurontin] 300 mg PO TID PRN 03/13/21 Morphine Sulfate ER [Ms Contin] 15 mg PO Q12HR PRN 03/13/21 Nystatin 100,000 Unit/gm Powd [Mycostatin Powder] 1 applic TOPICAL BID 03/13/21 Ofloxacin 0.3% Ophth Soln [Ocuflox Ophth Soln] 1 drops BOTH EYES DIRECTED 03/13/21 prednisoLONE ACETATE 1% OPHTH [Pred Forte 1%] 1 drops BOTH EYES DIRECTED 03/13/21
== END | disposition home or self-care (01) ==
LOC: PNWHC3 13:05
PROVIDERS: ATTEND Specialist
DX: M51.36 Other intervertebral disc degeneration, lumbar region (principal)
CPT/HCPCS: 99211

== ENCOUNTER 2025-01-15 22:32 | Emergency (ER) | payer MEDICARE ==
[2025-01-15 22:39] VITALS: TEMP 97.8
[2025-01-16 00:30] VITALS: PULSE 90
[2025-01-16 00:33] LABS: Basophils # (A) 0.07 10*3/uL (0.00-0.10); Basophils % (A) 0.9 %; Eosinophils # (A) 0.31 10*3/uL (0.04-0.35); Eosinophils % (A) 4.0 %; HCT 38.7 % (39.6-50.0); HGB 12.6 g/dL (13.0-17.0); Lymphocytes # (A) 2.32 10*3/uL (0.90-5.00); Lymphocytes % (A) 29.7 %; MCH 28.8 pg (27.0-32.0); MCHC 32.6 g/dL (32.0-37.0); MCV 88.4 fL (80.0-97.0); Monocytes # (A) 0.45 10*3/uL (0.20-1.00); Monocytes % (A) 5.8 %; Neutrophils # (A) 4.63 10*3/uL (1.80-7.70); Neutrophils % (A) 59.2 %; Platelet Count 328 10*3/uL (140-440); RBC 4.38 10*6/uL (4.40-5.60); RDW 14.2 % (11.5-14.5); WBC 7.81 10*3/uL (4.50-10.00)
[2025-01-16 01:06] LABS: ALT 43 U/L (4-49); African American GFR (CKD) 84 (>60 ml/min/1.73 sqM); Albumin 4.5 g/dL (3.5-5.0); Anion Gap 11 mmol/L; Blood Urea Nitrogen 14 mg/dL (9-20); Calcium 10.0 mg/dL (8.4-10.2); Carbon Dioxide 26 mmol/L (22-30); Chloride 102 mmol/L (98-107); Glucose 96 mg/dL (74-99); Non-African American GFR(CKD) 73 (>60 ml/min/1.73 sqM); Sodium 139 mmol/L (137-145); Total Protein 7.6 g/dL (6.3-8.2)
[2025-01-16 01:48] LABS: AST 114 U/L (17-59); Alkaline Phosphatase 87 U/L (38-126); Potassium 4.5 mmol/L (3.5-5.1)
[2025-01-16 02:53] VITALS: BP 177/92; RESP 18
--- NOTE | 2025-01-16 03:08 | ED ---
General Adult HPI - General Chief complaint: Recheck/Abnormal Lab/Rx Stated complaint: elevated BP rectal discharge Time Seen by Provider: 01/15/25 22:51 Source: patient Mode of arrival: wheelchair Limitations: no limitations - History of Present Illness Initial comments: 79-year-old male presenting with chief complaint of elevated blood pressure. Patient noticed his blood pressure to be elevated while checking it at home. He denies any chest pain, difficulty breathing, abdominal pain, headache, blurred vision. States that he normally takes medication for low blood pressure, does not have the medication with him to tell me exactly what it is at this time. He also states he has been having some clear discharge from the anus. He denies any rectal pain. No abdominal pain nausea or vomiting. No changes in his bowel habits. No fever or chills. Denies any rectal bleeding. Family states the patient has been a bit stressed out because his is currently not at home with him and he is taking care of their dogs on his own which is normally a shared task. - Related Data Home Medications Medication Instructions Recorded Confirmed Formoterol Fumarate [Perforomist] 20 mcg INHALATION RT-BID 08/25/19 11/28/21 HYDROcodone/APAP 7.5-325MG [[place] 1 tab PO TID PRN 08/25/19 11/28/21 7.5-325] Ipratropium-Albuterol Nebulize 3 ml INHALATION RT-BID 08/25/19 11/28/21 [Duoneb 0.5 mg-3 mg/3 ml Soln] Multivit-Min/FA/Lycopen/Lutein 1 tab PO PC-SUPPER 08/25/19 11/28/21 [Centrum Silver Tablet] Tamsulosin [Flomax] 0.8 mg PO PC-SUPPER 08/25/19 11/28/21 Aspirin/Sod Bicarb/Citric Acid 1 tab PO BID PRN 02/06/21 11/28/21 [Ruthie-[place] Original Tab Eff] Betamethasone Valerate [Luxiq 0.1%] 1 applic TOPICAL DAILY 02/06/21 11/28/21 Pantoprazole [Protonix] 40 mg PO DAILY 02/06/21 11/28/21 Testosterone Cypionate 200 mg IM Q14D 02/06/21 11/28/21 [Depo-Testosterone] sitaGLIPtin [Januvia] 100 mg PO DAILY 02/25/21 11/28/21 Acetaminophen Tab [Tylenol] 650 mg PO Q6H PRN 03/13/21 11/28/21 Gabapentin [Neurontin] 300 mg PO TID PRN 03/13/21 11/28/21 Insulin Glargine,Hum.rec.anlog 0 units SQ DAILY PRN 11/28/21 11/28/21 [Vasu Pradhanlandy] Previous Rx's Medication Instructions Recorded Losartan [Cozaar] 50 mg PO DAILY #30 tab 02/20/20 amLODIPine [Norvasc] 2.5 mg PO DAILY PRN #5 tablet 01/16/25 Allergies Allergy/AdvReac Type Severity Reaction Status Date / Time No Known Allergies Allergy Verified 01/15/25 22:39 Review of Systems ROS Statement: Those systems with pertinent positive or pertinent negative responses have been documented in the HPI. ROS Other: All systems not noted in ROS Statement are negative. Past Medical History Past Medical History: Asthma, COPD, Diabetes Mellitus, Eye Disorder, GERD/Reflux, GI Bleed, Hyperlipidemia, Hypertension, Pneumonia, Prostate Disord er Additional Past Medical History / Comment(s): Past bleeding gastric ulce rs/anemia with blood transfusion, color blind, neuropathy bilateral feet, home oxygen at 3L/NC prn, 2010 small blood clot in pulmonary vein, bronchitis, chronic low back pain/disc problem, BPH, past kidney infection/UTI, sinus problems.Chronic Anemia , PANCREATITIS History of Any Multi-Drug Resistant Organisms: None Reported Past Surgical History: Cholecystectomy, Hernia Repair, Joint Replacement, Orthopedic Surgery, Tonsillectomy Additional Past Surgical History / Comment(s): EGDs, colonoscopy, umbilical hernia repair, L ankle fracture with plate, R shoulder muscle damage repair with anchors in place, R total hip arthroplasty, sinus surgery x2, bilateral blepharoplasties. Past Anesthesia/Blood Transfusion Reactions: No Reported Reaction Additional Past Anesthesia/Blood Transfusion Reaction / Comment(s): Pt received blood in 2010 d/t anemia from bleeding ulcer without reaction. Past Psychological History: No Psychological Hx Reported Smoking Status: Former smoker Past Alcohol Use History: None Reported Past Drug Use History: None Reported - Past Family History Father Family Medical History: Cancer Additional Family Medical History / Comment(s): lung cancer Mother Additional Family Medical History / Comment(s): Mother was a "hypochondriac". P t states she at the age of 75yrs. General Exam Limitations: no limitations General appearance: alert, in no apparent distress Head exam: Present: atraumatic, normocephalic, normal inspection Eye exam: Present: normal appearance, EOMI Neck exam: Present: normal inspection. Absent: meningismus Respiratory exam: Present: normal lung sounds bilaterally. Absent: respiratory distress, wheezes, rales, rhonchi, stridor Cardiovascular Exam: Present: regular rate, normal rhythm, normal heart sounds. Absent: systolic murmur, diastolic murmur, rubs, gallop, clicks GI/Abdominal exam: Present: soft. Absent: distended, tenderness, guarding, rebound, rigid Rectal exam: Present: normal inspection, normal rectal tone. Absent: bloody stool, hemorrhoids, tenderness Neurological exam: Present: alert, oriented X3 Psychiatric exam: Present: normal affect, normal mood Skin exam: Present: warm, dry, normal color Course Vital Signs 01/15/25 01/16/25 01/16/25 22:36 00:00 02:53 Temperature 97.8 F Pulse Rate 92 90 90 Respiratory 18 20 18 Rate Blood Pressure 197/81 173/94 177/92 O2 Sat by Pulse 91 L 99 Oximetry Medical Decision Making - Medical Decision Making Was pt. sent in by a medical professional or institution (TOY Dyer, CANCER PROGRAM COORDINATOR, urgent care, hospital, or [facility]...) When possible be specific @ -No Did you speak to anyone other than the patient for history (EMS, parent, family, police, friend...)? What history was obtained from this source @ -family Did you review nursing and triage notes (agree or disagree)? Why? @ -I reviewed and agree with nursing and triage notes Were old charts reviewed (outside hosp., previous admission, EMS record, old EKG, old radiological studies, urgent care reports/EKG's, [facility] records)? Report findings @ -No old charts were reviewed Differential Diagnosis (chest pain, altered mental status, abdominal pain women, abdominal pain men, vaginal bleeding, weakness, fever, dyspnea, syncope, headache, dizziness, GI bleed, back pain, seizure, CVA, palpatations, mental health, musculoskeletal)? @ -Differential includes idiopathic hypertension, stress-induced, ACS, infection, not an all-inclusive list EKG interpreted by me (3pts min.). @ -Initial EKG shows evidence of artifact. Repeat shows sinus rhythm with occasional supraventricular premature complexes. Ventricular rate 82. PA interval 190 QRS 128 QT 373 QTc 412 X-rays interpreted by me (1pt min.). @ -None done CT interpreted by me (1pt min.). @ -None done U/S interpreted by me (1pt. min.). @ -None done What testing was considered but not performed or refused? (CT, X-rays, U/S, labs)? Why? @ -None What meds were considered but not given or refused? Why? @ -None Did you discuss the management of the patient with other professionals (professionals i.e. , PA, CANCER PROGRAM COORDINATOR, lab, RT, psych nurse, social media marketing specialist, senior capital markets specialist, teacher, foreign policy officer, field case manager)? Give summary @ -No Was smoking cessation discussed for >3mins.? @ -No Was critical care preformed (if so, how long)? @ -No Were there social determinants of health that impacted care today? How? (Homelessness, low income, unemployed, alcoholism, drug addiction, transportation, low edu. Level, literacy, decrease access to med. care, fpc, rehab)? @ -No Was there de-escalation of care discussed even if they declined (Discuss DNR or withdrawal of care, Hospice)? DNR status @ -No What co-morbidities impacted this encounter? (DM, HTN, Smoking, COPD, CAD, Cancer, CVA, ARF, Chemo, Hep., AIDS, mental health diagnosis, sleep apnea, morbid obesity)? @ -None Was patient admitted / discharged? Hospital course, mention meds given and route, prescriptions, significant lab abnormalities, going to OR and other pertinent info. @ -79-year-old male presented with chief complaint of elevated blood pressure and clear discharge from the anus. History and physical examination are conducted. Negative stool occult blood. Normal inspection and tone on exam. AST 114 hemoglobin 12.6. Lab work requires no immediate action. Patient is hypertensive with blood pressure of 173/94, however he is asymptomatic. He is educated on today's findings. He is provided with Norvasc 2.5 for home 5 tablets. He is instructed to follow-up with his PCP on Sunday. Follow-up with PCP. Report back to ER with any new or worsening symptoms. Discussed return parameters and answered all questions. Patient conveyed verbal understanding and agreed to the plan. I discussed this case in detail with my attending Dr. Arndt Undiagnosed new problem with uncertain prognosis? @ -No Drug Therapy requiring intensive monitoring for toxicity (Heparin, Nitro, Insulin, Cardizem)? @ -No Were any procedures done? @ -No Diagnosis/symptom? @ -Asymptomatic hypertension Acute, or Chronic, or Acute on Chronic? @ -Acute Uncomplicated (without systemic symptoms) or Complicated (systemic symptoms)? @ -Uncomplicated Side effects of treatment? @ -No Exacerbation, Progression, or Severe Exacerbation? @ -No Poses a threat to life or bodily function? How? (Chest pain, [place], [place], pneumonia, PE, COPD, DKA, ARF, appy, cholecystitis, CVA, Diverticulitis, Homicidal, Suicidal, threat to staff... and all critical care pts) @ -Unlikely - Lab Data Result diagrams: 01/15/25 22:49 01/15/25 22:49 Lab Results 01/15/25 01/15/25 01/15/25 Range/Units 22:49 22:49 22:49 WBC 7.81 (4.50-10.00) 10*3/uL RBC 4.38 L (4.40-5.60) 10*6/uL Hgb 12.6 L (13.0-17.0) g/dL Hct 38.7 L (39.6-50.0) % MCV 88.4 (80.0-97.0) fL MCH 28.8 (27.0-32.0) pg MCHC 32.6 (32.0-37.0) g/dL Plt Count 328 (140-440) 10*3/uL MPV 10.7 (9.5-12.2) fL Immature Gran % (Auto) 0.4 % Neutrophils % 59.2 % Lymphocytes % 29.7 % Monocytes % 5.8 % Eosinophils % 4.0 % Basophils % 0.9 % Immature Gran # 0.03 (0.00-0.04) 10*3/uL Neutrophils # 4.63 (1.80-7.70) 10*3/uL Lymphocytes # 2.32 (0.90-5.00) 10*3/uL Monocytes # 0.45 (0.20-1.00) 10*3/uL Eosinophils # 0.31 (0.04-0.35) 10*3/uL Basophils # 0.07 (0.00-0.10) 10*3/uL Sodium 139 (137-145) mmol/L Potassium 4.5 (3.5-5.1) mmol/L Chloride 102 (98-107) mmol/L Carbon Dioxide 26 (22-30) mmol/L Anion Gap 11 mmol/L BUN 14 (9-20) mg/dL Creatinine 0.99 (0.66-1.25) mg/dL Est GFR (CKD-EPI)AfAm 84 (>60 ml/min/1.73 sqM) Est GFR (CKD-EPI)NonAf 73 (>60 ml/min/1.73 sqM) Glucose 96 (74-99) mg/dL Calcium 10.0 (8.4-10.2) mg/dL Total Bilirubin 0.7 (0.2-1.3) mg/dL AST 114 H (17-59) U/L ALT 43 (4-49) U/L Alkaline Phosphatase 87 (38-126) U/L Troponin I 0.012 (0.000-0.034) ng/mL Total Protein 7.6 (6.3-8.2) g/dL Albumin 4.5 (3.5-5.0) g/dL Stool Occult Blood (Negative) 01/15/25 Range/Units 23:25 WBC (4.50-10.00) 10*3/uL RBC (4.40-5.60) 10*6/uL Hgb (13.0-17.0) g/dL Hct (39.6-50.0) % MCV (80.0-97.0) fL MCH (27.0-32.0) pg MCHC (32.0-37.0) g/dL Plt Count (140-440) 10*3/uL MPV (9.5-12.2) fL Immature Gran % (Auto) % Neutrophils % % Lymphocytes % % Monocytes % % Eosinophils % % Basophils % % Immature Gran # (0.00-0.04) 10*3/uL Neutrophils # (1.80-7.70) 10*3/uL Lymphocytes # (0.90-5.00) 10*3/uL Monocytes # (0.20-1.00) 10*3/uL Eosinophils # (0.04-0.35) 10*3/uL Basophils # (0.00-0.10) 10*3/uL Sodium (137-145) mmol/L Potassium (3.5-5.1) mmol/L Chloride (98-107) mmol/L Carbon Dioxide (22-30) mmol/L Anion Gap mmol/L BUN (9-20) mg/dL Creatinine (0.66-1.25) mg/dL Est GFR (CKD-EPI)AfAm (>60 ml/min/1.73 sqM) Est GFR (CKD-EPI)NonAf (>60 ml/min/1.73 sqM) Glucose (74-99) mg/dL Calcium (8.4-10.2) mg/dL Total Bilirubin (0.2-1.3) mg/dL AST (17-59) U/L ALT (4-49) U/L Alkaline Phosphatase (38-126) U/L Troponin I (0.000-0.034) ng/mL Total Protein (6.3-8.2) g/dL Albumin (3.5-5.0) g/dL Stool Occult Blood Negative (Negative) Disposition Clinical Impression: Asymptomatic hypertension Disposition: HOME SELF-CARE Condition: Fair Instructions (If sedation given, give patient instructions): Hypertension (ED) Additional Instructions: Follow-up with your PCP. Report back to ER with any new or worsening symptoms, including but not limited to chest pain, difficulty breathing, abdominal pain, headache, blurred vision. Take your blood pressure regularly each day, take this at consistent times, for example breakfast lunch and dinner. If you have 3 elevated blood pressure readings above 175 as the top number take one of the pills prescribed to you today. If this does not improve the blood pressure seek reevaluation. Prescriptions: amLODIPine [Norvasc] 2.5 mg PO DAILY PRN #5 tablet PRN Reason: Hypertension Is patient prescribed a controlled substance at d/c from ED?: No Referrals: Link Pyle MD [Primary Care Provider] - 1-2 days Time of Disposition: 03:07
== END 2025-01-16 03:20 | disposition home or self-care (01) ==
LOC: EC 22:32
DX: I10 Essential (primary) hypertension (principal); Z87.891 Personal history of nicotine dependence
CPT/HCPCS: 36415; 80053; 82272; 84484; 85025; 99283